=== PATIENT | male | born 1965 | race Caucasian/White ===

== ENCOUNTER 2023-11-27 16:18 | Observation (INO) | payer OTHER, SELFPAY ==
[2023-11-27] VITALS (16 sets, daily range): BP systolic 148–194; BP diastolic 80–108; BMI 33.5; BMI 35.8
--- NOTE | 2023-11-27 07:43 | ED.GENMED ---
Addendum entered and electronically signed by Jackson Pruitt, 11/27/23 15:14:
At 3 PM, I performed a quick look bedside echo of the heart at the request of internal medicine. There may be a small pericardial effusion but I see no sign of tamponade and wall motion appears grossly normal.
Addendum entered and electronically signed by Jackson Pruitt, 11/27/23 13:22:
At 1:15 PM, after I had planned discharge, the patient had an episode of rather severe dyspnea and appeared obviously dyspneic. He also had associated lightheadedness. He had a general unwell appearance. He has been observed for the past 6 hours
in the ED and is not improving. Therefore plan keeping patient in the hospital.
Original Note:
History of Present Illness
General
Chief Complaint: Chest Pain
Time Seen by Provider: 11/27/23 07:43
Travel History
Have you had any contact with someone who has COVID-19?: No
Do you have any symptoms of coronavirus? Fever > 100 degrees, chills, cough, shortness of breath, sore throat, loss of taste or smell, muscle aches, or headache?: No
History of Present Illness
History of Present Illness:
HPI: Patient presents with chest tightness. This is localized in a relatively small area just inferior to the left breast region. The symptoms started approximately 4 hours ago. He has somewhat of a pleuritic discomfort on the left side.
Symptoms do not worsen with position changes. He reports some shortness of breath. He denies any significant past medical history. He never smoked. He states he had a unremarkable cardiac evaluation about a year ago. He does drink alcohol daily
EXAM:
GENERAL: Well appearing in only mild distress
HEENT: Moist oral mucosa
CARDIOVASCULAR: No murmurs, normal heart rate and rhythm, No chest wall tenderness, some mild pain with rotation of the torso
PULMONARY: No respiratory distress, breath sounds are clear and equal
ABDOMEN: Soft with no peritoneal signs, no tenderness, elevated BMI
NEUROLOGIC: Excellent strength all extremities, no coordination deficits
PSYCHIATRIC: Appropriate mental status, normal insight and judgement
EXTREMITIES: Nontender, no edema, moves all extremities equally
SKIN: No rash, no lesions
ED COURSE:
7:45 AM: I initially evaluated patient
NUMBER AND COMPLEXITY OF PROBLEMS ADDRESSED AT THE ENCOUNTER
� Chronic conditions affecting care: The patient denies high blood pressure, denies diabetes, denies hyperlipidemia, denies smoking, father had heart attack at the age of 65 and from heart attack at the age of 70, mother had
cardiomyopathy
� Acute Exacerbation and/or Progression of Chronic Illness: This is an acute problem
� Differential Diagnosis includes: ACS, chest wall pain, PE, pneumothorax, pneumonia unlikely
AMOUNT AND/OR COMPLEXITY OF DATA TO BE REVIEWED AND ANALYZED
� I performed an independent evaluation of and my interpretation is:
EKG: Sinus 92, QTc 474 ms, no acute ST abnormality, artifact noted in V1
CT:
X-rays: Chest x-ray is negative
Laboratory Studies: Elevated D-dimer, 2 troponins are negative. LFTs abnormal consistent with alcoholism
Other: Nuc med study was reviewed and was felt to be a low risk study by radiology
� Review of other/old records: Basic blood work from August 2022 was unremarkable
� Clinical information was obtained by an independent historian: I spoke to the at bedside
� Prescriptions/Medications Considered but not given:
� Further testing considered but not performed:
RISK OF COMPLICATIONS AND/OR MORBIDITY OR MORTALITY OF PATIENT MANAGEMENT
� Social determinants of health affecting care: Lives at home with
� Discussion with other providers: I called [facility] but there was no answer
� Escalation of care including admission/observation vs risk of discharge considered: Given abrupt onset of symptoms that is somewhat pleuritic associate with shortness of breath, I initially offered and recommended CTA however
the patient states that he had 'near experience/2 seizures' when given diet for what sound like a CT myelogram in the . He absolutely refuses CTA at this time. Check D-dimer. D-dimer elevated, patient currently in V/Q as of noon. VQ
negative. The patient appears fairly comfortable on reassessment 12:45 PM. The patient again describes the pain location is a relatively small area. 2 troponins have been negative. He wishes to follow-up with Dr. Reno's group. Patient's liver
abnormality likely due to alcohol use however I do not think that this is the cause of his symptoms as all of his symptoms are on the left side.
Phy Exam
Physical Exam
Physical Exam:
See HPI
Scores
Heart Score for Chest Pain Patients
STEMI patient?: Not applicable
Course
Orders/Labs/Results
Orders:
Orders
11/27/23 07:35
EKG [Electrocardiogram (*1)] Urgent
Reason for Study: Chest Pain
EKG- Treatment ONCE
11/27/23 07:54
CR Chest - 2 Views Urgent
Comment:
Reason For Exam: L cp abrupt
11/27/23 07:59
Complete Blood Count/With Diff Urgent
Comprehensive Metabolic Panel Urgent
D-Dimer Urgent
Magnesium Urgent
Troponin I Urgent
11/27/23 08:29
Ketorolac [Toradol] 15 mg IV NOW STA
11/27/23 08:31
Nm Lung Scan Vent/Perf Routine
Reason For Exam: high ddimer, life threatening reaction to contrast
11/27/23 09:26
Troponin I Urgent
Abnormal Lab Results
11/27/23
07:59
RBC 4.10 L 10^6/uL
(4.70-6.10)
MCV 95.1 H fL
(80.0-94.0)
MCH 34.4 H pg
(27.0-31.0)
Plt Count 46 L 10^3/uL
(130-400)
Absolute Lymphs (auto) 0.9 L 10^3/uL
(1.2-3.4)
Lymphocytes % 15.5 L %
(20.5-51.1)
D-Dimer 1.19 H ug/mlFEU
(0.00-0.50)
BUN 6 L mg/dl
(9-20)
Creatinine 0.5 L mg/dL
(0.7-1.3)
Glucose 121 H mg/dl
(70-99)
Total Bilirubin 1.6 H mg/dl
(0.2-1.3)
AST 423 H U/L
(17-59)
ALT 107 H U/L
(0-50)
Alkaline Phosphatase 196 H U/L
(38-126)
11/27/23 07:59
11/27/23 07:59
Vital Signs
Initial and Last Documented VS:
Initial Vital Signs
Temp Pulse Resp BP Pulse Ox
99 F 99 18 176/104 96
11/27/23 07:36 11/27/23 07:36 11/27/23 07:36 11/27/23 07:36 11/27/23 07:36
Last Documented Vital Signs
Temp Pulse Resp BP Pulse Ox
99 F 102 16 163/83 95
11/27/23 07:36 11/27/23 13:00 11/27/23 13:00 11/27/23 13:00 11/27/23 13:00
*Critical Care Note
Total Time (30-74mins, 75-104mins- exclusive of procedures): Not Applicable
ED Attending Note
-
Portions of this chart may have been created with voice recognition software.� Occasional wrong word or��sound alike� substitutions may have occurred due to the inherent limitations of voice recognition software.
Discharge Plan
Departure
Patient Disposition: Home (Routine Discharge)
Date of Disposition: 11/27/23
Time of Disposition: 12:59
Patient with high blood pressure during this ER visit?: Yes
Discharge Problem:
Chest pain
Instructions: Chest Pain CBC Follow Up
Prescriptions:
No Action
cyclobenzaprine 10 MG tablet
10 mg PO TIDPRN PRN (Reason: pain) Qty: 12 0RF
Referrals:
Rehan Morillo CRNP [Family Provider] -
Activity Restrictions/Additional Instructions:
2 cardiac blood tests are normal. EKG shows no sign of any clear abnormality. Your liver numbers are abnormal and I strongly recommend decreasing alcohol use. I was unable to personally talk anybody from [facility] (to help with alcohol). The
outpatient phone number to call for [facility] is [phone]. The VQ scan did not show any sign of a blood clot and was felt to be 'low probability'. Follow-up with your primary care doctor regarding the liver function test abnormality as well.
Interventions
Interventions:
*Risk Screen - Suicide Last Done: 11/27/23 07:36
*General Assessment Last Done: 11/27/23 08:06
*Neglect/Abuse Screening Last Done: 11/27/23 07:36
ED- Fall Risk Assessment Last Done: 11/27/23 08:03
*ED COVID-19 Vaccine History Last Done: 11/27/23 08:03
ED- Cardiac Assessment Last Done: 11/27/23 08:04
[2023-11-27 08:20] LABS: D-Dimer 1.19 ug/mlFEU (0.00-0.50)
[2023-11-27 08:21] LABS: % Basophils 0.7 % (0-2); % Immature Granulocytes 0.2 % (0-0.5); % Lymphocytes 15.5 % (20.5-51.1); % Monocytes 7.9 % (1.7-9.3); % Neutrophils 73.7 % (42.2-75.2); Absolute Eosinophils 0.1 10^3/uL (0-0.7); Absolute Lymphocytes 0.9 10^3/uL (1.2-3.4); Absolute Monocytes 0.4 10^3/uL (0.1-0.6); Absolute Neutrophils 4.1 10^3/uL (1.4-6.5); Hemoglobin 14.1 g/dL (13.0-18.0); Mean Corp Hgb Conc. 36.2 g/dL (33.0-37.0); Mean Corpuscular Hgb 34.4 pg (27.0-31.0); Mean Corpuscular Volume 95.1 fL (80.0-94.0); Mean Platelet Volume 10.4 fL (7.4-10.4); Nucleated Red Blood Cells % 0 % (-); Platelet Count 46 10^3/uL (130-400); Red Cell Dist. Width 14.3 % (11.5-14.5); White Blood Cell Count 5.5 10^3/uL (4.8-10.8)
[2023-11-27] MEDS: TORADOL 15 MG IV (08:33)
[2023-11-27 08:45] LABS: ALT (SGPT) 107 U/L (0-50); AST (SGOT) 423 U/L (17-59); Albumin 4.3 g/dl (3.5-5.0); Alkaline Phosphatase 196 U/L (38-126); Blood Urea Nitrogen 6 mg/dl (9-20); Calcium 8.8 mg/dl (8.4-10.2); Carbon Dioxide 26 mmol/L (22-30); Chloride 101 mmol/L (98-107); Estimated Creatinine Clearance > 125 ml/min; Glucose 121 mg/dl (70-99); Magnesium 1.8 mg/dl (1.6-2.3); Potassium 3.6 mmol/L (3.5-5.1); Sodium 139 mmol/L (135-145); Total Bilirubin 1.6 mg/dl (0.2-1.3); Total Protein 7.4 g/dl (6.3-8.2); Troponin I < 0.012 ng/ml; eGFR > 60.00
[2023-11-27 10:02] LABS: Troponin I < 0.012 ng/ml
--- NOTE | 2023-11-27 13:30 | PTCARENOTE ---
Pt ready for discharge. Pt got dressed with spouse at bedside. Pt states he had a a sudden onset of SOB and c/o dizziness. [facility] bedside to evaluate pt. Pt unable to be discharged today. Will admit to Hospital for further evaluation and
testing. Pt and spouse advised.
[2023-11-27 14:05] LABS: NT-proBNP 32.5 pg/ml
--- NOTE | 2023-11-27 15:27 | HPS.HSE ---
Addendum entered and electronically signed by Ludmila Barksdale DO 11/27/23 16:35:
#Discussed with Cardiology - HTN urgency, possible HTN crisis, on differential is also pericarditis or pericardial effusion though less likely
-Labetolol IV now and prn
-aspirin 325 mg once now
Original Note:
Family Physician
-
Family Physician: MAURO Mcdowell
Chief Complaint
-
Chest pain, SOB
History of Present Illness
The patient is a 58 yo male with PMH significant for alcohol abuse (vodka) daily, last drink 2 days prior, and severe iodine dye allergy, presents to the ED due to chest pain that is left-sided, non-radiating, present at rest, localized to the left
breast region, not relieved by rest nor any particular activity. He has been having significant dyspnea that started this morning acutely, is at rest and worse with exertion, no URI symptoms. His cardiac work-up in ED was negative and the patient
was going to be DCd home, however experienced acute dyspnea when he got up to put on his clothing. Dyspnea is not associated with hypoxia, O2 has been stable on room air. D-Dimer is elevated, VQ scan was low probability, CXR without acute pathology,
troponin is negative, EKG without evidence for acute ischemia. LFTs are elevated. No history of smoking, no drug use.
Medical History
Past Medical History
Past Medical History: Reports Other (alcohol abuse- a large cup of Vodka (or more) daily)
Past Surgical History: Reports Orthopedic (Left knee replacement)
Social History
Tobacco: Non-smoker
Alcohol: Chronic Alcoholic
Drug: None
Personal:
Living: With Family
Family History
Family History: CAD (stroke and myocardial infarction father and grandfather)
Allergies / Home Medications
Allergies reflects when Allergies were last updated in [facility].
Home Medications with original date entered in [facility]
Allergy/Medication List:
Allergies
Allergy/AdvReac Type Severity Reaction Status Date / Time
Iodinated Contrast Media Allergy Shortness Verified 11/27/23 07:36
of Breath
Home Medications
cetirizine 10 mg tablet (Zyrtec) 10 mg PO DAILY PRN congestion/allergies 11/27/23
pseudoephedrine-guaifenesin ER 60 mg-600 mg tablet,extend release 12hr (Mucinex D) 1 tab PO Q12H 11/27/23
Review of Systems
-
A 12 point ROS was completed and negative except as noted: Yes
Physical Exam
Vital Signs
Vital Signs
Temp Pulse Resp BP Pulse Ox
99 F 107 20 163/83 96
11/27/23 07:36 11/27/23 14:30 11/27/23 14:30 11/27/23 13:00 11/27/23 14:30
Physical Exam
General: Well Developed, Well Nourished and Conversant
HEENT: NormoCephalic, Anicteric and Moist mucous membranes
Respiratory: Clear
Cardiac: S1/S2, Regular Rhythm and Tachycardia
GI: Soft, Non Tender and Non Distended
Musculoskeletal: No Clubbing, No Cyanosis and No Edema
Skin: Warm and Dry
Neuro: AO x 3 and No Motor Deficits
Psych: Calm
Laboratory Results
-
11/27/23 07:59
11/27/23 07:59
Laboratory Results
Total Bilirubin 1.6 mg/dl (0.2-1.3) H 11/27/23 07:59
AST 423 U/L (17-59) H 11/27/23 07:59
ALT 107 U/L (0-50) H 11/27/23 07:59
Alkaline Phosphatase 196 U/L (38-126) H 11/27/23 07:59
Troponin I < 0.012 ng/ml 11/27/23 09:26
Data Reviewed
-
Diagnostic Radiology: Image Personally Visualized and interpreted and Report Reviewed by me (CXR no acute process, VQ scan low probability for PE)
Medical Tests (Nuc Med, Echo, EKG etc): Image Personally Visualized and interpreted and Report Reviewed by me (EKG-prolonged QT, NSR, non-specific T wave abnormalities, no changes from 09/14/22)
Impression/Plan
-
IMPRESSION:The patient is a 58 yo male with PMH significant for alcohol abuse (vodka) daily, last drink 2 days prior, and severe iodine dye allergy, presents to the ED due to chest pain that is left-sided, non-radiating, present at rest, localized
to the left breast region, not relieved by rest nor any particular activity. He has been having significant dyspnea that started this morning acutely, is at rest and worse with exertion, no URI symptoms. His cardiac work-up in ED was negative and
the patient was going to be DCd home, however experienced acute dyspnea when he got up to put on his clothing. Dyspnea is not associated with hypoxia, O2 has been stable on room air. D-Dimer is elevated, VQ scan was low probability, CXR without
acute pathology, troponin is negative, EKG without evidence for acute ischemia. LFTs are elevated. No history of smoking, no drug use.
Bedside echo in ED performed-no evidence for large pericardial effusion
#Chest pain, persistent, localized, left-sided slight pain over pancrease- concern for ACS versus musculoskeletal vs pancreatitis
-telemetry, serial trop, Cardiology consultation
-EKG in am, of note patient w prolonged QT
-lipase pending
#Dyspnea and dizziness with standing, low-probability VQ scan, patient with severe reaction to dye and refused CT scan with premedication due to prior reaction (grand mal seizures), possibly metabolic in nature in the setting of alcoholism and
alcohol hepatitis
-check ABG
-pulse oximetry monitoring
-check orthostatics
-Pulmonary consultation appreciated, unclear etiology for relatively acute onset dyspnea
-formal echocardiogram pending
#Alcoholic, last drink 1-2 days prior
-monitor for signs of withdrawal, withdrawal protocol
-thiamine, folate, MVI
#Likely alcohol hepatitis
-repeat CMP in am
-supportive management and monitor
-check lipase
DVT proph-PCDs
Full code
[2023-11-27] MEDS: ROBITUSSIN 200 MG PO (16:10)
[2023-11-27] MEDS: MORPHINE SULFATE 2 MG IV (16:11)
[2023-11-27] MEDS: TRANDATE 10 MG IV ×2 (16:20→17:53)
[2023-11-27] MEDS: ASPIRIN ENTERIC COATED 325 MG PO (16:20)
[2023-11-27] MEDS: ZOFRAN 4 MG IV (16:23)
[2023-11-27 16:52] LABS: Lipase 149 U/L (23-300)
[2023-11-27 16:59] LABS: Urine Albumin Trace (Neg - Trace); Urine Bilirubin 1+ (Negative); Urine Character Clear (Clear); Urine Color Amber; Urine Glucose Negative (Negative); Urine Ketone 2+ (Negative); Urine Leukocyte Trace (Negative); Urine Nitrite Positive (Negative); Urine Occult Blood Negative (Negative); Urine Specific Gravity 1.025 (<1.030); Urine Urobilinogen 3+ (Neg - 1+)
[2023-11-27 17:06] LABS: APTT 33.1 Sec (23.4-35.0)
[2023-11-27 17:10] LABS: Alcohol 55 mg/dl; GGTP 1305 U/L (15-73); Phosphorus 4.1 mg/dl (2.5-4.5)
[2023-11-27 17:16] LABS: B-Hydroxybutyrate 0.87 mmol/L (0.02-0.27)
[2023-11-27 17:17] LABS: Urine Mucus Moderate
[2023-11-27 17:18] LABS: Troponin I < 0.012 ng/ml; Urine Bacteria Moderate (Negative); Urine Red Blood Cell 0-2 /HPF (0-2); Urine White Cell 0-2 /HPF (0-5)
[2023-11-27 17:20] LABS: B.E. 1.8 mmol/L; HCO3 25.7 mmol/L (21-28); O2 Saturation % 96.4 % (94-98); PCO2 37 mmHg (35-48); PO2 77 mmHg (83-108); pH 7.45 (7.35-7.45)
[2023-11-27] MEDS: FOLVITE 1 MG PO (17:43)
[2023-11-27] MEDS: ATIVAN 1 MG PO ×2 (17:59→21:02)
[2023-11-27 18:16] LABS: Amphetamines Negative (Negative); Barbiturates Negative (Negative); Benzodiazepines Negative (Negative); Buprenorphine Negative (Negative); Cocaine Negative (Negative); Marijuana Negative (Negative); Methadone Negative (Negative); Methamphetamines Negative (Negative); Opiates Positive (Negative); Phencyclidine Negative (Negative); Tricyclic Antidepressants Negative (Negative)
--- NOTE | 2023-11-27 19:03 | CON.CAR ---
Consultation
Consultation Request
Date/Time Consultation Requested: 11/27/2023
Date/Time Consultation Performed: 11/27/2023
Requesting Provider: Dr. Barksdale
Performing Provider: Dr. Cleary
Reason for Consultation: Chest pain
Medical History
-
Chief Complaint: Chest pain
History of Present Illness:
58-year-old male with untreated hypertension (patient stopped amlodipine 1 year ago after taking it for only 3 months), alcoholism (3 cups of vodka straight essentially daily), obesity, and likely untreated obstructive sleep apnea ( states that
he snores very loudly and has disrupted breathing) presenting with chest pain and shortness of breath. The patient states that the shortness of breath has been occurring for the past few weeks, but the chest pain began today and has been constant.
It is an achy/pressure-like sensation located underneath his left breast crease and it hurts when he presses down on it.
Past Medical History
Past Medical History: HTN (Untreated)
Past Surgical History: Orthopedic (Left knee replacement surgery)
Social History
Tobacco: Non-Smoker
Alcohol: Chronic Alcoholic
Drug: None
Personal:
Living: With Family
Family History
Family History: CAD
Allergies / Home Medications
Allergy/AdvReac Type Severity Reaction Status Date / Time
Iodinated Contrast Media Allergy Shortness Verified 11/27/23 07:36
of Breath
Medication Instructions Recorded Confirmed Type
cetirizine 10 mg tablet (Zyrtec) 10 mg PO DAILY PRN 11/27/23 11/27/23 History
congestion/allergies
pseudoephedrine-guaifenesin ER 60 1 tab PO Q12H 11/27/23 11/27/23 History
mg-600 mg tablet,extend release
12hr (Mucinex D)
Review of Systems
-
All other systems: Negative unless noted
Respiratory: Trouble Breathing
Cardiac: Chest Pain
Physical Exam
Vital Signs
Temp Pulse Resp BP Pulse Ox
99.1 F 100 16 194/108 96
11/27/23 19:00 11/27/23 19:00 11/27/23 19:00 11/27/23 19:00 11/27/23 19:00
Lab Results
11/27/23 07:59
11/27/23 07:59
Troponin I < 0.012 ng/ml 11/27/23 16:43
Llv-O-Mnjbtiexsup Pept 32.5 pg/ml 11/27/23 07:59
Physical Exam
General: No Apparent Distress and Comfortable
HEENT: Normocephalic
Respiratory: Clear
Cardiac: S1/S2 and Murmur (10/30)
Breast: N/A
GI: Soft
Rectal: Deferred by Provider
Musculoskeletal: No Clubbing, No Cyanosis and No Edema
Skin: Warm and Dry
Neuro: AO x 3
Psych: Calm
Impression / Plan
-
58-year-old male with untreated hypertension (patient stopped amlodipine 1 year ago after taking it for only 3 months; although his blood pressure was 186/112 mmHg at a previous ER visit in 2018), alcoholism (3 cups of vodka straight essentially
daily), obesity, and likely untreated obstructive sleep apnea ( states that he snores very loudly and has disrupted breathing) presenting with chest pain and shortness of breath. The patient states that the shortness of breath has been
occurring for the past few weeks, but the chest pain began today and has been constant. It is an achy/pressure-like sensation located underneath his left breast crease and it hurts when he presses down on it. On admission, patient had uncontrolled
hypertension with a blood pressure of 176/104.
Musculoskeletal chest pain:
-Reproducible on examination; pain control as per primary team.
-No signs for ACS; cardiac enzymes negative and EKG unremarkable.
Uncontrolled hypertension:
-Patient has had untreated hypertension for years.
-Will start lisinopril 10 mg daily, spironolactone 25 mg daily, and Toprol-XL 25 mg daily for now; uptitrate as needed.
-Obtain an echocardiogram on Wednesday to thoroughly assess cardiac function.
Alcoholism:
-The typically patient drinks 3 cups of vodka daily.
-His last drink was 2 days ago; starting to show some signs of withdrawal.
-Management as per the primary team.
Obesity:
-Aggressive weight loss is recommended.
-Will check lipid panel.
-TSH is abnormal (10); management as per primary team--should check free T4.
-Recommend outpatient sleep study, as he likely has undiagnosed AMOL.
Thyroid dysfunction:
-TSH is abnormal (10); management as per primary team--should check free T4.
Data Reviewed
-
EKG: Tracing Personally Visualized and interpreted (Sinus rhythm at 92 bpm with incomplete right bundle branch block and nonspecific T wave abnormality.)
Medical Tests (Nuc Med, Echo etc): Discussed with Physician, Discussed with Patient and Discussed with Family ( at bedside)
Labs: Labs Reviewed by me and Discussed with Physician
[2023-11-27 19:26] LABS: Fentanyl, Urine Negative (Negative)
--- NOTE | 2023-11-27 19:38 | CON.PUL ---
Consultation
Consultation Request
Date/Time Consultation Requested: 11-27-23
Date/Time Consultation Performed: 11-27-23
Requesting Provider: Hospitalist
Performing Provider: Dr Malone
Reason for Consultation: dyspnea
Medical History
-
Chief Complaint: dyspnea
History of Present Illness:
Mr Sulaiman Spann is a 58/M adm 11-27 with acute precordial CP on DOA.
At ER, negative cardiac work up.
Ready for d/c but presented acute dyspnea while put on his clothes, however, no hypoxemia while on RA. Elevated D-dimer, V/Q low prob
No personal or FH of VTE
Denies JOAQUIM edema
LLNS. No personal h/o cancer
Past Medical History
Past Medical History: Other (see A&P for PMH/PSH)
Social History
Tobacco: Non-smoker
Alcohol: Chronic Alcoholic
Drug: None
Personal:
Living: With Family
Family History
Family History: CAD (F)
Allergies / Home Medications
Allergies
Allergy/AdvReac Type Severity Reaction Status Date / Time
Iodinated Contrast Media Allergy Shortness Verified 11/27/23 07:36
of Breath
Home Medications
Medication Instructions Recorded Confirmed Last Taken Type
cetirizine 10 mg tablet (Zyrtec) 10 mg PO DAILY PRN 11/27/23 11/27/23 Unknown History
congestion/allergies
pseudoephedrine-guaifenesin ER 60 1 tab PO Q12H 11/27/23 11/27/23 11/26/23 History
mg-600 mg tablet,extend release
12hr (Mucinex D)
Review of Systems
-
History Source: Patient
All other systems: Negative unless noted
Respiratory: Trouble Breathing
Cardiac: Chest Pain
Vitals / Labs / Diagnostic Testing
Vital Signs
Temp Pulse Resp BP Pulse Ox
99.1 F 100 16 194/108 96
11/27/23 19:00 11/27/23 19:00 11/27/23 19:00 11/27/23 19:00 11/27/23 19:00
Lab Data
11/27/23 07:59
11/27/23 07:59
Laboratory Results
11/27/23
16:43
APTT 33.1
pH 7.45
pCO2 37
pO2 77 L
HCO3 25.7
O2 Delivery Level
Diagnostic Testing:
Physical Exam
-
HEENT: Normocephalic and Moist Mucous Membranes
Cardiovascular: Regular Rhythm, Murmur (n), Peripheral Edema, Calf Tenderness (n) and JVD (n)
Respiratory: Clear and Non-Labored Respirations
GI: Soft, Non Distended and Non Tender
Neurology: Awake, AO x 3, No Motor Deficits, Other (anxious) and Other (depressed)
Skin: Dry
General: Respiratory Distress (n)
Assessment
-
Assessment:
Mr Sulaiman Spann is a 58/M adm 11-27 with acute precordial CP on DOA. At ER, negative cardiac work up. Ready for d/c but presented acute dyspnea while put on his clothes, however, no hypoxemia while on RA. Elevated D-dimer, V/Q low prob
Impression:
Dyspnea
Elevated D-dimer
CP, musculoskeletal, negative cardiac enzymes and EKG
Uncontrolled HTN, untreated, started on lisinopril, spironolactone, toprol XL upon adm
Distal tremor
Transaminitis
Negative troponin, normal BNP
Elevated TSH
UDS positive opiate (received morphine at ER)
Conditions CADDIE:
HTN, untreated
Chronic alcoholism
Morbid obesity
Untreated anxiety and depression
L knee replacement 2021
Contrast allergy
Plan:
Event of dyspnea at ER self resolved
Negative cardiac work up: EKG, trop, BNP
Remained resp jackson stable on RA, POx 96%
CXR and V/Q scan with no abnormalities, films reviewed, low prob V/Q
Reported h/o contrast induced grand mal seizure event when received contrast for myelogram several y ago, reluctant to receive contrast
D-dimer elevated, no baseline to compare, mildly elevation above 1.0 ug/mL FEU
Noted evidence of transaminitis likely due to (alcoholic) liver disease, which reduced clearance of fibrin degradation products
JOAQUIM doppler US in AM, will recommend further work up if negative
Uncontrolled HTN
Started multiple a-HTN agents this adm
Noted distal hand tremor, h/o etoh abuse with last etoh drink 2 d CADDIE, admits craving for alcohol
D/w Mr Spann
Diagnostic tests:
CXR 11-27-23: PA/lat, no comparison films. No infiltrates
V/Q 11-27-23: no comparison films, low prob test
[2023-11-27] MEDS: ZESTRIL 10 MG PO (20:42)
[2023-11-27] MEDS: ALDACTONE 25 MG PO (20:43)
[2023-11-27] MEDS: TOPROL XL 25 MG PO (20:43)
[2023-11-27] MEDS: THIAMINE INJECTION 200 MG IV (20:43)
--- NOTE | 2023-11-27 21:45 | PTCARENOTE ---
Patient to ultrasound of lower extremities and abdomen via stretcher at this time.
[2023-11-27] MEDS: BENADRYL 25 MG PO (23:50)
[2023-11-28] VITALS (7 sets, daily range): BP systolic 124–153; BP diastolic 65–93; PULSE 93–100; BMI 35.9
[2023-11-28] MEDS: ATIVAN 1 MG PO ×3 (04:38→13:12)
[2023-11-28 07:28] LABS: Hematocrit 36.3 % (39.0-52.0); Hemoglobin 13.2 g/dL (13.0-18.0); Mean Corp Hgb Conc. 36.4 g/dL (33.0-37.0); Mean Corpuscular Hgb 34.6 pg (27.0-31.0); Platelet Count 33 10^3/uL (130-400); Red Blood Cell Count 3.82 10^6/uL (4.70-6.10); White Blood Cell Count 4.5 10^3/uL (4.8-10.8)
[2023-11-28 07:34] LABS: APTT 33.9 Sec (23.4-35.0); INR 1.12; PT 14.2 Sec (11.4-14.6)
[2023-11-28] MEDS: ALDACTONE 25 MG PO (08:05)
[2023-11-28] MEDS: ZESTRIL 10 MG PO (08:06)
[2023-11-28] MEDS: TOPROL XL 25 MG PO ×2 (08:06→15:54)
[2023-11-28] MEDS: THIAMINE INJECTION 200 MG IV ×2 (08:06→20:10)
[2023-11-28] MEDS: FOLVITE 1 MG PO (08:06)
[2023-11-28 08:09] LABS: ALT (SGPT) 86 U/L (0-50); AST (SGOT) 265 U/L (17-59); Albumin 3.7 g/dl (3.5-5.0); Alkaline Phosphatase 155 U/L (38-126); Blood Urea Nitrogen 9 mg/dl (9-20); Calcium 8.8 mg/dl (8.4-10.2); Carbon Dioxide 29 mmol/L (22-30); Chloride 96 mmol/L (98-107); Estimated Creatinine Clearance > 125 ml/min; Glucose 115 mg/dl (70-99); HDL Cholesterol 74 mg/dl; LDL Cholesterol, Calculated 120 mg/dl; Potassium 3.7 mmol/L (3.5-5.1); Sodium 134 mmol/L (135-145); Total Cholesterol 218 mg/dl (50-199); Total Protein 6.6 g/dl (6.3-8.2); Triglyceride 124 mg/dl (10-149); Very Low Density Lipoprotein 24 mg/dl (0-30); eGFR > 60.00
[2023-11-28 08:33] LABS: Glycohemoglobin (HgbA1c) 5.6 % (4.0-5.6)
[2023-11-28 08:55] LABS: Free T4 1.34 ng/dl (0.78-2.19)
[2023-11-28] MEDS: LIBRIUM 10 MG PO (09:58)
--- NOTE | 2023-11-28 10:53 | W.PN.HOSP.TC ---
Today's Communication/Plan
-
Monitor vital signs and see plan
Monitor platelets
Start Librium
Monitor blood pressure and uptitrate meds as necessary
Monitor LFTs
Assessment / Plan
Assessment / Plan
General: Well Developed, Well Nourished and Conversant
HEENT: NormoCephalic, Anicteric and Moist mucous membranes
Respiratory: Clear
Cardiac: S1/S2, Regular Rhythm and Tachycardia
GI: Soft, Non Tender and Non Distended
Musculoskeletal: No Clubbing, No Cyanosis and No Edema
Skin: Warm and Dry
Neuro: AO x 3 and No Motor Deficits
Psych: Calm
Chest pain suspect 2/2 hypertensive urgency
serial trop not significant, Cardiology following
Started on spironolactone, metoprolol, lisinopril
-lipase not elevated
#Dyspnea and dizziness with standing, low-probability VQ scan, patient with severe reaction to dye and refused CT scan with premedication due to prior reaction (grand mal seizures), possibly metabolic in nature in the setting of alcoholism and
alcohol hepatitis
-pulse oximetry monitoring
-check orthostatics
-Pulmonary consultation appreciated, unclear etiology for relatively acute onset dyspnea
-echocardiogram pending
#Alcoholic, last drink 1-2 days prior
-monitor for signs of withdrawal, withdrawal protocol
start librium
-thiamine, folate, MVI
#Likely alcohol hepatitis and fatty liver
Monitor CMP
-supportive management and monitor
-check lipase
Hyponatremia
Monitor
TSH 10.2
Start Synthroid
Repeat TSH in 4 weeks
Thrombocytopenia likely secondary to alcohol
If does not improve then will need hematology evaluation
DVT proph-SCDs
Full code
Anticipated Discharge: > 48 hours
Subjective/Interval History
-
Date of Service: November 28, 2023
denies pain
Objective Data
-
Labs:
Laboratory Results
11/28/23
06:53
WBC 4.5 L
Hgb 13.2
Hct 36.3 L
Plt Count 33 L D
PT 14.2
INR 1.12
APTT 33.9
Sodium 134 L
Potassium 3.7
Chloride 96 L
Carbon Dioxide 29
BUN 9
Creatinine 0.5 L
Glucose 115 H
Calcium 8.8
Total Bilirubin 3.0 H D
AST 265 H
ALT 86 H
Alkaline Phosphatase 155 H
Vital Signs:
Vital Signs
Temp Pulse Resp BP Pulse Ox
98.1 F 95 18 143/79 95
11/28/23 07:47 11/28/23 07:47 11/28/23 07:47 11/28/23 07:47 11/28/23 07:47
I&O
11/27/23 11/28/23 11/29/23
06:59 06:59 06:59
Intake Total 960 / 960
Balance 960 / 960
--- NOTE | 2023-11-28 15:32 | W.PN.CD ---
Today's Communication / Plan
-
-Blood pressure improving; continue lisinopril 10 mg daily and spironolactone 25 mg daily.
-Will increase Toprol-XL to 50 mg daily to help better manage tachycardia and blood pressure.
-Will obtain an echocardiogram tomorrow to thoroughly assess cardiac function.
Impression / Plan
-
58-year-old male with untreated hypertension (patient stopped amlodipine 1 year ago after taking it for only 3 months; although his blood pressure was 186/112 mmHg at a previous ER visit in 2018), alcoholism (3 cups of vodka straight essentially
daily), obesity, and likely untreated obstructive sleep apnea ( states that he snores very loudly and has disrupted breathing) presenting with chest pain and shortness of breath. The patient states that the shortness of breath has been
occurring for the past few weeks, but the chest pain began today and has been constant. It is an achy/pressure-like sensation located underneath his left breast crease and it hurts when he presses down on it. On admission, patient had uncontrolled
hypertension with a blood pressure of 176/104.
Musculoskeletal chest pain:
-Reproducible on examination; pain control as per primary team.
-No signs for ACS; cardiac enzymes negative and EKG unremarkable.
Uncontrolled hypertension:
-Patient has had untreated hypertension for years.
-Blood pressure improving; continue lisinopril 10 mg daily and spironolactone 25 mg daily.
-Will increase Toprol-XL to 50 mg daily to help better manage tachycardia and blood pressure.
-Will obtain an echocardiogram tomorrow to thoroughly assess cardiac function.
Alcoholism:
-The typically patient drinks 3 cups of vodka daily.
-His last drink was 2 days ago; as shown some signs of withdrawal.
-Management as per the primary team.
Obesity:
-Aggressive weight loss is recommended.
-TSH is abnormal (10); management as per primary team--should check free T4.
-Recommend outpatient sleep study, as he likely has undiagnosed AMOL.
Mild hyperlipidemia:
-Will hold off on any statin due to abnormal LFTs at this time.
Thyroid dysfunction:
-TSH is abnormal (10) but free T4 is normal.
Physical Exam
Vital Signs/Labs
Vital Signs
Temp Pulse Resp BP Pulse Ox
98.6 F 93 16 126/70 98
11/28/23 15:30 11/28/23 15:30 11/28/23 15:30 11/28/23 15:30 11/28/23 15:30
11/27/23 11/28/23 11/29/23
06:59 06:59 06:59
Actual Weight 116.715 kg
11/28/23 06:53
11/28/23 06:53
PT 14.2 Sec (11.4-14.6) 11/28/23 06:53
INR 1.12 11/28/23 06:53
APTT 33.9 Sec (23.4-35.0) 11/28/23 06:53
Magnesium 1.8 mg/dl (1.6-2.3) 11/27/23 07:59
Triglycerides 124 mg/dl (10-149) 11/28/23 06:53
LDL Cholesterol, Calc 120 mg/dl 11/28/23 06:53
VLDL Cholesterol, Calc 24 mg/dl (0-30) 11/28/23 06:53
HDL Cholesterol 74 mg/dl 11/28/23 06:53
TSH 10.50 uIU/ml (0.47-4.68) H 11/27/23 07:59
Free T4 1.34 ng/dl (0.78-2.19) 11/28/23 06:53
11/27/23
07:59
Psr-O-Jjiqnapwrur Pept 32.5
LAB Results
11/27/23 11/27/23 11/27/23
07:59 09:26 16:43
Troponin I < 0.012 < 0.012 < 0.012
Physical Exam
Constitutional: No acute distress and Comfortable
EENT: Anicteric
Cardiovascular: Rhythm & rate is regular, Pedal edema is absent, Systolic murmur absent and S1S2 is normal
Respiratory: Respiratory effort normal and Lungs clear to auscul.
GI: Soft
Neuro/Psych: AO x 3
Other: Skin (Warm, dry, intact)
Data Reviewed
-
Date of Service: November 28, 2023
EKG: Tracing Personally Visualized and interpreted (Telemetry: Sinus rhythm/sinus tachycardia)
Medical Tests (PFT, Pathology etc): Discussed with Patient
Labs: Labs Reviewed by me
--- NOTE | 2023-11-28 15:53 | W.PN.PUL3 ---
Today's Communication / Plan
-
Reconsult prn
Assessment
-
Assessment:
Mr Sulaiman Spann is a 58/M adm 11-27 with acute precordial CP on DOA. At ER, negative cardiac work up. Ready for d/c but presented acute dyspnea while put on his clothes, however, no hypoxemia while on RA. Elevated D-dimer, V/Q low prob
Impression:
Dyspnea, episodic
Elevated D-dimer
CP, musculoskeletal, negative cardiac enzymes and EKG
Uncontrolled HTN, untreated, started on lisinopril, spironolactone, toprol XL upon adm
Distal tremor
Transaminitis
Negative troponin, normal BNP
Elevated TSH
UDS positive opiate (received morphine at ER)
Conditions [employer]:
HTN, untreated
Chronic alcoholism
Morbid obesity
Untreated anxiety and depression
L knee replacement 2021
Contrast allergy
Plan:
Event of dyspnea at ER self resolved
Negative cardiac work up: EKG, trop, BNP
Remained resp jackson stable on RA, POx 96%
CXR and V/Q scan with no abnormalities, films reviewed, low prob V/Q
Reported h/o contrast induced grand mal seizure event when received contrast for myelogram several y ago, reluctant to receive contrast
D-dimer elevated, no baseline to compare, mildly elevation above 1.0 ug/mL FEU
Noted evidence of transaminitis likely due to (alcoholic) liver disease, which reduced clearance of fibrin degradation products
JOAQUIM doppler US 11-28: negative
Uncontrolled HTN
Started multiple a-HTN agents this adm
Noted distal hand tremor, h/o etoh abuse with last etoh drink 2 d [employer], admits craving for alcohol
Monitor for DTs
Started chlordiazepoxide, folate, thiamina
D/w Mr Spann
Reconsult prn
Diagnostic tests:
CXR 11-27-23: PA/lat, no comparison films. No infiltrates
V/Q 11-27-23: no comparison films, low prob test
Subjective Data
-
Date of Service:
Date of Service: November 28, 2023
Chief Complaint: Pulmonary Follow Up
Subjective:
No major events reported resp jackson
Continues on RA
Review of Systems
General: Fever (n), Sweats (n), Chills (n) and Satisfactory Appetite
HEENT: Epistaxis (n) and Dysphagia (n)
Cardiopulmonary: Dyspnea (n), Cough and Wheezing (n)
GI: Abdominal Pain (n), Nausea (n) and Vomiting (n)
Neuro: Weakness (n)
Objective Data
Data Reviewed
Vital Signs / I&O / Oxygen:
Vital Signs
Temp Pulse Resp BP Pulse Ox
98.6 F 93 16 126/70 98
11/28/23 15:30 11/28/23 15:30 11/28/23 15:30 11/28/23 15:30 11/28/23 15:30
Intake and Output
11/27/23 11/28/23 11/29/23
06:59 06:59 06:59
Intake Total 960 / 960
Balance 960 / 960
SaO2 98
Physical Exam
General: Comfortable
HEENT: Normocephalic and Moist Mucous Membranes
Cardiovascular: Regular Rhythm, Murmur and Peripheral Edema (n)
Respiratory: Clear, Non-Labored Respirations and Stridor (n)
GI: Soft, Non Distended and Non Tender
Neurology: Awake, AO x 3 and No Motor Deficits
Skin: Dry
Labs/Micro/Reports
Lab Data
11/28/23 06:53
11/28/23 06:53
Laboratory Results
11/27/23 11/28/23
16:43 06:53
PT 14.2
INR 1.12
APTT 33.1 33.9
pH 7.45
pCO2 37
pO2 77 L
HCO3 25.7
O2 Delivery Level
[2023-11-28] MEDS: LIBRIUM 25 MG PO ×2 (15:54→22:21)
--- NOTE | 2023-11-28 16:04 | CM ---
Met with patient at bedside; initial assessment and CM Consult completed
Pharmacy verified: [facility]
Offered counseling with [facility]; patient agreeable. Contacted [facility]; counselor is in the hospital and will meet with patient today
Patient reported that he lives with his in [place]; depending on entry he has 2,3, or 5 steps to enter home; powder room on the 1st floor; bedroom and bath on the upper level; bath has shower stall with seat and grab bar
PLOF: patient reported that he is independent with ambulation, stairs, and ADLs; drives
DME: none
SNF/Rehab utilization history: 2021 following knee surgery he went to skilled rehab
Transport: family or friend will provide ride home
Plan: Discharge to Home when medically stable; CM will continue to follow for discharge needs
[2023-11-29 04:00] VITALS: BP 134/87
[2023-11-29 06:00] VITALS: BMI 35.2
[2023-11-29] MEDS: SYNTHROID 25 MCG PO (06:02)
[2023-11-29 06:09] LABS: % Basophils 0.7 % (0-2); % Eosinophils 2.2 % (0-6); % Lymphocytes 13.2 % (20.5-51.1); % Monocytes 9.4 % (1.7-9.3); % Neutrophils 74.5 % (42.2-75.2); Absolute Eosinophils 0.1 10^3/uL (0-0.7); Absolute Lymphocytes 0.6 10^3/uL (1.2-3.4); Absolute Monocytes 0.4 10^3/uL (0.1-0.6); Absolute Neutrophils 3.1 10^3/uL (1.4-6.5); Hematocrit 37.9 % (39.0-52.0); Hemoglobin 13.3 g/dL (13.0-18.0); Mean Corp Hgb Conc. 35.1 g/dL (33.0-37.0); Mean Corpuscular Hgb 34.7 pg (27.0-31.0); Nucleated Red Blood Cells % 0 % (-); Red Blood Cell Count 3.83 10^6/uL (4.70-6.10); Red Cell Dist. Width 13.7 % (11.5-14.5); White Blood Cell Count 4.2 10^3/uL (4.8-10.8)
[2023-11-29 06:32] LABS: ALT (SGPT) 74 U/L (0-50); AST (SGOT) 215 U/L (17-59); Albumin 3.5 g/dl (3.5-5.0); Alkaline Phosphatase 143 U/L (38-126); Blood Urea Nitrogen 10 mg/dl (9-20); Carbon Dioxide 29 mmol/L (22-30); Chloride 98 mmol/L (98-107); Estimated Creatinine Clearance > 125 ml/min; Glucose 116 mg/dl (70-99); Potassium 3.9 mmol/L (3.5-5.1); Sodium 136 mmol/L (135-145); Total Bilirubin 2.8 mg/dl (0.2-1.3); Total Protein 6.4 g/dl (6.3-8.2); eGFR > 60.00
[2023-11-29 07:13] LABS: Mean Platelet Volume 11.5 fL (7.4-10.4); Platelet Count 35 10^3/uL (130-400)
[2023-11-29 07:45] VITALS: BP 140/86; BP 140/87; BP 141/87; PULSE 100; PULSE 96
[2023-11-29] MEDS: ZESTRIL 10 MG PO (08:05)
[2023-11-29] MEDS: ALDACTONE 25 MG PO (08:06)
[2023-11-29] MEDS: FOLVITE 1 MG PO (08:06)
[2023-11-29] MEDS: THIAMINE INJECTION 200 MG IV ×2 (08:06→19:35)
[2023-11-29] MEDS: TOPROL XL 50 MG PO (08:06)
[2023-11-29] MEDS: LIBRIUM 25 MG PO ×3 (08:06→21:21)
[2023-11-29] MEDS: FLUSH (NSS) 1 FLUSH IV (08:07)
--- NOTE | 2023-11-29 08:35 | CARDSERVLU ---
Echocardiogram with [facility] completed after protocol screening completed. Allergies verified.
Patent IV site: ___R hand_
IV site flushed with 0.9% NaCl pre and post administration.
Diluted bolus method utilized to enhance visualization of ventricular escalona.
Total volume given: __2.5__ mL
Patient tolerated all procedures well without complications.
--- NOTE | 2023-11-29 09:46 | W.PN.CD ---
Today's Communication / Plan
-
With new meds he will need BMP in 2 and 4 weeks with results to his PCP
He should see his PCP in 2-3 weeks for BP check
Please consider GI and hematology consults
Cardiology will sign off
Impression / Plan
-
HTN
- Coming under much better control on the 3 new meds
HOGAN => etiology uncertain, echo, cxr, V/Q scan, BNP, trop all fine
CP => noncardiac
ETOH
- I told him he should abstain from ETOH
Ectopic atrial rhythm, no symptoms, not important
Obesity, BMI 35 with comorbid conditions
Possible sleep apnea
Mild hyperlipidemia
- No statin at this time
Abnl TSH
- Just sick euthyroid? Defer to medicine
Abnormal LFTs
- Suggest consideration for GI consult but defer to medicine
Severe thrombocytopenia
- Suggest consideration for hematology consult
Subjective:
Feels well
Physical Exam
Vital Signs/Labs
Vital Signs
Temp Pulse Resp BP Pulse Ox
98.7 F 96 16 146/86 98
11/29/23 07:45 11/29/23 08:06 11/29/23 07:45 11/29/23 08:06 11/29/23 07:45
11/28/23 11/29/23 11/30/23
06:59 06:59 06:59
Actual Weight 116.715 kg 114.351 kg
11/29/23 05:51
11/29/23 05:51
PT 14.2 Sec (11.4-14.6) 11/28/23 06:53
INR 1.12 11/28/23 06:53
APTT 33.9 Sec (23.4-35.0) 11/28/23 06:53
Magnesium 1.8 mg/dl (1.6-2.3) 11/27/23 07:59
Triglycerides 124 mg/dl (10-149) 11/28/23 06:53
LDL Cholesterol, Calc 120 mg/dl 11/28/23 06:53
VLDL Cholesterol, Calc 24 mg/dl (0-30) 11/28/23 06:53
HDL Cholesterol 74 mg/dl 11/28/23 06:53
TSH 10.50 uIU/ml (0.47-4.68) H 11/27/23 07:59
Free T4 1.34 ng/dl (0.78-2.19) 11/28/23 06:53
11/27/23
07:59
Lje-C-Xltppkhluga Pept 32.5
LAB Results
11/27/23 11/27/23 11/27/23
07:59 09:26 16:43
Troponin I < 0.012 < 0.012 < 0.012
Physical Exam
Constitutional: No acute distress
EENT: Anicteric
Cardiovascular: Rhythm & rate is regular and Pedal edema is absent
Respiratory: Respiratory effort normal and Lungs clear to auscul.
GI: Soft
Neuro/Psych: AO x 3 and Motor deficits absent
Data Reviewed
-
Date of Service: November 29, 2023
--- NOTE | 2023-11-29 11:41 | W.PN.HOSP.TC ---
Today's Communication/Plan
-
Monitor vital signs see plan
Will have patient follow-up with GI and hematology outpatient
Monitor platelets
Continue with blood pressure medications
Continue with Librium
Monitor for withdrawal
cw synthroid
Assessment / Plan
Assessment / Plan
General: Well Developed, Well Nourished and Conversant
HEENT: NormoCephalic, Anicteric and Moist mucous membranes
Respiratory: Clear
Cardiac: S1/S2, Regular Rhythm and Tachycardia
GI: Soft, Non Tender and Non Distended
Musculoskeletal: No Clubbing, No Cyanosis and No Edema
Skin: Warm and Dry
Neuro: AO x 3 and No Motor Deficits
Psych: Calm
Chest pain suspect 2/2 hypertensive urgency
serial trop not significant, Cardiology following
Started on spironolactone, metoprolol, lisinopril
-lipase not elevated
Echo with mild LVH
#Dyspnea and dizziness with standing, low-probability VQ scan, patient with severe reaction to dye and refused CT scan with premedication due to prior reaction (grand mal seizures), possibly metabolic in nature in the setting of alcoholism and
alcohol hepatitis
-pulse oximetry monitoring
-orthostatics neg
-Pulmonary consultation appreciated, unclear etiology for relatively acute onset dyspnea
-echocardiogram 2/5 with mild LVH
#Alcohol abuse, last drink 1-2 days prior
-monitor for signs of withdrawal, withdrawal protocol
started librium
-thiamine, folate, MVI
#Likely alcohol hepatitis and fatty liver
Monitor CMP
-supportive management and monitor
Hyponatremia
Monitor
TSH 10.2
Start Synthroid
Repeat TSH in 4 weeks
Thrombocytopenia likely secondary to alcohol
If does not improve then will need hematology evaluation
DVT proph-SCDs
Full code
Anticipated Discharge: Within 24 hours
Subjective/Interval History
-
Date of Service: November 29, 2023
deneis pain
Objective Data
-
Labs:
Laboratory Results
11/29/23
05:51
WBC 4.2 L
Hgb 13.3
Hct 37.9 L
Plt Count 35 L
Sodium 136
Potassium 3.9
Chloride 98
Carbon Dioxide 29
BUN 10
Creatinine 0.6 L
Glucose 116 H
Calcium 9.0
Total Bilirubin 2.8 H
AST 215 H
ALT 74 H
Alkaline Phosphatase 143 H
Vital Signs:
Vital Signs
Temp Pulse Resp BP Pulse Ox
98.7 F 96 16 146/86 98
11/29/23 07:45 11/29/23 08:06 11/29/23 07:45 11/29/23 08:06 11/29/23 07:45
I&O
11/28/23 11/29/23 11/30/23
06:59 06:59 06:59
Intake Total 960 / 960 1540 / 1540
Balance 960 / 960 1540 / 1540
[2023-11-29 11:57] VITALS: BP 107/71
[2023-11-29] MEDS: ZYRTEC 10 MG PO (12:00)
[2023-11-29 15:56] VITALS: BP 125/79
--- NOTE | 2023-11-29 16:20 | PTCARENOTE ---
Pt AAO x3, BEE well, ambulatroy in room/to BR, no c/o. Pleasant and cooperative. MSAS 1. VSS. On room air- pulse ox 95%, no c/o SOB. Abd large, soft, yumiko PO well. Voids in BR without difficulty. Resting comfortably in bed, no c/o. Will
continue to monitor.
[2023-11-29 23:10] VITALS: BP 119/79; BP 130/77; BP 142/79; PULSE 92; PULSE 95
[2023-11-30 03:14] VITALS: BMI 35.3
[2023-11-30] MEDS: SYNTHROID 25 MCG PO (06:23)
[2023-11-30 07:25] VITALS: BP 127/81; BP 130/75; BP 130/78; PULSE 89; PULSE 94; PULSE 97
[2023-11-30] MEDS: THIAMINE INJECTION 200 MG IV (07:56)
[2023-11-30] MEDS: FOLVITE 1 MG PO (07:57)
[2023-11-30] MEDS: ZESTRIL 10 MG PO (07:57)
[2023-11-30] MEDS: TOPROL XL 50 MG PO (07:57)
[2023-11-30] MEDS: ALDACTONE 25 MG PO (07:57)
[2023-11-30] MEDS: LIBRIUM 25 MG PO (07:59)
[2023-11-30 09:32] LABS: % Basophils 0.8 % (0-2); % Eosinophils 3.2 % (0-6); % Immature Granulocytes 0.5 % (0-0.5); % Lymphocytes 13.1 % (20.5-51.1); % Monocytes 6.6 % (1.7-9.3); % Neutrophils 75.8 % (42.2-75.2); Absolute Basophils 0.1 10^3/uL (0-0.2); Absolute Eosinophils 0.2 10^3/uL (0-0.7); Absolute Lymphocytes 0.8 10^3/uL (1.2-3.4); Absolute Monocytes 0.4 10^3/uL (0.1-0.6); Absolute Neutrophils 4.5 10^3/uL (1.4-6.5); Hematocrit 41.2 % (39.0-52.0); Mean Corpuscular Hgb 33.9 pg (27.0-31.0); Mean Corpuscular Volume 99.8 fL (80.0-94.0); Mean Platelet Volume 11.6 fL (7.4-10.4); Nucleated Red Blood Cells % 0 % (-); Platelet Count 57 10^3/uL (130-400); Red Blood Cell Count 4.13 10^6/uL (4.70-6.10)
[2023-11-30 09:55] LABS: ALT (SGPT) 71 U/L (0-50); AST (SGOT) 230 U/L (17-59); Albumin 3.8 g/dl (3.5-5.0); Alkaline Phosphatase 140 U/L (38-126); Blood Urea Nitrogen 13 mg/dl (9-20); Calcium 9.1 mg/dl (8.4-10.2); Carbon Dioxide 29 mmol/L (22-30); Chloride 97 mmol/L (98-107); Estimated Creatinine Clearance > 125 ml/min; Glucose 148 mg/dl (70-99); Potassium 3.8 mmol/L (3.5-5.1); Sodium 137 mmol/L (135-145); Total Bilirubin 3.1 mg/dl (0.2-1.3); Total Protein 6.8 g/dl (6.3-8.2); eGFR > 60.00
--- NOTE | 2023-11-30 10:30 | W.PN.HOSP.TC ---
Today's Communication/Plan
-
Monitor vital signs see plan
Continue with blood pressure medications
Discharge today
Time of discharge 37 minutes
Assessment / Plan
Assessment / Plan
General: Well Developed, Well Nourished and Conversant
HEENT: NormoCephalic, Anicteric and Moist mucous membranes
Respiratory: Clear
Cardiac: S1/S2, Regular Rhythm and Tachycardia
GI: Soft, Non Tender and Non Distended
Musculoskeletal: No Clubbing, No Cyanosis and No Edema
Skin: Warm and Dry
Neuro: AO x 3 and No Motor Deficits
Psych: Calm
Chest pain suspect 2/2 hypertensive urgency
serial trop not significant, Cardiology following
Started on spironolactone, metoprolol, lisinopril
-lipase not elevated
Echo with mild LVH
#Dyspnea and dizziness with standing, low-probability VQ scan, patient with severe reaction to dye and refused CT scan with premedication due to prior reaction (grand mal seizures), possibly metabolic in nature in the setting of alcoholism and
alcohol hepatitis
-pulse oximetry monitoring
-orthostatics neg
-Pulmonary consultation appreciated, unclear etiology for relatively acute onset dyspnea
-echocardiogram 2/5 with mild LVH
#Alcohol abuse, last drink 1-2 days prior
-monitor for signs of withdrawal, withdrawal protocol
started librium, start weaning. Will discharge on few days of Librium
-thiamine, folate, MVI
#Likely alcohol hepatitis and fatty liver
Monitor CMP
-supportive management and monitor
Hyponatremia
Resolved
TSH 10.2
Start Synthroid
Repeat TSH in 4 weeks
Thrombocytopenia likely secondary to alcohol
If does not improve then will need hematology evaluation
DVT proph-SCDs
Full code
Anticipated Discharge: Today
Subjective/Interval History
-
Date of Service: November 30, 2023
Denies pain
Objective Data
-
Labs:
Laboratory Results
11/30/23
08:55
WBC 6.0
Hgb 14.0
Hct 41.2
Plt Count 57 L D
Sodium 137
Potassium 3.8
Chloride 97 L
Carbon Dioxide 29
BUN 13
Creatinine 0.6 L
Glucose 148 H
Calcium 9.1
Total Bilirubin 3.1 H
AST 230 H
ALT 71 H
Alkaline Phosphatase 140 H
Vital Signs:
Vital Signs
Temp Pulse Resp BP Pulse Ox
98.8 F 89 18 130/75 99
11/30/23 07:25 11/30/23 07:25 11/30/23 07:25 11/30/23 07:25 11/30/23 07:25
I&O
11/29/23 11/30/23 12/01/23
06:59 06:59 06:59
Intake Total 1540 / 1540 1200 / 1200
Balance 1540 / 1540 1200 / 1200
--- NOTE | 2023-11-30 10:43 | W.DCSUMMARY ---
Discharge Summary
Discharge Data
Date of Admission: 11/27/23
Date of Discharge: 11/30/23
-
Pending Results: No
Hospital Course
58-year-old male with past medical history of alcohol abuse came to the hospital with chest pain known to me and hypertensive urgency. Patient initially was started on multiple blood pressure medications which improved his symptoms. Echocardiogram
was done which showed mild left ventricular hypertrophy. He also had some dyspnea for which VQ scan was done which was low probability for PE. He was also seen by pulmonary on this hospitalization. On this hospitalization he also had signs of
alcohol withdrawal for which she was started on Librium. On discharge he was given Librium taper. He also had thrombocytopenia along with elevated LFTs for which she was instructed to follow-up outpatient. He was determined that his symptoms were
likely from alcohol. He also had elevated TSH for which she was started on Synthroid. He was instructed to get a repeat TSH done in 4 weeks. Once his symptoms improved he was then discharged home with close follow-up with all the physicians
outpatient.
Discharge Plan
-
Patient Disposition: Home (Routine Discharge)
Discharge Diagnosis/Procedures: Hypertensive urgency
Alcohol abuse
Likely alcohol hepatitis and fatty liver
Thrombocytopenia
Elevated TSH
Diet: As tolerated
Activity: As tolerated
Driving Restrictions: As prior to admission
Bathing Restrictions: None
Blood Work: CBC, CMP in one week with primary care provider. TSH with reflective free t4 in 4 weeks with primary care provider
Referrals:
Carl Francis DO [Active] -
Ron Darling MD [Active] -
Rehan Morillo CRNP [Family Provider] - in less than 1 week
Prescriptions:
New
levothyroxine 25 mcg Tablet
25 mcg PO DAILY AT 0700 Qty: 30 0RF
folic acid 1 mg Tablet
1 mg PO DAILY Qty: 30 0RF
metoprolol succinate 50 mg Tablet Extended Release 24 Hr
50 mg PO DAILY Qty: 30 0RF
thiamine HCl (vitamin B1) 100 mg Tablet
100 mg PO BID Qty: 60 0RF
spironolactone 25 mg Tablet
25 mg PO DAILY Qty: 30 0RF
lisinopril 10 mg Tablet
10 mg PO DAILY Qty: 30 0RF
chlordiazepoxide HCl 5 mg capsule
10 mg PO TID Qty: 27 0RF
Rx Instructions:
take 10mg TID for 3 days and then take 5mg TID for 3 days and then stop
Continued
cetirizine [Zyrtec] 10 mg Tablet
10 mg PO DAILY PRN (Reason: congestion/allergies)
pseudoephedrine-guaifenesin [Mucinex D] 60-600 mg Tablet Extended Release 12 Hr
1 tab PO Q12H
Discharge Orders:
Discharge Patient (As Directed); Ordered 11/30/23
Ordered By: Joe Rodriguez
Discharge Date and Time
Discharge Date/Time: 11/30/23 13:06
--- NOTE | 2023-11-30 11:10 | CM ---
CM following re: d/c planning
Chart reviewed
Pt is medically stable for d/c
Pt remains in observation and obs letter provided by previous CM
CM called and spoke with Carey at [facility] who confirmed that patient is amenable to outpatient resources for ETOH abuse
Pt has no skilled PT/OT needs
Pt confirms transport home
PLAN; d/c home with outpatient f/u for ETOH abuse
== END 2023-11-30 13:06 | disposition home or self-care (01) ==
LOC: 4 EAST ACU 16:18
PROVIDERS: ADMITTING PHYSICIAN Internal Medicine; ATTENDING PHYSICIAN Internal Medicine; CONSULT PHYSICIAN Internal Medicine; EMERGENCY PHYSICIAN Emergency Medicine; FAMILY PHYSICIAN Nurse Practitioner Family; OTHER PHYSICIAN Internal Medicine Pulmonary Disease
DX: I16.0 Hypertensive urgency (principal); R07.89 Other chest pain; R06.02 Shortness of breath; I51.7 Cardiomegaly; F10.130 Alcohol abuse with withdrawal, uncomplicated; R79.89 Other specified abnormal findings of blood chemistry; F41.9 Anxiety disorder, unspecified; F32.A Depression, unspecified; E66.01 Morbid (severe) obesity due to excess calories; K76.0 Fatty (change of) liver, not elsewhere classified; E78.5 Hyperlipidemia, unspecified; E87.1 Hypo-osmolality and hyponatremia; D69.59 Other secondary thrombocytopenia; I10 Essential (primary) hypertension; R06.00 Dyspnea, unspecified; R74.01 Elevation of levels of liver transaminase levels; Z91.041 Radiographic dye allergy status; Z68.35 Body mass index [BMI] 35.0-35.9, adult; Z82.49 Family history of ischemic heart disease and other diseases of the circulatory system; Z96.652 Presence of left artificial knee joint
CPT/HCPCS: 36600; 71046; 76700; 78582; 80053; 80061; 80306; 80307; 81003; 81015; 82010; 82077; 82805; 82977; 83036; 83690; 83735; 83880; 84100; 84439; 84443; 84484; 85025; 85027; 85379; 85610; 85730; 93005; 93306; 93970; 96374; 99285; A9540; A9567; G0378; Q9950

== ENCOUNTER 2024-11-28 21:33 | Inpatient (IN) | payer OTHER, SELFPAY ==
[2024-11-28] VITALS (8 sets, daily range): BP systolic 112–146; BP diastolic 53–96; BMI 33.7
--- NOTE | 2024-11-28 12:34 | ED.GENMED ---
ED Provider Triage
<Daren Angel PA-C - Last Filed: 11/28/24 12:38>
-
Patient seen by provider in Triage?: Seen in Triage
Attestation: A medical screening examination has been initiated by a qualified medical provider. Based on the assessment performed at this time, it has been determined that an emergent medical condition may exist and the patient has been informed
that further medical evaluation and possible additional diagnostic testing may be needed.
HPI: 59-year-old male with history of chronic alcohol abuse, last used 2 to 3 weeks ago, presents to the emergency department due to worsening jaundice of the eyes as well as hallucinations. Has been declining to seek medical evaluation for quite
some time however over the past several days has had increasing hallucinations. Also reports left knee swelling, history of left total knee replacement by Dr. Jensen in 2021. Went to his orthopedist this morning for evaluation of the knee but was
referred to the ED due to other medical issues. Denies any SI or HI
GENERAL: Alert , in no apparent distress
EYE: No visual abnormalities.
NECK: Trachea midline
ENT: No visible abnormalities.
LUNGS: No acute respiratory distress
NEUROLOGICAL: Alert and oriented
SKIN: Skin intact. No visible changes.
MUSCULOSKELETAL: Moving extremities normally
PSYCH: Normal and appropriate interaction.
This is a medical evaluation conducted in person to initiate diagnostic evaluation and provide initial therapeutics. Please see further documentation by the treating clinician.
History of Present Illness
<Daren Angel PA-C - Last Filed: 11/28/24 12:38>
General
Chief Complaint: Abdominal Symptoms
Time Seen by Provider: 11/28/24 13:42
<Salty Tan Jr., PA-C - Last Filed: 11/28/24 18:06>
General
Source: patient and spouse
Exam Limitations: none
Nursing documentation reviewed up to this point in time: agreed with
History of Present Illness
History of Present Illness:
59-year-old male past medical history of hypertension hypothyroidism alcohol abuse, TKR September 2022 presenting to the emergency department today with concerns of altered mental status today according to the . Also has noticed increasing
yellowing of his skin he describes hallucinations as nausea vomiting and severe left-sided knee pain. Claims that his left knee has hurt over the past 5 days without specific trauma but did twist his knee today after tripping down a few stairs just
prior to arrival. Was seen by his orthopedic doctor today and sent to the ER for further assessment. Denies any abdominal pain head pain neck pain numbness or weakness.
Review of Systems
<Salty Tan Jr., PA-C - Last Filed: 11/28/24 18:06>
Review of Systems
Allergies reviewed?: Yes
All Other Systems: ROS reviewed and negative except as documented in HPI and ROS
Phy Exam
<Salty Tan Jr., PA-C - Last Filed: 11/28/24 18:06>
Physical Exam
Physical Exam:
GENERAL: Alert , in no apparent distress
EYE: Scleral icterus pupils equal and reactive
NECK: Supple, no significant adenopathy.
ENT: o/p clr, mmm.
CARDIAC: Regular rate and rhythm .
LUNGS: Clear breath sounds bilaterally, no acute respiratory distress, no wheezes/rales/rhonchi
ABDOMEN: Mildly distended but otherwise soft, without focal tenderness, no r/g, no cvat
NEUROLOGICAL: Alert and oriented, no focal neuro deficits
SKIN: Yellow hue diffusely warm and dry, skin intact.
MUSCULOSKELETAL: Significant swelling surrounding the left knee significant discomfort with any movement of the knee and to palpation of the knee. Not significantly red but somewhat warm to palpation normal distal perfusion, well perfused.
PSYCH: Normal and appropriate interaction.
Sepsis
<Salty Tan Jr., PA-C - Last Filed: 11/28/24 18:06>
Sepsis Screening
Sepsis Assessment: Severe Sepsis
Sepsis Screening: Lactate >/=4mmol/L and Bilirubin >2mg/dl
Sepsis Screen
Sepsis Screen: Severe Sepsis
Date: 11/28/24
Time: 16:00
Course
<Daren Angel PA-C - Last Filed: 11/28/24 12:38>
Orders/Labs/Results
Orders:
Orders
11/28/24 12:40
CT Head W/o Iv Contrast Urgent
Comment:
Reason For Exam: fall head injury
11/28/24 12:51
Lactic Acid Q4H
Comment: CANCEL 2nd LACTIC ACID IF 1st LACTIC ACID IS LESS THAN 2
Prothrombin Time Urgent
Blood Culture Q30M
TREY Source: Blood/Venous
Specimen Description:
11/28/24 12:52
Ammonia Urgent
CRP [C-Reactive Protein] Urgent
Complete Blood Count/No Diff Urgent
Comprehensive Metabolic Panel Urgent
Direct Bilirubin Urgent
11/28/24 13:45
0.9% Sodium Chloride 1000 ml [Nss] 1,000 ml IV BOLUS
11/28/24 13:58
US Abdomen Complete/Upper Urgent
Comment:
Reason For Exam: RUQ, elevaed bili, jaudice hx of alc abuse
11/28/24 13:59
Chest [CR Chest - 2 Views ] Urgent
Comment:
Reason For Exam: cough tachy febrile
11/28/24 15:47
Cefepime HCl [Maxipime] 2,000 mg IV NOW STA
11/28/24 15:48
0.9% Sodium Chloride 1000 ml [Nss] 1,000 ml IV BOLUS
11/28/24 15:53
Body Fluid Cell Count Urgent
What is the Body Fluid: joint
Date Specimen was Collected: 11/28/24
Time Specimen was Collected: 15:49
Comment: with DIFF
Body Fluid Crystals Urgent
What is the Body Fluid: joint
Date Specimen was Collected: 11/28/24
Time Specimen was Collected: 15:49
Blood Culture Q30M
TREY Source: Blood/Venous
Specimen Description:
Blood Culture Urgent
TREY Source: Blood/Venous
Specimen Description:
11/28/24 15:54
Fluid Culture with Gram Stain Urgent
TREY Source: Joint Fluid
Specimen Description:
Date Specimen was Collected: 11/28/24
Time Specimen was Collected: 15:49
11/28/24 15:59
Vancomycin [Vancocin] 2,000 mg 0.9% Sodium Chloride 500 ml [Nss] 500 ml IV NOW
11/28/24 17:15
Lactic Acid Q4H
Comment: CANCEL 2nd LACTIC ACID IF 1st LACTIC ACID IS LESS THAN 2
11/28/24 18:04
CR Knee - Left 4 Or More View* Urgent
Comment:
Reason For Exam: knee paihn, septic joint
Abnormal Lab Results
11/28/24 11/28/24
12:51 12:52
RBC 3.18 L 10^6/uL
(4.70-6.10)
Hgb 10.7 L g/dL
(13.0-18.0)
Hct 29.8 L %
(39.0-52.0)
MCH 33.6 H pg
(27.0-31.0)
RDW 15.5 H %
(11.5-14.5)
Plt Count 104 L 10^3/uL
(130-400)
MPV 12.2 H fL
(7.4-10.4)
PT 18.4 H Sec
(11.4-14.6)
Sodium 130 L mmol/L
(135-145)
Chloride 90 L mmol/L
(98-107)
BUN 50 H mg/dl
(9-20)
Glucose 123 H mg/dl
(70-99)
Lactic Acid 4.3 H* mmol/L
(0.7-2.0)
Total Bilirubin 16.1 H mg/dl
(0.2-1.3)
Direct Bilirubin 12.3 H mg/dl
(0.0-0.4)
AST 145 H U/L
(17-59)
ALT 53 H U/L
(0-50)
Alkaline Phosphatase 131 H U/L
(38-126)
Ammonia 34 H umol/L
(9-30)
C-Reactive Protein 183.10 H mg/L
(0.0-10.00)
11/28/24 12:52
11/28/24 12:52
Vital Signs
Initial and Last Documented VS:
Initial Vital Signs
Temp Pulse Resp BP Pulse Ox
100.3 F 114 24 146/71 98
11/28/24 12:30 11/28/24 12:30 11/28/24 12:30 11/28/24 12:30 11/28/24 12:30
Last Documented Vital Signs
Temp Pulse Resp BP Pulse Ox
100.3 F 104 19 136/67 98
11/28/24 12:30 11/28/24 16:00 11/28/24 16:00 11/28/24 16:00 11/28/24 16:00
<Salty Tan Jr., CARSON-Jacquie - Last Filed: 11/28/24 18:06>
Orders/Labs/Results
Orders:
Orders
11/28/24 12:40
CT Head W/o Iv Contrast Urgent
Comment:
Reason For Exam: fall head injury
11/28/24 12:51
Lactic Acid Q4H
Comment: CANCEL 2nd LACTIC ACID IF 1st LACTIC ACID IS LESS THAN 2
Prothrombin Time Urgent
Blood Culture Q30M
TREY Source: Blood/Venous
Specimen Description:
11/28/24 12:52
Ammonia Urgent
CRP [C-Reactive Protein] Urgent
Complete Blood Count/No Diff Urgent
Comprehensive Metabolic Panel Urgent
Direct Bilirubin Urgent
11/28/24 13:45
0.9% Sodium Chloride 1000 ml [Nss] 1,000 ml IV BOLUS
11/28/24 13:58
US Abdomen Complete/Upper Urgent
Comment:
Reason For Exam: RUQ, elevaed bili, jaudice hx of alc abuse
11/28/24 13:59
Chest [CR Chest - 2 Views ] Urgent
Comment:
Reason For Exam: cough tachy febrile
11/28/24 15:47
Cefepime HCl [Maxipime] 2,000 mg IV NOW STA
11/28/24 15:48
0.9% Sodium Chloride 1000 ml [Nss] 1,000 ml IV BOLUS
11/28/24 15:53
Body Fluid Cell Count Urgent
What is the Body Fluid: joint
Date Specimen was Collected: 11/28/24
Time Specimen was Collected: 15:49
Comment: with DIFF
Body Fluid Crystals Urgent
What is the Body Fluid: joint
Date Specimen was Collected: 11/28/24
Time Specimen was Collected: 15:49
Blood Culture Q30M
TREY Source: Blood/Venous
Specimen Description:
Blood Culture Urgent
TREY Source: Blood/Venous
Specimen Description:
11/28/24 15:54
Fluid Culture with Gram Stain Urgent
TREY Source: Joint Fluid
Specimen Description:
Date Specimen was Collected: 11/28/24
Time Specimen was Collected: 15:49
11/28/24 15:59
Vancomycin [Vancocin] 2,000 mg 0.9% Sodium Chloride 500 ml [Nss] 500 ml IV NOW
11/28/24 17:15
Lactic Acid Q4H
Comment: CANCEL 2nd LACTIC ACID IF 1st LACTIC ACID IS LESS THAN 2
11/28/24 18:04
CR Knee - Left 4 Or More View* Urgent
Comment:
Reason For Exam: knee paihn, septic joint
Abnormal Lab Results
11/28/24 11/28/24
12:51 12:52
RBC 3.18 L 10^6/uL
(4.70-6.10)
Hgb 10.7 L g/dL
(13.0-18.0)
Hct 29.8 L %
(39.0-52.0)
MCH 33.6 H pg
(27.0-31.0)
RDW 15.5 H %
(11.5-14.5)
Plt Count 104 L 10^3/uL
(130-400)
MPV 12.2 H fL
(7.4-10.4)
PT 18.4 H Sec
(11.4-14.6)
Sodium 130 L mmol/L
(135-145)
Chloride 90 L mmol/L
(98-107)
BUN 50 H mg/dl
(9-20)
Glucose 123 H mg/dl
(70-99)
Lactic Acid 4.3 H* mmol/L
(0.7-2.0)
Total Bilirubin 16.1 H mg/dl
(0.2-1.3)
Direct Bilirubin 12.3 H mg/dl
(0.0-0.4)
AST 145 H U/L
(17-59)
ALT 53 H U/L
(0-50)
Alkaline Phosphatase 131 H U/L
(38-126)
Ammonia 34 H umol/L
(9-30)
C-Reactive Protein 183.10 H mg/L
(0.0-10.00)
11/28/24 12:52
11/28/24 12:52
Vital Signs
Initial and Last Documented VS:
Initial Vital Signs
Temp Pulse Resp BP Pulse Ox
100.3 F 114 24 146/71 98
11/28/24 12:30 11/28/24 12:30 11/28/24 12:30 11/28/24 12:30 11/28/24 12:30
Last Documented Vital Signs
Temp Pulse Resp BP Pulse Ox
100.3 F 104 19 136/67 98
11/28/24 12:30 11/28/24 16:00 11/28/24 16:00 11/28/24 16:00 11/28/24 16:00
Procedures
<Salty Tan Jr., PA-C - Last Filed: 11/28/24 18:06>
Incision/Drainage/Joint Aspiration
Left Knee:
Anethesia: 1% Lidocaine
Preparation: cleaned with Hibiclens
Type of procedure: aspiration
Nature of site: other (Arthrocentesis left knee)
Description of abscess: drainage
Loculations broken up: No
How much fluid was obtained?: number in mls (50 cc)
Fluid description: purulent
<ANDER Armendariz Jr. Last Filed: 11/28/24 18:06>
MDM/Problems Addressed
MDM/Problems Addressed:
59-year-old male presenting to the emergency department with multiple symptoms. Patient's main concern at this point is left-sided knee pain does also have some yellowing of the skin and has been altered according to his . Also recently
diagnosed with the flu and was taking Tamiflu last week. On arrival here he is tachycardic tachypneic low-grade temperature. No significant white count on labs does have significant abnormalities to his liver function test. Ultrasound without
evidence of acute abnormality. His left knee was significantly swollen this was drained with significant purulent drainage. Cell count consistent with likely septic arthritis. Patient started on IV antibiotics will be admitted for further
assessment. Orthopedic surgery was contacted.
<Salty Tan Jr., PA-C - Last Filed: 11/28/24 18:06>
*Critical Care Note
Total Time (30-74mins, 75-104mins- exclusive of procedures): Critical care statement:
ED Attending Note
<Daren Angel PA-C - Last Filed: 11/28/24 12:38>
-
Portions of this chart may have been created with voice recognition software.� Occasional wrong word or��sound alike� substitutions may have occurred due to the inherent limitations of voice recognition software.
Discharge Plan
Departure
Patient Disposition: Admit
Date of Disposition: 11/28/24
Time of Disposition: 18:02
Admit to: Med/Surg
Admit to doctor: Apolonia
Presentation/result/management discussed w/ accepting MD/DO: Hospitalist
Patient with high blood pressure during this ER visit?: No
Condition: Fair
Covid-19: Not Applicable
Discharge Problem:
Septic arthritis, AMS (altered mental status), Hyperbilirubinemia, Alcohol abuse
Prescriptions:
No Action
levothyroxine 25 mcg Tablet
25 mcg PO DAILY AT 0700 Qty: 30 0RF
lisinopril 10 mg Tablet
10 mg PO DAILY Qty: 30 0RF
Referrals:
Rehan Morillo CRNP [Family Provider] -
Interventions
Interventions:
*Risk Screen - Suicide Last Done: 11/28/24 12:30
*General Assessment Last Done: 11/28/24 12:30
*Neglect/Abuse Screening Last Done: 11/28/24 12:30
ED- Fall Risk Assessment Last Done: 11/28/24 13:34
LZ-Vflahm-Rizmgnspju Assessment Last Done: 11/28/24 13:34
Discharge Date and Time
Print Language: TAMAZIGHT
[2024-11-28 13:01] LABS: Hematocrit 29.8 % (39.0-52.0); Hemoglobin 10.7 g/dL (13.0-18.0); Mean Corp Hgb Conc. 35.9 g/dL (33.0-37.0); Mean Corpuscular Hgb 33.6 pg (27.0-31.0); Mean Corpuscular Volume 93.7 fL (80.0-94.0); Mean Platelet Volume 12.2 fL (7.4-10.4); Platelet Count 104 10^3/uL (130-400); Red Blood Cell Count 3.18 10^6/uL (4.70-6.10); Red Cell Dist. Width 15.5 % (11.5-14.5); White Blood Cell Count 8.2 10^3/uL (4.8-10.8)
[2024-11-28 13:14] LABS: INR 1.51; PT 18.4 Sec (11.4-14.6)
[2024-11-28 13:18] LABS: Ammonia 34 umol/L (9-30)
[2024-11-28 13:24] LABS: AST (SGOT) 145 U/L (17-59); Alkaline Phosphatase 131 U/L (38-126); Blood Urea Nitrogen 50 mg/dl (9-20); Calcium 8.4 mg/dl (8.4-10.2); Carbon Dioxide 24 mmol/L (22-30); Chloride 90 mmol/L (98-107); Direct Bilirubin 12.3 mg/dl (0.0-0.4); Glucose 123 mg/dl (70-99); Potassium 3.5 mmol/L (3.5-5.1); Sodium 130 mmol/L (135-145); Total Bilirubin 16.1 mg/dl (0.2-1.3); Total Protein 7.2 g/dl (6.3-8.2); eGFR > 60.00
[2024-11-28 13:24] LABS: Lactic Acid 4.3 mmol/L (0.7-2.0)
[2024-11-28] MEDS: NSS 1000 IV ×3 (13:52→22:37)
[2024-11-28 14:31] LABS: ALT (SGPT) 53 U/L (0-50)
[2024-11-28] MEDS: MAXIPIME 2000 MG IV (16:10)
[2024-11-28] MEDS: VANCOCIN 540 MG IV (16:28)
[2024-11-28 17:16] LABS: Body Fluid Mononuclear 20.9 %; Body Fluid Polymorphonuclear 79.1 %; Body Fluid WBC 514500 /CUMM
[2024-11-28 17:19] LABS: Body Fluid Second Tech HB
[2024-11-28 17:33] LABS: Lactic Acid 1.6 mmol/L (0.7-2.0)
--- NOTE | 2024-11-28 18:24 | W.PN.UPDATE ---
Update Note
Progress Note Update
Pt was brought to see me by his significant other who said he had fallen down stairs due to severe alcoholism several days ago which led to injury to the left knee which had TKA by me 2 yrs ago. He became unable to walk from the injury and thus did
not have access to alcohol since about 2-3 days ago leading to him having a decompensation and development of what is now obviously critical illness. He was confused in the office and apparently halucinating at home.
Regarding his TKA it appeared to have a large effusion which I suspected was blood given obvious clinical coagulopathy, his entire head and body is full of scattered eccymosis in various stages of chronicity. he was also extremely jaundice, more
jaundice than any patient I had ever seen including while at [facility] [address] which had a lot of jaundice patients due to being a transplant hub.
I indicated to him and his sig other that he appeared to be critically ill and that he needed to go to hospital [facility], he appeared to be in fulminant liver failure and his knee appeared to be a lesser issue. In ER his bilirubin is >16 and a crp is
done >180. He had knee aspirated by ER with > 500,000 wbc. Greater than 100x higher than the number indicating PJI for a prosthetic joint.
His situation represents true criticial and life threatening acute illness. I defer totally to the medical team on next steps medically - does he warrant referal to a liver transplant center? But he was drinking very recently and presumably has
infection.
Regarding the knee - cultures are pending. I assume they will demonstrate acute prosthetic infection due to his liver failure and immunosupression. The risk of mortality from this situation is extremely high. I feel 100% certain patient would
not survive surgery on the knee at this time. I think the best temporizing treatment would be aspiration or placement of a drain while his medical situation is agressively treated. In the event the knee situation is deemed to be exacerbating his
life threatening illness a potential above knee amputation, while radical, could be contemplated as a [id number] kind of salvage procedure out of desperation.
Not being an expert in liver pathology I would say that transfer to a liver center would be very appropriate in my opinion.
--- NOTE | 2024-11-28 20:42 | HPS.HSE ---
Family Physician
-
Family Physician: MAURO Mcdowell
Chief Complaint
-
Knee swelling left p fall (severe alcoholism)
History of Present Illness
The patient is a 59 yo male with PMH significant for severe alcoholic use disorder, left knee TKA 2 years prior, jaundice, presents to ED due to fall down stairs several days prior. Unable to ambulate due to pain and swelling. He comes from his
Orthopedics office, Dr. Jensen, who evaluated him in the office, and told him to come to ED due to ill appearance (severe jaundice). He also in confused, and says he's been having hallucinations at home (none actively in ED). He hasn't had a
drink since at least Wednesday (4 days ago) per his , and the patient says his last drink was 2-3 weeks ago. Knee was aspirated in the ED , > 500,000 WBC.
ED txt: IV fluid bolus 2 liter
Cefepime IV
Vanco IV
Ativan 2 mg IV
Medical History
Past Medical History
Past Medical History: Reports Other (alcohol abuse- a large cup of Vodka (or more) daily)
Past Surgical History: Reports Orthopedic (Left knee replacement)
Social History
Tobacco: Non-smoker
Alcohol: Chronic Alcoholic
Drug: None
Personal:
Living: With Family
Family History
Family History: CAD (stroke and myocardial infarction father and grandfather)
Allergies / Home Medications
Allergies reflects when Allergies were last updated in [facility].
Home Medications with original date entered in [facility]
Allergy/Medication List:
Allergies
Allergy/AdvReac Type Severity Reaction Status Date / Time
Iodinated Contrast Media Allergy Shortness Verified 11/28/24 13:33
of Breath
oseltamivir [From Tamiflu] Allergy Swelling Verified 11/28/24 13:33
Home Medications
levothyroxine 25 mcg tablet 25 mcg PO DAILY AT 0700 #30 tabs 11/29/23
lisinopril 10 mg tablet 10 mg PO DAILY #30 tabs 11/30/23
Review of Systems
-
A 12 point ROS was completed and negative except as noted: Yes
Physical Exam
Vital Signs
Vital Signs
Temp Pulse Resp BP Pulse Ox
100.3 F 104 19 136/67 98
11/28/24 12:30 11/28/24 16:00 11/28/24 16:00 11/28/24 16:00 11/28/24 16:00
Physical Exam
General: Appears Chronically Ill and Other (jaundice)
Respiratory: Clear
Cardiac: S1/S2 and Regular Rhythm
GI: Other (distended, fluid wave)
Musculoskeletal: No Clubbing, Edema, Right Upper Extremity and Edema, Left Lower Extremity
Skin: Warm, Dry and Jaundice
Neuro: Nonfocal/grossly intact and Other (tremors)
Psych: Calm
Laboratory Results
-
11/28/24 12:52
11/28/24 12:52
Laboratory Results
PT 18.4 Sec (11.4-14.6) H 11/28/24 12:51
INR 1.51 11/28/24 12:51
Lactic Acid 1.6 mmol/L (0.7-2.0) 11/28/24 17:15
Total Bilirubin 16.1 mg/dl (0.2-1.3) H 11/28/24 12:52
AST 145 U/L (17-59) H 11/28/24 12:52
ALT 53 U/L (0-50) H 11/28/24 12:52
Alkaline Phosphatase 131 U/L (38-126) H 11/28/24 12:52
Impression/Plan
-
IMPRESSION:
#Left knee with Acute Prosthetic Infection, septic knee, in the setting of immunosuppression from severe alcohol use disorder.
Fluid eval: WBC 018549, PMN 79.1, no crystals
Note per Orthopedics, Dr. Jensen 'Regarding the knee - cultures are pending. I assume they will demonstrate acute prosthetic infection due to his liver failure and immunosuppression. The risk of mortality from this situation is extremely high.
I feel 100% certain patient would not survive surgery on the knee at this time. I think the best temporizing treatment would be aspiration or placement of a drain while his medical situation is aggressively treated. In the event the knee
situation is deemed to be exacerbating his life threatening illness a potential above knee amputation, while radical, could be contemplated as a [id number] kind of salvage procedure out of desperation. '
-temp 100.3 WBC 8.2
-Ortho Cx, knee arthrocentesis and fluid sent as per above-septic knee with TKA
-IV Cef/IV Vanco to continue
-Consult ID
-cultures
-NPO p mn for possible procedure per Ortho for possible drain placement pending clinical course
#Alcohol use disorder with concern for possible withdrawal vs alcohol encephalopathy with hepatic encephalopathy from end-stage liver disease
-possible last drink 4 days ago, though difficult to ascertain history
-GI consultation
-CIWA protocol
-Add Phenobarbital oral taper as pt is tolerating orals, lower dose than typical and more spread out , and monitor symptoms carefully,
-thiamine/folate
-Ativan prn per protocol
-IV abx will cover SBP
-GI consultation, US abdomen for possible paracentesis
-likely pt would not transfer to transplant center as of yet, but will discuss with GI cx tomorrow-the patient will have to be alcohol free for 6 months to consider transplant
#Hyponatremia Na 130 likely multifactorial, component of intravascular depletion with cirrhosis/liver failure
-IVF 2 liters in ED, repeat BMP monitoring
#CLEVE on CKD, likely multifactorial, component of intravascular depletion with cirrhosis/liver failure
-creat 1.3 (up from 0.6 in 2023)
-renal dose medications, avoid nephrotoxins
-repeat CMP in am
#Lactic acidosis improved from 4.3 on admission to 1.6 on repeat
-improved with IVF
#Transaminitis due to liver failure
-Total bilirubin 16.1, AST 145, ALT 53, ammonia 34, CRP 183.10
#Coagulopathy due to alcohol use disorder/liver failure
-PT 18.4 INR 1.51
#Thrombocytopenia due to liver failure
-Platelets 104
#Anemia, likely multifactorial due to alcohol disorder/chronic disease and folate deficiency, possibly iron deficient as well
DVT proph-PCDs
Full Code
[2024-11-28] MEDS: ATIVAN 2 MG IV (20:53)
--- NOTE | 2024-11-28 21:52 | PHA.VAN.IN ---
Assessment
- Assessment
Renal Function: Appears elevated from baseline (11/27/23 SCR = 0.6)
Concomitant Antimicrobials: CEFEPIME
- Previous Dosing Experience
Previous Regimen: NONE
Plan
- Plan
Initial / Loading Dose: 2GM
Maintenance Regimen: DOSING BY RANDOM LEVELS
Monitoring: RANDOM VANCOMYCIN LEVEL 11/29/24 AM
Pharmacokinetics Vancomycin I
- -
Patient Age: 59
Patient Sex: Male
Vancomycin Day #: 1
Indication: [facility] (SEPTIC KNEE)
Requesting Provider: JUAN
Height / Weight:
Height 5 ft 10 in
Actual Weight 106.594 kg
Pertinent Past Medical History: END STAGE LIVER DISEASE
- Vital Signs / Lab Results
Temp Pulse Resp BP Pulse Ox
100.3 F 104 19 136/67 98
11/28/24 12:30 11/28/24 16:00 11/28/24 16:00 11/28/24 16:00 11/28/24 16:00
Lab Results - Hematology
11/28/24
12:52
WBC 8.2
Lab Results - Chemistry
11/28/24
12:52
BUN 50 H
Creatinine 1.3
Albumin 4.0
11/28/24 11/28/24
12:51 17:15
Lactic Acid 4.3 H* 1.6
[2024-11-28] MEDS: ATIVAN 1 MG IV (22:56)
[2024-11-28] MEDS: DUPHALAC/CHRONULAC 20 GRAMS PO (22:57)
[2024-11-28 23:03] LABS: Creatine Phosphokinase 75 U/L (55-170); GGTP 546 U/L (15-73); Magnesium 1.8 mg/dl (1.6-2.3); Phosphorus 2.4 mg/dl (2.5-4.5)
[2024-11-28 23:04] LABS: Alcohol None Detected
[2024-11-28 23:10] LABS: B-Hydroxybutyrate 0.11 mmol/L (0.02-0.27)
[2024-11-28 23:37] LABS: Urine Albumin 1+ (Neg - Trace); Urine Bilirubin 2+ (Negative); Urine Character Clear (Clear); Urine Color Amber; Urine Glucose Negative (Negative); Urine Ketone Negative (Negative); Urine Leukocyte 1+ (Negative); Urine Nitrite Negative (Negative); Urine Occult Blood Negative (Negative); Urine Urobilinogen 2+ (Neg - 1+)
[2024-11-28] MEDS: VITAMIN B1 100 MG PO (23:38)
[2024-11-28 23:48] LABS: Amphetamines Negative (Negative); Barbiturates Negative (Negative); Benzodiazepines Negative (Negative); Buprenorphine Negative (Negative); Cocaine Negative (Negative); Marijuana Negative (Negative); Methadone Negative (Negative); Methamphetamines Negative (Negative); Opiates Negative (Negative); Phencyclidine Negative (Negative); Tricyclic Antidepressants Negative (Negative)
[2024-11-29] VITALS (15 sets, daily range): BP systolic 104–157; BP diastolic 63–99; BMI 34.1
[2024-11-29 00:09] LABS: Urine White Cell 16-20 /HPF (0-5)
[2024-11-29] MEDS: ATIVAN 1 MG IV ×3 (00:09→02:13)
[2024-11-29 00:11] LABS: Urine Bacteria Few (Negative)
[2024-11-29] MEDS: TORADOL 10 MG IV (00:56)
--- NOTE | 2024-11-29 03:46 | PTCARENOTE ---
Received patient from ED. Patient is lethargic. MSAS score 5 currently but held medication due to lethargy. Unable to answer questions. Patient became apnenic desating intop low 70s. 2L NC applied, currently sating at 100%. Patient is jaundice. NS
running at 80. Call graham in reach. assessment and VS as documented.
[2024-11-29] MEDS: MAXIPIME 2000 MG IV (05:10)
[2024-11-29] MEDS: STERILE WATER FOR INJECTION 10 ML IV (05:10)
[2024-11-29 05:41] LABS: Hematocrit 24.5 % (39.0-52.0); Hemoglobin 8.6 g/dL (13.0-18.0); Mean Corp Hgb Conc. 35.1 g/dL (33.0-37.0); Mean Corpuscular Hgb 33.5 pg (27.0-31.0); Mean Corpuscular Volume 95.3 fL (80.0-94.0); Mean Platelet Volume 11.6 fL (7.4-10.4); Platelet Count 85 10^3/uL (130-400); Red Blood Cell Count 2.57 10^6/uL (4.70-6.10); Red Cell Dist. Width 15.1 % (11.5-14.5); White Blood Cell Count 5.6 10^3/uL (4.8-10.8)
[2024-11-29 05:47] LABS: INR 1.78; PT 20.9 Sec (11.4-14.6)
[2024-11-29 06:09] LABS: Vancomycin Random 10.5 ug/ml
[2024-11-29 06:20] LABS: ALT (SGPT) 37 U/L (0-50); AST (SGOT) 107 U/L (17-59); Albumin 2.6 g/dl (3.5-5.0); Alkaline Phosphatase 98 U/L (38-126); Blood Urea Nitrogen 45 mg/dl (9-20); Calcium 7.2 mg/dl (8.4-10.2); Carbon Dioxide 26 mmol/L (22-30); Chloride 98 mmol/L (98-107); Estimated Creatinine Clearance 107 ml/min; Glucose 113 mg/dl (70-99); Magnesium 1.7 mg/dl (1.6-2.3); Potassium 3.1 mmol/L (3.5-5.1); Sodium 132 mmol/L (135-145); Total Bilirubin 11.7 mg/dl (0.2-1.3); Total Protein 5.4 g/dl (6.3-8.2); eGFR > 60.00
[2024-11-29 06:22] LABS: TSH 2.49 uIU/ml (0.47-4.68)
[2024-11-29] MEDS: SYNTHROID PO (06:30)
[2024-11-29 06:41] LABS: Vitamin B12 961 pg/ml (239-931)
[2024-11-29] MEDS: KCL 270 MEQ IV (06:42)
--- NOTE | 2024-11-29 06:56 | CON.GI ---
Addendum entered and electronically signed by Med Pantoja MD 11/29/24 13:31:
Patient seen and examined, agree with nurse practitioner note. Patient is a 59-year-old male with past medical history as noted who presents with change in mental status and worsening jaundice. He was found to have bacteremia and infected joint.
The patient is arousable, though oriented only x 2. He currently denies any abdominal pain. He has longstanding history of alcohol. Ultrasound did show nodular contour suggestive of cirrhosis, though no ascites was noted. He has multiple lab
abnormalities including thrombocytopenia, elevated LFTs, coagulopathy. His LFTs have improved some since admission. On exam he does have some mild asterixis, is arousable to oriented x 2, with no significant abdominal tenderness or appreciable
ascites.
At this point it is hard to discern how much of his lab abnormality and presentation is from sepsis/bacteremia or from cirrhosis with possible acute component of alcoholic hepatitis. He likely does have some component of hepatic encephalopathy
given asterixis on exam and confusion with mildly elevated ammonia. Again, there is no ascites on ultrasound. There is also report of possible hematemesis and bloody stools in the past, though no signs of active bleeding now. At this point we
will continue maximal supportive care per orthopedics and internal medicine, lactulose, continue to trend LFTs and INR. Given his current infection would not be a candidate for prednisolone, though again his bilirubin is improving. He is at
increased surgical risk, and by [place] vocal cirrhosis surgical risk score would have a 30-day mortality of 28%.
Original Note:
Consultation
-
Date/Time Consultation Requested: 11/28/24114
Date/Time Consultation Performed: 11/28/24 0830
Requesting Provider: Ludmila Barksdale DO
Performing Provider: MAURO German, Shivam Pantoja MD
Reason for Consultation: jaundice
Medical History
Chief Complaint / HPI
Chief Complaint: confusion
History of Present Illness:
Pt is a 59yo with hx prior TKR 2 years ago, hypothyroidism, ETOH abuse, fatty liver with admission 11/28 with worsening jaundice and hallucinations. On admission noted on admission with hbg 10.7, platelet 104,000, INR 1.51, Na 130, K 3.5, lactate
4.3, bili 16.1, AST 145, ALT 53, alk phos 131, CRP 183, albumin of 4 and stable TSH 2.49. On admission there was also concern for knee prosthetic infection with sepsis but also concern for severe liver disease and asked to evaluate.
In review with family pt with hx heavy ETOH use about 3 bottle vodka weekly for years. With family encouragement pt stopped ETOH several weeks ago. Family with recent flu and he had fever last week with concern for flu like symptoms and began
Tamiflu. He then noted swelling in tongue, epistaxis and vomiting blood and declined ER eval. On Wednesday he began with knee pain and swelling and only agree to follow up with orthopedics. He went yesterday for eval and sent to ER. Pt unable to
give history with lethargy and confusion. Per family noted with some red blood rectally and diarrhea. No recent abdominal pain but noted dark urine. No hx dysphagia, GERD, constipation prior to admission. No hx EGD or colonoscopy in past. 11/28 US
abd on admission with nodular liver with underlying cirrhosis, fatty liver, gallstone and GB sludge, splenomegaly.
Past Medical History
Past Medical History: HTN, Hypothyroidism and Other (ETOH abuse, fatty liver, likely underlying cirrhosis, gallstone sludge. )
Past Surgical History: Orthopedic (left TKR)
Social History
Tobacco: Non-Smoker
Alcohol: Daily (vodka drinker 2-3 bottles per week, 750ml per day for years last drink a few weeks ago with encourage from family )
Drug: None
Personal:
Living: With Family
Employment: Not Employed
Family History
Family History: Other (father with alcohol issues, brother with drug addition )
Allergies / Home Medications
Allergy/AdvReac Type Severity Reaction Status Date / Time
Iodinated Contrast Media Allergy Shortness Verified 11/28/24 13:33
of Breath
oseltamivir [From Tamiflu] Allergy Swelling Verified 11/28/24 13:33
�Medication �Instructions �Recorded
levothyroxine 25 mcg tablet 25 mcg PO DAILY AT 0700 #30 tabs 11/29/23
lisinopril 10 mg tablet 10 mg PO DAILY #30 tabs 11/30/23
Review of Systems
-
History Source: Patient and Family
Constitutional: Reports Fever (last )
EENT: Reports Other (recent tongue swelling and nose bleed )
Respiratory: Reports Trouble Breathing
Cardiac: Reports No Symptoms
: Reports Dark Urine
Musculoskeletal: Reports Joint Pain (knee pain since Wednesday ) and Joint Swelling
Neurological: Reports Other (recent hallucinations started 11/28 but noted some chronic confusion )
Hematologic/Lymphatic: Reports Bleeding
Vital Signs
Temp Pulse Resp BP Pulse Ox
100.0 F 94 14 122/63 99
11/29/24 03:06 11/29/24 04:00 11/29/24 04:00 11/29/24 04:00 11/29/24 04:00
Physical Exam
Exam
General: Other (sedated with lethargy and noted some hallucination on arrousal)
HEENT: Normocephalic and Other (jaundice )
Respiratory: Clear
Cardiac: Regular Rhythm and Peripheral Edema
GI: Soft, Non Tender and Non Distended
Musculoskeletal: No Clubbing, No Cyanosis and Other (left knee s/p drainage with serous sang drainage leaking )
Skin: Other (right knee with bandaid post tap with some bloody serous drainage )
Neuro: Other (sleeping but arousable and hallucinating and answering some questions )
Psych: Agitated (when stimulated )
Results
WBC 5.6 10^3/uL (4.8-10.8) 11/29/24 05:21
Hgb 8.6 g/dL (13.0-18.0) L 11/29/24 05:21
Hct 24.5 % (39.0-52.0) L 11/29/24 05:21
MCV 95.3 fL (80.0-94.0) H 11/29/24 05:21
Plt Count 85 10^3/uL (130-400) L 11/29/24 05:21
PT 20.9 Sec (11.4-14.6) H 11/29/24 05:21
INR 1.78 11/29/24 05:21
Sodium 132 mmol/L (135-145) L 11/29/24 05:21
Potassium 3.1 mmol/L (3.5-5.1) L 11/29/24 05:21
Chloride 98 mmol/L (98-107) 11/29/24 05:21
Carbon Dioxide 26 mmol/L (22-30) 11/29/24 05:21
BUN 45 mg/dl (9-20) H 11/29/24 05:21
Creatinine 0.9 mg/dL (0.7-1.3) 11/29/24 05:21
Calcium 7.2 mg/dl (8.4-10.2) L 11/29/24 05:21
Total Bilirubin 11.7 mg/dl (0.2-1.3) H 11/29/24 05:21
AST 107 U/L (17-59) H 11/29/24 05:21
ALT 37 U/L (0-50) 11/29/24 05:21
Alkaline Phosphatase 98 U/L (38-126) 11/29/24 05:21
Diagnostic Image Results:
11/28/24 US Abdomen Complete/Upper
Mild nodular surface of the liver which could represent cirrhotic morphology and overall diffuse increased hepatic echogenicity suggesting diffuse fatty infiltration. Normal directional blood flow in the hepatic and portal veins.
Gallstones and gallbladder sludge. No gallbladder wall thickening or pericholecystic fluid. Negative sonographic Ferguson's sign. No findings to suggest biliary tract dilatation.
Mild splenomegaly.
Prior GI Procedures:
EGD: none
Colonoscopy: none
Assessment / Plan
-
Pt is a 59yo with hx prior TKR 2 years ago, hypothyroidism, ETOH abuse, fatty liver with admission 11/28 with worsening jaundice and hallucinations. On admission noted on admission with hbg 10.7, platelet 104,000, INR 1.51, Na 130, K 3.5, lactate
4.3, bili 16.1, AST 145, ALT 53, alk phos 131, CRP 183, albumin of 4 and stable TSH 2.49. On admission there was also concern for knee prosthetic infection with sepsis but also concern for severe liver disease and asked to evaluate. Pt with recent
fever with concern for Flu last week without testing and treated with tamiflu and noted tongue swelling, epistaxis and vomiting blood. On Wednesday he began with knee pain and swelling and only agree to follow up with orthopedics and directed to
hospital.
In review with family pt with hx heavy ETOH use about 3 bottle vodka weekly for years. With family encouragement pt stopped ETOH several weeks ago. 11/28 US abd on admission with nodular liver with underlying cirrhosis, fatty liver, gallstone and GB
sludge, splenomegaly.
-septic knee with hx knee prosthesis s/p drainage
-ETOH hepatitis with likely underlying cirrhosis per US
-ETOH abuse with withdrawal
-hallucination from ETOH withdrawal vs sepsis
-mild elevated ammonia with concern for HE
-hyponatremia
-hypokalemia
-thrombocytopenia
-anemia
-coagulopathy
-elevated lactate on admission
-mild creat elevation on admission
-? flu with tamiflu treatment prior to admission
-recent tongue swelling/epistaxis
PLAN:
concern for underlying sepsis with knee infection and ETOH withdrawal/hepatitis with likely underlying cirrhosis and decompensation
cont abx and work up for medical team and ortho for knee infection
MELD 3.0- 11/28 26 2 25
cont to trend labs daily
DF 11/28 40.9 11/29 48 with control of 13
with ETOH hep no role for steroid with concern for infection
blood, urine and knee cx pending
cont abx
add vitamin K with rise in INR and oozing from knee drainage
monitor for any recurrent vomiting blood or epistaxis
eventual EGD for variceal screening when improved -- sooner if signs of aggressive bleeding
cont lactulose with mild elevated ammonia level
currently NPO but when able to tolerate diet advance
complete ETOH abstinence
management of ETOH withdrawal per medical team
cont thiamine and folate
updated
if surgery indicated -- I reviewed with family surgical risk for liver mortality and decompensation
[place] vocal cirrhosis surgical risk score based on 2/5 labs
30 day mortality 28.1, 90 day 32.7, 180 day 34.2 with 90 day decompensation rate 26.5%
will need OP GI follow up for chronic liver disease and cirrhosis, eventual EGD/colon
-
-
Thank you for consultation and allowing me to participate in the patient's care. Please call the quality assurance monitor GI physician during the after hours with any questions or concerns.
[2024-11-29 07:06] LABS: Segmented Neutrophils 56 % (42-75)
[2024-11-29 07:07] LABS: Absolute Neutrophils -Man Diff 4.4 10^3/uL (1.4-6.5); Band Neutrophils 23 % (0-3); Eosinophils 1 % (0-6); Lymphocytes 6 % (20-51); Monocytes 10 % (2-9)
[2024-11-29 07:08] LABS: Atypical Lymphocytes 2 %; Metamyelocytes 2 % (-); Platelets Checked Yes; Total Cells Counted 100; Toxic Granulation 1+
[2024-11-29 07:09] LABS: Stomatocytes 1+; Target Cells 1+; Vacuolated Segs Occasional
[2024-11-29 07:10] LABS: Ovalocytes Occasional; Schistocytes 1+
[2024-11-29 07:11] LABS: Anisocytosis Occasional; Hypochromasia 1+
[2024-11-29 07:14] LABS: Normal RBC Morphology No
--- NOTE | 2024-11-29 09:14 | CON.ORTHO ---
Consultation
-
Date/Time Consultation Requested: 11/28/2024; time unknown
Date/Time Consultation Performed: 11/29/2024; 0800
Requesting Provider: [email or web address]
Performing Provider: Dee Dee Leonard PA-C / Dr. Loi Jensen
Reason for Consultation: Left knee effusion; PJI
Consultation - Orthopedics
History
Mr. Spann is a 59 year old male with PMH significant for severe alcoholic use disorder and jaundice. He is about 2 years status post left total knee arthroplasty. He presented to our office yesterday for evaluation of left knee pain following a
fall down the stairs last week. His mental status was significantly altered in the office, and he appeared critically ill, which prompted Dr. Jensen to refer him immediately to the emergency department. He is a poor historian due to altered mental
status, but it sounds like he fell down the stairs 3-4 days ago resulting in increased pain and swelling about the left knee. He was unable to walk, and subsequently unable to access alcohol, which likely contributed to his decompensation. His
reports that he was hallucinating at home. His knee was aspirated in the ED and purulent fluid was obtained. He is resting comfortably in bed this morning. He did waken and answer my questions, but he remains quite confused today.
Allergies / Home Medications
Allergy/AdvReac Type Severity Reaction Status Date / Time
Iodinated Contrast Media Allergy Shortness Verified 11/28/24 13:33
of Breath
oseltamivir [From Tamiflu] Allergy Swelling Verified 11/28/24 13:33
�Medication �Instructions �Recorded
levothyroxine 25 mcg tablet 25 mcg PO DAILY AT 0700 #30 tabs 11/29/23
lisinopril 10 mg tablet 10 mg PO DAILY #30 tabs 11/30/23
Vital Signs / Lab Results
Temp Pulse Resp BP Pulse Ox
100.0 F 94 14 122/63 99
11/29/24 03:06 11/29/24 04:00 11/29/24 04:00 11/29/24 04:00 11/29/24 04:00
11/29/24 05:21
11/29/24 05:21
XR Left Knee 11/28/2024 IMPRESSION:
Left knee replacement. No evidence of complication.
Small suprapatellar joint effusion.
Joint fluid reveals >500,000 WBC and 79.1 PMN. Cultures pending.
Preliminary blood cultures reveal staph auerus. Blood and urine cultures otherwise pending.
CRP 183 yesterday. WBC WNL.
Directed exam of the left knee reveals healed surgical incision over the anterior knee with abrasion over the distal anterior knee. Large effusion. No significant erythema. Tenderness to palpation generally about the knee. ROM limited secondary to
patient discomfort. Calf soft and nontender. NVID.
Assessment / Plan
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
--Unfortunately, purulent fluid was aspirated from Sulaiman's knee in the ED yesterday which revealed over 500,000 WBC. 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 He appears critically
ill, and his sclera remain jaundiced on exam today. This is a very difficult situation, and the risk of mortality is extremely high. At this point, he is not a good candidate for surgical intervention, and would likely not survive surgery. For now,
we will plan on serial knee aspirations while his medical conditions are treated. I did aspirate his knee at the bedside this morning, and obtained 65 cc of purulent fluid. This was not sent given previous aspirate and current treatment with
antibiotics. Per Dr. Jensen, ' In the event the knee situation is deemed to be exacerbating his life threatening illness a potential above knee amputation, while radical, could be contemplated as a [id number] kind of salvage procedure out of
desperation.'.
--Continue abx per primary/ID. Currently cef and vanco.
--Patient may be weight bearing as tolerated when safe for him to get out of bed. Would recommend use of a walker.
--We appreciate the assistance of all teams in care of this patient, and orthopedics will continue to follow along.
--- NOTE | 2024-11-29 09:23 | PHA.VAN.FU ---
Vancomycin Assessment / Plan
- Assessment
Renal Function: SCR Decreasing
WBC's are: WNL
Concomitant Antimicrobials: cefepime
- Assessment - Therapeutic Drug Monitoring
Random Level: 10.5 - drawn ~13H after 2g loading dose
- Dosing Plan
Dosing by Level: Re-dose today (Vanc 1250mg x2 doses today)
Dosing Comments: will trial Q12 today but keep dose by level given BUN remains elevated
- Monitoring Plan
Random Level: 11/30 0600
- Follow Up
Pharmacy will continue to follow.
Vancomycin Follow UP
- -
Patient Age: 59
Patient Sex: Male
Vancomycin Day #: 2
Indication: Bone And Joint
Requesting Provider: Dr. Barksdale
Pertinent Antimicrobial Allergies:
no pertinent antibiotic allergies
Height / Weight:
Height 5 ft 10 in
Actual Weight 107.8 kg
Pertinent Past Medical History: BMI ~34, L. TKA, Cirrhosis
- Vital Signs / Lab Results
Temp Pulse Resp BP Pulse Ox
100.0 F 94 14 122/63 99
11/29/24 03:06 11/29/24 04:00 11/29/24 04:00 11/29/24 04:00 11/29/24 04:00
Lab Results - Hematology
11/28/24 11/29/24
12:52 05:21
WBC 8.2 5.6
Band Neutrophils 23 H
Lab Results - Chemistry
11/28/24 11/29/24
12:52 05:21
BUN 50 H 45 H
Creatinine 1.3 0.9
Estimated Creat Clear 107
Albumin 4.0 2.6 L
11/28/24 11/28/24
12:51 17:15
Lactic Acid 4.3 H* 1.6
Lab Results - Urine
11/28/24
23:21
Urine Nitrite (Reflex) Negative
Leukocyte Esterase Rfl 1+ A
Ur Squamous Epith Cells 6-10
Microbiology Results
11/28/24 15:53 Blood Culture - Preliminary
Blood/Venous Positive culture in progress
Gram Stain - Preliminary
11/28/24 12:51 Blood Culture - Preliminary
Blood/Venous Staphylococcus aureus
Gram Stain - Preliminary
Therapeutic Drug Monitoring
Random Vancomycin 10.5 ug/ml 11/29/24 05:21
[2024-11-29] MEDS: VANCOCIN 275 MG IV ×2 (10:24→20:04)
[2024-11-29] MEDS: VITAMIN B1 100 MG PO ×2 (10:34→20:05)
[2024-11-29] MEDS: FOLVITE 1 MG PO (10:34)
[2024-11-29] MEDS: DUPHALAC/CHRONULAC 20 GRAMS PO ×2 (10:34→20:05)
[2024-11-29] MEDS: THIAMINE INJECTION 200 MG IV ×2 (10:34→20:05)
--- NOTE | 2024-11-29 10:53 | W.PN.HOSP.TC ---
Addendum entered and electronically signed by Sam Dixon MD 11/29/24 11:10:
Left knee aspirate reported to be Staphylococcus aureus
Blood culture also identified Staphylococcus aureus
Already on vancomycin, await further susceptibility testing report
Original Note:
Today's Communication/Plan
-
see note
Assessment / Plan
Assessment / Plan
1. Left knee prosthetic joint infection
Septic arthritis
Immunocompromise state
-Fluid eval: WBC 810100, PMN 79.1, no crystals
-Wound culture Gram stain and culture report pending
-Orthopedic surgery evaluated and patient not a candidate for surgical I&D with almost 100% mortality risk. Ortho willing to attempt life over limb salvage procedure if needed
-IV Cef/IV Vanco to continue
-Patient underwent repeat therapeutic arthrocentesis today by orthopedic PA.
-ID following and helping with antibiotic therapy
2. Gram positive bacteremia
-f/u blood cs report
3. Alcohol use disorder
Monitor for alcohol withdrawal
-Patient last drink was 4 days ago
-Maintain on MSAS/Ativan
-Phenobarbital protocol ordered although patient coherent in the morning, will reorder if needed
-Maintain champagne/thiamine
4. Decompensated cirrhosis
Elevated total bilirubin -direct dominant
Coagulopathy
Thrombocytopenia
Transaminitis
-US abdomen showing cirrhosis
-Vitamin K oral provided for high INR
-No reported ascites on US
-Oral lactulose ordered bu GI
-no indication for steroids for alcoholic hepatitis based on DF
-Platelet count dropping further likely with added bacteremia on top of chronic thrombocytopenia with liver disease.
5. Upper GI bleed
-Reported hemoptysis few days back
-Monitor hemoglobin
-GI considering eventual EGD
6. CLEVE
-cr trended down to normal
7. Acute metabolic encephalopathy
-Monitor for hepatic encephalopathy versus alcohol withdrawal
-Lactulose ordered
8. Hyponatremia
-From ESLD.
-Will add fluid restriction if needed
9. Chronic normocytic anemia
Acute blood loss anemia
-Hemoglobin drifted down likely with reported hemoptysis/GI bleed
-Transfuse for hbg < 7
DVT proph-PCDs
Full Code
Total time spent : 56 mins
I personally saw and examined the patient.
I have reviewed all diagnostic interpretations and treatment plans as written.
Time includes patient management by me, time spent at the patients bedside, time to review lab and imaging results, discussing patient care, documentation in the medical record, and time spent with the family or caregiver and discussing care plan
with RN/Consultants.
Anticipated Discharge: > 48 hours
Subjective/Interval History
-
Date of Service: November 29, 2024
Patient somnolent, waking up on verbal cue
Denies of having any abdominal pain/nausea/vomiting
Afebrile overnight
Objective Data
-
Labs:
Laboratory Results
11/29/24
05:21
WBC 5.6
Hgb 8.6 L
Hct 24.5 L
Plt Count 85 L
PT 20.9 H
INR 1.78
Sodium 132 L
Potassium 3.1 L
Chloride 98
Carbon Dioxide 26
BUN 45 H
Creatinine 0.9
Glucose 113 H
Calcium 7.2 L
Total Bilirubin 11.7 H
AST 107 H
ALT 37
Alkaline Phosphatase 98
Vital Signs:
Vital Signs
Temp Pulse Resp BP Pulse Ox
99.8 F 98 15 135/72 100
11/29/24 07:05 11/29/24 10:27 11/29/24 10:27 11/29/24 10:27 11/29/24 10:27
Review of Systems
-
Unable to obtain full review of systems at this time due to: Other (Limited, negative)
Physical Exam
-
General: Comfortable and Morbidly Obese
HEENT: Negative Oxygen
Respiratory: Clear to Auscultation
Cardiac: Regular Rhythm and S1/S2; Negative Murmur or Rub
GI: Soft, Nontender, Normal Bowel Sounds and Distended
Musculoskeletal: Other (Left knee swelling, bleeding from arthrocentesis site)
Neuro: Awake, Alert, Oriented and No Motor Deficits
Psych: Calm
--- NOTE | 2024-11-29 11:09 | PTCARENOTE ---
Dr. Dixon notified of positive blood and fluid cultures.
--- NOTE | 2024-11-29 11:45 | CM ---
Addendum entered by Harmony Cabrera RN 11/29/24 12:11:
Additionally states patient fell at home going down the stairs.
Original Note:
Patient with Hx ESLD, Alcohol use disorder with Dx Left knee prosthetic joint infection/Septic arthritis, Cirrhosis, UGI bleed/anemia. Receiving IV Phenobarb, IV Ativan, Lactulose, IV Abx. Per nurse assessment; drowsy, vague orientation. MSAS.
Attempted to meet with patient who was sleeping and snoring loudly.
Met with patient's Melissa;
the patient resides with his in a large 2 story [place]; depending on entry he has 2 or 6-7 steps to enter home; he has recently been sleeping on a [place] couch and using powder room on the 1st floor; bedroom and bath on the upper level.
The patient has been confused for the past few weeks requiring assistance with ADLs.
He was unable to bear wt or walk for the past few weeks and began using his RW, since the past weekend 11/25 he started using crutches.
DME - RW, crutches, shower chair
No prior VN or SNF
PCP- Enrique Morillo
Pharmacy - [facility]
CM Consult: Substance Abuse
states patient has not done any prior inpatient or outpatient Alcohol Rehab.
She is unaware that he spoke with [facility] on his past admission here in Nov 2023 and was offered outpatient resources.
She says he stopped drinking on his own for about 7 months and is unsure why he started drinking again in Jun 2024.
She is unsure if he will be receptive to Substance Abuse referrals.
Plan follow patient's mentation, mobility and medical status.
Plan offer [facility] when more awake/alert.
--- NOTE | 2024-11-29 12:16 | W.PN.UPDATE ---
Update Note
Progress Note Update
Had 30 min counselling session w. patient's Melissa.
Pt remains critically, some labs a little better but others worse (albumin, inr, platlets, hb etc)
His knee is infected with staph per culture. I explained that he is too sick for surgery at this moment I do not think he would survive and invasive surgery on the knee. I recommended we do serial aspirations then a more definitive surgery
if/when his metabolism improves. If he remains cricially ill and only a liver transplant would save his life but a transplant would be contraindicated due to infxn then an above knee amputation could be done to put life before limb. We
discussed all of this as well as the the various surgical methods to treat PJI including I&D, single stage, 2 stage, resection etc. All questoins answered. Right now in a wait and see approach to see what liver recovery transpires. Offered to
request transfer but she declines at present.
[2024-11-29] MEDS: MEPHYTON 10 MG PO (13:44)
--- NOTE | 2024-11-29 13:50 | CON.ID ---
Consultation
-
Date/Time Consultation Requested: November 29 2024 0113
Date/Time Consultation Performed: November 29, 2024 1350
Requesting Provider: Dr. Ludmila Barksdale
Performing Provider: Shawnee Garcia
Reason for Consultation: Left septic prosthetic knee
Chief Complaint / Past History
Chief Complaint
Left knee pain
History of Present Illness
History obtained from review of medical records since patient is currently confused and unable to provide a full meaningful history. He is a 59-year-old male with alcohol abuse, likely cirrhosis, hypertension, history of left total knee replacement
2 years ago who presented from the orthopedics office November 28 due to hallucination and jaundice. Per record patient had fever about a week ago. He was prescribed Tamiflu for presumed influenza since family member with recent flu. However he
developed tongue swelling, nosebleed, vomiting and therefore discontinued the Tamiflu. By report patient fell down the stairs several days ago. He then developed acute left knee pain and unable to ambulate. He was not able to get access to
alcohol. He was hallucinating at home. He finally agreed to go to the orthopedics office to be evaluated for the knee pain yesterday. Patient also He was sent to the ER. Temperature was 100.6. Bilirubin 16.1. Patient with bright red blood
per rectum. In the ER, the left prosthetic knee was aspirated with purulent looking fluid; 514,000 white blood cells, 79% polys. Cultures growing Staphylococcus aureus. In addition blood cultures x 3 positive for Staphylococcus aureus. He is
currently on vancomycin and cefepime. Per Ortho he is too ill for surgical intervention.
Past History
Additional Past Medical History:
Hypertension
Hypothyroidism
alcohol abuse
cirrhosis
Left total knee replacement
Allergy History:
Iodinated Contrast Media Allergy (Verified 11/28/24 13:33)
Shortness of Breath
oseltamivir [From Tamiflu] Allergy (Verified 11/28/24 13:33)
Swelling
Medications Reviewed: Yes
Current Antibiotics:
Vancomycin
Cefepime
Social History
Tobacco: Non-Smoker
Alcohol: Chronic Alcoholic (3 bottles of Vodka legs are just sore weekly)
Drug: None
Personal:
Living: With Family
Family History
Family History: Not Pertinent
Review of Systems
Review of Systems
Unable to obtain due to lethargy.
Vital Signs
Temp Pulse Resp BP Pulse Ox
98.1 F 98 15 135/72 100
11/29/24 11:15 11/29/24 10:27 11/29/24 10:27 11/29/24 10:27 11/29/24 10:27
Selected Entries
11/29/24
01:11
Temp 100.6 F H
Physical Exam
Physical Exam
Constitutional: Acutely Ill
Eyes: No Conjunctival Hemorrhage and Other (Sclera icteric)
Cardiovascular: Regular Rate and S1/S2
Pulmonary: Clear
Gastrointestinal: Soft, Non Tender, Non Distended and Normal Bowel Sounds
Genito-Urinary: Negative CVA Tenderness
Extremities: Edema (LLE)
Musculoskeletal: Other (Left knee: warm, + effusion)
Skin: Jaundice and Other (Ecchycmosis, abrasion right scalp/forehead, BLE)
Neurological: Other (lethargic)
Lab / Diagnostic Study Results
11/29/24 05:21
11/29/24 05:21
Total Counted 100 11/29/24 05:21
Abs Neuts (Manual) 4.4 10^3/uL (1.4-6.5) 11/29/24 05:21
Segmented Neutrophils 56 % (42-75) 11/29/24 05:21
Band Neutrophils 23 % (0-3) H 11/29/24 05:21
Lymphocytes (Manual) 6 % (20-51) L 11/29/24 05:21
Eosinophils (Manual) 1 % (0-6) 11/29/24 05:21
PT 20.9 Sec (11.4-14.6) H 11/29/24 05:21
INR 1.78 11/29/24 05:21
Lactic Acid 1.6 mmol/L (0.7-2.0) 11/28/24 17:15
C-Reactive Protein 183.10 mg/L (0.0-10.00) H 11/28/24 12:52
Ur Squamous Epith Cells 6-10 /LPF (Few) 11/28/24 23:21
Microbiology Results
Micro:
11/28/24 15:53 Blood Culture - Preliminary
Blood/Venous Positive culture in progress
Gram Stain - Preliminary
11/28/24 15:54 Body Fluid Culture - Preliminary
Joint Fluid Staphylococcus aureus
Gram Stain - Preliminary
11/28/24 15:53 Blood Culture - Preliminary
Blood/Venous Positive culture in progress
Gram Stain - Final
11/28/24 12:51 Blood Culture - Preliminary
Blood/Venous Staphylococcus aureus
Gram Stain - Preliminary
11/28/24 23:21 Urine Culture - Pending
Urine
11/28/24 22:25 Blood Culture - Pending
Blood/Venous
11/28/24 22:25 Blood Culture - Pending
Blood/Venous
11/28/24 Abd US: Mild nodular surface of the liver which could represent cirrhotic morphology and overall diffuse increased hepatic echogenicity suggesting diffuse fatty infiltration. Normal directional blood flow in the hepatic and portal veins.
Gallstones and gallbladder sludge. No gallbladder wall thickening or pericholecystic fluid. Negative sonographic Ferguson's sign. No findings to suggest biliary tract dilatation.
11/28/24 Knee XRAY: Left knee replacement. No evidence of complication. Small suprapatellar joint effusion.
Assessment / Plan
# Complicated S. aureus bacteremia (3 sets)
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
# Fever, bandemia
# Suspect Decompensated alcohol hepatitis/cirrhosis
# Alcohol withdrawal
- Patient is not candidate for surgical intervention at this time
-Prognosis guarded
- Follow repeat blood cx's until clear
-TTE no significant valvular disease.
- DC cefepime.
-Likely MSSA. Start cefazolin 2g IV q8h.
- Continue Vancomycin for now pending final susceptibility result.
[2024-11-29] MEDS: ANCEF 10 IV ×2 (14:34→23:06)
--- NOTE | 2024-11-29 15:40 | PTCARENOTE ---
Patient is overall drowsy today but easily arousable with verbal stimuli. Patient was able to take his meds and brush his teeth, talk with family. Patient is denying pain when asked. Blood culture results notified to hospitalist. Patient has been
calm and cooperative with staff, objectively comfortable in bed on left side at this time.
--- NOTE | 2024-11-29 18:24 | PTCARENOTE ---
Patient has an unsteady gait at this time. Two person transfer, mod assist to commode with verbal cues. Nursing consulted PT for eval. Patient has history of falls.
--- NOTE | 2024-11-29 20:24 | PTCARENOTE ---
Pt received from dayshift RN. Pt can answer orientation questions, however drowsy, arousable to verbal stimuli. NSR on monitor. MSAS maintained per order, scoring 2 a this time. bed alarm in use due to forgetfulness and hx of falls. Call light in
reach.
[2024-11-30] VITALS (9 sets, daily range): BP systolic 103–138; BP diastolic 55–74; BMI 33.9
[2024-11-30] MEDS: ANCEF 10 IV ×3 (05:09→21:28)
--- NOTE | 2024-11-30 05:20 | W.PN.GI.CBS2 ---
Today's Communication / Plan
-
Please see assessment and plan for details.
Assessment / Plan
-
1. Elevated LFTs: With probable underlying alcoholic cirrhosis based on imaging and history, possibly some component of acute alcohol hepatitis, though many of his lab abnormalities could also be related to Staph aureus bacteremia/sepsis, including
thrombocytopenia, elevated LFTs, coagulopathy. Clinically his mentation is much better today, again likely multifactorial though probably some component of hepatic encephalopathy, though otherwise would be compensated, no appreciable ascites on
ultrasound. At this point we will continue supportive care, lactulose. Will continue close observation of labs, though is not a candidate for prednisolone given active infection, which also precludes transplant evaluation. His operative risk is
elevated, with a [place] vocal score yesterday suggesting 30-day mortality of 28%.
Subjective
Subjective
Date of Service: November 30, 2024
Patient feeling okay overnight, denies any abdominal pain. Is more alert this morning than yesterday. No fevers or chills overnight.
Objective
Data Reviewed
Laboratory Data:
Laboratory Results
PT 20.9 Sec (11.4-14.6) H 11/29/24 05:21
INR 1.78 11/29/24 05:21
Phosphorus 2.4 mg/dl (2.5-4.5) L 11/28/24 22:25
Magnesium 1.7 mg/dl (1.6-2.3) 11/29/24 05:21
Total Bilirubin 11.7 mg/dl (0.2-1.3) H 11/29/24 05:21
AST 107 U/L (17-59) H 11/29/24 05:21
ALT 37 U/L (0-50) 11/29/24 05:21
Alkaline Phosphatase 98 U/L (38-126) 11/29/24 05:21
Vital Signs and I&O:
Vital Signs
Temp Pulse Resp BP Pulse Ox
99.1 F 92 13 108/55 96
02/06/25 03:36 11/30/24 04:00 11/30/24 04:00 11/30/24 04:00 11/30/24 04:00
I&O
11/28/24 11/29/24 11/30/24
06:59 06:59 06:59
Intake Total 880 / 880
Output Total 700 / 700
Balance 180 / 180
Physical Exam
Physical Exam
General: NAD, icteric and jaundiced
Abdomen: normal bowel sounds, soft, no tenderness, no masses or bruits, no appreciable ascites
[2024-11-30 05:39] LABS: INR 1.59; PT 19.5 Sec (11.4-14.6)
[2024-11-30 05:40] LABS: Hematocrit 23.7 % (39.0-52.0); Hemoglobin 8.3 g/dL (13.0-18.0); Mean Corpuscular Hgb 33.3 pg (27.0-31.0); Mean Corpuscular Volume 95.2 fL (80.0-94.0); Mean Platelet Volume 11.2 fL (7.4-10.4); Platelet Count 105 10^3/uL (130-400); Red Blood Cell Count 2.49 10^6/uL (4.70-6.10); Red Cell Dist. Width 15.1 % (11.5-14.5); White Blood Cell Count 4.7 10^3/uL (4.8-10.8)
[2024-11-30 05:52] LABS: ALT (SGPT) 32 U/L (0-50); AST (SGOT) 110 U/L (17-59); Albumin 2.5 g/dl (3.5-5.0); Alkaline Phosphatase 115 U/L (38-126); Blood Urea Nitrogen 29 mg/dl (9-20); Calcium 7.4 mg/dl (8.4-10.2); Carbon Dioxide 25 mmol/L (22-30); Chloride 99 mmol/L (98-107); Estimated Creatinine Clearance > 125 ml/min; Glucose 96 mg/dl (70-99); Potassium 3.2 mmol/L (3.5-5.1); Sodium 136 mmol/L (135-145); Total Bilirubin 11.2 mg/dl (0.2-1.3); Total Protein 5.3 g/dl (6.3-8.2); eGFR > 60.00
[2024-11-30 05:55] LABS: Vancomycin Random 13.3 ug/ml
[2024-11-30] MEDS: SYNTHROID 25 MCG PO (06:00)
[2024-11-30] MEDS: TYLENOL 325 MG PO (06:00)
--- NOTE | 2024-11-30 07:40 | W.PN.UPDATE ---
Update Note
Progress Note Update
Patient with left prosthetic joint infection. This morning he is resting comfortably and he is afebrile. Left knee exam shows small effusion with trace amount of pain. Passive motion 0 to 70 degrees without significant pain. Distal neurovascular
was intact. Chart reviewed and obviously he is not a good surgical candidate so observation from orthopedic standpoint. We will do serial left knee aspirations as indicated. Today no aspiration necessary but reevaluate tomorrow.
--- NOTE | 2024-11-30 07:48 | W.PN.UPDATE ---
Update Note
Progress Note Update
if pt improves sufficiently to tolerate a 2-3 hr surgery with significant invasiveness and metabolic stress i will suggest to him and to explant knee this coming wednesday (6 days from now). Appreciate GI, ID and medical consultants input on
whether pt could tolerate a surgery like this. I see GI input that transplant not possible due to infection. Even after an explant the patient's knee will not, technically speaking, be free of infection for weeks to months during which time his
decompensated cirrhosis could worsen. Furthermore his likelyhood of succesfully fighting off the infection with TKA exchange is lower than average due to immunosupression from cirrhosis. I would estimate heathly person with TKA infection would
have 80-90 percent chance of infection eradication over 2-3 months with component exchange. With his albumin so low, 2.6, and decompensated cirrhosis, his likelyhoood of cure is certainly lower. My guess would be 50% but there is no literature
specifically on this scenario. All of this being said, if curative treatment of the infection could facilitate lifesaving transplant then an AKA would not be unreasonable and would be immediately curative of the TKA infection at the cost of
lifelong prosthetic use.
[2024-11-30] MEDS: DUPHALAC/CHRONULAC 20 GRAMS PO ×2 (08:41→20:23)
[2024-11-30] MEDS: VITAMIN B1 100 MG PO ×2 (08:42→20:22)
[2024-11-30] MEDS: THIAMINE INJECTION 200 MG IV ×2 (08:42→20:24)
[2024-11-30] MEDS: FOLVITE 1 MG PO (08:42)
--- NOTE | 2024-11-30 08:49 | PHA.VAN.FU ---
Vancomycin Assessment / Plan
- Assessment
Renal Function: SCR Decreasing
WBC's are: Stable
In the past 24 hrs, patient has been: Afebrile
Concomitant Antimicrobials: cefazolin
- Assessment - Therapeutic Drug Monitoring
Random Level: 13.3 - drawn ~9H after previous dose of 1250mg
received 2 doses of 1250mg yesterday
- Dosing Plan
Adjust Regimen to: Vanc 1250mg Q12H
- Follow Up
Pharmacy will continue to follow.
Vancomycin Follow UP
- -
Patient Age: 59
Patient Sex: Male
Vancomycin Day #: 3
Indication: Bone And Joint
Requesting Provider: Dr. Barksdale / Dr. Garcia
Pertinent Antimicrobial Allergies:
no pertinent antibiotic allergies
Height / Weight:
Height 5 ft 10 in
Actual Weight 107.3 kg
Pertinent Past Medical History: BMI ~34, L. TKA, Cirrhosis
- Vital Signs / Lab Results
Temp Pulse Resp BP Pulse Ox
99.1 F 93 17 117/61 98
11/30/24 03:36 11/30/24 06:00 11/30/24 06:00 11/30/24 06:00 11/30/24 06:00
Lab Results - Hematology
11/28/24 11/29/24 11/30/24
12:52 05:21 05:15
WBC 8.2 5.6 4.7 L
Band Neutrophils 23 H
Lab Results - Chemistry
11/28/24 11/29/24 11/30/24
12:52 05:21 05:15
BUN 50 H 45 H 29 H
Creatinine 1.3 0.9 0.7
Estimated Creat Clear 107 > 125
Albumin 4.0 2.6 L 2.5 L
11/28/24 11/28/24
12:51 17:15
Lactic Acid 4.3 H* 1.6
Microbiology Results
11/28/24 23:21 Urine Culture - Final
Urine NO GROWTH
11/28/24 15:54 Body Fluid Culture - Final
Joint Fluid S aureus-Methicillin Sensitive
Gram Stain - Final
11/28/24 22:25 Blood Culture - Preliminary
Blood/Venous Positive culture in progress
Gram Stain - Preliminary
11/28/24 22:25 Blood Culture - Preliminary
Blood/Venous Positive culture in progress
Gram Stain - Preliminary
11/28/24 15:53 Blood Culture - Preliminary
Blood/Venous Positive culture in progress
Gram Stain - Preliminary
11/28/24 15:53 Blood Culture - Preliminary
Blood/Venous Positive culture in progress
Gram Stain - Final
11/28/24 12:51 Blood Culture - Preliminary
Blood/Venous Staphylococcus aureus
Gram Stain - Preliminary
Therapeutic Drug Monitoring
Random Vancomycin 13.3 ug/ml 11/30/24 05:15
--- NOTE | 2024-11-30 11:06 | W.PN.ID1 ---
Date of Service
Date of Service: November 30, 2024
Today's Communication
See below.
Assessment / Plan
# Complicated S. aureus (MSSA) bacteremia (5 sets, same day 11/28/24)
# Septic left knee PJI with MSSA
# Fever resolved
# Alcohol hepatitis
# Alcohol withdrawal
- For 2 stage knee revision next week, per Ortho
- Repeat blood cx's x2 tomorrow.
-TTE no significant valvular disease.
-Continue cefazolin 2g IV q8h.
- Discontinue Vancomycin
#Additional Past Medical History:
Hypertension
Hypothyroidism
alcohol abuse
cirrhosis
Left total knee replacement
Chief Complaint
-: Bacteremia and Other (Septic PJI)
Subjective / Review of Systems
Feels better. Denies fall at home. Recent flu.
Vital Signs / Physical Exam
Vital Signs
Vital Signs
Temp Pulse Resp BP Pulse Ox
99.1 F 98 21 133/73 98
11/30/24 07:02 11/30/24 10:00 11/30/24 10:00 11/30/24 10:00 11/30/24 10:00
Physical Exam
Constitutional: No Acute Distress and Comfortable
Eyes: No Conjunctival Hemorrhage and Other (sclera icteric)
Cardiovascular: Regular Rate and S1/S2
Pulmonary: Clear
Gastrointestinal: Soft, Non Tender, Non Distended and Normal Bowel Sounds
Musculoskeletal: Other (left knee mild effusion, + warmth)
Skin: Jaundice
Neurological: AO x 3
Objective Data
Lab Data
Lab Results
11/30/24 05:15
11/30/24 05:15
PT 19.5 Sec (11.4-14.6) H 11/30/24 05:15
INR 1.59 11/30/24 05:15
Estimated Creat Clear > 125 ml/min 11/30/24 05:15
Lactic Acid 1.6 mmol/L (0.7-2.0) 11/28/24 17:15
Total Bilirubin 11.2 mg/dl (0.2-1.3) H 11/30/24 05:15
GGT 546 U/L (15-73) H 11/28/24 22:25
AST 110 U/L (17-59) H 11/30/24 05:15
ALT 32 U/L (0-50) 11/30/24 05:15
Alkaline Phosphatase 115 U/L (38-126) 11/30/24 05:15
C-Reactive Protein 183.10 mg/L (0.0-10.00) H 11/28/24 12:52
Most recent labs reviewed.
Micro Results:
11/28/24 22:25 Blood Culture - Preliminary
Blood/Venous Staphylococcus aureus
Gram Stain - Preliminary
11/28/24 15:53 Blood Culture - Preliminary
Blood/Venous Staphylococcus aureus
Gram Stain - Final
11/28/24 15:53 Blood Culture - Preliminary
Blood/Venous Staphylococcus aureus
Gram Stain - Preliminary
11/28/24 12:51 Blood Culture - Preliminary
Blood/Venous Staphylococcus aureus
Gram Stain - Preliminary
11/28/24 23:21 Urine Culture - Final
Urine NO GROWTH
11/28/24 15:54 Body Fluid Culture - Final
Joint Fluid S aureus-Methicillin Sensitive
Gram Stain - Final
11/28/24 22:25 Blood Culture - Preliminary
Blood/Venous Positive culture in progress
Gram Stain - Preliminary
11/28/24 Abd US: Mild nodular surface of the liver which could represent cirrhotic morphology and overall diffuse increased hepatic echogenicity suggesting diffuse fatty infiltration. Normal directional blood flow in the hepatic and portal veins.
Gallstones and gallbladder sludge. No gallbladder wall thickening or pericholecystic fluid. Negative sonographic Ferguson's sign. No findings to suggest biliary tract dilatation.
11/28/24 Knee XRAY: Left knee replacement. No evidence of complication. Small suprapatellar joint effusion.
Care Review
Plan reviewed with: Physician (Dr. Jasper Dixon)
--- NOTE | 2024-11-30 11:10 | PN.CDI ---
CDI
- -
CDI:
Physician Documentation Request
Admit Date: 11/28/24 21:33
Dear Doctor Zack,
Please review the following and provide your response in the progress notes.
Clinical Indicators:
- On admission: Tmax 100.6, HR 100-110s, RR 20s
- 2/5 PN 'Left knee prosthetic joint infection...Septic arthritis'
- Immunocompromised
- Bacteremia
- BC and Joint fluid positive with Staph aureus
- 2/4 Ortho 'His situation represents true criticial and life threatening acute illness'
Please clarify which of the following most accurately describes the status of the patient's infection:
Severe Sepsis due to Staph aureus prosthetic joint infection with bacteremia and associated CLEVE
Localized prosthetic joint infection and bacteremia only, Without Systemic Illness
Other (please specify)
Use of terms such as suspected, likely, concern for, or probable (associated with a specific diagnosis that is being evaluated, monitored, or treated as if it exists) are acceptable and can be coded in the inpatient setting, when documented at the
time of discharge.
Thank you,
Brien Garcia RN
CDI Specialist
Please use your independent medical judgment in providing your response.
--- NOTE | 2024-11-30 12:22 | CM ---
Addendum entered by Harmony Cabrera RN 11/30/24 15:58:
Per Ortho notes; considerations if patient can tolerate large knee revision surgery.
Message from [facility]; he saw the patient who was undecided re; accepting resources. He will need to follow up with the patient when closer to discharge.
Plan follow up after seen by PT.
Plan notify [facility] when closer to discharge.
Original Note:
Patient with Hx ESLD, Alcohol use disorder, fall at home with Dx Left knee prosthetic joint infection/Septic arthritis, Cirrhosis, UGI bleed/anemia. O2 2L. Receiving IV Phenobarb, Lactulose, IV Abx. MSAS. Patient more alert/oriented today.
Met with patient and , while their 2 daughters remained in the waiting room;
offered [facility] for alcohol use support.
Patient agreed to [facility] but stated he was able to get sober previously on his own.
Spoke with [facility]; he will meet with the patent today.
Nurse reports patient not ambulatory related to his knee issues.
Message to Dr Dixon requesting PT Eval.
Plan follow up after seen by PT.
Plan follow up with [facility].
[2024-11-30] MEDS: ORAJEL 10% GEL 1 APPLIC TOPICAL (12:23)
--- NOTE | 2024-11-30 13:24 | W.PN.UPDATE ---
Update Note
Progress Note Update
Pt seen and examiend, he is able to converse today whereas yesterday he was obtunded. I had 20 min counselling session w. patient his and 2 daughters about the situation with the decompensated cirrhosis and left knee PJI. We went over all
the various treatment options and how his cirrhosis would affect chances of being successful and pros and cons of each approach. Although he looks much better today his albumin is still very very low at 2.5, he's coagulopathic and anemic and it
would be in his interest to continue supression of the infection while he is optimized metabolically.
I am eager to hear medicine/GI input on whether/when he can tolerate a large knee revision surgery 2-3 hrs in length.
--- NOTE | 2024-11-30 14:38 | W.PN.HOSP.TC ---
Today's Communication/Plan
-
transfer med/surg
continue abx per ID
monitor Labs
Assessment / Plan
Assessment / Plan
1. Left knee prosthetic joint infection
Septic arthritis
Immunocompromise state
-Fluid eval: WBC [id number], PMN 79.1, no crystals
-Wound culture Gram stain and culture report pending
-Orthopedic surgery evaluated and patient not a candidate for surgical I&D with almost 100% mortality risk. Ortho willing to attempt life over limb salvage procedure if needed
-Patient underwent repeat therapeutic arthrocentesis by orthopedic PA.
-ID following and helping with antibiotic therapy, currently on ancef
2. MSSA bacteremia
-blood cs showing MSSA
-repeat blood cs report pending
3. Alcohol use disorder
Monitor for alcohol withdrawal
-Patient last drink was 4 days ago
-Maintain on MSAS/Ativan
-Maintain champagne/thiamine
4. Decompensated cirrhosis
Elevated total bilirubin -direct dominant
Coagulopathy - improved
Thrombocytopenia
Transaminitis
-US abdomen showing cirrhosis
-Vitamin K oral provided for high INR
-No reported ascites on US
-Oral lactulose ordered bu GI
-no indication for steroids for alcoholic hepatitis based on DF
-Platelet count dropping further likely with added bacteremia on top of chronic thrombocytopenia with liver disease.
5. Upper GI bleed
-Reported hematemesis few days back
-Monitor hemoglobin
-GI considering eventual EGD
6. CLEVE -resolved
-cr trended down to normal
7. Acute metabolic encephalopathy - Improved
-Monitor for hepatic encephalopathy versus alcohol withdrawal
-Lactulose ordered
8. Hyponatremia
-From ESLD.
-Will add fluid restriction if needed
9. Chronic normocytic anemia
Acute blood loss anemia
-Hemoglobin drifted down likely with reported hemoptysis/GI bleed
-Transfuse for hbg < 7
DVT proph-PCDs
Full Code
Total time spent : 52 mins
I personally saw and examined the patient.
I have reviewed all diagnostic interpretations and treatment plans as written.
Time includes patient management by me, time spent at the patients bedside, time to review lab and imaging results, discussing patient care, documentation in the medical record, and time spent with the family or caregiver and discussing care plan
with RN/Consultants.
Anticipated Discharge: > 48 hours
Subjective/Interval History
-
Date of Service: November 30, 2024
no issues overnight
afebrile
some mouth and tongue pain from ulcer
Objective Data
-
Labs:
Laboratory Results
11/30/24
05:15
WBC 4.7 L
Hgb 8.3 L
Hct 23.7 L
Plt Count 105 L D
PT 19.5 H
INR 1.59
Sodium 136
Potassium 3.2 L
Chloride 99
Carbon Dioxide 25
BUN 29 H
Creatinine 0.7
Glucose 96
Calcium 7.4 L
Total Bilirubin 11.2 H
AST 110 H
ALT 32
Alkaline Phosphatase 115
Vital Signs:
Vital Signs
Temp Pulse Resp BP Pulse Ox
98.8 F 98 21 133/73 99
11/30/24 11:24 11/30/24 10:00 11/30/24 10:00 11/30/24 10:00 11/30/24 11:05
I&O
11/29/24 11/30/24 12/01/24
06:59 06:59 06:59
Intake Total 880 / 880
Output Total 700 / 700 650 / 650
Balance 180 / 180 -650 / -650
Review of Systems
-
Respiratory: Reports No Symptoms
Cardiac: Reports No Symptoms
Abdomen/GI: Reports No Symptoms
Physical Exam
-
General: Comfortable and Morbidly Obese
HEENT: Negative Oxygen
Respiratory: Clear to Auscultation
Cardiac: Regular Rhythm and S1/S2; Negative Murmur or Rub
GI: Soft, Nontender, Normal Bowel Sounds and Distended
Musculoskeletal: Other (Left knee swelling, bleeding from arthrocentesis site)
Neuro: Awake, Alert, Oriented and No Motor Deficits
Psych: Calm
[2024-11-30] MEDS: ULTRAM 50 MG PO (21:12)
[2024-12-01] MEDS: ROXICODONE 5 MG PO ×3 (00:06→19:31)
--- NOTE | 2024-12-01 03:07 | W.PN.UPDATE ---
Update Note
Progress Note Update
RN reports pt with 8-10/10 knee pain. Tramadol ordered but helped minimally. Oxycodone x 1 ordered which pt was able to fall asleep after.
[2024-12-01 03:25] VITALS: BP 129/72
[2024-12-01] MEDS: SYNTHROID 25 MCG PO (05:41)
[2024-12-01] MEDS: ANCEF 10 IV ×3 (05:41→21:48)
[2024-12-01 06:00] VITALS: BMI 33.9
[2024-12-01 07:59] VITALS: BP 139/75
--- NOTE | 2024-12-01 08:13 | PN.CDI ---
CDI
- -
CDI:
Physician Documentation Request
Admit Date: 11/28/24 21:33
Dear Doctor Zack,
Please review the following and provide your response in the progress notes.
Clinical Indicators:
- Patient admit for prosthetic joint infection
- 2/5 40meq IV potassium chloride given
- Potassium levels:
Laboratory Tests
11/28/24 11/29/24 11/30/24
12:52 05:21 05:15
Potassium 3.5 3.1 L 3.2 L
Please provide a diagnosis for the above lab values that were monitored and treatment rendered:
Hypokalemia
Clinically insignificant abnormal lab value
Other (please specify)
Use of terms such as suspected, likely, concern for, or probable (associated with a specific diagnosis that is being evaluated, monitored, or treated as if it exists) are acceptable and can be coded in the inpatient setting, when documented at the
time of discharge.
Thank you,
Brien Garcia RN
CDI Specialist
Please use your independent medical judgment in providing your response.
--- NOTE | 2024-12-01 08:20 | W.PN.UPDATE ---
Update Note
Progress Note Update
Came to see for mornings rounds however patient was in the bathroom; will return to see the patient around early afternoon or lunchtime for consideration of aspiration for palliative benefits pending definitive management for his left knee
[2024-12-01 08:28] LABS: Hematocrit 24.3 % (39.0-52.0); Hemoglobin 8.6 g/dL (13.0-18.0); Mean Corp Hgb Conc. 35.4 g/dL (33.0-37.0); Mean Corpuscular Hgb 33.5 pg (27.0-31.0); Mean Corpuscular Volume 94.6 fL (80.0-94.0); Mean Platelet Volume 11.4 fL (7.4-10.4); Platelet Count 139 10^3/uL (130-400); Red Blood Cell Count 2.57 10^6/uL (4.70-6.10); Red Cell Dist. Width 15.7 % (11.5-14.5); White Blood Cell Count 5.3 10^3/uL (4.8-10.8)
--- NOTE | 2024-12-01 08:43 | W.PN.ID1 ---
Date of Service
Date of Service: December 01, 2024
Today's Communication
Continue cefazolin.
Assessment / Plan
# Complicated S. aureus (MSSA) bacteremia (5 sets, collected same day 11/28/24)
# Septic left knee PJI with MSSA
# Fever
# Alcohol hepatitis
# s/p Alcohol withdrawal
- For 2 stage knee revision next week, per Ortho
- Follow Repeat blood cx's x2
-TTE no significant valvular disease.
-Continue cefazolin 2g IV q8h.
- Follow temps.
#Additional Past Medical History:
Hypertension
Hypothyroidism
alcohol abuse
cirrhosis
Left total knee replacement
Chief Complaint
-: Bacteremia and Other (Septic PJI)
Subjective / Review of Systems
c/o left knee pain. Had chills with fever last night.
Vital Signs / Physical Exam
Vital Signs
Vital Signs
Temp Pulse Resp BP Pulse Ox
99.2 F 96 18 139/75 98
12/01/24 07:59 12/01/24 07:59 12/01/24 07:59 12/01/24 07:59 12/01/24 07:59
Selected Entries
11/30/24
19:30
Temp 101.0 F H
Physical Exam
Constitutional: No Acute Distress and Comfortable
Eyes: Other (icteric)
Cardiovascular: Regular Rate and S1/S2
Pulmonary: Clear
Gastrointestinal: Soft, Non Tender, Non Distended and Normal Bowel Sounds
Extremities: Edema (LLE)
Skin: Jaundice
Neurological: AO x 3
Objective Data
Lab Data
Lab Results
12/01/24 07:23
PT 19.5 Sec (11.4-14.6) H 11/30/24 05:15
INR 1.59 11/30/24 05:15
Estimated Creat Clear > 125 ml/min 11/30/24 05:15
Lactic Acid 1.6 mmol/L (0.7-2.0) 11/28/24 17:15
Total Bilirubin 11.2 mg/dl (0.2-1.3) H 11/30/24 05:15
GGT 546 U/L (15-73) H 11/28/24 22:25
AST 110 U/L (17-59) H 11/30/24 05:15
ALT 32 U/L (0-50) 11/30/24 05:15
Alkaline Phosphatase 115 U/L (38-126) 11/30/24 05:15
C-Reactive Protein 183.10 mg/L (0.0-10.00) H 11/28/24 12:52
Most recent labs reviewed.
Micro Results:
12/01/24 07:23 Blood Culture - Pending
Blood/Venous
12/01/24 08:00 Blood Culture - Pending
Blood/Venous
11/28/24 12:51 Blood Culture - Preliminary
Blood/Venous Staphylococcus aureus
Gram Stain - Preliminary
11/28/24 22:25 Blood Culture - Preliminary
Blood/Venous Staphylococcus aureus
Gram Stain - Preliminary
11/28/24 15:53 Blood Culture - Preliminary
Blood/Venous Staphylococcus aureus
Gram Stain - Final
11/28/24 15:53 Blood Culture - Preliminary
Blood/Venous Staphylococcus aureus
Gram Stain - Preliminary
11/28/24 23:21 Urine Culture - Final
Urine NO GROWTH
11/28/24 15:54 Body Fluid Culture - Final
Joint Fluid S aureus-Methicillin Sensitive
Gram Stain - Final
11/28/24 22:25 Blood Culture - Preliminary
Blood/Venous Positive culture in progress
Gram Stain - Preliminary
11/28/24 Abd US: Mild nodular surface of the liver which could represent cirrhotic morphology and overall diffuse increased hepatic echogenicity suggesting diffuse fatty infiltration. Normal directional blood flow in the hepatic and portal veins.
Gallstones and gallbladder sludge. No gallbladder wall thickening or pericholecystic fluid. Negative sonographic Ferguson's sign. No findings to suggest biliary tract dilatation.
11/28/24 Knee XRAY: Left knee replacement. No evidence of complication. Small suprapatellar joint effusion.
Care Review
Plan reviewed with: Physician (Dr. Anitra Dixon)
[2024-12-01] MEDS: VITAMIN B1 100 MG PO ×2 (09:05→19:31)
[2024-12-01] MEDS: FOLVITE 1 MG PO (09:05)
[2024-12-01] MEDS: DUPHALAC/CHRONULAC 20 GRAMS PO ×2 (09:05→19:31)
[2024-12-01] MEDS: THIAMINE INJECTION 200 MG IV ×2 (09:05→19:32)
[2024-12-01 09:28] LABS: ALT (SGPT) 27 U/L (0-50); AST (SGOT) 119 U/L (17-59); Albumin 2.6 g/dl (3.5-5.0); Alkaline Phosphatase 135 U/L (38-126); Blood Urea Nitrogen 21 mg/dl (9-20); Calcium 7.5 mg/dl (8.4-10.2); Carbon Dioxide 25 mmol/L (22-30); Chloride 101 mmol/L (98-107); Estimated Creatinine Clearance > 125 ml/min; Glucose 92 mg/dl (70-99); Potassium 3.2 mmol/L (3.5-5.1); Sodium 135 mmol/L (135-145); Total Protein 5.6 g/dl (6.3-8.2); eGFR > 60.00
[2024-12-01 11:25] VITALS: BP 110/56
--- NOTE | 2024-12-01 13:31 | W.PN.UPDATE ---
Update Note
Progress Note Update
Patient was seen over lunch. Due to increased pain we elected continue with an aspiration of his left knee and local anesthetic injection.
PROCEDURE: Left knee Ultrasound Guided Arthrocentesis
MEDICATIONS INJECTED:
Lidocaine 1% without epinephrine 10mg/mL: 10cc
Bupivacaine 0.25% without epinephrine 125mg/50mL: 10cc
PROCEDURE DETAIL:
After verbal consent was obtained and laterality was confirmed, the patient was offered a director translation and declined. The left knee underwent a limited non-vascular ultrasound examination; see report. The site of injection was then identified utilizing
a linear transducer. The skin was then sterilized with alcohol and the needle introduced using a direct visualization linear approach. The needle was visible on the screen and placed intra-articular and as much fluid was aspirated as possible. Once
no more aspirate could be obtained, the needle was maintained and syringe removed, and a separate syringe with the above medications was then attached, needle revisualized on screen, and injected intra-articular. There was minimal bleeding. There
were no immediate side effects or adverse events and the patient was at baseline immediately following the procedure. Return and emergent precautions regarding potential injection site infection or steroidal flare discussed. 35 cc of bloody brown
joint fluid was aspirated
[2024-12-01 15:05] VITALS: BP 134/68
--- NOTE | 2024-12-01 15:11 | W.PN.HOSP.TC ---
Addendum entered and electronically signed by Sam Dixon MD 12/01/24 15:52:
Add on to dx list
Severe Sepsis due to Staph aureus prosthetic joint infection with bacteremia and associated CLEVE
Original Note:
Today's Communication/Plan
-
f/u blood cs report
monitor LFT/INR
ongoing discussion for left knee sx earliest next week
Assessment / Plan
Assessment / Plan
1. Left knee prosthetic joint infection
Septic arthritis
Immunocompromise state
-Fluid eval: WBC 569204, PMN 79.1, no crystals
-Wound culture Gram stain and culture report pending
-Patient underwent repeat therapeutic arthrocentesis by orthopedic PA.
-ID following and helping with antibiotic therapy, currently on ancef
-Orthopedic surgery planning to do elective left knee prosthesis explant and spacer placement if medically optimized.
2. MSSA bacteremia
-blood cs showing MSSA
-repeat blood cs report pending from today
3. Alcohol use disorder
Monitor for alcohol withdrawal
-Patient last drink was 4 days ago
-Maintain on MSAS/Ativan
-Maintain champagne/thiamine
4. Decompensated cirrhosis
Elevated total bilirubin -direct dominant
Coagulopathy - improved
Thrombocytopenia
Transaminitis
-US abdomen showing cirrhosis
-Vitamin K oral provided for high INR
-No reported ascites on US
-Oral lactulose ordered bu GI
-no indication for steroids for alcoholic hepatitis based on DF
-Platelet count dropping further likely with added bacteremia on top of chronic thrombocytopenia with liver disease.
5. Upper GI bleed
-Reported hematemesis few days back
-Hbg remains stable around 8.5
-GI considering eventual EGD
6. CLEVE -resolved
-cr trended down to normal
7. Acute metabolic encephalopathy - Improved
-Monitor for hepatic encephalopathy versus alcohol withdrawal
-Lactulose ordered
8. Hyponatremia
-From ESLD.
-Will add fluid restriction if needed
9. Chronic normocytic anemia
Acute blood loss anemia
-Hemoglobin drifted down likely with reported hemoptysis/GI bleed
-Transfuse for hbg < 7
10. Hypokalemia
-replace prn
DVT proph-SCDs
Full Code
Discussed with orthopedic surgery/ID/GI
Patient is high risk for surgical correction although without surgery patient will have non improving PJI/bacteremia/sepsis
Anticipated Discharge: > 48 hours
Subjective/Interval History
-
Date of Service: December 01, 2024
resting comfortably in bed
Complaining of some left knee pain
Objective Data
-
Labs:
Laboratory Results
12/01/24
07:23
WBC 5.3
Hgb 8.6 L
Hct 24.3 L
Plt Count 139 D
Sodium 135
Potassium 3.2 L
Chloride 101
Carbon Dioxide 25
BUN 21 H
Creatinine 0.7
Glucose 92
Calcium 7.5 L
Total Bilirubin 10.0 H
AST 119 H
ALT 27
Alkaline Phosphatase 135 H
Vital Signs:
Vital Signs
Temp Pulse Resp BP Pulse Ox
99.3 F 93 18 110/56 98
12/01/24 11:25 12/01/24 11:25 12/01/24 11:25 12/01/24 11:25 12/01/24 11:25
I&O
11/30/24 12/01/24 12/02/24
06:59 06:59 06:59
Intake Total 880 / 880 960 / 960
Output Total 700 / 700 900 / 900
Balance 180 / 180 60 / 60
Review of Systems
-
Respiratory: Reports No Symptoms
Cardiac: Reports No Symptoms
Abdomen/GI: Reports No Symptoms
Physical Exam
-
General: Comfortable and Morbidly Obese
HEENT: Negative Oxygen
Respiratory: Clear to Auscultation
Cardiac: Regular Rhythm and S1/S2; Negative Murmur or Rub
GI: Soft, Nontender, Normal Bowel Sounds and Distended
Musculoskeletal: Other (Left knee swelling, bleeding from arthrocentesis site)
Neuro: Awake, Alert, Oriented and No Motor Deficits
Psych: Calm
--- NOTE | 2024-12-01 16:22 | CM ---
Chart reviewed and will await recommendations from ID for [id number], patient may benefit from physical therapy evaluation. contract project manager at [facility] is Carey [phone].
Plan; To follow with patient progress and assist with discharge planning. [facility] also following patient per notes.
--- NOTE | 2024-12-01 18:40 | W.PN.GI.CBS2 ---
Today's Communication / Plan
-
alcohol avoidance
see note for full surgical risk assessment
Assessment / Plan
-
This patient is a 59-year-old man with a history of cirrhosis likely due to alcohol who has bacteremia and joint sepsis. Clinically he is not confused and states he is feeling better. He does wish to undergo surgery requested by orthopedics. For
now would do the following;
1. alcohol avoidance
2. lactulose prn
3. I discussed at length with this patient that he has underlying cirrhosis which she just found out about. He has not known this in the past and has never had any decompensation. We discussed that his current infection likely has tipped him over
into decompensation but he appears to be improving clinically. Yesterday the [place] vocal score suggested a 30-day mortality of 28% (Dr. Pantoja wrote this in his note). His labs appear to be improving and his score has been lowered. I still
calculated somewhere just above 15% 30 day mortality with an orthopedic surgery. He does understand that there is some risks with surgery but is willing to undergo surgery if they will improve his overall clinical picture. Since he clinically and
by lab is improving daily I do not expect his operative risk to worsen.
Subjective
Subjective
Date of Service: December 01, 2024
Pt alert, oriented, no abdominal pain or confusion
Objective
Data Reviewed
Laboratory Data:
Laboratory Results
12/01/24 07:23
12/01/24 07:23
Laboratory Results
PT 19.5 Sec (11.4-14.6) H 11/30/24 05:15
INR 1.59 11/30/24 05:15
Phosphorus 2.4 mg/dl (2.5-4.5) L 11/28/24 22:25
Magnesium 1.7 mg/dl (1.6-2.3) 11/29/24 05:21
Total Bilirubin 10.0 mg/dl (0.2-1.3) H 12/01/24 07:23
AST 119 U/L (17-59) H 12/01/24 07:23
ALT 27 U/L (0-50) 12/01/24 07:23
Alkaline Phosphatase 135 U/L (38-126) H 12/01/24 07:23
Vital Signs and I&O:
Vital Signs
Temp Pulse Resp BP Pulse Ox
98.4 F 94 18 134/68 98
12/01/24 15:05 12/01/24 15:05 12/01/24 15:05 12/01/24 15:05 12/01/24 15:05
I&O
11/30/24 12/01/24 12/02/24
06:59 06:59 06:59
Intake Total 880 / 880 960 / 960
Output Total 700 / 700 900 / 900
Balance 180 / 180 60 / 60
Physical Exam
Physical Exam
HEENT: Anicteric (icteric)
GI: Soft and Non Tender
Neuro: Non Focal
[2024-12-01 19:00] VITALS: BP 138/67
[2024-12-01 23:00] VITALS: BP 149/76
[2024-12-02 03:21] VITALS: BP 136/64
[2024-12-02 03:22] VITALS: BMI 34.1
[2024-12-02 03:28] VITALS: BMI 34.2
[2024-12-02] MEDS: ROXICODONE 5 MG PO ×5 (03:58→23:29)
[2024-12-02] MEDS: SYNTHROID 25 MCG PO (04:00)
[2024-12-02] MEDS: ANCEF 10 IV ×3 (06:21→21:13)
[2024-12-02 07:16] LABS: Hematocrit 24.6 % (39.0-52.0); Hemoglobin 8.7 g/dL (13.0-18.0); Mean Corp Hgb Conc. 35.4 g/dL (33.0-37.0); Mean Corpuscular Hgb 33.6 pg (27.0-31.0); Mean Platelet Volume 11.5 fL (7.4-10.4); Platelet Count 141 10^3/uL (130-400); Red Blood Cell Count 2.59 10^6/uL (4.70-6.10); Red Cell Dist. Width 15.5 % (11.5-14.5); White Blood Cell Count 7.9 10^3/uL (4.8-10.8)
[2024-12-02 07:18] LABS: INR 1.66; PT 19.8 Sec (11.4-14.6)
[2024-12-02 07:33] LABS: ALT (SGPT) 25 U/L (0-50); AST (SGOT) 145 U/L (17-59); Albumin 2.5 g/dl (3.5-5.0); Alkaline Phosphatase 143 U/L (38-126); Blood Urea Nitrogen 20 mg/dl (9-20); Calcium 7.5 mg/dl (8.4-10.2); Carbon Dioxide 25 mmol/L (22-30); Chloride 98 mmol/L (98-107); Estimated Creatinine Clearance 121 ml/min; Glucose 109 mg/dl (70-99); Potassium 3.4 mmol/L (3.5-5.1); Sodium 133 mmol/L (135-145); Total Bilirubin 10.4 mg/dl (0.2-1.3); Total Protein 5.7 g/dl (6.3-8.2); eGFR > 60.00
[2024-12-02] MEDS: DUPHALAC/CHRONULAC 20 GRAMS PO ×2 (08:57→19:24)
[2024-12-02] MEDS: FOLVITE 1 MG PO (08:57)
[2024-12-02] MEDS: VITAMIN B1 100 MG PO ×2 (08:57→19:25)
--- NOTE | 2024-12-02 09:03 | W.PN.UPDATE ---
Update Note
Progress Note Update
Following pt's labs and clinical course... Seems to be improving slightly although his albumin is still extremely low.
My plan is to hope that he will be about as good metabolically as he is going to get and we will operate on his knee on wednesday. Please call me w. any questions on that plan. Can continue metabolic optimization in the interim. GI
indicates their estimate of 30 day mortality is about 28 percent and operative mortality 15 percent.
[2024-12-02 09:04] VITALS: BP 136/71
--- NOTE | 2024-12-02 09:09 | W.PN.UPDATE ---
Update Note
Progress Note Update
Chart reviewed. Recommend continued metabolic optimization for upcoming planned OR [address] Jensen
[2024-12-02 11:30] VITALS: BP 129/70
--- NOTE | 2024-12-02 11:55 | W.PN.GI.CBS2 ---
Today's Communication / Plan
-
outpatient f/u
Assessment / Plan
-
This patient is a 59-year-old man with a history of cirrhosis likely due to alcohol who has bacteremia and joint sepsis. Clinically he is not confused and states he is feeling better. He does wish to undergo surgery requested by orthopedics. For
now would do the following;
1. alcohol avoidance
2. lactulose prn
3. Again discussed with pt his alcohol use and liver disease. His [place] surgical scores continues to slowly drift down, risk calculated at 17% for 30 day mortality and pt is aware. I would expect it to continue to lower in the coming days
4. he will need outpatient f/u and our office will call him to schedule.
will sign off call with questions
Subjective
Subjective
Date of Service: December 02, 2024
Pt w/o abdominal complaints
Objective
Data Reviewed
Laboratory Data:
Laboratory Results
12/02/24 06:42
12/02/24 06:42
Laboratory Results
PT 19.8 Sec (11.4-14.6) H 12/02/24 06:42
INR 1.66 12/02/24 06:42
Phosphorus 2.4 mg/dl (2.5-4.5) L 11/28/24 22:25
Magnesium 1.7 mg/dl (1.6-2.3) 11/29/24 05:21
Total Bilirubin 10.4 mg/dl (0.2-1.3) H 12/02/24 06:42
AST 145 U/L (17-59) H 12/02/24 06:42
ALT 25 U/L (0-50) 12/02/24 06:42
Alkaline Phosphatase 143 U/L (38-126) H 12/02/24 06:42
Vital Signs and I&O:
Vital Signs
Temp Pulse Resp BP Pulse Ox
98.9 F 96 16 136/71 95
12/02/24 09:04 12/02/24 09:04 12/02/24 09:04 12/02/24 09:04 12/02/24 09:04
I&O
12/01/24 12/02/24 12/03/24
06:59 06:59 06:59
Intake Total 960 / 960 1680 / 1680
Output Total 900 / 900
Balance 60 / 60 1680 / 1680
Physical Exam
Physical Exam
HEENT: Anicteric (icteric)
GI: Soft and Non Tender
Neuro: Non Focal
--- NOTE | 2024-12-02 13:01 | PTCARENOTE ---
pt's msas was discontinued earlier in shift by Dr Dixon. He also stated pt could take a shower
--- NOTE | 2024-12-02 13:56 | W.PN.ID1 ---
Date of Service
Date of Service: December 02, 2024
Today's Communication
Continue cefazolin.
Assessment / Plan
# Complicated S. aureus (MSSA) bacteremia (5 sets, collected same day 11/28/24)
# Septic left knee PJI with MSSA
# Fever resolved
# Alcohol hepatitis
# s/p Alcohol withdrawal
- For 2 stage knee revision next week, per Ortho
- 2/ Repeat blood cx's x2 neg to date
-TTE no significant valvular disease.
-Continue cefazolin 2g IV q8h.
#Additional Past Medical History:
Hypertension
Hypothyroidism
alcohol abuse
cirrhosis
Left total knee replacement
Chief Complaint
-: Bacteremia and Other (Septic PJI)
Subjective / Review of Systems
Doing well. Hungry.
Vital Signs / Physical Exam
Vital Signs
Vital Signs
Temp Pulse Resp BP Pulse Ox
98.7 F 97 18 129/70 98
12/02/24 11:30 12/02/24 11:30 12/02/24 11:30 12/02/24 11:30 12/02/24 11:30
Physical Exam
Constitutional: No Acute Distress and Comfortable
Eyes: Other (icteric)
Cardiovascular: Regular Rate and S1/S2
Pulmonary: Clear
Gastrointestinal: Soft, Non Tender, Non Distended and Normal Bowel Sounds
Extremities: Edema (LLE)
Skin: Jaundice
Neurological: AO x 3
Objective Data
Lab Data
Lab Results
12/02/24 06:42
12/02/24 06:42
PT 19.8 Sec (11.4-14.6) H 12/02/24 06:42
INR 1.66 12/02/24 06:42
Estimated Creat Clear 121 ml/min 12/02/24 06:42
Lactic Acid 1.6 mmol/L (0.7-2.0) 11/28/24 17:15
Total Bilirubin 10.4 mg/dl (0.2-1.3) H 12/02/24 06:42
GGT 546 U/L (15-73) H 11/28/24 22:25
AST 145 U/L (17-59) H 12/02/24 06:42
ALT 25 U/L (0-50) 12/02/24 06:42
Alkaline Phosphatase 143 U/L (38-126) H 12/02/24 06:42
C-Reactive Protein 183.10 mg/L (0.0-10.00) H 11/28/24 12:52
Most recent labs reviewed.
Micro Results:
12/01/24 08:00 Blood Culture - Preliminary
Blood/Venous No Growth in 24 hours- Final report to follow
12/01/24 07:23 Blood Culture - Preliminary
Blood/Venous No Growth in 24 hours- Final report to follow
11/28/24 15:53 Blood Culture - Final
Blood/Venous S aureus-Methicillin Sensitive
Gram Stain - Final
11/28/24 12:51 Blood Culture - Final
Blood/Venous S aureus-Methicillin Sensitive
Gram Stain - Final
11/28/24 15:53 Blood Culture - Final
Blood/Venous S aureus-Methicillin Sensitive
Gram Stain - Final
11/28/24 22:25 Blood Culture - Preliminary
Blood/Venous S aureus-Methicillin Sensitive
Gram Stain - Preliminary
11/28/24 22:25 Blood Culture - Preliminary
Blood/Venous Staphylococcus aureus
Gram Stain - Preliminary
11/28/24 23:21 Urine Culture - Final
Urine NO GROWTH
11/28/24 15:54 Body Fluid Culture - Final
Joint Fluid S aureus-Methicillin Sensitive
Gram Stain - Final
11/28/24 Abd US: Mild nodular surface of the liver which could represent cirrhotic morphology and overall diffuse increased hepatic echogenicity suggesting diffuse fatty infiltration. Normal directional blood flow in the hepatic and portal veins.
Gallstones and gallbladder sludge. No gallbladder wall thickening or pericholecystic fluid. Negative sonographic Ferguson's sign. No findings to suggest biliary tract dilatation.
11/28/24 Knee XRAY: Left knee replacement. No evidence of complication. Small suprapatellar joint effusion.
--- NOTE | 2024-12-02 15:33 | W.PN.HOSP.TC ---
Today's Communication/Plan
-
continue abx
see GI note -for surgical risk assessment
monitor plt/inr/lft
f/u repeat blood cs report
Assessment / Plan
Assessment / Plan
1. Left knee prosthetic joint infection
Septic arthritis
Immunocompromise state
-Fluid eval: WBC 997887, PMN 79.1, no crystals
-Wound culture Gram stain and culture report pending
-Patient underwent repeat therapeutic arthrocentesis by orthopedic PA.
-ID following and helping with antibiotic therapy, currently on ancef
-Orthopedic surgery planning to do elective left knee prosthesis explant and spacer placement if medically optimized. tentative next wed 12/06
-See GI note from 12/01 for surgical risk assessment,
2. MSSA bacteremia
-blood cs showing MSSA
-Repeat blood cs neg.
3. Alcohol use disorder
Monitor for alcohol withdrawal
-Patient last drink was 4 days ago
-Maintain on MSAS/Ativan
-Maintain champagne/thiamine
4. Decompensated cirrhosis
Elevated total bilirubin -direct dominant
Coagulopathy - improved
Thrombocytopenia
Transaminitis
-US abdomen showing cirrhosis
-Vitamin K oral provided for high INR
-No reported ascites on US
-Oral lactulose ordered bu GI
-no indication for steroids for alcoholic hepatitis based on DF
-Platelet count improved from admission level.
5. Upper GI bleed
-Reported hematemesis few days back
-Hbg remains stable around 8.5
-GI considering eventual EGD
6. CLEVE -resolved
-cr trended down to normal
7. Acute metabolic encephalopathy - Improved
-Monitor for hepatic encephalopathy versus alcohol withdrawal
-Lactulose ordered
8. Hyponatremia
-From ESLD.
-Will add fluid restriction if needed
9. Chronic normocytic anemia
Acute blood loss anemia
-Hemoglobin drifted down likely with reported hemoptysis/GI bleed
-Transfuse for hbg < 7
10. Hypokalemia
-replace prn
DVT proph-SCDs
Full Code
Discussed with orthopedic surgery/ID/GI
Patient is high risk for surgical correction although without surgery patient will have non improving PJI/bacteremia/sepsis
Anticipated Discharge: > 48 hours
Subjective/Interval History
-
Date of Service: December 02, 2024
no issues overnight
Objective Data
-
Labs:
Laboratory Results
12/02/24
06:42
WBC 7.9
Hgb 8.7 L
Hct 24.6 L
Plt Count 141
PT 19.8 H
INR 1.66
Sodium 133 L
Potassium 3.4 L
Chloride 98
Carbon Dioxide 25
BUN 20
Creatinine 0.8
Glucose 109 H
Calcium 7.5 L
Total Bilirubin 10.4 H
AST 145 H
ALT 25
Alkaline Phosphatase 143 H
Vital Signs:
Vital Signs
Temp Pulse Resp BP Pulse Ox
98.7 F 97 18 129/70 98
12/02/24 11:30 12/02/24 11:30 12/02/24 11:30 12/02/24 11:30 12/02/24 11:30
I&O
12/01/24 12/02/24 12/03/24
06:59 06:59 06:59
Intake Total 960 / 960 0 / 1680
Output Total 900 / 900
Balance 60 / 60 1680 / 1680
Review of Systems
-
Respiratory: Reports No Symptoms
Cardiac: Reports No Symptoms
Abdomen/GI: Reports No Symptoms
Physical Exam
-
General: Comfortable and Morbidly Obese
HEENT: Negative Oxygen
Respiratory: Clear to Auscultation
Cardiac: Regular Rhythm and S1/S2; Negative Murmur or Rub
GI: Soft, Nontender, Normal Bowel Sounds and Distended
Musculoskeletal: Other (Left knee swelling, bleeding from arthrocentesis site)
Neuro: Awake, Alert, Oriented and No Motor Deficits
Psych: Calm
[2024-12-02 16:00] VITALS: BP 146/82
[2024-12-02] MEDS: BENADRYL 25 MG PO (19:24)
[2024-12-02 20:00] VITALS: BP 121/66
[2024-12-02 23:28] VITALS: BP 132/66
[2024-12-03 04:00] VITALS: BP 131/71
[2024-12-03 04:59] VITALS: BMI 33.9
[2024-12-03] MEDS: ANCEF 10 IV ×3 (06:09→22:21)
[2024-12-03] MEDS: SYNTHROID 25 MCG PO (06:09)
[2024-12-03 07:24] LABS: Hematocrit 24.3 % (39.0-52.0); Hemoglobin 8.5 g/dL (13.0-18.0); Mean Corpuscular Volume 97.2 fL (80.0-94.0); Mean Platelet Volume 11.4 fL (7.4-10.4); Platelet Count 156 10^3/uL (130-400); Red Cell Dist. Width 15.7 % (11.5-14.5); White Blood Cell Count 9.1 10^3/uL (4.8-10.8)
[2024-12-03 07:46] VITALS: BP 123/59
[2024-12-03] MEDS: FOLVITE 1 MG PO (07:53)
[2024-12-03] MEDS: DUPHALAC/CHRONULAC 20 GRAMS PO (07:53)
[2024-12-03] MEDS: ROXICODONE 5 MG PO (07:53)
[2024-12-03] MEDS: VITAMIN B1 100 MG PO ×2 (07:53→20:42)
[2024-12-03 07:54] LABS: Blood Urea Nitrogen 24 mg/dl (9-20); Calcium 7.6 mg/dl (8.4-10.2); Carbon Dioxide 27 mmol/L (22-30); Chloride 96 mmol/L (98-107); Estimated Creatinine Clearance 96 ml/min; Glucose 100 mg/dl (70-99); Sodium 133 mmol/L (135-145); eGFR > 60.00
--- NOTE | 2024-12-03 11:00 | W.PN.UPDATE ---
Update Note
Progress Note Update
pt seen and examined, knee swollen, reviewed plan for surgery wednesday. ensure would help.
--- NOTE | 2024-12-03 11:22 | W.PN.ID1 ---
Date of Service
Date of Service: December 03, 2024
Today's Communication
Continue cefazolin.
Assessment / Plan
# Complicated S. aureus (MSSA) bacteremia (5 sets, collected same day 11/28/24)
# Septic left knee PJI with MSSA
# Fever resolved
# Alcohol hepatitis
# s/p Alcohol withdrawal
- For 2 stage knee revision next week, per Ortho
- 2/ Repeat blood cx's x2 neg to date
-TTE no significant valvular disease.
-Continue cefazolin 2g IV q8h x 6 weeks from prosthetic knee explant
#Additional Past Medical History:
Hypertension
Hypothyroidism
alcohol abuse
cirrhosis
Left total knee replacement
Chief Complaint
-: Bacteremia and Other (Septic PJI)
Subjective / Review of Systems
c/o left knee swelling and pain
Vital Signs / Physical Exam
Vital Signs
Vital Signs
Temp Pulse Resp BP Pulse Ox
99.5 F 94 20 123/59 98
12/03/24 07:46 12/03/24 07:46 12/03/24 07:46 12/03/24 07:46 12/03/24 07:46
Physical Exam
Constitutional: No Acute Distress and Comfortable
Cardiovascular: Regular Rate and S1/S2
Pulmonary: Clear
Gastrointestinal: Non Tender, Non Distended and Normal Bowel Sounds
Musculoskeletal: Other (left knee small effusion, + warmth)
Skin: Jaundice
Neurological: AO x 3
Objective Data
Lab Data
Lab Results
12/03/24 06:12
12/03/24 06:12
PT 19.8 Sec (11.4-14.6) H 12/02/24 06:42
INR 1.66 12/02/24 06:42
Estimated Creat Clear 96 ml/min 12/03/24 06:12
Lactic Acid 1.6 mmol/L (0.7-2.0) 11/28/24 17:15
Total Bilirubin 10.4 mg/dl (0.2-1.3) H 12/02/24 06:42
GGT 546 U/L (15-73) H 11/28/24 22:25
AST 145 U/L (17-59) H 12/02/24 06:42
ALT 25 U/L (0-50) 12/02/24 06:42
Alkaline Phosphatase 143 U/L (38-126) H 12/02/24 06:42
C-Reactive Protein 183.10 mg/L (0.0-10.00) H 11/28/24 12:52
Most recent labs reviewed.
Micro Results:
12/01/24 08:00 Blood Culture - Preliminary
Blood/Venous No Growth in 48 hours- Final report to follow
12/01/24 07:23 Blood Culture - Preliminary
Blood/Venous No Growth in 48 hours- Final report to follow
11/28/24 15:53 Blood Culture - Final
Blood/Venous S aureus-Methicillin Sensitive
Gram Stain - Final
11/28/24 12:51 Blood Culture - Final
Blood/Venous S aureus-Methicillin Sensitive
Gram Stain - Final
11/28/24 15:53 Blood Culture - Final
Blood/Venous S aureus-Methicillin Sensitive
Gram Stain - Final
11/28/24 22:25 Blood Culture - Preliminary
Blood/Venous S aureus-Methicillin Sensitive
Gram Stain - Preliminary
11/28/24 22:25 Blood Culture - Preliminary
Blood/Venous Staphylococcus aureus
Gram Stain - Preliminary
11/28/24 23:21 Urine Culture - Final
Urine NO GROWTH
11/28/24 15:54 Body Fluid Culture - Final
Joint Fluid S aureus-Methicillin Sensitive
Gram Stain - Final
11/28/24 Abd US: Mild nodular surface of the liver which could represent cirrhotic morphology and overall diffuse increased hepatic echogenicity suggesting diffuse fatty infiltration. Normal directional blood flow in the hepatic and portal veins.
Gallstones and gallbladder sludge. No gallbladder wall thickening or pericholecystic fluid. Negative sonographic Fergusno's sign. No findings to suggest biliary tract dilatation.
11/28/24 Knee XRAY: Left knee replacement. No evidence of complication. Small suprapatellar joint effusion.
[2024-12-03 11:24] VITALS: BP 129/64
--- NOTE | 2024-12-03 12:36 | W.PN.HOSP.TC ---
Today's Communication/Plan
-
Continue antibiotics per ID
Oxycodone ordered
PT OT with minimal weightbearing on left leg
Assessment / Plan
Assessment / Plan
1. Left knee prosthetic joint infection
Septic arthritis
Immunocompromise state
-Fluid eval: WBC 173377, PMN 79.1, no crystals
-Wound culture Gram stain and culture report pending
-Patient underwent repeat therapeutic arthrocentesis by orthopedic PA.
-ID following and helping with antibiotic therapy, currently on ancef
-Orthopedic surgery planning to do elective left knee prosthesis explant and spacer placement if medically optimized. tentative next wed 12/06
-See GI note from 12/01 for surgical risk assessment,
-Continues to have pain, increasing pain medication regimen
2. MSSA bacteremia
-blood cs showing MSSA
-Repeat blood cs neg fomr 12/01
3. Alcohol use disorder
-Patient last drink was 4 days ago
-discontinue further msas/ativan, out of withdrawal window.
-Maintain champagne/thiamine
4. Decompensated cirrhosis
Elevated total bilirubin -direct dominant
Coagulopathy - improved
Thrombocytopenia
Transaminitis
-US abdomen showing cirrhosis
-Vitamin K oral provided for high INR
-No reported ascites on US
-Oral lactulose ordered bu GI
-no indication for steroids for alcoholic hepatitis based on DF
-Platelet count improved from admission level.
5. Upper GI bleed
-Reported hematemesis few days back
-Hbg remains stable around 8.5
-GI considering eventual EGD
6. CLEVE -resolved
-cr trended down to normal
7. Acute metabolic encephalopathy - Improved
-Monitor for hepatic encephalopathy versus alcohol withdrawal
-Lactulose ordered
8. Hyponatremia
-From [facility].
-Will add fluid restriction if needed
9. Chronic normocytic anemia
Acute blood loss anemia
-Hemoglobin drifted down likely with reported hemoptysis/GI bleed
-Transfuse for hbg < 7
10. Hypokalemia
-replace prn
DVT proph-SCDs
Full Code
12/02 Discussed with orthopedic surgery/ID/GI
Patient is high risk for surgical correction although without surgery patient will have non improving PJI/bacteremia/sepsis
Anticipated Discharge: > 48 hours
Subjective/Interval History
-
Date of Service: December 03, 2024
Complaining some left knee pain
No other issues reported
Objective Data
-
Labs:
Laboratory Results
12/03/24
06:12
WBC 9.1
Hgb 8.5 L
Hct 24.3 L
Plt Count 156
Sodium 133 L
Potassium 4.0
Chloride 96 L
Carbon Dioxide 27
BUN 24 H
Creatinine 1.0
Glucose 100 H
Calcium 7.6 L
Vital Signs:
Vital Signs
Temp Pulse Resp BP Pulse Ox
99.5 F 93 16 129/64 99
12/03/24 11:24 12/03/24 11:24 12/03/24 11:24 12/03/24 11:24 12/03/24 11:24
I&O
12/02/24 12/03/24 12/04/24
06:59 06:59 06:59
Intake Total 1680 / 1680 180 / 180 360 / 360
Balance 1680 / 1680 180 / 180 360 / 360
Review of Systems
-
Respiratory: Reports No Symptoms
Cardiac: Reports No Symptoms
Abdomen/GI: Reports No Symptoms
Physical Exam
-
General: Comfortable and Morbidly Obese
HEENT: Negative Oxygen
Respiratory: Clear to Auscultation
Cardiac: Regular Rhythm and S1/S2; Negative Murmur or Rub
GI: Soft, Nontender, Normal Bowel Sounds and Distended
Musculoskeletal: Other (Left knee swelling, bleeding from arthrocentesis site)
Neuro: Awake, Alert, Oriented and No Motor Deficits
Psych: Calm
[2024-12-03] MEDS: OXYCONTIN (CONTROLLED RELEASE) 10 MG PO (13:15)
[2024-12-03 15:50] VITALS: BP 127/71
[2024-12-03] MEDS: ROXICODONE 7.5 MG PO ×2 (15:50→20:42)
[2024-12-03 20:12] VITALS: BP 152/78
[2024-12-03] MEDS: DUPHALAC/CHRONULAC PO ×2 (20:42→20:50)
[2024-12-03 23:39] VITALS: BP 129/61
[2024-12-04] VITALS (7 sets, daily range): BP systolic 114–144; BP diastolic 60–73; PULSE 95; O2SAT 99; BMI 34.3
[2024-12-04] MEDS: ROXICODONE 7.5 MG PO ×4 (01:48→21:31)
[2024-12-04] MEDS: ANCEF 10 IV ×3 (06:18→21:31)
[2024-12-04] MEDS: SYNTHROID 25 MCG PO (06:18)
[2024-12-04 07:25] LABS: Hematocrit 26.1 % (39.0-52.0); Hemoglobin 9.1 g/dL (13.0-18.0); Mean Corp Hgb Conc. 34.9 g/dL (33.0-37.0); Mean Corpuscular Volume 97.4 fL (80.0-94.0); Mean Platelet Volume 10.9 fL (7.4-10.4); Platelet Count 182 10^3/uL (130-400); Red Blood Cell Count 2.68 10^6/uL (4.70-6.10); Red Cell Dist. Width 15.2 % (11.5-14.5); White Blood Cell Count 11.3 10^3/uL (4.8-10.8)
[2024-12-04] MEDS: FOLVITE 1 MG PO (07:40)
[2024-12-04] MEDS: DUPHALAC/CHRONULAC 20 GRAMS PO ×2 (07:40→20:13)
[2024-12-04] MEDS: OXYCONTIN (CONTROLLED RELEASE) 10 MG PO (07:40)
[2024-12-04] MEDS: VITAMIN B1 100 MG PO ×2 (07:40→20:13)
[2024-12-04 07:48] LABS: Blood Urea Nitrogen 27 mg/dl (9-20); Calcium 7.6 mg/dl (8.4-10.2); Carbon Dioxide 27 mmol/L (22-30); Chloride 96 mmol/L (98-107); Estimated Creatinine Clearance 97 ml/min; Glucose 104 mg/dl (70-99); Potassium 3.7 mmol/L (3.5-5.1); Sodium 131 mmol/L (135-145); eGFR > 60.00
--- NOTE | 2024-12-04 11:28 | W.PN.ID1 ---
Date of Service
Date of Service: December 04, 2024
Today's Communication
Continue cefazolin.
Assessment / Plan
# Complicated S. aureus (MSSA) bacteremia (5 sets, collected same day 11/28/24)
# Septic left knee PJI with MSSA
# Fever resolved
# Alcohol hepatitis
# s/p Alcohol withdrawal
- For 2 stage knee revision 12/06, per Ortho
- 12/01 Repeat blood cx's x2 neg to date
-TTE no significant valvular disease.
-Continue cefazolin 2g IV q8h x 6 weeks from prosthetic knee explant
#Additional Past Medical History:
Hypertension
Hypothyroidism
alcohol abuse
cirrhosis
Left total knee replacement
Chief Complaint
-: Bacteremia and Other (Septic PJI)
Subjective / Review of Systems
No new complaints.
Vital Signs / Physical Exam
Vital Signs
Vital Signs
Temp Pulse Resp BP Pulse Ox
99.1 F 94 16 128/70 99
12/04/24 07:30 12/04/24 07:30 12/04/24 07:30 12/04/24 07:30 12/04/24 07:30
Physical Exam
Constitutional: No Acute Distress and Comfortable
Cardiovascular: Regular Rate and S1/S2
Pulmonary: Clear
Gastrointestinal: Non Tender, Non Distended and Normal Bowel Sounds
Musculoskeletal: Other (left knee small effusion, + warmth)
Skin: Jaundice
Neurological: AO x 3
Objective Data
Lab Data
Lab Results
12/04/24 06:57
12/04/24 06:57
PT 19.8 Sec (11.4-14.6) H 12/02/24 06:42
INR 1.66 12/02/24 06:42
Estimated Creat Clear 97 ml/min 12/04/24 06:57
Lactic Acid 1.6 mmol/L (0.7-2.0) 11/28/24 17:15
Total Bilirubin 10.4 mg/dl (0.2-1.3) H 12/02/24 06:42
GGT 546 U/L (15-73) H 11/28/24 22:25
AST 145 U/L (17-59) H 12/02/24 06:42
ALT 25 U/L (0-50) 12/02/24 06:42
Alkaline Phosphatase 143 U/L (38-126) H 12/02/24 06:42
C-Reactive Protein 183.10 mg/L (0.0-10.00) H 11/28/24 12:52
Most recent labs reviewed.
Micro Results:
12/01/24 08:00 Blood Culture - Preliminary
Blood/Venous No Growth in 72 hours- Final report to follow
12/01/24 07:23 Blood Culture - Preliminary
Blood/Venous No Growth in 72 hours- Final report to follow
11/28/24 15:53 Blood Culture - Final
Blood/Venous S aureus-Methicillin Sensitive
Gram Stain - Final
11/28/24 12:51 Blood Culture - Final
Blood/Venous S aureus-Methicillin Sensitive
Gram Stain - Final
11/28/24 15:53 Blood Culture - Final
Blood/Venous S aureus-Methicillin Sensitive
Gram Stain - Final
11/28/24 22:25 Blood Culture - Preliminary
Blood/Venous S aureus-Methicillin Sensitive
Gram Stain - Preliminary
11/28/24 22:25 Blood Culture - Preliminary
Blood/Venous Staphylococcus aureus
Gram Stain - Preliminary
11/28/24 23:21 Urine Culture - Final
Urine NO GROWTH
11/28/24 15:54 Body Fluid Culture - Final
Joint Fluid S aureus-Methicillin Sensitive
Gram Stain - Final
11/28/24 Abd US: Mild nodular surface of the liver which could represent cirrhotic morphology and overall diffuse increased hepatic echogenicity suggesting diffuse fatty infiltration. Normal directional blood flow in the hepatic and portal veins.
Gallstones and gallbladder sludge. No gallbladder wall thickening or pericholecystic fluid. Negative sonographic Ferguson's sign. No findings to suggest biliary tract dilatation.
11/28/24 Knee XRAY: Left knee replacement. No evidence of complication. Small suprapatellar joint effusion.
[2024-12-04] MEDS: BENADRYL 25 MG IV ×2 (11:57→20:13)
--- NOTE | 2024-12-04 12:44 | W.PN.UPDATE ---
Update Note
Progress Note Update
patient was seen and examined this morning. Reports knee is relatively unchanged in terms of pain. Plan for surgery Wednesday with Dr. Jensen for revision total knee arthroplasty for periprosthetic joint infection pending medical
optimization/medical clearance. Deferred aspiration today
--- NOTE | 2024-12-04 15:27 | CM ---
RAMIRO from [facility] offering assistance with d/c planning.
Carey's phone # is [phone].
--- NOTE | 2024-12-04 15:59 | W.PN.HOSP.TC ---
Today's Communication/Plan
-
Assessment / Plan
Assessment / Plan
Gen-AAOx3, NAD
HEENT-NC, AT, anicteric, clear oral mm
Neck-supple
CV-reg, no M, +S1/S2
Lungs-clear B/L
Abd-soft, NT, ND
Musculoskeletal-no edema, left knee TTP
Skin-warm and dry
Neuro-grossly non-focal
Psych-calm, cooperative
1. Left knee prosthetic joint infection
Septic arthritis
Immunocompromise state
-Fluid eval: WBC 355645, PMN 79.1, no crystals
-Wound culture Gram stain and culture report pending
-Patient underwent repeat therapeutic arthrocentesis by orthopedic PA.
-ID following and helping with antibiotic therapy, currently on ancef
-Orthopedic surgery planning to do elective left knee prosthesis explant and spacer placement if medically optimized. tentative wed 12/06
-See GI note from 12/01 for surgical risk assessment,
-Continues to have pain, increasing pain medication regimen
2. MSSA bacteremia
-blood cs showing MSSA
-Repeat blood cs neg from 12/01
3. Alcohol use disorder
-discontinue further msas/ativan, out of withdrawal window.
-Maintain champagne/thiamine
4. Decompensated cirrhosis
Elevated total bilirubin -direct dominant
Coagulopathy - improved
Thrombocytopenia
Transaminitis
-US abdomen showing cirrhosis
-Vitamin K oral provided for high INR
-No reported ascites on US
-Oral lactulose ordered bu GI
-no indication for steroids for alcoholic hepatitis based on DF
-Platelet count improved from admission level.
5. Upper GI bleed
-Reported hematemesis few days back
-Hbg remains stable around 8.5
-GI considering eventual EGD
6. CLEVE -resolved
-cr trended down to normal
7. Acute metabolic encephalopathy
-Resolved
-Monitor for hepatic encephalopathy versus alcohol withdrawal
-Lactulose ordered, titrate to 2-3 soft stools per day
8. Hyponatremia
-From [facility].
-Will add fluid restriction if needed
9. Chronic normocytic anemia
Acute blood loss anemia
-Hemoglobin drifted down likely with reported hemoptysis/GI bleed
-Transfuse for hbg < 7
10. Hypokalemia
-replace prn
DVT proph-SCDs
Full Code
12/02 Discussed with orthopedic surgery/ID/GI
Patient is high risk for surgical correction although without surgery patient will have non improving PJI/bacteremia/sepsis
Anticipated Discharge: > 48 hours
Subjective/Interval History
-
Date of Service: December 04, 2024
Patient was seen and examined at bedside this morning. Ongoing significant left knee pain due to septic arthritis.
Objective Data
-
Labs:
Laboratory Results
12/04/24
06:57
WBC 11.3 H
Hgb 9.1 L
Hct 26.1 L
Plt Count 182
Sodium 131 L
Potassium 3.7
Chloride 96 L
Carbon Dioxide 27
BUN 27 H
Creatinine 1.0
Glucose 104 H
Calcium 7.6 L
Vital Signs:
Vital Signs
Temp Pulse Resp BP Pulse Ox
99.1 F 95 16 127/66 98
12/04/24 11:31 12/04/24 11:31 12/04/24 11:31 12/04/24 11:31 12/04/24 11:31
I&O
12/03/24 12/04/24 12/05/24
06:59 06:59 06:59
Intake Total 180 / 180 1919 360 / 360
Balance 180 / 180 1919 360 / 360
Review of Systems
-
History Source: Patient
All other systems: Reviewed and negative
Musculoskeletal: Reports Joint Pain (Left knee pain)
Physical Exam
-
General: No Apparent Distress
[2024-12-05 03:30] VITALS: BP 129/67
[2024-12-05] MEDS: ROXICODONE 7.5 MG PO ×3 (03:33→22:07)
[2024-12-05] MEDS: ANCEF 10 IV ×3 (05:42→22:07)
[2024-12-05] MEDS: SYNTHROID 25 MCG PO (05:42)
[2024-12-05 06:00] VITALS: BMI 34.0
[2024-12-05 07:00] VITALS: BP 130/69
[2024-12-05] MEDS: FOLVITE 1 MG PO (07:12)
[2024-12-05] MEDS: DUPHALAC/CHRONULAC 20 GRAMS PO (07:12)
[2024-12-05] MEDS: VITAMIN B1 100 MG PO ×2 (07:12→20:02)
[2024-12-05] MEDS: OXYCONTIN (CONTROLLED RELEASE) 10 MG PO (07:13)
--- NOTE | 2024-12-05 07:51 | W.PN.UPDATE ---
Update Note
Progress Note Update
Mr. Spann is resting comfortably in bed this morning. He reports that his knee remains about the same. We will plan for OR tomorrow for revision left TKA under the direction of Dr. Jensen given he is medically stable to proceed. The risks,
benefits, and potential complications were reviewed. Surgical consent obtained and placed on chart. He will need to be NPO after midnight. All of his questions were answered.
[2024-12-05 08:51] LABS: Hematocrit 24.5 % (39.0-52.0); Hemoglobin 8.6 g/dL (13.0-18.0); Mean Corp Hgb Conc. 35.1 g/dL (33.0-37.0); Mean Corpuscular Volume 96.8 fL (80.0-94.0); Mean Platelet Volume 11.2 fL (7.4-10.4); Platelet Count 175 10^3/uL (130-400); Red Blood Cell Count 2.53 10^6/uL (4.70-6.10); Red Cell Dist. Width 14.8 % (11.5-14.5); White Blood Cell Count 11.7 10^3/uL (4.8-10.8)
[2024-12-05 09:48] LABS: Blood Urea Nitrogen 28 mg/dl (9-20); Calcium 7.4 mg/dl (8.4-10.2); Carbon Dioxide 24 mmol/L (22-30); Chloride 95 mmol/L (98-107); Estimated Creatinine Clearance 88 ml/min; Glucose 106 mg/dl (70-99); Potassium 3.5 mmol/L (3.5-5.1); Sodium 128 mmol/L (135-145); eGFR > 60.00
[2024-12-05 11:25] VITALS: BP 139/60
--- NOTE | 2024-12-05 12:18 | W.PN.ID1 ---
Date of Service
Date of Service: December 05, 2024
Today's Communication
-Continue cefazolin 2g IV q8h x 6 weeks from prosthetic knee explant through 01/17/25.
Assessment / Plan
# Complicated S. aureus (MSSA) bacteremia (5 sets, collected same day 11/28/24)
# Septic left knee PJI with MSSA
# Fever resolved
# Alcohol hepatitis
# s/p Alcohol withdrawal
- For 2 stage knee revision 12/06, per Ortho
- 12/01 Repeat blood cx's x2 neg
-TTE no significant valvular disease.
-Continue cefazolin 2g IV q8h x 6 weeks from prosthetic knee explant through 01/17/25.
- Home infusion sheet submitted to case management.
#Additional Past Medical History:
Hypertension
Hypothyroidism
alcohol abuse
cirrhosis
Left total knee replacement
Chief Complaint
-: Bacteremia and Other (Septic PJI)
Subjective / Review of Systems
No new complants.
Vital Signs / Physical Exam
Vital Signs
Vital Signs
Temp Pulse Resp BP Pulse Ox
97.5 F 94 18 139/60 100
12/05/24 11:25 12/05/24 11:25 12/05/24 11:25 12/05/24 11:25 12/05/24 11:25
Physical Exam
Constitutional: No Acute Distress and Comfortable
Cardiovascular: Regular Rate and S1/S2
Pulmonary: Clear
Gastrointestinal: Non Tender, Non Distended and Normal Bowel Sounds
Musculoskeletal: Other (left knee small effusion, + warmth)
Skin: Jaundice
Neurological: AO x 3
Objective Data
Lab Data
Lab Results
12/05/24 07:03
12/05/24 07:03
PT 19.8 Sec (11.4-14.6) H 12/02/24 06:42
INR 1.66 12/02/24 06:42
Estimated Creat Clear 88 ml/min 12/05/24 07:03
Lactic Acid 1.6 mmol/L (0.7-2.0) 11/28/24 17:15
Total Bilirubin 10.4 mg/dl (0.2-1.3) H 12/02/24 06:42
GGT 546 U/L (15-73) H 11/28/24 22:25
AST 145 U/L (17-59) H 12/02/24 06:42
ALT 25 U/L (0-50) 12/02/24 06:42
Alkaline Phosphatase 143 U/L (38-126) H 12/02/24 06:42
C-Reactive Protein 183.10 mg/L (0.0-10.00) H 11/28/24 12:52
Most recent labs reviewed.
Micro Results:
12/01/24 08:00 Blood Culture - Preliminary
Blood/Venous No Growth in 4 days- Final report to follow
12/01/24 07:23 Blood Culture - Preliminary
Blood/Venous No Growth in 4 days- Final report to follow
11/28/24 22:25 Blood Culture - Final
Blood/Venous S aureus-Methicillin Sensitive
Gram Stain - Final
11/28/24 22:25 Blood Culture - Final
Blood/Venous S aureus-Methicillin Sensitive
Gram Stain - Final
11/28/24 15:53 Blood Culture - Final
Blood/Venous S aureus-Methicillin Sensitive
Gram Stain - Final
11/28/24 12:51 Blood Culture - Final
Blood/Venous S aureus-Methicillin Sensitive
Gram Stain - Final
11/28/24 15:53 Blood Culture - Final
Blood/Venous S aureus-Methicillin Sensitive
Gram Stain - Final
11/28/24 23:21 Urine Culture - Final
Urine NO GROWTH
11/28/24 15:54 Body Fluid Culture - Final
Joint Fluid S aureus-Methicillin Sensitive
Gram Stain - Final
11/28/24 Abd US: Mild nodular surface of the liver which could represent cirrhotic morphology and overall diffuse increased hepatic echogenicity suggesting diffuse fatty infiltration. Normal directional blood flow in the hepatic and portal veins.
Gallstones and gallbladder sludge. No gallbladder wall thickening or pericholecystic fluid. Negative sonographic Ferguson's sign. No findings to suggest biliary tract dilatation.
11/28/24 Knee XRAY: Left knee replacement. No evidence of complication. Small suprapatellar joint effusion.
--- NOTE | 2024-12-05 13:26 | CM ---
sales effectiveness manager reviewed patient's chart and met with patient and patient is for possible OR tomorrow, rn case manager hospice received a script for IV ABX, and met with patient to discuss home with IV ABX v's skilled placement, per patient he wanted to review
options with his spouse and then inform rn case manager hospice.
Plan; Home with IV infusion v's skilled placement, OR tomorrow. Script for home infusion if plan has been placed on patient's chart.
[2024-12-05] MEDS: BENADRYL 25 MG IV ×2 (14:01→20:02)
[2024-12-05 15:22] VITALS: BP 130/59
--- NOTE | 2024-12-05 15:39 | W.PN.HOSP.TC ---
Today's Communication/Plan
-
Assessment / Plan
Assessment / Plan
Gen-AAOx3, NAD
HEENT-NC, AT, significant scleral icterus, clear oral mm
Neck-supple
CV-reg, no M, +S1/S2
Lungs-clear B/L
Abd-soft, NT, ND
Musculoskeletal-no edema, left knee TTP
Skin-warm and dry
Neuro-grossly non-focal
Psych-calm, cooperative
1. Left knee prosthetic joint infection
Septic arthritis
-Fluid eval: WBC 828715, PMN 79.1, no crystals
-Joint fluid and blood cultures growing MSSA
-Orthopedic surgery planning to do elective left knee prosthesis explant and spacer placement tomorrow 12/06
-Infectious disease team following, recommend continuing antibiotic treatment with Ancef 2 g IV every 8 hours x 6 weeks from prosthetic knee explant (through 01/17/2025)
-Continue pain medication regimen
2. MSSA bacteremia
-blood cs showing MSSA
-Repeat blood cs neg from 12/01
-Plan as above
3. Alcohol use disorder
-discontinue further msas/ativan, out of withdrawal window.
-Maintain champagne/thiamine
4. Decompensated cirrhosis
Elevated total bilirubin -direct dominant
Coagulopathy - improved
Thrombocytopenia
Transaminitis
-US abdomen showing cirrhosis
-Vitamin K oral provided for high INR
-No reported ascites on US
-Oral lactulose ordered, titrate to 2-3 soft stools per day
-no indication for steroids for alcoholic hepatitis based on DF
-Platelet count improved from admission level.
5. Upper GI bleed
-Reported hematemesis few days prior to arrival
-Hbg remains stable around 8.5
-GI considering eventual EGD
6. CLEVE -resolved
-cr trended down to normal
7. Acute metabolic encephalopathy
-Resolved
-Monitor for hepatic encephalopathy versus alcohol withdrawal
-Lactulose ordered, titrate to 2-3 soft stools per day
8. Hyponatremia
-From [facility].
-Will add fluid restriction if needed
9. Chronic normocytic anemia
Acute blood loss anemia
-Hemoglobin drifted down likely with reported hemoptysis/GI bleed
-Transfuse for hbg < 7
10. Hypokalemia
-replace prn
DVT proph-SCDs
Full Code
12/02 Discussed with orthopedic surgery/ID/GI
Patient is high risk for surgical correction although without surgery patient will have non improving PJI/bacteremia/sepsis
Anticipated Discharge: > 48 hours
Subjective/Interval History
-
Date of Service: December 05, 2024
Patient was seen and examined at bedside this morning. She continues to have significant pain in left knee. Anxiously awaiting surgical procedure tomorrow.
Objective Data
-
Labs:
Laboratory Results
12/05/24
07:03
WBC 11.7 H
Hgb 8.6 L
Hct 24.5 L
Plt Count 175
Sodium 128 L
Potassium 3.5
Chloride 95 L
Carbon Dioxide 24
BUN 28 H
Creatinine 1.1
Glucose 106 H
Calcium 7.4 L
Vital Signs:
Vital Signs
Temp Pulse Resp BP Pulse Ox
97.5 F 94 18 139/60 100
12/05/24 11:25 12/05/24 11:25 12/05/24 11:25 12/05/24 11:12/05/24 11:25
I&O
12/04/24 12/05/24 12/06/24
06:59 06:59 06:59
Intake Total 1919 720 / 720
Balance 1919 720 / 720
Review of Systems
-
History Source: Patient
All other systems: Reviewed and negative
Musculoskeletal: Reports Joint Pain (Left knee pain)
Physical Exam
-
General: No Apparent Distress
[2024-12-05 19:00] VITALS: BP 122/64
[2024-12-05] MEDS: TYLENOL 500 MG PO (20:02)
[2024-12-05 23:00] VITALS: BP 121/65
[2024-12-06] VITALS (12 sets, daily range): BP systolic 118–162; BP diastolic 56–78; PULSE 97; O2SAT 100
[2024-12-06] MEDS: ANCEF 10 IV ×2 (05:43→21:58)
[2024-12-06] MEDS: SYNTHROID 25 MCG PO (05:43)
[2024-12-06] MEDS: VITAMIN B1 100 MG PO ×2 (07:21→19:59)
[2024-12-06] MEDS: FOLVITE 1 MG PO (07:21)
[2024-12-06] MEDS: OXYCONTIN (CONTROLLED RELEASE) 10 MG PO (07:21)
[2024-12-06] MEDS: DUPHALAC/CHRONULAC 20 GRAMS PO (07:21)
--- NOTE | 2024-12-06 07:55 | W.PN.UPDATE ---
Update Note
Progress Note Update
Mr. Spann is resting comfortably in bed this morning. He does endorse pain about the knee, but states his pain is manageable with his current pain management regimen. He is scheduled for OR today for revision left TKA for PJI under the direction
of Dr. Jensen. Consent signed and on patient chart.
Directed exam of the left knee reveals effusion and slight warmth. Tenderness to palpation generally about the knee. ROM deferred secondary to pain. Calf soft and nontender. Neurovascularly intact distally.
Hgb 8.6 this AM.
--NPO until surgery.
--Pain control as needed until surgery.
--Hgb 8.6 this AM. 2 units PRBC on hold for OR. T+C completed yesterday.
--Orthopedics will continue to follow along.
--- NOTE | 2024-12-06 12:33 | W.PN.UPDATE ---
Update Note
Progress Note Update
Met w. patient preop to review the situation and plan for surgery. High risk of his current situation including high meld score and risks of persistent infection, worse liver fxn or even discused. Inability to cure PJI w. abx discussed .
he expressed understanding and desire including family desire to proceed w. surgery understanding the risks. Planning for surgery this afternoon.
[2024-12-06] MEDS: ANCEF IV (13:07)
--- NOTE | 2024-12-06 13:30 | W.PN.HOSP.TC ---
Today's Communication/Plan
-
Assessment / Plan
Assessment / Plan
Gen-AAOx3, NAD
HEENT-NC, AT, significant scleral icterus, clear oral mm
Neck-supple
CV-reg, no M, +S1/S2
Lungs-clear B/L
Abd-soft, NT, ND
Musculoskeletal-no edema, left knee TTP
Skin-warm and dry
Neuro-grossly non-focal
Psych-calm, cooperative
1. Left knee prosthetic joint infection
Septic arthritis
-Fluid eval: WBC 476670, PMN 79.1, no crystals
-Joint fluid and blood cultures growing MSSA
-Orthopedic surgery planning to do elective left knee prosthesis explant and spacer placement today 12/06
-Infectious disease team following, recommend continuing antibiotic treatment with Ancef 2 g IV every 8 hours x 6 weeks from prosthetic knee explant (through 01/17/2025)
-Continue pain medication regimen
2. MSSA bacteremia
-blood cs showing MSSA
-Repeat blood cs neg from 12/01
-Plan as above
3. Alcohol use disorder
-discontinue further msas/ativan, out of withdrawal window.
-Maintain champagne/thiamine
4. Decompensated cirrhosis
Elevated total bilirubin -direct dominant
Coagulopathy - improved
Thrombocytopenia
Transaminitis
-US abdomen showing cirrhosis
-Vitamin K oral provided for high INR
-No reported ascites on US
-Oral lactulose ordered, titrate to 2-3 soft stools per day
-no indication for steroids for alcoholic hepatitis based on DF
-Platelet count improved from admission level.
5. Upper GI bleed
-Reported hematemesis few days prior to arrival
-Hbg remains stable around 8.5
-GI considering eventual EGD
6. CLEVE -resolved
-cr trended down to normal
7. Acute metabolic encephalopathy
-Resolved
-Monitor for hepatic encephalopathy versus alcohol withdrawal
-Lactulose ordered, titrate to 2-3 soft stools per day
8. Hyponatremia
-From [facility].
-Will add fluid restriction if needed
9. Chronic normocytic anemia
Acute blood loss anemia
-Hemoglobin drifted down likely with reported hemoptysis/GI bleed
-Transfuse for hbg < 7
10. Hypokalemia
-replace prn
DVT proph-SCDs
Full Code
12/02 Discussed with orthopedic surgery/ID/GI
Patient is high risk for surgical correction although without surgery patient will have non improving PJI/bacteremia/sepsis
Anticipated Discharge: > 48 hours
Subjective/Interval History
-
Date of Service: December 06, 2024
Patient was seen and examined at bedside this morning. Awaiting OR today for explant and washout of the left knee with spacer placement.
Objective Data
-
Vital Signs:
Vital Signs
Temp Pulse Resp BP Pulse Ox
98.6 F 93 18 133/67 98
12/06/24 07:00 12/06/24 07:00 12/06/24 07:00 12/06/24 07:00 12/06/24 07:00
I&O
12/05/24 12/06/24 12/07/24
06:59 06:59 06:59
Intake Total 720 / 720
Balance 720 / 720
Review of Systems
-
History Source: Patient
All other systems: Reviewed and negative
Musculoskeletal: Reports Joint Pain (Left knee pain)
Physical Exam
-
General: No Apparent Distress
--- NOTE | 2024-12-06 14:14 | CM ---
Chart reviewed and will await updated physical therapy notes after procedure today, patient will need IV ABX at discharge, script is on chart, case checker reached out to patient's spouse who would like skilled placement for patient. Per patient's
spouse she would like referrals sent to [facility], case checker will send referrals.
Plan; Skilled placement on IV ABX and OR today.
--- NOTE | 2024-12-06 14:16 | W.PN.UPDATE ---
Update Note
Progress Note Update
Knee revision performed. Entire femur and tibial components removed and replaced w. new components implanted with high dose abx cement. No complications.
[2024-12-06] MEDS: DILAUDID 0.25 MG IV (14:59)
--- NOTE | 2024-12-06 15:07 | PTCARENOTE ---
PT arrived to PACU tossing and PT turning in bed, sleeping and snoring, PT was easy to wake, PT appears calm, HR 96, O2 97%, RR 11, BP 144/68, PT states pain is 8/10, medicated as ordered,
--- NOTE | 2024-12-06 15:09 | PTCARENOTE ---
PT arrives sleeping, snoring, awakes and when asked pain level 8/10, then immediately starts snoring and goes back to sleep, medicated as ordered, PT is jaundice, including the eyes, multiple areas of bruising and scratches, previous to arrival, see
MAR for med administration
[2024-12-06] MEDS: DILAUDID 0.5 MG IV ×2 (15:28→19:58)
--- NOTE | 2024-12-06 17:00 | PTCARENOTE ---
pt received from PACU to 2S room 2108 via bed at 1620. pt awake and alert. oriented to room, , call [facility] and plan of care. telemetry placed and reading SR-ST 90's. + neurovascular checks to B/L LE's, good sensation, movement and cap refill.
Left knee surgical dressing clean and dry, cynthia wrap remain intact. ice pack in place. Left leg +2 edema noted, Right leg +1 Edema-pt states edema is not new. pt jaundiced with scattered bruising noted on both arms. IVF infusing. call [facility] in
reach. care ongoing.
[2024-12-06] MEDS: ROXICODONE 7.5 MG PO (18:39)
[2024-12-07] VITALS (7 sets, daily range): BP systolic 109–146; BP diastolic 56–73; PULSE 95; O2SAT 97; BMI 35.5
[2024-12-07] MEDS: ROXICODONE 7.5 MG PO ×5 (01:51→22:39)
[2024-12-07] MEDS: SYNTHROID 25 MCG PO (05:24)
[2024-12-07] MEDS: ANCEF 10 IV ×3 (05:24→21:07)
[2024-12-07 06:32] LABS: Hemoglobin 7.6 g/dL (13.0-18.0); Mean Corp Hgb Conc. 34.5 g/dL (33.0-37.0); Mean Corpuscular Hgb 33.8 pg (27.0-31.0); Mean Corpuscular Volume 97.8 fL (80.0-94.0); Mean Platelet Volume 11.1 fL (7.4-10.4); Platelet Count 201 10^3/uL (130-400); Red Blood Cell Count 2.25 10^6/uL (4.70-6.10); Red Cell Dist. Width 14.9 % (11.5-14.5); White Blood Cell Count 16.2 10^3/uL (4.8-10.8)
[2024-12-07 06:49] LABS: Blood Urea Nitrogen 36 mg/dl (9-20); Carbon Dioxide 24 mmol/L (22-30); Chloride 92 mmol/L (98-107); Estimated Creatinine Clearance 90 ml/min; Glucose 165 mg/dl (70-99); Phosphorus 2.7 mg/dl (2.5-4.5); Potassium 4.5 mmol/L (3.5-5.1); Sodium 124 mmol/L (135-145); eGFR > 60.00
--- NOTE | 2024-12-07 07:46 | W.PN.UPDATE ---
Update Note
Progress Note Update
pt reports improved pain but leg is swollen and heavy. he has had approx 5kg weight gain as compared with yesterday and if anything the prosthetic components implanted are garde manger than those removed.
He still appears very jaundiced and very ill appearing. mentating well though.
He can rehab this knee revision as though it were a normal knee replacement. Needs creative writer IV ABX and possibly ongoing supression thereafter. he is aware bacterial eradication not a guarantee given his morbid condition.
he is eager to confer w. GI about the creative writer options/plan for his liver disease. he indicates he doesn't recall talking to them early in his hospitalization when he was obtunded. He would like to reconnect w. them.
[2024-12-07] MEDS: VITAMIN B1 100 MG PO ×2 (08:01→21:00)
[2024-12-07] MEDS: DUPHALAC/CHRONULAC 20 GRAMS PO (08:01)
[2024-12-07] MEDS: FOLVITE 1 MG PO (08:02)
[2024-12-07] MEDS: OXYCONTIN (CONTROLLED RELEASE) 10 MG PO (08:38)
[2024-12-07 10:12] LABS: % Basophils 0.1 % (0-2); % Immature Granulocytes 0.9 % (0-0.5); % Lymphocytes 2.3 % (20.5-51.1); % Neutrophils 92.7 % (42.2-75.2); Absolute Immature Granulocytes 0.1 10^3/uL (0-0.05); Absolute Lymphocytes 0.4 10^3/uL (1.2-3.4); Absolute Monocytes 0.7 10^3/uL (0.1-0.6); Nucleated Red Blood Cells % 0 % (-)
--- NOTE | 2024-12-07 11:06 | W.PN.ID1 ---
Date of Service
Date of Service: December 07, 2024
Today's Communication
-Continue cefazolin 2g IV q8h x 6 weeks from prosthetic knee explant through 01/17/25.
- Home infusion sheet submitted to case management on 12/05.
Assessment / Plan
# Complicated S. aureus (MSSA) bacteremia (5 sets, collected same day 11/28/24)
# Septic left knee PJI with MSSA
# Fever resolved
# Leukocytosis - post op
# Alcohol cirrhosis
# s/p Alcohol withdrawal
- 12/01 Repeat blood cx's x2 neg
-TTE no significant valvular disease.
- 12/06 s/p left prosthetic knee removal with placement of antibiotic impregnated cement.
-Continue cefazolin 2g IV q8h x 6 weeks from prosthetic knee explant through 01/17/25.
- Home infusion sheet submitted to case management on 12/05.
- Can place PICC
#Additional Past Medical History:
Hypertension
Hypothyroidism
alcohol abuse
cirrhosis
Left total knee replacement
Chief Complaint
-: Bacteremia and Other (Septic PJI)
Subjective / Review of Systems
Surgery went well yesterday.
Vital Signs / Physical Exam
Vital Signs
Vital Signs
Temp Pulse Resp BP Pulse Ox
98.0 F 95 16 113/57 96
12/07/24 07:15 12/07/24 07:15 12/07/24 07:15 12/07/24 07:15 12/07/24 07:15
Physical Exam
Constitutional: No Acute Distress
Eyes: No Conjunctival Hemorrhage
Cardiovascular: Regular Rate and S1/S2
Pulmonary: Clear
Gastrointestinal: Soft, Non Tender and Non Distended
Extremities: Edema (LLE)
Neurological: AO x 3
Objective Data
Lab Data
Lab Results
12/07/24 04:33
12/07/24 04:33
PT 19.8 Sec (11.4-14.6) H 12/02/24 06:42
INR 1.66 12/02/24 06:42
Estimated Creat Clear 90 ml/min 12/07/24 04:33
Lactic Acid 1.6 mmol/L (0.7-2.0) 11/28/24 17:15
Total Bilirubin 10.4 mg/dl (0.2-1.3) H 12/02/24 06:42
GGT 546 U/L (15-73) H 11/28/24 22:25
AST 145 U/L (17-59) H 12/02/24 06:42
ALT 25 U/L (0-50) 12/02/24 06:42
Alkaline Phosphatase 143 U/L (38-126) H 12/02/24 06:42
C-Reactive Protein 183.10 mg/L (0.0-10.00) H 11/28/24 12:52
Most recent labs reviewed.
Micro Results:
12/06/24 13:51 Tissue Culture - Pending
Knee - Left Gram Stain - Preliminary
12/06/24 13:49 Tissue Culture - Pending
Knee - Left Gram Stain - Preliminary
12/01/24 07:23 Blood Culture - Final
Blood/Venous No Growth - Final Report
12/01/24 08:00 Blood Culture - Final
Blood/Venous No Growth - Final Report
11/28/24 22:25 Blood Culture - Final
Blood/Venous S aureus-Methicillin Sensitive
Gram Stain - Final
11/28/24 22:25 Blood Culture - Final
Blood/Venous S aureus-Methicillin Sensitive
Gram Stain - Final
11/28/24 15:53 Blood Culture - Final
Blood/Venous S aureus-Methicillin Sensitive
Gram Stain - Final
11/28/24 12:51 Blood Culture - Final
Blood/Venous S aureus-Methicillin Sensitive
Gram Stain - Final
11/28/24 15:53 Blood Culture - Final
Blood/Venous S aureus-Methicillin Sensitive
Gram Stain - Final
11/28/24 23:21 Urine Culture - Final
Urine NO GROWTH
11/28/24 15:54 Body Fluid Culture - Final
Joint Fluid S aureus-Methicillin Sensitive
Gram Stain - Final
11/28/24 Abd US: Mild nodular surface of the liver which could represent cirrhotic morphology and overall diffuse increased hepatic echogenicity suggesting diffuse fatty infiltration. Normal directional blood flow in the hepatic and portal veins.
Gallstones and gallbladder sludge. No gallbladder wall thickening or pericholecystic fluid. Negative sonographic Ferguson's sign. No findings to suggest biliary tract dilatation.
11/28/24 Knee XRAY: Left knee replacement. No evidence of complication. Small suprapatellar joint effusion.
--- NOTE | 2024-12-07 11:25 | W.PN.HOSP.TC ---
Today's Communication/Plan
-
Assessment / Plan
Assessment / Plan
Gen-AAOx3, NAD
HEENT-NC, AT, significant scleral icterus, clear oral mm
Neck-supple
CV-reg, no M, +S1/S2
Lungs-clear B/L
Abd-soft, NT, ND
Musculoskeletal-no edema, left lower extremity swelling, surgical dressing in place
Skin-warm and dry
Neuro-grossly non-focal
Psych-calm, cooperative
1. Left knee prosthetic joint infection
Septic arthritis
-Fluid eval: WBC 028656, PMN 79.1, no crystals
-Joint fluid and blood cultures growing MSSA
-Status post OR with Ortho for left knee prosthesis explant and spacer placement 12/06, tolerated procedure well
-Infectious disease team following, recommend continuing antibiotic treatment with Ancef 2 g IV every 8 hours x 6 weeks from prosthetic knee explant (through 01/17/2025)
-Continue pain medication regimen
2. MSSA bacteremia
-blood cs showing MSSA
-Repeat blood cs neg from 12/01
-Plan as above
3. Alcohol use disorder
-discontinue further msas/ativan, out of withdrawal window.
-Maintain champagne/thiamine
4. Decompensated cirrhosis
Elevated total bilirubin -direct dominant
Coagulopathy - improved
Thrombocytopenia
Transaminitis
-Improved, mental status now at baseline, hemodynamically stable
-US abdomen showing cirrhosis
-Vitamin K oral provided for high INR
-No reported ascites on US
-Oral lactulose ordered, titrate to 2-3 soft stools per day
-no indication for steroids for alcoholic hepatitis based on DF
-Platelet count improved from admission level.
-Will need GI follow-up
5. Upper GI bleed
-Reported hematemesis few days prior to arrival
-Hbg has remained stable around 8.5, dropped to 7.6 postoperatively, will monitor
-GI considering eventual EGD
6. CLEVE -resolved
-cr trended down to normal
7. Acute metabolic encephalopathy
-Resolved
-Monitor for hepatic encephalopathy versus alcohol withdrawal
-Lactulose ordered, titrate to 2-3 soft stools per day
8. Hyponatremia
-From ESLD.
-Will add fluid restriction if needed
9. Chronic normocytic anemia
Acute blood loss anemia
-Hemoglobin drifted down likely with reported hemoptysis/GI bleed
-Transfuse for hbg < 7
10. Hypokalemia
-replace prn
DVT proph-SCDs
Full Code
12/02 Discussed with orthopedic surgery/ID/GI
Patient is high risk for surgical correction although without surgery patient will have non improving PJI/bacteremia/sepsis
Anticipated Discharge: 24 - 48 hours
Subjective/Interval History
-
Date of Service: December 07, 2024
Patient was seen and examined at bedside this morning. He is postop day 1 left prosthetic knee explant. Tolerated procedure well, continuing on cefazolin for 6 weeks postoperatively.
Objective Data
-
Labs:
Laboratory Results
12/07/24
04:33
WBC 16.2 H
Hgb 7.6 L
Hct 22.0 L
Plt Count 201
Sodium 124 L
Potassium 4.5 D
Chloride 92 L
Carbon Dioxide 24
BUN 36 H
Creatinine 1.1
Glucose 165 H
Calcium 7.0 L
Vital Signs:
Vital Signs
Temp Pulse Resp BP Pulse Ox
98.0 F 95 16 113/57 96
12/07/24 07:15 12/07/24 07:15 12/07/24 07:15 12/07/24 07:15 12/07/24 07:15
I&O
12/06/24 12/07/2412/08/25
06:59 06:59 06:59
Intake Total 1260 / 1260
Balance 1260 / 1260
Review of Systems
-
History Source: Patient
All other systems: Reviewed and negative
Musculoskeletal: Reports Joint Pain (Left knee pain and swelling)
Physical Exam
-
General: No Apparent Distress
--- NOTE | 2024-12-07 15:06 | CM ---
Chart reviewed
Met with pt - prefers to go home with HH. Has no preference to agency
Spoke with pts Melissa - she reports she feels rehab is better option as no one will be home with pt during day for long periods of time, she feels that it would not be safe discharge to return home
[facility] can not accept - insurance
[facility] - message sent requesting referral review
Will send referral to local SNF's per pts
Pt will need auth when bed obtained
Plan - anticipate SNF when medically ready
--- NOTE | 2024-12-07 17:51 | W.PN.UPDATE ---
Update Note
Progress Note Update
I stopped by to check on Sulaiman due to concern regarding swelling in left lower extremity. He has been elevating and icing the knee since earlier this afternoon, and he and his nurse report this has helped to improve his symptoms.
On exam, there is generalized edema and ecchymosis throughout the left lower extremity. Dried blood on the dressing, otherwise dry and intact. Calf soft and nontender. Neurovascularly intact distally.
Sulaiman's left leg is quite swollen, but thankfully, not out of the realm of what I would expect at this point post-operatively. I re-wrapped his leg with DRAGAN bandages from his toes to his thigh, and emphasized the importance of him leaving these in
place. I encouraged elevation and ice when he is not up and walking or doing his PT. We will continue to follow along.
[2024-12-08 03:51] VITALS: BP 130/77
[2024-12-08] MEDS: ROXICODONE 7.5 MG PO ×4 (03:54→21:02)
[2024-12-08] MEDS: ANCEF 10 IV ×3 (05:29→21:04)
[2024-12-08] MEDS: SYNTHROID 25 MCG PO (05:29)
[2024-12-08 05:43] VITALS: BMI 35.2
--- NOTE | 2024-12-08 06:46 | W.PN.ORTHO ---
Today's Communication / Plan
-
59-year-old male POD #2 Left total knee revision, entire femoral and entire tibial component with continued bone cement 12/06/[address] Jensen.
- WBAT LLE with use of walker for assistance.
- PT/OT.
- Ice and elevation for edema control. DRAGAN to LLE to assist with edema.
- Abx per ID (Cefazolin).
- SCD's for DVT prophylaxis.
- Pain control per primary team.
- Orthopedic surgery will continue to follow along.
Assessment
.
Dressing:
Aquacel dressing intact with dried contained bloody drainage. Generalized edema to LLE. DRAGAN wrap to LLE.
Calf is soft and nontender to palpation.
Assessment:
POD #2 Left total knee revision, entire femoral and entire tibial component with continued bone cement 12/06/[address] Jensen.
Plan
.
Surgery / Date: Revision L TKA 12/06/2024
Activity:
Out of bed.
PT/OT.
Discharge Plan: Other
Discharge Information:
Appreciate CM.
Subjective
.
.:
Patient resting comfortably.
Vital Signs and Labs
.
Vital Signs and Labs:
Temp Pulse Resp BP Pulse Ox
98.5 F 74 18 130/77 99
12/08/24 03:51 12/08/24 03:51 12/08/24 03:51 12/08/24 03:51 12/08/24 03:51
PT 19.8 Sec (11.4-14.6) H 12/02/24 06:42
INR 1.66 12/02/24 06:42
[2024-12-08 06:49] VITALS: BP 134/71
[2024-12-08] MEDS: DUPHALAC/CHRONULAC 20 GRAMS PO (07:54)
[2024-12-08] MEDS: FOLVITE 1 MG PO (07:54)
[2024-12-08] MEDS: OXYCONTIN (CONTROLLED RELEASE) 10 MG PO (07:55)
[2024-12-08] MEDS: VITAMIN B1 100 MG PO ×2 (07:56→21:03)
[2024-12-08 08:49] LABS: % Basophils 0.1 % (0-2); % Eosinophils 0.1 % (0-6); % Immature Granulocytes 0.7 % (0-0.5); % Lymphocytes 3.3 % (20.5-51.1); % Neutrophils 90.8 % (42.2-75.2); Absolute Immature Granulocytes 0.1 10^3/uL (0-0.05); Absolute Lymphocytes 0.6 10^3/uL (1.2-3.4); Absolute Monocytes 0.9 10^3/uL (0.1-0.6); Absolute Neutrophils 16.3 10^3/uL (1.4-6.5); Hematocrit 21.5 % (39.0-52.0); Hemoglobin 7.7 g/dL (13.0-18.0); Mean Corp Hgb Conc. 35.8 g/dL (33.0-37.0); Mean Corpuscular Hgb 34.2 pg (27.0-31.0); Mean Corpuscular Volume 95.6 fL (80.0-94.0); Mean Platelet Volume 10.5 fL (7.4-10.4); Nucleated Red Blood Cells % 0 % (-); Platelet Count 227 10^3/uL (130-400); Red Blood Cell Count 2.25 10^6/uL (4.70-6.10)
[2024-12-08 09:27] LABS: Blood Urea Nitrogen 37 mg/dl (9-20); Calcium 7.4 mg/dl (8.4-10.2); Carbon Dioxide 26 mmol/L (22-30); Chloride 93 mmol/L (98-107); Estimated Creatinine Clearance 98 ml/min; Glucose 150 mg/dl (70-99); Phosphorus 3.4 mg/dl (2.5-4.5); Potassium 4.5 mmol/L (3.5-5.1); Sodium 129 mmol/L (135-145); eGFR > 60.00
[2024-12-08 11:34] VITALS: BP 143/70
--- NOTE | 2024-12-08 13:39 | W.PN.HOSP.TC ---
Today's Communication/Plan
-
Assessment / Plan
Assessment / Plan
Gen-AAOx3, NAD
HEENT-NC, AT, significant scleral icterus, clear oral mm
Neck-supple
CV-reg, no M, +S1/S2
Lungs-clear B/L
Abd-soft, NT
Musculoskeletal-no edema, left lower extremity swelling, surgical dressing in place
Skin-warm and dry
Neuro-grossly non-focal
Psych-calm, cooperative
1. Left knee prosthetic joint infection
-Septic arthritis
-Fluid eval: WBC 527597, PMN 79.1, no crystals
-Joint fluid and blood cultures growing MSSA
-Status post OR with Ortho for left knee prosthesis explant and spacer placement 12/06, tolerated procedure well
-Infectious disease team following, recommend continuing antibiotic treatment with Ancef 2 g IV every 8 hours x 6 weeks from prosthetic knee explant (through 01/17/2025)
-Continue pain medication regimen
-Planning DC to SNF
2. MSSA bacteremia
-blood cs showing MSSA
-Repeat blood cs neg from 12/01
-Plan as above
3. Alcohol use disorder
-discontinue further msas/ativan, out of withdrawal window.
-Maintain champagne/thiamine
4. Decompensated cirrhosis
Elevated total bilirubin -direct dominant
Coagulopathy - improved
Thrombocytopenia
Transaminitis
-Improved, mental status now at baseline, hemodynamically stable
-US abdomen showing cirrhosis
-Vitamin K oral provided for high INR
-No reported ascites on US
-Oral lactulose ordered, titrate to 2-3 soft stools per day
-no indication for steroids for alcoholic hepatitis based on DF
-Platelet count improved from admission level.
-Will need GI follow-up
5. Upper GI bleed
-Reported hematemesis few days prior to arrival
-Hbg has remained stable around 8.5, dropped to 7.6 postoperatively, now stable, will monitor
-GI considering eventual EGD
6. CLEVE -resolved
-cr trended down to normal
7. Acute metabolic encephalopathy
-Resolved
-Monitor for hepatic encephalopathy versus alcohol withdrawal
-Lactulose ordered, titrate to 2-3 soft stools per day
8. Hyponatremia
-From ESLD.
-Will add fluid restriction if needed
9. Chronic normocytic anemia
Acute blood loss anemia
-Hemoglobin drifted down likely with reported hemoptysis/GI bleed
-Transfuse for hbg < 7
10. Hypokalemia
-replace prn
DVT proph-SCDs
Full Code
12/02 Discussed with orthopedic surgery/ID/GI
Patient is high risk for surgical correction although without surgery patient will have non improving PJI/bacteremia/sepsis
Anticipated Discharge: 24 - 48 hours
Subjective/Interval History
-
Date of Service: December 08, 2024
Patient was seen and examined at bedside this morning. Left leg feeling less swollen than yesterday. Pain improved.
Objective Data
-
Labs:
Laboratory Results
12/08/24
08:10
WBC 18.0 H
Hgb 7.7 L
Hct 21.5 L
Plt Count 227
Sodium 129 L
Potassium 4.5
Chloride 93 L
Carbon Dioxide 26
BUN 37 H
Creatinine 1.0
Glucose 150 H
Calcium 7.4 L
Vital Signs:
Vital Signs
Temp Pulse Resp BP Pulse Ox
97.9 F 93 18 143/70 96
12/08/24 11:34 12/08/24 11:34 12/08/24 11:34 12/08/24 11:34 12/08/24 11:34
I&O
12/07/24 12/08/24 12/09/24
06:59 06:59 06:59
Intake Total 1260 / 1260 3480 / 3480
Balance 1260 / 1260 3480 / 3480
Review of Systems
-
History Source: Patient
All other systems: Reviewed and negative
Musculoskeletal: Reports Joint Swelling (Left leg pain) and Edema (Left leg swelling)
Physical Exam
-
General: No Apparent Distress
[2024-12-08] MEDS: CLARITIN 10 MG PO (13:57)
[2024-12-08 14:43] VITALS: BP 138/69
--- NOTE | 2024-12-08 15:32 | CM ---
Patient continues on IV anbx.
Plan: remains skilled rehab once medically stable and bed available.
[2024-12-08 19:42] VITALS: BP 107/70
[2024-12-08 23:56] VITALS: BP 114/54
[2024-12-09] MEDS: ROXICODONE 7.5 MG PO ×5 (03:17→22:18)
[2024-12-09 03:28] VITALS: BP 139/72
[2024-12-09 06:00] VITALS: BMI 35.2
[2024-12-09] MEDS: SYNTHROID 25 MCG PO (06:24)
[2024-12-09] MEDS: ANCEF 10 IV ×3 (06:24→22:05)
[2024-12-09 07:15] VITALS: BP 137/66
--- NOTE | 2024-12-09 07:50 | W.PN.ORTHO ---
Today's Communication / Plan
-
Appreciate the primary team with management, continue Tx
Cx remain negative @ 48 hours
WBAT LLE with use of walker/device
PT/OT
Ice and elevation for edema control.
ABX per ID, currently Ancef
SCD's for DVT prophylaxis.
Pain control per primary team
Ortho to continue following
Assessment
.
Distal Motor Intact: Yes
Dressing:
Dy and intact. Strikethrough contained to dressing, will leave for now. Can be changed on D/c
Assessment:
POD#3 Left revision TKA
All things considered, feeling much better
Calf soft, nontender
Plan
.
Surgery / Date: Revision L TKA Dec 19 (Camila)
DVT Prophylaxis: Other (Mechanical)
Activity:
Out of bed. WBAT LLE on walker
PT/OT
Discharge Plan: Other (per CM)
Subjective
.
.:
Patient enjoying breakfast this AM. Feeling much better
Vital Signs and Labs
.
Vital Signs and Labs:
Temp Pulse Resp BP Pulse Ox
98.9 F 93 18 137/66 99
12/09/24 07:15 12/09/24 07:15 12/09/24 07:15 12/09/24 07:15 12/09/24 07:15
PT 19.8 Sec (11.4-14.6) H 12/02/24 06:42
INR 1.66 12/02/24 06:42
[2024-12-09] MEDS: OXYCONTIN (CONTROLLED RELEASE) 10 MG PO (08:03)
[2024-12-09] MEDS: VITAMIN B1 100 MG PO ×2 (08:03→19:51)
[2024-12-09] MEDS: DUPHALAC/CHRONULAC 20 GRAMS PO (08:03)
[2024-12-09] MEDS: FOLVITE 1 MG PO (08:04)
[2024-12-09] MEDS: CLARITIN 10 MG PO (08:04)
[2024-12-09 10:01] LABS: % Basophils 0.2 % (0-2); % Eosinophils 0.4 % (0-6); % Immature Granulocytes 0.9 % (0-0.5); % Lymphocytes 5.4 % (20.5-51.1); % Monocytes 7.1 % (1.7-9.3); Absolute Eosinophils 0.1 10^3/uL (0-0.7); Absolute Immature Granulocytes 0.2 10^3/uL (0-0.05); Absolute Lymphocytes 1.2 10^3/uL (1.2-3.4); Absolute Monocytes 1.6 10^3/uL (0.1-0.6); Absolute Neutrophils 19.4 10^3/uL (1.4-6.5); Hematocrit 22.1 % (39.0-52.0); Hemoglobin 7.7 g/dL (13.0-18.0); Mean Corp Hgb Conc. 34.8 g/dL (33.0-37.0); Mean Corpuscular Hgb 33.9 pg (27.0-31.0); Mean Corpuscular Volume 97.4 fL (80.0-94.0); Mean Platelet Volume 10.6 fL (7.4-10.4); Nucleated Red Blood Cells % 0 % (-); Platelet Count 255 10^3/uL (130-400); Red Blood Cell Count 2.27 10^6/uL (4.70-6.10); Red Cell Dist. Width 15.1 % (11.5-14.5); White Blood Cell Count 22.6 10^3/uL (4.8-10.8)
[2024-12-09 10:21] LABS: Blood Urea Nitrogen 34 mg/dl (9-20); Calcium 7.8 mg/dl (8.4-10.2); Carbon Dioxide 27 mmol/L (22-30); Chloride 94 mmol/L (98-107); Estimated Creatinine Clearance 109 ml/min; Glucose 129 mg/dl (70-99); Phosphorus 2.8 mg/dl (2.5-4.5); Potassium 4.9 mmol/L (3.5-5.1); Sodium 129 mmol/L (135-145); eGFR > 60.00
--- NOTE | 2024-12-09 10:24 | W.PN.ID1 ---
Date of Service
Date of Service: December 09, 2024
Today's Communication
Continue antibiotics.
Assessment / Plan
# Complicated S. aureus (MSSA) bacteremia (5 sets, collected same day 11/28/24)
# Septic left knee PJI with MSSA
# Fever; resolved
# Leukocytosis - post op
# Alcohol cirrhosis
# s/p Alcohol withdrawal
- 12/01 Repeat blood cx's x2 neg
-TTE no significant valvular disease.
- 12/06 s/p left prosthetic knee removal with placement of antibiotic impregnated cement.
--> Continue cefazolin 2g IV q8h x 6 weeks from prosthetic knee explant through 01/17/25.
- Home infusion sheet submitted to case management on 12/05.
- Can place PICC
#Additional Past Medical History:
Hypertension
Hypothyroidism
alcohol abuse
cirrhosis
Left total knee replacement
Chief Complaint
-: Bacteremia and Other (Septic PJI)
Subjective / Review of Systems
Review of Systems: No Fever and No Chills
Vital Signs / Physical Exam
Vital Signs
Vital Signs
Temp Pulse Resp BP Pulse Ox
98.9 F 93 18 137/66 99
12/09/24 07:15 12/09/24 07:15 12/09/24 07:15 12/09/24 07:15 12/09/24 07:15
Physical Exam
Constitutional: No Acute Distress, Comfortable and Non-toxic
Eyes: Sclera Anicteric
Cardiovascular: Regular Rate and S1/S2
Pulmonary: Clear
Gastrointestinal: Soft, Non Tender and Non Distended
Extremities: Edema (LLE)
Musculoskeletal: Other (Left leg wrapped in Louis wrap.)
Neurological: AO x 3
Objective Data
Lab Data
Lab Results
12/09/24 09:51
12/09/24 09:51
PT 19.8 Sec (11.4-14.6) H 12/02/24 06:42
INR 1.66 12/02/24 06:42
Estimated Creat Clear 109 ml/min 12/09/24 09:51
Lactic Acid 1.6 mmol/L (0.7-2.0) 11/28/24 17:15
Total Bilirubin 10.4 mg/dl (0.2-1.3) H 12/02/24 06:42
GGT 546 U/L (15-73) H 11/28/24 22:25
AST 145 U/L (17-59) H 12/02/24 06:42
ALT 25 U/L (0-50) 12/02/24 06:42
Alkaline Phosphatase 143 U/L (38-126) H 12/02/24 06:42
C-Reactive Protein 183.10 mg/L (0.0-10.00) H 11/28/24 12:52
Most recent labs reviewed.
Micro Results:
12/06/24 13:51 Tissue Culture - Preliminary
Knee - Left No Growth After 48 Hours
Gram Stain - Preliminary
12/06/24 13:49 Tissue Culture - Preliminary
Knee - Left No Growth After 48 Hours
Gram Stain - Preliminary
12/01/24 07:23 Blood Culture - Final
Blood/Venous No Growth - Final Report
12/01/24 08:00 Blood Culture - Final
Blood/Venous No Growth - Final Report
11/28/24 22:25 Blood Culture - Final
Blood/Venous S aureus-Methicillin Sensitive
Gram Stain - Final
11/28/24 22:25 Blood Culture - Final
Blood/Venous S aureus-Methicillin Sensitive
Gram Stain - Final
11/28/24 15:53 Blood Culture - Final
Blood/Venous S aureus-Methicillin Sensitive
Gram Stain - Final
11/28/24 12:51 Blood Culture - Final
Blood/Venous S aureus-Methicillin Sensitive
Gram Stain - Final
11/28/24 15:53 Blood Culture - Final
Blood/Venous S aureus-Methicillin Sensitive
Gram Stain - Final
11/28/24 23:21 Urine Culture - Final
Urine NO GROWTH
11/28/24 15:54 Body Fluid Culture - Final
Joint Fluid S aureus-Methicillin Sensitive
Gram Stain - Final
Fluid Cult/not urine Final 11/28/24
Many S aureus-Methicillin Sensitive
1. S aureus - Methicillin Sensitive
M.I.C. RX
--------- ---
Amoxicillin/Potas. Clavulanate <=4/2 S
Ampicillin <=2 R
Clindamycin <=0.5 S
Gentamicin <=4 S
Erythromycin <=0.5 S
Levofloxacin <=1 S
Oxacillin <=0.25 S
Tetracycline <=4 S
Trimethoprim/Sulfamethoxazole <=0.5/9.5 S
Vancomycin 1 S
11/28/24 Abd US: Mild nodular surface of the liver which could represent cirrhotic morphology and overall diffuse increased hepatic echogenicity suggesting diffuse fatty infiltration. Normal directional blood flow in the hepatic and portal veins.
Gallstones and gallbladder sludge. No gallbladder wall thickening or pericholecystic fluid. Negative sonographic Ferguson's sign. No findings to suggest biliary tract dilatation.
11/28/24 Knee XRAY: Left knee replacement. No evidence of complication. Small suprapatellar joint effusion.
[2024-12-09 11:08] VITALS: BP 133/62
--- NOTE | 2024-12-09 14:10 | W.PN.HOSP.TC ---
Today's Communication/Plan
-
Assessment / Plan
Assessment / Plan
Gen-AAOx3, NAD
HEENT-NC, AT, significant scleral icterus, clear oral mm
Neck-supple
CV-reg, no M, +S1/S2
Lungs-clear B/L
Abd-soft, NT
Musculoskeletal-no edema, left lower extremity swelling, surgical dressing in place
Skin-warm and dry, icteric
Neuro-grossly non-focal
Psych-calm, cooperative
1. Left knee prosthetic joint infection
-Septic arthritis
-Fluid eval: WBC 193513, PMN 79.1, no crystals
-Joint fluid and blood cultures growing MSSA
-Status post OR with Ortho for left knee prosthesis explant and spacer placement 12/06, tolerated procedure well
-Infectious disease team following, recommend continuing antibiotic treatment with Ancef 2 g IV every 8 hours x 6 weeks from prosthetic knee explant (through 01/17/2025)
-Continue pain medication regimen
-Planning DC to SNF
2. MSSA bacteremia
-blood cs showing MSSA
-Repeat blood cs neg from 12/01
-Plan as above
3. Alcohol use disorder
-discontinue further msas/ativan, out of withdrawal window.
-Maintain champagne/thiamine
4. Decompensated cirrhosis
Elevated total bilirubin -direct dominant
Coagulopathy - improved
Thrombocytopenia
Transaminitis
-Improved, mental status now at baseline, hemodynamically stable
-US abdomen showing cirrhosis
-Vitamin K oral provided for high INR
-No reported ascites on US
-Oral lactulose ordered, titrate to 2-3 soft stools per day
-no indication for steroids for alcoholic hepatitis based on DF
-Platelet count improved from admission level.
-Will need GI follow-up
5. Upper GI bleed
-Reported hematemesis few days prior to arrival
-Hbg has remained stable around 8.5, dropped to 7.6 postoperatively, now stable, will monitor
-GI considering eventual EGD
6. CLEVE -resolved
-cr trended down to normal
7. Acute metabolic encephalopathy
-Resolved
-Monitor for hepatic encephalopathy versus alcohol withdrawal
-Lactulose ordered, titrate to 2-3 soft stools per day
8. Hyponatremia
-From ESLD.
-Will add fluid restriction if needed
9. Chronic normocytic anemia
Acute blood loss anemia
-Hemoglobin drifted down likely with reported hemoptysis/GI bleed
-Transfuse for hbg < 7
10. Hypokalemia
-replace prn
DVT proph-SCDs
Full Code
Anticipated Discharge: > 48 hours
Subjective/Interval History
-
Date of Service: December 09, 2024
Patient was seen and examined at bedside this morning. No acute events overnight. Comfortable.
Objective Data
-
Labs:
Laboratory Results
12/09/24
09:51
WBC 22.6 H
Hgb 7.7 L
Hct 22.1 L
Plt Count 255
Sodium 129 L
Potassium 4.9
Chloride 94 L
Carbon Dioxide 27
BUN 34 H
Creatinine 0.9
Glucose 129 H
Calcium 7.8 L
Vital Signs:
Vital Signs
Temp Pulse Resp BP Pulse Ox
98.5 F 98 18 133/62 99
12/09/24 11:08 12/09/24 11:08 12/09/24 11:08 12/09/24 11:08 12/09/24 11:08
I&O
12/08/24 12/09/24 12/10/24
06:59 06:59 06:59
Intake Total 3480 / 3480 480 / 480
Balance 3480 / 3480 480 / 480
Review of Systems
-
History Source: Patient
All other systems: Reviewed and negative
Musculoskeletal: Reports Edema (Left lower extremity pain and swelling)
Physical Exam
-
General: No Apparent Distress
[2024-12-09 15:05] VITALS: BP 130/73
[2024-12-09 17:40] LABS: Erythrocyte Sed Rate 81 mm/hour (0-20)
[2024-12-09 23:53] VITALS: BP 155/69
[2024-12-10] MEDS: ROXICODONE 7.5 MG PO ×4 (03:25→20:29)
[2024-12-10] MEDS: ANCEF 10 IV ×3 (05:06→22:11)
[2024-12-10 06:00] VITALS: BMI 35.2
[2024-12-10] MEDS: SYNTHROID 25 MCG PO (06:26)
[2024-12-10 07:31] VITALS: BP 140/63
--- NOTE | 2024-12-10 07:38 | W.PN.ORTHO ---
Today's Communication / Plan
-
Appreciate the primary team with management, continue Tx
CRP to 44.6 (previously 183.1 on Nov). ESR 81. Trend
Cx remain negative @ 48 hours
Dressing changed today
WBAT LLE with use of walker/device
PT/OT
Ice and elevation for edema control.
ABX per ID, currently Ancef
SCD's for DVT prophylaxis.
Pain control per primary team
Ortho to continue following
Assessment
.
Distal Motor Intact: Yes
Dressing:
Dry and intact. Aquacel with moderate strikethrough
Assessment:
POD#4 Left revision TKA (infection)
Overall, all things considered, doing/feeling well
Calf soft, nontender
Plan
.
Surgery / Date: Revision L TKA Dec 19 ([facility])
DVT Prophylaxis: Other (SCDs)
Activity:
Out of bed. WBAT LLE on walker
PT/OT
Discharge Plan: Other (Rehab, or per CM)
Subjective
.
.:
Patient bedside getting up on walker to ambulate the hallway. Feeling pretty good this AM
Vital Signs and Labs
.
Vital Signs and Labs:
Lab Results
12/09/24 09:51
12/09/24 09:51
Temp Pulse Resp BP Pulse Ox
97.4 F 98 18 140/63 97
12/10/24 07:31 12/10/24 07:31 12/10/24 07:31 12/10/24 07:31 12/10/24 07:31
PT 19.8 Sec (11.4-14.6) H 12/02/24 06:42
INR 1.66 12/02/24 06:42
[2024-12-10] MEDS: VITAMIN B1 100 MG PO ×2 (08:03→20:24)
[2024-12-10] MEDS: CLARITIN 10 MG PO (08:03)
[2024-12-10] MEDS: DUPHALAC/CHRONULAC 20 GRAMS PO (08:03)
[2024-12-10] MEDS: FOLVITE 1 MG PO (08:04)
[2024-12-10] MEDS: OXYCONTIN (CONTROLLED RELEASE) 10 MG PO (08:07)
[2024-12-10 11:23] VITALS: BP 151/67
--- NOTE | 2024-12-10 13:40 | W.PN.HOSP.TC ---
Today's Communication/Plan
-
Assessment / Plan
Assessment / Plan
Gen-AAOx3, NAD
HEENT-NC, AT, significant scleral icterus, clear oral mm
Neck-supple
CV-reg, no M, +S1/S2
Lungs-clear B/L
Abd-soft, NT
Musculoskeletal-no edema, left lower extremity swelling, surgical dressing in place
Skin-warm and dry, icteric
Neuro-grossly non-focal
Psych-calm, cooperative
1. Left knee prosthetic joint infection
-Septic arthritis
-Fluid eval: WBC 821344, PMN 79.1, no crystals
-Joint fluid and blood cultures growing MSSA
-Status post OR with Ortho for left knee prosthesis explant and spacer placement 12/06, tolerated procedure well
-Infectious disease team following, recommend continuing antibiotic treatment with Ancef 2 g IV every 8 hours x 6 weeks from prosthetic knee explant (through 01/17/2025)
-Continue pain medication regimen
-Planning DC to SNF
2. MSSA bacteremia
-blood cs showing MSSA
-Repeat blood cs neg from 12/01
-Plan as above
3. Alcohol use disorder
-discontinue further msas/ativan, out of withdrawal window.
-Maintain champagne/thiamine
4. Decompensated cirrhosis
Elevated total bilirubin -direct dominant
Coagulopathy - improved
Thrombocytopenia
Transaminitis
-Improved, mental status now at baseline, hemodynamically stable
-US abdomen showing cirrhosis
-Vitamin K oral provided for high INR
-No reported ascites on US
-Oral lactulose ordered, titrate to 2-3 soft stools per day
-no indication for steroids for alcoholic hepatitis based on DF
-Platelet count improved from admission level.
-Will need GI follow-up
5. Upper GI bleed
-Reported hematemesis few days prior to arrival
-Hbg has remained stable around 8.5, dropped to 7.6 postoperatively, now stable, will monitor
-GI considering eventual EGD
6. CLEVE -resolved
-cr trended down to normal
7. Acute metabolic encephalopathy
-Resolved
-Monitor for hepatic encephalopathy versus alcohol withdrawal
-Lactulose ordered, titrate to 2-3 soft stools per day
8. Hyponatremia
-From [facility].
-Will add fluid restriction if needed
9. Chronic normocytic anemia
Acute blood loss anemia
-Hemoglobin drifted down likely with reported hemoptysis/GI bleed
-Transfuse for hbg < 7
10. Hypokalemia
-replace prn
DVT proph-SCDs
Full Code
Anticipated Discharge: 24 - 48 hours
Subjective/Interval History
-
Date of Service: December 10, 2024
Patient was seen and examined at bedside this morning. Intraoperative cultures resulted positive for Staph aureus, sensitivities still pending. Continuing treatment with Ancef for known MSSA bacteremia. Awaiting SNF placement.
Objective Data
-
Vital Signs:
Vital Signs
Temp Pulse Resp BP Pulse Ox
98.0 F 102 18 151/67 99
12/10/24 11:23 12/10/24 11:23 12/10/24 11:23 12/10/24 11:23 12/10/24 11:23
I&O
12/09/24 12/10/24 12/11/24
06:59 06:59 06:59
Intake Total 480 / 480 660 / 1140 480 / 480
Balance 480 / 480 660 / 1140 480 / 480
Review of Systems
-
History Source: Patient
All other systems: Reviewed and negative
Musculoskeletal: Reports Joint Swelling (Left leg pain and swelling)
Physical Exam
-
General: No Apparent Distress
--- NOTE | 2024-12-10 13:46 | W.PN.ID1 ---
Date of Service
Date of Service: December 10, 2024
Today's Communication
Continue antibiotics.
Assessment / Plan
# Complicated S. aureus (MSSA) bacteremia (5 sets, collected same day 11/28/24)
# Septic left knee PJI with S. aureus from culture
# Fever; resolved
# Leukocytosis - post op
# Alcohol cirrhosis
# s/p Alcohol withdrawal
- 12/01 Repeat blood cx's x2 neg
-TTE no significant valvular disease.
- 12/06 s/p left prosthetic knee removal with placement of antibiotic impregnated cement.
--> Continue cefazolin 2g IV q8h x 6 weeks from prosthetic knee explant through 01/17/25.
- Home infusion sheet submitted to case management on 12/05.
#Additional Past Medical History:
Hypertension
Hypothyroidism
alcohol abuse
cirrhosis
Left total knee replacement
Chief Complaint
-: Bacteremia and Other (Septic PJI)
Subjective / Review of Systems
Review of Systems: No Fever and No Chills
Vital Signs / Physical Exam
Vital Signs
Vital Signs
Temp Pulse Resp BP Pulse Ox
98.0 F 102 18 151/67 99
12/10/24 11:23 12/10/24 11:23 12/10/24 11:23 12/10/24 11:23 12/10/24 11:23
Physical Exam
Constitutional: No Acute Distress, Comfortable and Non-toxic
Eyes: Sclera Anicteric
Pulmonary: Clear
Gastrointestinal: Non Distended
Extremities: Edema (LLE)
Musculoskeletal: Other (Left leg wrapped in Louis wrap.)
Neurological: AO x 3
Objective Data
Lab Data
Lab Results
12/09/24 09:51
12/09/24 09:51
ESR Cancelled 12/09/24 17:26
PT 19.8 Sec (11.4-14.6) H 12/02/24 06:42
INR 1.66 12/02/24 06:42
Estimated Creat Clear 109 ml/min 12/09/24 09:51
Lactic Acid 1.6 mmol/L (0.7-2.0) 11/28/24 17:15
Total Bilirubin 10.4 mg/dl (0.2-1.3) H 12/02/24 06:42
GGT 546 U/L (15-73) H 11/28/24 22:25
AST 145 U/L (17-59) H 12/02/24 06:42
ALT 25 U/L (0-50) 12/02/24 06:42
Alkaline Phosphatase 143 U/L (38-126) H 12/02/24 06:42
C-Reactive Protein Cancelled 12/09/24 17:26
Most recent labs reviewed.
Micro Results:
12/06/24 13:49 Tissue Culture - Final
Knee - Left NO GROWTH
Gram Stain - Final
12/06/24 13:51 Tissue Culture - Preliminary
Knee - Left Staphylococcus aureus
Gram Stain - Preliminary
12/01/24 07:23 Blood Culture - Final
Blood/Venous No Growth - Final Report
12/01/24 08:00 Blood Culture - Final
Blood/Venous No Growth - Final Report
11/28/24 22:25 Blood Culture - Final
Blood/Venous S aureus-Methicillin Sensitive
Gram Stain - Final
11/28/24 22:25 Blood Culture - Final
Blood/Venous S aureus-Methicillin Sensitive
Gram Stain - Final
11/28/24 15:53 Blood Culture - Final
Blood/Venous S aureus-Methicillin Sensitive
Gram Stain - Final
11/28/24 12:51 Blood Culture - Final
Blood/Venous S aureus-Methicillin Sensitive
Gram Stain - Final
11/28/24 15:53 Blood Culture - Final
Blood/Venous S aureus-Methicillin Sensitive
Gram Stain - Final
11/28/24 23:21 Urine Culture - Final
Urine NO GROWTH
11/28/24 15:54 Body Fluid Culture - Final
Joint Fluid S aureus-Methicillin Sensitive
Gram Stain - Final
Fluid Cult/not urine Final 11/28/24
Many S aureus-Methicillin Sensitive
1. S aureus - Methicillin Sensitive
M.I.C. RX
--------- ---
Amoxicillin/Potas. Clavulanate <=4/2 S
Ampicillin <=2 R
Clindamycin <=0.5 S
Gentamicin <=4 S
Erythromycin <=0.5 S
Levofloxacin <=1 S
Oxacillin <=0.25 S
Tetracycline <=4 S
Trimethoprim/Sulfamethoxazole <=0.5/9.5 S
Vancomycin 1 S
11/28/24 Abd US: Mild nodular surface of the liver which could represent cirrhotic morphology and overall diffuse increased hepatic echogenicity suggesting diffuse fatty infiltration. Normal directional blood flow in the hepatic and portal veins.
Gallstones and gallbladder sludge. No gallbladder wall thickening or pericholecystic fluid. Negative sonographic Ferguson's sign. No findings to suggest biliary tract dilatation.
11/28/24 Knee XRAY: Left knee replacement. No evidence of complication. Small suprapatellar joint effusion.
[2024-12-10 14:51] VITALS: BP 140/73
[2024-12-10] MEDS: BENADRYL 25 MG IV (22:47)
[2024-12-10 23:12] VITALS: BP 134/72
[2024-12-11] MEDS: ANCEF 10 IV ×3 (05:43→22:18)
[2024-12-11 06:00] VITALS: BMI 35.5
[2024-12-11] MEDS: SYNTHROID 25 MCG PO (06:06)
[2024-12-11 07:25] VITALS: BP 141/66
[2024-12-11] MEDS: ROXICODONE 7.5 MG PO (08:33)
[2024-12-11] MEDS: DUPHALAC/CHRONULAC 20 GRAMS PO ×2 (08:33→12:47)
[2024-12-11] MEDS: CLARITIN 10 MG PO (08:36)
[2024-12-11] MEDS: OXYCONTIN (CONTROLLED RELEASE) 10 MG PO (08:37)
[2024-12-11] MEDS: FOLVITE 1 MG PO (08:37)
[2024-12-11] MEDS: VITAMIN B1 100 MG PO ×2 (08:37→20:00)
--- NOTE | 2024-12-11 08:45 | W.PN.ORTHO ---
Today's Communication / Plan
-
Appreciate the primary team with management, continue Tx
CRP to 44.6 (previously 183.1 on Nov). ESR 81. Trend
Cx MSSA +, continue ABX, appreciate ID
Dressing changed today
WBAT LLE with use of walker/device
PT/OT
Ice and elevation for edema control.
SCD's for DVT prophylaxis.
Pain control per primary team
Ortho to continue following
Assessment
.
Distal Motor Intact: Yes
Dressing:
Intact. Mild, contained, strikethrough
Assessment:
POD#5 Left revision TKA
Overall feeling much better
Calf soft, nontender
Plan
.
Surgery / Date: Revision L TKA Dec 19 ([facility])
DVT Prophylaxis: Other (SCDs)
Activity:
Out of bed. WBAT B/L LEs on walker
PT/OT
Discharge Plan: Other (Likely Rehab, appreciate CM)
Subjective
.
.:
Patient enjoying breakfast. Mild pain endorsed
Vital Signs and Labs
.
Vital Signs and Labs:
Lab Results
12/09/24 09:51
12/09/24 09:51
Temp Pulse Resp BP Pulse Ox
98.5 F 99 16 141/66 97
12/11/24 07:25 12/11/24 07:25 12/11/24 07:25 12/11/24 07:25 12/11/24 07:25
PT 19.8 Sec (11.4-14.6) H 12/02/24 06:42
INR 1.66 12/02/24 06:42
--- NOTE | 2024-12-11 11:05 | W.PN.HOSP.TC ---
Today's Communication/Plan
-
see A/P
Assessment / Plan
Assessment / Plan
A/P:
# Left knee prosthetic joint infection
# Septic arthritis
Fluid eval: WBC 838729, PMN 79.1, no crystals
Joint fluid and blood cultures growing MSSA
Status post OR with Ortho for left knee prosthesis explant and spacer placement 12/06, tolerated procedure well
ID recommend continuing antibiotic treatment with Ancef 2 g IV every 8 hours x 6 weeks from prosthetic knee explant (through 01/17/2025)
Continue pain medication regimen
Planning DC to SNF
# MSSA bacteremia
blood cs showing MSSA
Repeat blood cs neg from 12/01
Plan as above
# Alcohol use disorder
discontinue further msas/ativan, out of withdrawal window.
Maintain champagne/thiamine
# Decompensated cirrhosis
# Elevated total bilirubin -direct dominant
# Coagulopathy - improved
# Thrombocytopenia
# Transaminitis
Improved, mental status now at baseline, hemodynamically stable
US abdomen showing cirrhosis
Vitamin K oral provided for high INR
No reported ascites on US
Oral lactulose ordered, increase to BID to titrate to 2-3 soft stools per day
no indication for steroids for alcoholic hepatitis based on DF
Platelet count improved from admission level.
Will need GI follow-up
# Upper GI bleed
Reported hematemesis few days prior to arrival
Hbg has remained stable around 8.5, dropped to 7.6 postoperatively, now stable, will monitor
GI considering eventual EGD
# CLEVE, resolved
Cr 1.3 -> 0.9
# Acute metabolic encephalopathy, resolved
Monitor for hepatic encephalopathy versus alcohol withdrawal
Lactulose ordered, titrate to 2-3 soft stools per day
# Hyponatremia from ESLD.
# Chronic normocytic anemia
# Acute blood loss anemia
Hemoglobin drifted down likely with reported hemoptysis/GI bleed
Transfuse for hbg < 7
# Hypokalemia
Replace prn
DVT proph-SCDs
Full Code
DW CM
Anticipated Discharge: Within 24 hours
Subjective/Interval History
-
Date of Service: December 11, 2024
Objective Data
-
Vital Signs:
Vital Signs
Temp Pulse Resp BP Pulse Ox
36.9 C 99 16 141/66 97
12/11/24 07:25 12/11/24 07:25 12/11/24 07:25 12/11/24 07:25 12/11/24 07:25
I&O
12/10/24 12/11/24 12/12/24
06:59 06:59 06:59
Intake Total 660 / 1140 960 / 960
Balance 660 / 1140 960 / 960
Review of Systems
-
All other systems: Reviewed and negative
Physical Exam
-
General: Well Developed, Well Nourished, No Apparent Distress, Comfortable and Appears Chronically Ill
HEENT: Normocephalic and Atraumatic
Respiratory: Clear to Auscultation and Non Labored Respirations; Negative Accessory Resp Muscle Use
Cardiac: Regular Rhythm and S1/S2
GI: Soft and Distended
Skin: Other (jaundice )
Psych: Calm and Intact Judgement/Insight
Data Reviewed
-
Labs: Labs Reviewed by me
[2024-12-11] MEDS: ROXICODONE 5 MG PO ×2 (12:47→17:52)
[2024-12-11] MEDS: BENADRYL 25 MG IV ×2 (13:17→22:23)
[2024-12-11 13:59] LABS: Hematocrit 20.6 % (39.0-52.0); Hemoglobin 7.1 g/dL (13.0-18.0); Mean Corp Hgb Conc. 34.5 g/dL (33.0-37.0); Mean Corpuscular Volume 98.6 fL (80.0-94.0); Mean Platelet Volume 10.6 fL (7.4-10.4); Platelet Count 178 10^3/uL (130-400); Red Blood Cell Count 2.09 10^6/uL (4.70-6.10); Red Cell Dist. Width 14.9 % (11.5-14.5)
[2024-12-11 14:20] LABS: ALT (SGPT) 39 U/L (0-50); AST (SGOT) 267 U/L (17-59); Albumin 2.7 g/dl (3.5-5.0); Alkaline Phosphatase 186 U/L (38-126); Blood Urea Nitrogen 24 mg/dl (9-20); Calcium 7.8 mg/dl (8.4-10.2); Carbon Dioxide 25 mmol/L (22-30); Chloride 93 mmol/L (98-107); Estimated Creatinine Clearance 109 ml/min; Glucose 123 mg/dl (70-99); Potassium 4.5 mmol/L (3.5-5.1); Sodium 128 mmol/L (135-145); Total Bilirubin 11.5 mg/dl (0.2-1.3); Total Protein 6.1 g/dl (6.3-8.2); eGFR > 60.00
--- NOTE | 2024-12-11 14:36 | CM ---
Addendum entered by Padmaja Huang 12/11/24 15:38:
Auth begun in [employer]
Reference # [id number]
Clinicals faxed to [phone]
Plan - anticipate transfer to [facility] tomorrow; when auth approved
Original Note:
Chart reviewed and met with pt
Per Dr Yousif pt will be ready for SNF tomorrow
Requested updated PT/OT evals
Accepted at [facility] for tomorrow - will need auth
Pt updated - has bed at [facility] for tomorrow - agreed with plan
[facility] NPI -[id number]
Dr Cornelius NPI - [id number]
Will initiate auth when PT/OT evals updated
Plan - anticipate transfer to [facility] tomorrow; when auth approved
--- NOTE | 2024-12-11 14:46 | W.PN.ID1 ---
Date of Service
Date of Service: December 11, 2024
Today's Communication
Continue cefazolin.
Cholestyramine for itching from hyperbilirubinemia.
Assessment / Plan
# Complicated S. aureus (MSSA) bacteremia (5 sets, collected same day 11/28/24)
# Septic left knee PJI with MSSA from culture
# Fever; resolved
# Leukocytosis - trending down
# Alcohol cirrhosis
# s/p Alcohol withdrawal
- 12/01 Repeat blood cx's x2 neg
-TTE no significant valvular disease.
- 12/06 s/p left prosthetic knee removal with placement of antibiotic impregnated cement.
-Continue cefazolin 2g IV q8h x 6 weeks from prosthetic knee explant through 01/17/25.
- Home infusion sheet submitted to case management on 12/05.
-Follow wbc
- Suspect pruritus due to hyperbilirubinemia.
-Trial of cholestyramine.
#Additional Past Medical History:
Hypertension
Hypothyroidism
alcohol abuse
cirrhosis
Left total knee replacement
Chief Complaint
-: Bacteremia and Other (Septic PJI)
Subjective / Review of Systems
c/o puritis relieved with Benadryl. Itching is random. No rash.
No BM x 2 days.
Vital Signs / Physical Exam
Vital Signs
Vital Signs
Temp Pulse Resp BP Pulse Ox
98.5 F 99 16 141/66 97
12/11/24 07:25 12/11/24 07:25 12/11/24 07:25 12/11/24 07:25 12/11/24 07:25
Physical Exam
Constitutional: No Acute Distress
Cardiovascular: Regular Rate and S1/S2
Pulmonary: Clear
Gastrointestinal: Soft, Non Tender and Non Distended
Extremities: Edema (LLE)
Musculoskeletal: Other (Left knee dressing with dried blood)
Skin: Jaundice
Neurological: AO x 3
Lines: PICC (RUE)
Objective Data
Lab Data
Lab Results
12/11/24 13:38
12/11/24 13:38
ESR Cancelled 12/09/24 17:26
PT 19.8 Sec (11.4-14.6) H 12/02/24 06:42
INR 1.66 12/02/24 06:42
Estimated Creat Clear 109 ml/min 12/11/24 13:38
Lactic Acid 1.6 mmol/L (0.7-2.0) 11/28/24 17:15
Total Bilirubin 11.5 mg/dl (0.2-1.3) H 12/11/24 13:38
GGT 546 U/L (15-73) H 11/28/24 22:25
AST 267 U/L (17-59) H 12/11/24 13:38
ALT 39 U/L (0-50) 12/11/24 13:38
Alkaline Phosphatase 186 U/L (38-126) H 12/11/24 13:38
C-Reactive Protein Cancelled 12/09/24 17:26
Most recent labs reviewed.
Micro Results:
12/06/24 13:51 Tissue Culture - Final
Knee - Left S aureus-Methicillin Sensitive
Gram Stain - Final
12/06/24 13:49 Tissue Culture - Final
Knee - Left NO GROWTH
Gram Stain - Final
12/01/24 07:23 Blood Culture - Final
Blood/Venous No Growth - Final Report
12/01/24 08:00 Blood Culture - Final
Blood/Venous No Growth - Final Report
11/28/24 22:25 Blood Culture - Final
Blood/Venous S aureus-Methicillin Sensitive
Gram Stain - Final
11/28/24 22:25 Blood Culture - Final
Blood/Venous S aureus-Methicillin Sensitive
Gram Stain - Final
11/28/24 15:53 Blood Culture - Final
Blood/Venous S aureus-Methicillin Sensitive
Gram Stain - Final
11/28/24 12:51 Blood Culture - Final
Blood/Venous S aureus-Methicillin Sensitive
Gram Stain - Final
11/28/24 15:53 Blood Culture - Final
Blood/Venous S aureus-Methicillin Sensitive
Gram Stain - Final
11/28/24 23:21 Urine Culture - Final
Urine NO GROWTH
11/28/24 15:54 Body Fluid Culture - Final
Joint Fluid S aureus-Methicillin Sensitive
Gram Stain - Final
Fluid Cult/not urine Final 11/28/24
Many S aureus-Methicillin Sensitive
1. S aureus - Methicillin Sensitive
M.I.C. RX
--------- ---
Amoxicillin/Potas. Clavulanate <=4/2 S
Ampicillin <=2 R
Clindamycin <=0.5 S
Gentamicin <=4 S
Erythromycin <=0.5 S
Levofloxacin <=1 S
Oxacillin <=0.25 S
Tetracycline <=4 S
Trimethoprim/Sulfamethoxazole <=0.5/9.5 S
Vancomycin 1 S
11/28/24 Abd US: Mild nodular surface of the liver which could represent cirrhotic morphology and overall diffuse increased hepatic echogenicity suggesting diffuse fatty infiltration. Normal directional blood flow in the hepatic and portal veins.
Gallstones and gallbladder sludge. No gallbladder wall thickening or pericholecystic fluid. Negative sonographic Ferguson's sign. No findings to suggest biliary tract dilatation.
11/28/24 Knee XRAY: Left knee replacement. No evidence of complication. Small suprapatellar joint effusion.
[2024-12-11 15:15] VITALS: BP 131/68
[2024-12-11] MEDS: QUESTRAN 4 GRAM PO (17:48)
[2024-12-11] MEDS: NEURONTIN 100 MG PO (22:18)
--- NOTE | 2024-12-12 05:40 | W.PN.ORTHO ---
Today's Communication / Plan
-
Appreciate the primary team with management, continue Tx
Drop in hemoglobin from 7.1-6.4; transfusion ordered by primary. Dressing has mild saturation, no spreading ecchymosis or worsening distal edema
Trend CRP and ESR
Cx MSSA +, continue ABX, appreciate ID
WBAT LLE with use of walker/device
PT/OT
DVT prophylaxis per primary
Diet per primary
Ice and elevation for edema control.
SCD's for DVT prophylaxis.
Pain control per primary team
Ortho to continue following
Assessment
.
Distal Motor Intact: Yes
Dressing:
Clean, dry and intact.
Plan
.
Surgery / Date: Revision L TKA Dec 19 ([facility]ila)
Activity:
Out of bed.
PT/OT
Subjective
.
.:
Patient resting comfortably.
Vital Signs and Labs
.
Vital Signs and Labs:
Temp Pulse Resp BP Pulse Ox
98.3 F 106 16 131/68 100
12/11/24 15:15 12/11/24 15:15 12/11/24 15:15 12/11/24 15:15 12/11/24 20:00
PT 19.8 Sec (11.4-14.6) H 12/02/24 06:42
INR 1.66 12/02/24 06:42
[2024-12-12 06:00] VITALS: BMI 35.4
[2024-12-12] MEDS: ANCEF 10 IV ×3 (06:01→22:20)
[2024-12-12] MEDS: SYNTHROID 25 MCG PO (06:02)
[2024-12-12] MEDS: BENADRYL 25 MG IV ×3 (06:15→22:20)
[2024-12-12] MEDS: ROXICODONE 5 MG PO ×3 (06:16→20:35)
[2024-12-12 06:58] LABS: % Eosinophils 2.1 % (0-6); % Immature Granulocytes 0.6 % (0-0.5); % Monocytes 8.3 % (1.7-9.3); Absolute Eosinophils 0.2 10^3/uL (0-0.7); Absolute Immature Granulocytes 0.1 10^3/uL (0-0.05); Absolute Lymphocytes 0.9 10^3/uL (1.2-3.4); Absolute Monocytes 0.8 10^3/uL (0.1-0.6); Absolute Neutrophils 7.8 10^3/uL (1.4-6.5); Hematocrit 18.7 % (39.0-52.0); Hemoglobin 6.4 g/dL (13.0-18.0); Mean Corp Hgb Conc. 34.2 g/dL (33.0-37.0); Mean Corpuscular Hgb 33.9 pg (27.0-31.0); Mean Corpuscular Volume 98.9 fL (80.0-94.0); Mean Platelet Volume 10.8 fL (7.4-10.4); Nucleated Red Blood Cells % 0 % (-); Platelet Count 121 10^3/uL (130-400); Red Blood Cell Count 1.89 10^6/uL (4.70-6.10); Red Cell Dist. Width 15.2 % (11.5-14.5); White Blood Cell Count 9.7 10^3/uL (4.8-10.8)
[2024-12-12 07:13] LABS: Blood Urea Nitrogen 24 mg/dl (9-20); Calcium 7.3 mg/dl (8.4-10.2); Carbon Dioxide 25 mmol/L (22-30); Chloride 96 mmol/L (98-107); Estimated Creatinine Clearance 98 ml/min; Glucose 113 mg/dl (70-99); Potassium 4.3 mmol/L (3.5-5.1); Sodium 128 mmol/L (135-145); eGFR > 60.00
[2024-12-12 07:45] VITALS: BP 133/66
--- NOTE | 2024-12-12 08:43 | W.PN.HOSP.TC ---
Today's Communication/Plan
-
see A/P
Assessment / Plan
Assessment / Plan
A/P:
# Left knee prosthetic joint infection
# Septic arthritis
Fluid eval: WBC 001069, PMN 79.1, no crystals
Joint fluid and blood cultures growing MSSA
Status post OR with Ortho for left knee prosthesis explant and spacer placement 12/06, tolerated procedure well
ID recommend continuing antibiotic treatment with Ancef 2 g IV every 8 hours x 6 weeks from prosthetic knee explant (through 01/17/2025)
Continue pain medication regimen
Planning DC to SNF
# MSSA bacteremia
blood cs showing MSSA
Repeat blood cs neg from 12/01
Plan as above
# Acute anemia likely multifactorial in setting of decompensated liver failure/cirrhosis and Upper GI bleed
# Chronic normocytic anemia
Reported hematemesis few days prior to arrival
Abd US actually showed Normal directional blood flow in the hepatic and portal veins.
Hgb today 6.4, transfuse 1 unit PRBC
Check iron panel, B12, folate level
reconsult GI for EGD eval
# Alcohol use disorder
discontinue further msas/ativan, out of withdrawal window.
Maintain champagne/thiamine
# Decompensated liver failure/ cirrhosis 2/2 alcohol abuse
# Elevated total bilirubin -direct dominant
# Coagulopathy - improved
# Thrombocytopenia
# Transaminitis
Improved mental status, now at baseline, hemodynamically stable
US abdomen showing cirrhosis and Normal directional blood flow in the hepatic and portal veins.
No reported ascites on US
Vitamin K oral provided for high INR
Oral lactulose ordered, increase to BID to titrate to 2-3 soft stools per day
no indication for steroids for alcoholic hepatitis based on DF
Platelet count improved from admission level.
GI eval
# CLEVE, resolved
Cr 1.3 -> 1.0 today
# Acute metabolic encephalopathy, resolved
Monitor for hepatic encephalopathy versus alcohol withdrawal
Lactulose ordered, titrate to 2-3 soft stools per day
# Hyponatremia from E[facility]D.
# Hypokalemia
Replace prn
DVT proph-SCDs
Full Code
DW GI
DW RN
DW CM
total time spent 51 min
Anticipated Discharge: 24 - 48 hours
Subjective/Interval History
-
Date of Service: December 12, 2024
Objective Data
-
Labs:
Laboratory Results
12/12/24
06:28
WBC 9.7
Hgb 6.4 L*
Hct 18.7 L*
Plt Count 121 L D
Sodium 128 L
Potassium 4.3
Chloride 96 L
Carbon Dioxide 25
BUN 24 H
Creatinine 1.0
Glucose 113 H
Calcium 7.3 L
Vital Signs:
Vital Signs
Temp Pulse Resp BP Pulse Ox
37.0 C 100 18 133/66 100
12/12/24 07:45 12/12/24 07:45 12/12/24 07:45 12/12/24 07:45 12/12/24 07:45
I&O
12/11/24 12/12/24 12/13/24
06:59 06:59 06:59
Intake Total 960 / 960 800 / 800
Balance 960 / 960 800 / 800
Review of Systems
-
All other systems: Reviewed and negative
Physical Exam
-
General: Well Developed, Well Nourished, No Apparent Distress, Comfortable and Appears Chronically Ill
HEENT: Normocephalic and Atraumatic
Respiratory: Clear to Auscultation and Non Labored Respirations; Negative Accessory Resp Muscle Use
Cardiac: Regular Rhythm and S1/S2
GI: Soft and Distended
Skin: Other (jaundice )
Psych: Calm and Intact Judgement/Insight
Data Reviewed
-
Labs: Labs Reviewed by me
[2024-12-12] MEDS: VITAMIN B1 100 MG PO ×2 (08:45→20:29)
[2024-12-12] MEDS: OXYCONTIN (CONTROLLED RELEASE) 10 MG PO (08:45)
[2024-12-12] MEDS: QUESTRAN 4 GRAM PO (08:45)
[2024-12-12] MEDS: FOLVITE 1 MG PO (08:45)
[2024-12-12] MEDS: DUPHALAC/CHRONULAC 20 GRAMS PO ×2 (08:45→20:29)
[2024-12-12] MEDS: CLARITIN 10 MG PO (08:45)
--- NOTE | 2024-12-12 09:06 | CM ---
Addendum entered by Padmaja Huang 12/12/24 12:15:
Spoke with Cristela at [facility] - can accept tomorrow if auth obtained
Plan - [facility] when auth obtained and medically stable
Original Note:
Auth remains pending in [employer]
--- NOTE | 2024-12-12 09:44 | W.PN.ID1 ---
Date of Service
Date of Service: December 12, 2024
Today's Communication
Continue cefazolin.
Assessment / Plan
# Complicated S. aureus (MSSA) bacteremia (5 sets, collected same day 11/28/24)
# Latte Septic left knee PJI with MSSA
# Fever; resolved
# Leukocytosis - resolved
# Alcohol cirrhosis
# s/p Alcohol withdrawal
- 12/01 Repeat blood cx's x2 neg
-TTE no significant valvular disease.
- 12/06 s/p left prosthetic knee removal with placement of antibiotic impregnated cement.
-Continue cefazolin 2g IV q8h x 6 weeks from prosthetic knee explant through 01/17/25.
- Home infusion sheet submitted to case management on 12/05.
# Suspect pruritus due to hyperbilirubinemia.
-Continue cholestyramine.
#Additional Past Medical History:
Hypertension
Hypothyroidism
alcohol abuse
cirrhosis
Left total knee replacement
Chief Complaint
-: Bacteremia and Other (Septic PJI)
Subjective / Review of Systems
Had large bowel movement yesterday.
No itching today.
Vital Signs / Physical Exam
Vital Signs
Vital Signs
Temp Pulse Resp BP Pulse Ox
98.6 F 100 18 133/66 100
12/12/24 07:45 12/12/24 07:45 12/12/24 07:45 12/12/24 07:45 12/12/24 07:45
Physical Exam
Constitutional: No Acute Distress and Comfortable
Cardiovascular: Regular Rate and S1/S2
Pulmonary: Clear
Gastrointestinal: Soft, Non Tender and Non Distended
Extremities: Edema (LLE)
Musculoskeletal: Other (Left knee dressing with dried blood)
Skin: Jaundice
Neurological: AO x 3
Lines: PICC (RUE)
Objective Data
Lab Data
Lab Results
12/12/24 06:28
12/12/24 06:28
ESR Cancelled 12/09/24 17:26
PT 19.8 Sec (11.4-14.6) H 12/02/24 06:42
INR 1.66 12/02/24 06:42
Estimated Creat Clear 98 ml/min 12/12/24 06:28
Lactic Acid 1.6 mmol/L (0.7-2.0) 11/28/24 17:15
Total Bilirubin 11.5 mg/dl (0.2-1.3) H 12/11/24 13:38
GGT 546 U/L (15-73) H 11/28/24 22:25
AST 267 U/L (17-59) H 12/11/24 13:38
ALT 39 U/L (0-50) 12/11/24 13:38
Alkaline Phosphatase 186 U/L (38-126) H 12/11/24 13:38
C-Reactive Protein Cancelled 12/09/24 17:26
Most recent labs reviewed.
Micro Results:
12/06/24 13:51 Tissue Culture - Final
Knee - Left S aureus-Methicillin Sensitive
Gram Stain - Final
12/06/24 13:49 Tissue Culture - Final
Knee - Left NO GROWTH
Gram Stain - Final
12/01/24 07:23 Blood Culture - Final
Blood/Venous No Growth - Final Report
12/01/24 08:00 Blood Culture - Final
Blood/Venous No Growth - Final Report
11/28/24 22:25 Blood Culture - Final
Blood/Venous S aureus-Methicillin Sensitive
Gram Stain - Final
11/28/24 22:25 Blood Culture - Final
Blood/Venous S aureus-Methicillin Sensitive
Gram Stain - Final
11/28/24 15:53 Blood Culture - Final
Blood/Venous S aureus-Methicillin Sensitive
Gram Stain - Final
11/28/24 12:51 Blood Culture - Final
Blood/Venous S aureus-Methicillin Sensitive
Gram Stain - Final
11/28/24 15:53 Blood Culture - Final
Blood/Venous S aureus-Methicillin Sensitive
Gram Stain - Final
11/28/24 23:21 Urine Culture - Final
Urine NO GROWTH
11/28/24 15:54 Body Fluid Culture - Final
Joint Fluid S aureus-Methicillin Sensitive
Gram Stain - Final
Fluid Cult/not urine Final 11/28/24
Many S aureus-Methicillin Sensitive
1. S aureus - Methicillin Sensitive
M.I.C. RX
--------- ---
Amoxicillin/Potas. Clavulanate <=4/2 S
Ampicillin <=2 R
Clindamycin <=0.5 S
Gentamicin <=4 S
Erythromycin <=0.5 S
Levofloxacin <=1 S
Oxacillin <=0.25 S
Tetracycline <=4 S
Trimethoprim/Sulfamethoxazole <=0.5/9.5 S
Vancomycin 1 S
11/28/24 Abd US: Mild nodular surface of the liver which could represent cirrhotic morphology and overall diffuse increased hepatic echogenicity suggesting diffuse fatty infiltration. Normal directional blood flow in the hepatic and portal veins.
Gallstones and gallbladder sludge. No gallbladder wall thickening or pericholecystic fluid. Negative sonographic Ferguson's sign. No findings to suggest biliary tract dilatation.
11/28/24 Knee XRAY: Left knee replacement. No evidence of complication. Small suprapatellar joint effusion.
[2024-12-12 09:53] LABS: Iron 73 ug/dl (49-181)
[2024-12-12 10:02] LABS: Percent Saturation 51 % (20-50); Total Iron Binding Capacity 143 ug/dl (261-462)
[2024-12-12 11:08] LABS: Folate 13.2 ng/ml (2.76-20); Vitamin B12 > 1000 pg/ml (239-931)
[2024-12-12 12:37] VITALS: BP 163/66
[2024-12-12 12:58] VITALS: BP 146/65
--- NOTE | 2024-12-12 14:33 | W.PN.GI.CBS2 ---
Today's Communication / Plan
-
NPO at [facility] for EGD tomorrow
Will follow with you
Assessment / Plan
-
59yo M previously worked in sales and ETOH cirrhosis who was admitted with complicated staph aureus bacteremia thought related to infected L knee. GI reconsulted for worsening anemia
Impression
- Anemia
Iron panel suggestive of anemia of chronic disease
Some component of blood loss post surgery
Other ddx includes PUD or ectasia
- ETOH cirrhosis
- Septic L knee with staph aureus
Recommendations
- C/w Protonix IV BID
- Plan for NPO at [facility] for EGD tomorrow
- Continue to avoid nsaids
- Will need close GI/hepatology OP care. Also no prior colonoscopy will need it for age appropriate screening.
- Continue ETOH abstinence
Will follow with you.
Subjective
Subjective
Date of Service: December 12, 2024
GI reconsulted today for downtrending Hbg. He denies black or bloody BM. Denies nausea/vomiting. Tolerating diet
Objective
Data Reviewed
Laboratory Data:
Laboratory Results
12/12/24 06:28
12/12/24 06:28
Laboratory Results
PT 19.8 Sec (11.4-14.6) H 12/02/24 06:42
INR 1.66 12/02/24 06:42
Phosphorus 2.8 mg/dl (2.5-4.5) 12/09/24 09:51
Magnesium 2.0 mg/dl (1.6-2.3) 12/09/24 09:51
Total Bilirubin 11.5 mg/dl (0.2-1.3) H 12/11/24 13:38
AST 267 U/L (17-59) H 12/11/24 13:38
ALT 39 U/L (0-50) 12/11/24 13:38
Alkaline Phosphatase 186 U/L (38-126) H 12/11/24 13:38
Vital Signs and I&O:
Vital Signs
Temp Pulse Resp BP Pulse Ox
98.2 F 101 20 146/65 99
12/12/24 12:58 12/12/24 12:58 12/12/24 12:58 12/12/24 12:58 12/12/24 12:58
I&O
12/11/24 12/12/24 12/13/24
06:59 06:59 06:59
Intake Total 960 / 960 800 / 800 0 / 0
Balance 960 / 960 800 / 800 0 / 0
Physical Exam
Physical Exam
GEN: No acute distress, conversant, pleasant
HEENT: +icteric, extraocular movements intact, clear oropharynx without exudate
GI: soft, non-distended, not tender to palpation, normal active bowel sounds, no hepatosplenomegaly
EXT: warm, well perfused, 1+ edema bilaterally
NEURO: AAOx3, non-focal
[2024-12-12 16:23] VITALS: BP 136/78
[2024-12-12 16:25] VITALS: BP 136/78
[2024-12-12] MEDS: NEURONTIN 100 MG PO (22:20)
[2024-12-12 23:00] VITALS: BP 152/77
[2024-12-13] MEDS: ROXICODONE 5 MG PO ×4 (00:35→20:59)
--- NOTE | 2024-12-13 03:14 | DOWNTIME ---
There was a [employer] Client Building Maintenance Custodian Downtime on 12/13/2024 from 0100 to 12/13/2023 at 0235 . Downtime documentation of patient's care, including medication administrations, has been reconciled in the electronic record per guidelines. Refer to the
patient's paper chart under the miscellaneous tab to see printed paper medication records and downtime forms.
[2024-12-13] MEDS: ANCEF 10 IV ×3 (05:08→22:56)
[2024-12-13] MEDS: SYNTHROID 25 MCG PO (05:09)
[2024-12-13 05:14] LABS: % Basophils 0.1 % (0-2); % Lymphocytes 9.2 % (20.5-51.1); % Monocytes 8.7 % (1.7-9.3); Absolute Eosinophils 0.3 10^3/uL (0-0.7); Absolute Immature Granulocytes 0.1 10^3/uL (0-0.05); Absolute Lymphocytes 1.2 10^3/uL (1.2-3.4); Absolute Monocytes 1.2 10^3/uL (0.1-0.6); Absolute Neutrophils 10.5 10^3/uL (1.4-6.5); Hematocrit 22.8 % (39.0-52.0); Mean Corp Hgb Conc. 35.1 g/dL (33.0-37.0); Mean Corpuscular Hgb 33.6 pg (27.0-31.0); Mean Corpuscular Volume 95.8 fL (80.0-94.0); Mean Platelet Volume 10.5 fL (7.4-10.4); Nucleated Red Blood Cells % 0 % (-); Platelet Count 142 10^3/uL (130-400); Red Blood Cell Count 2.38 10^6/uL (4.70-6.10); Red Cell Dist. Width 17.2 % (11.5-14.5); White Blood Cell Count 13.3 10^3/uL (4.8-10.8)
[2024-12-13 05:21] LABS: Blood Urea Nitrogen 22 mg/dl (9-20); Calcium 7.5 mg/dl (8.4-10.2); Carbon Dioxide 24 mmol/L (22-30); Chloride 94 mmol/L (98-107); Estimated Creatinine Clearance 109 ml/min; Glucose 122 mg/dl (70-99); Potassium 4.6 mmol/L (3.5-5.1); Sodium 127 mmol/L (135-145); eGFR > 60.00
[2024-12-13 05:27] VITALS: BMI 35.2
[2024-12-13 07:15] VITALS: BP 131/64
--- NOTE | 2024-12-13 07:51 | W.PN.ORTHO ---
Today's Communication / Plan
-
Appreciate the primary team with management, continue Tx
Hgb 8.0 after transfusion yesterday. EGD scheduled for today.
Trend CRP and ESR
Cx MSSA +, continue ABX, appreciate ID
WBAT LLE with use of walker/device
PT/OT
DVT prophylaxis per primary
Diet per primary
Ice and elevation for edema control.
SCD's for DVT prophylaxis.
Pain control per primary team
Ortho to continue following
Assessment
.
Distal Motor Intact: Yes
Dressing:
Clean, dry and intact. New dressing applied.
Assessment:
Appreciate the primary team with management, continue Tx
Hgb 8.0 after transfusion yesterday. EGD scheduled for today.
Trend CRP and ESR
Cx MSSA +, continue ABX, appreciate ID
WBAT LLE with use of walker/device
PT/OT
DVT prophylaxis per primary
Diet per primary
Ice and elevation for edema control.
SCD's for DVT prophylaxis.
Pain control per primary team
Ortho to continue following
Plan
.
Surgery / Date: Revision L TKA Dec 19 ([facility])
DVT Prophylaxis: Aspirin
Activity:
Out of bed.
PT/OT
Subjective
.
.:
Patient resting comfortably in bed on my arrival. Reports persistent stiffness and swelling in the left knee, but admits to improvement in pain levels. Has been as active as able with walking.
Vital Signs and Labs
.
Vital Signs and Labs:
Lab Results
12/13/24 04:41
12/13/24 04:41
Temp Pulse Resp BP Pulse Ox
97.9 F 104 18 152/77 99
12/12/24 23:00 12/12/24 23:00 12/12/24 23:00 12/12/24 23:00 12/12/24 23:00
PT 19.8 Sec (11.4-14.6) H 12/02/24 06:42
INR 1.66 12/02/24 06:42
Physical Exam
-
Left knee: moderate drainage on primaseal. Dressing removed to reveal incision to be well approximated with miguel. No active drainage. Moderate diffuse swelling and mild ecchymosis. NTTP. Gentle ROM without pain. Calf soft and non tender to
palpation. N/v intact distally.
[2024-12-13 08:52] VITALS: BP 126/69; BP_SYST 12
[2024-12-13 09:07] VITALS: BP 127/71; BP_SYST 14
[2024-12-13 09:23] VITALS: BP 150/77; BP_SYST 16
[2024-12-13] MEDS: DUPHALAC/CHRONULAC 20 GRAMS PO ×2 (09:49→20:59)
[2024-12-13] MEDS: CLARITIN 10 MG PO (09:49)
[2024-12-13] MEDS: FOLVITE 1 MG PO (09:49)
[2024-12-13] MEDS: OXYCONTIN (CONTROLLED RELEASE) 10 MG PO (09:49)
[2024-12-13] MEDS: QUESTRAN 4 GRAM PO (09:50)
[2024-12-13] MEDS: VITAMIN B1 100 MG PO ×2 (09:51→20:59)
[2024-12-13] MEDS: NSS (PRESERVATIVE FREE) 10 ML IV ×2 (09:58→20:57)
[2024-12-13] MEDS: PROTONIX IV 40 MG IV ×2 (09:59→20:57)
--- NOTE | 2024-12-13 10:52 | CM ---
Addendum entered by Padmaja Huang 12/13/24 15:41:
Auth remains pending
Cristela at [facility] aware
Pt and updated at bedside
Addendum entered by Padmaja Huang 12/13/24 10:58:
Called [employer],
LM with call back number requesting assistance with d/c planning
Original Note:
Auth remains pending
Email sent to [employer] requesting review
Plan - transfer to [facility] when auth obtained
--- NOTE | 2024-12-13 11:30 | W.PN.HOSP.TC ---
Today's Communication/Plan
-
see A/P
Assessment / Plan
Assessment / Plan
A/P:
# Left knee prosthetic joint infection
# Septic arthritis
Fluid eval: WBC 279415, PMN 79.1, no crystals
Joint fluid and blood cultures growing MSSA
Status post OR with Ortho for left knee prosthesis explant and spacer placement 12/06, tolerated procedure well
ID recommend continuing antibiotic treatment with Ancef 2 g IV every 8 hours x 6 weeks from prosthetic knee explant (through 01/17/2025)
Continue pain medication regimen
Planning DC to SNF
Pain control with IR oxycodone, 10 mg daily PRN and 5 mg PRN
# MSSA bacteremia
blood cs showing MSSA
Repeat blood cs neg from 12/01
Plan as above
# Acute anemia likely multifactorial in setting of decompensated liver failure/cirrhosis and Upper GI bleed
# Chronic normocytic anemia
Reported hematemesis few days prior to arrival
Abd US actually showed Normal directional blood flow in the hepatic and portal veins.
Hgb 6.4, s/p 1 unit PRBC, Hgb improved to 8.0
s/p EGD 12/13, noted esophagitis with no bleeding. Portal hypertensive gastropathy.
GI recc Protonix 40mg BID x4 weeks, then daily afterwards.
Follow pathology results in 2 weeks with GI
Recc pt to follow with GI for liver transplant eval outpt
Of note, iron panel suggest ACD, B12 and folate WNL
# Alcohol use disorder
discontinue further msas/ativan, out of withdrawal window.
Maintain champagne/thiamine
# Decompensated liver failure/ cirrhosis 2/2 alcohol abuse
# Elevated total bilirubin -direct dominant
# Coagulopathy - improved
# Thrombocytopenia
# Transaminitis
Improved mental status, now at baseline AOX3, hemodynamically stable
US abdomen showed cirrhosis and Normal directional blood flow in the hepatic and portal veins.
No reported ascites on US
Vitamin K oral provided for high INR
Oral lactulose ordered, increase to BID to titrate to 2-3 soft stools per day
no indication for steroids for alcoholic hepatitis based on DF
Platelet count improved from admission level.
# CLEVE, resolved
Cr 1.3 -> 0.9 today
# Acute metabolic encephalopathy, resolved
Monitor for hepatic encephalopathy versus alcohol withdrawal
Lactulose ordered, titrate to 2-3 soft stools per day
# Hyponatremia from ESLD.
# Hypokalemia
Replace prn
DVT proph-SCDs
Full Code
DW GI
DW RN
total time spent 51 min
Anticipated Discharge: Within 24 hours
Subjective/Interval History
-
Date of Service: December 13, 2024
Objective Data
-
Labs:
Laboratory Results
12/13/24
04:41
WBC 13.3 H
Hgb 8.0 L D
Hct 22.8 L
Plt Count 142
Sodium 127 L
Potassium 4.6
Chloride 94 L
Carbon Dioxide 24
BUN 22 H
Creatinine 0.9
Glucose 122 H
Calcium 7.5 L
Vital Signs:
Vital Signs
Temp Pulse Resp BP Pulse Ox
36.8 C 95 16 150/77 100
12/13/24 09:23 12/13/24 09:23 12/13/24 09:23 12/13/24 09:23 12/13/24 09:23
I&O
12/12/24 12/13/24 12/14/24
06:59 06:59 06:59
Intake Total 800 / 800 1150 / 1150
Balance 800 / 800 1150 / 1150
Review of Systems
-
All other systems: Reviewed and negative
Physical Exam
-
General: Well Developed, Well Nourished, No Apparent Distress, Comfortable and Appears Chronically Ill
HEENT: Normocephalic and Atraumatic
Respiratory: Clear to Auscultation and Non Labored Respirations; Negative Accessory Resp Muscle Use
Cardiac: Regular Rhythm and S1/S2
GI: Soft and Distended
Skin: Jaundice
Psych: Calm and Intact Judgement/Insight
Data Reviewed
-
Labs: Labs Reviewed by me
[2024-12-13 15:10] VITALS: BP 148/78
[2024-12-13] MEDS: NEURONTIN 100 MG PO (22:56)
[2024-12-13 23:19] VITALS: BP 122/63
[2024-12-14] VITALS (7 sets, daily range): BP systolic 132–149; BP diastolic 65–75; BMI 36.4
--- NOTE | 2024-12-14 01:42 | PTCARENOTE ---
Pt assessed as per work list flow sheet. At this time, pt has been medicated x1 for pain 07/04. Pt up to Br with RW. PICC in place and patent. No s/s of distress assessed. Will continue to monitor.
[2024-12-14] MEDS: ROXICODONE 5 MG PO ×4 (02:08→22:10)
[2024-12-14] MEDS: ANCEF 10 IV ×3 (06:07→21:45)
[2024-12-14 06:40] LABS: Blood Urea Nitrogen 21 mg/dl (9-20); Calcium 7.3 mg/dl (8.4-10.2); Carbon Dioxide 24 mmol/L (22-30); Chloride 94 mmol/L (98-107); Estimated Creatinine Clearance 100 ml/min; Glucose 119 mg/dl (70-99); Potassium 4.4 mmol/L (3.5-5.1); Sodium 126 mmol/L (135-145); eGFR > 60.00
[2024-12-14 06:47] LABS: % Basophils 0.2 % (0-2); % Eosinophils 2.5 % (0-6); % Immature Granulocytes 0.7 % (0-0.5); % Lymphocytes 8.1 % (20.5-51.1); % Monocytes 9.9 % (1.7-9.3); % Neutrophils 78.6 % (42.2-75.2); Absolute Eosinophils 0.3 10^3/uL (0-0.7); Absolute Immature Granulocytes 0.1 10^3/uL (0-0.05); Absolute Lymphocytes 0.9 10^3/uL (1.2-3.4); Absolute Monocytes 1.2 10^3/uL (0.1-0.6); Absolute Neutrophils 9.1 10^3/uL (1.4-6.5); Hematocrit 19.8 % (39.0-52.0); Hemoglobin 7.1 g/dL (13.0-18.0); Mean Corp Hgb Conc. 35.9 g/dL (33.0-37.0); Mean Corpuscular Hgb 34.5 pg (27.0-31.0); Mean Corpuscular Volume 96.1 fL (80.0-94.0); Mean Platelet Volume 10.9 fL (7.4-10.4); Nucleated Red Blood Cells % 0 % (-); Platelet Count 118 10^3/uL (130-400); Red Blood Cell Count 2.06 10^6/uL (4.70-6.10); Red Cell Dist. Width 17.3 % (11.5-14.5); White Blood Cell Count 11.6 10^3/uL (4.8-10.8)
[2024-12-14] MEDS: SYNTHROID 25 MCG PO (07:39)
--- NOTE | 2024-12-14 08:18 | W.PN.ORTHO ---
Today's Communication / Plan
-
PT/OT
Weightbearing as tolerated with walker
Mechanical devices for DVT prophylaxis
Skin clip removal 2 weeks postop
Appreciate medical team care for patient
Assessment
.
Distal Motor Intact: Yes
Dressing:
Clean, dry and intact.
Plan
.
Surgery / Date: Revision L TKA Dec 19 ([facility])
Activity:
Out of bed.
PT/OT
Subjective
.
.:
Patient resting comfortably.
Vital Signs and Labs
.
Vital Signs and Labs:
Lab Results
12/14/24 05:52
12/14/24 05:52
Temp Pulse Resp BP Pulse Ox
98.4 F 102 19 122/63 99
12/13/24 23:19 12/13/24 23:19 12/13/24 23:19 12/13/24 23:19 12/13/24 23:19
PT 19.8 Sec (11.4-14.6) H 12/02/24 06:42
INR 1.66 12/02/24 06:42
[2024-12-14] MEDS: CLARITIN 10 MG PO (08:20)
[2024-12-14] MEDS: DUPHALAC/CHRONULAC 20 GRAMS PO ×2 (08:20→19:54)
[2024-12-14] MEDS: FOLVITE 1 MG PO (08:20)
[2024-12-14] MEDS: VITAMIN B1 100 MG PO ×2 (08:21→19:55)
[2024-12-14] MEDS: NSS (PRESERVATIVE FREE) 10 ML IV ×2 (08:21→19:55)
[2024-12-14] MEDS: QUESTRAN 4 GRAM PO (08:21)
[2024-12-14] MEDS: PROTONIX IV 40 MG IV ×2 (08:22→19:55)
[2024-12-14] MEDS: ROXICODONE 10 MG PO (08:27)
--- NOTE | 2024-12-14 10:53 | CM ---
Auth approved in [employer]
Certificate Number - [id number]
Approved for Skilled Level 1 from 12/13-01/02
NRD 01/02 Fax clinicals to [phone] Yousif updated - pt not medically ready today. To receive blood transfusion today
Updated Cristela at [facility]. Aware pt not ready today. Given auth information
Plan - [facility] when medically ready. Auth approved
--- NOTE | 2024-12-14 10:58 | W.PN.HOSP.TC ---
Today's Communication/Plan
-
see A/P
Assessment / Plan
Assessment / Plan
A/P:
# Left knee prosthetic joint infection
# Septic arthritis
Fluid eval: WBC 857986, PMN 79.1, no crystals
Joint fluid and blood cultures growing MSSA
Status post OR with Ortho for left knee prosthesis explant and spacer placement 12/06, tolerated procedure well
ID recommend continuing antibiotic treatment with Ancef 2 g IV every 8 hours x 6 weeks from prosthetic knee explant (through 01/17/2025)
Continue pain medication regimen, off OxyContin, cont Oxycodone PRN, added gabapentin for neuropathic pain and adjust to 100 mg BID
Planning DC to SNF
# MSSA bacteremia
blood cs showing MSSA
Repeat blood cs neg from 12/01
Plan as above
# Acute anemia likely multifactorial in setting of decompensated liver failure/cirrhosis and Upper GI bleed
# Chronic normocytic anemia
Reported hematemesis few days prior to arrival
Abd US actually showed Normal directional blood flow in the hepatic and portal veins.
Hgb dropped to 7.1 again today 12/14, transfuse additional unit today
s/p EGD 12/13, noted esophagitis with no bleeding. Portal hypertensive gastropathy.
GI recc Protonix 40mg BID x4 weeks, then daily afterwards.
Follow pathology results in 2 weeks with GI
Recc pt to follow with GI for liver transplant eval outpt
Of note, iron panel suggest ACD, B12 and folate WNL
No need for C scope per GI
# Alcohol use disorder
discontinue further msas/ativan, out of withdrawal window.
Maintain champagne/thiamine
# Decompensated liver failure/cirrhosis 2/ alcohol abuse
# Elevated total bilirubin -direct dominant
# Coagulopathy - improved
# Thrombocytopenia
# Transaminitis
Improved mental status, now back to baseline AOX3, hemodynamically stable
US abdomen showed cirrhosis and Normal directional blood flow in the hepatic and portal veins.
No reported ascites on previous US
Vitamin K oral provided for high INR
Cont oral lactulose BID to titrate to 2-3 soft stools per day
no indication for steroids for alcoholic hepatitis based on DF
Platelet count improved from admission level.
ID CS for paracentesis 12/14 and follow para labs if able
# CLEVE, resolved
Cr 1.3 -> 1.0 today
# Acute metabolic encephalopathy, resolved
Monitor for hepatic encephalopathy versus alcohol withdrawal
Lactulose to titrate 2-3 soft stools per day
# Hyponatremia from ESLD.
# Hypokalemia
Replace prn
DVT proph-SCDs
Full Code
DW GI
DW CM
Offered to update , pt states that he has been doing so.
total time spent 51 min
Anticipated Discharge: Within 24 hours
Subjective/Interval History
-
Date of Service: December 14, 2024
Objective Data
-
Labs:
Laboratory Results
12/14/24
05:52
WBC 11.6 H
Hgb 7.1 L
Hct 19.8 L*
Plt Count 118 L
Sodium 126 L
Potassium 4.4
Chloride 94 L
Carbon Dioxide 24
BUN 21 H
Creatinine 1.0
Glucose 119 H
Calcium 7.3 L
Vital Signs:
Vital Signs
Temp Pulse Resp BP Pulse Ox
36.9 C 97 16 141/65 100
12/14/24 10:12 12/14/24 10:12 12/14/24 10:12 12/14/24 10:12 12/14/24 10:12
I&O
12/13/24 12/14/24 12/15/24
06:59 06:59 06:59
Intake Total 1150 / 1150 1680 / 1680 0 / 0
Balance 1150 / 1150 1679 / 1679 0 / 0
Review of Systems
-
All other systems: Reviewed and negative
Physical Exam
-
General: Well Developed, Well Nourished, No Apparent Distress, Comfortable and Appears Chronically Ill
HEENT: Normocephalic and Atraumatic
Respiratory: Clear to Auscultation and Non Labored Respirations; Negative Accessory Resp Muscle Use
Cardiac: Regular Rhythm and S1/S2
GI: Soft, Nontender and Distended
Skin: Jaundice
Psych: Calm and Intact Judgement/Insight
Data Reviewed
-
Labs: Labs Reviewed by me
[2024-12-14] MEDS: NEURONTIN 100 MG PO ×2 (11:32→19:55)
--- NOTE | 2024-12-14 12:20 | W.PN.ID1 ---
Date of Service
Date of Service: December 14, 2024
Today's Communication
See below.
Assessment / Plan
# Complicated S. aureus (MSSA) bacteremia (5 sets, collected same day 11/28/24)
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 12/06 s/p left prosthetic knee removal with placement of antibiotic impregnated cement.
# Left knee hemarthrosis with blood loss anemia
# Leukocytosis - trending down
# Alcohol cirrhosis
# s/p Alcohol withdrawal
- 12/01 Repeat blood cx's x2 neg
-TTE no significant valvular disease.
- -Continue cefazolin 2g IV q8h x 6 weeks from prosthetic knee explant through 01/17/25.
- Home infusion sheet submitted to case management on 12/05.
- Reached out to Ortho and Hospitalist regarding left knee hematoma.
# Suspect pruritus due to hyperbilirubinemia.
-Continue cholestyramine.
#Additional Past Medical History:
Hypertension
Hypothyroidism
alcohol abuse
cirrhosis
Left total knee replacement
Chief Complaint
-: Bacteremia and Other (Septic PJI)
Subjective / Review of Systems
Receiving another blood transfusion. Left knee not controlled with pain today.
Vital Signs / Physical Exam
Vital Signs
Vital Signs
Temp Pulse Resp BP Pulse Ox
98.4 F 97 16 141/65 100
12/14/24 10:12 12/14/24 10:12 12/14/24 10:12 12/14/24 10:12 12/14/24 10:12
Physical Exam
Constitutional: No Acute Distress
Eyes: Other (sclera icterus)
Gastrointestinal: Soft, Non Tender, Non Distended and Normal Bowel Sounds
Wound: Other (left knee dressing full of blood)
Objective Data
Lab Data
Lab Results
12/14/24 05:52
12/14/24 05:52
ESR Cancelled 12/09/24 17:26
PT 19.8 Sec (11.4-14.6) H 12/02/24 06:42
INR 1.66 12/02/24 06:42
Estimated Creat Clear 100 ml/min 12/14/24 05:52
Lactic Acid 1.6 mmol/L (0.7-2.0) 11/28/24 17:15
Total Bilirubin 11.5 mg/dl (0.2-1.3) H 12/11/24 13:38
GGT 546 U/L (15-73) H 11/28/24 22:25
AST 267 U/L (17-59) H 12/11/24 13:38
ALT 39 U/L (0-50) 12/11/24 13:38
Alkaline Phosphatase 186 U/L (38-126) H 12/11/24 13:38
C-Reactive Protein Cancelled 12/09/24 17:26
Most recent labs reviewed.
Micro Results:
12/13/24 08:46 NATHANAEL Preparation - Final
Esophagus NATHANAEL Prep Negative for Fungus
12/06/24 13:51 Tissue Culture - Final
Knee - Left S aureus-Methicillin Sensitive
Gram Stain - Final
12/06/24 13:49 Tissue Culture - Final
Knee - Left NO GROWTH
Gram Stain - Final
12/01/24 07:23 Blood Culture - Final
Blood/Venous No Growth - Final Report
12/01/24 08:00 Blood Culture - Final
Blood/Venous No Growth - Final Report
11/28/24 22:25 Blood Culture - Final
Blood/Venous S aureus-Methicillin Sensitive
Gram Stain - Final
11/28/24 22:25 Blood Culture - Final
Blood/Venous S aureus-Methicillin Sensitive
Gram Stain - Final
11/28/24 15:53 Blood Culture - Final
Blood/Venous S aureus-Methicillin Sensitive
Gram Stain - Final
11/28/24 12:51 Blood Culture - Final
Blood/Venous S aureus-Methicillin Sensitive
Gram Stain - Final
11/28/24 15:53 Blood Culture - Final
Blood/Venous S aureus-Methicillin Sensitive
Gram Stain - Final
11/28/24 23:21 Urine Culture - Final
Urine NO GROWTH
11/28/24 15:54 Body Fluid Culture - Final
Joint Fluid S aureus-Methicillin Sensitive
Gram Stain - Final
Fluid Cult/not urine Final 11/28/24
Many S aureus-Methicillin Sensitive
1. S aureus - Methicillin Sensitive
M.I.C. RX
--------- ---
Amoxicillin/Potas. Clavulanate <=4/2 S
Ampicillin <=2 R
Clindamycin <=0.5 S
Gentamicin <=4 S
Erythromycin <=0.5 S
Levofloxacin <=1 S
Oxacillin <=0.25 S
Tetracycline <=4 S
Trimethoprim/Sulfamethoxazole <=0.5/9.5 S
Vancomycin 1 S
11/28/24 Abd US: Mild nodular surface of the liver which could represent cirrhotic morphology and overall diffuse increased hepatic echogenicity suggesting diffuse fatty infiltration. Normal directional blood flow in the hepatic and portal veins.
Gallstones and gallbladder sludge. No gallbladder wall thickening or pericholecystic fluid. Negative sonographic Ferguson's sign. No findings to suggest biliary tract dilatation.
11/28/24 Knee XRAY: Left knee replacement. No evidence of complication. Small suprapatellar joint effusion.
[2024-12-14 13:00] LABS: ALT (SGPT) 24 U/L (0-50); AST (SGOT) 186 U/L (17-59); Albumin 2.4 g/dl (3.5-5.0); Alkaline Phosphatase 164 U/L (38-126); Direct Bilirubin 6.1 mg/dl (0.0-0.4); Total Bilirubin 10.1 mg/dl (0.2-1.3); Total Protein 5.6 g/dl (6.3-8.2)
--- NOTE | 2024-12-14 13:07 | W.PN.UPDATE ---
Update Note
Progress Note Update
Pt seen and examined,
sudden increase in blood on bandage noted. I removed bandage there was active christos blood draining from incision, no purulent and it appeared to be evacuating old dark red blood not bright red bleeding. I placed a compressive dsg and discussed w.
Dr Yousif. We will order stat labs incl inflamatory labs and coags. I ordered tranexamic acid and she is going to consider vit K.
Worst case scenario would be if he is becoming worseningly coagulopathic due to decompensation from the liver or if he is failing to clear infection in the knee which is a real possibility with immunosupression from decompensated cirrhosis. We
discussed possible escalation of care but will check labs urgently to determine better before making decision. I discussed all of this w. patient.
he also expressed to me again wish to discuss liver transplant and just get education about it from the medical team or GI.
--- NOTE | 2024-12-14 13:08 | PTCARENOTE ---
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 Dr Jensen at bedside, Primaseal removed, pressure DSG applied and to remain on indefinitely. TXA and labwork ordered. Paracentesis on
hold at this time per Benja. IR made aware. Care remains ongoing.
[2024-12-14] MEDS: TRANEXAMIC ACID 100 IV (13:22)
[2024-12-14 14:07] LABS: INR 2.02; PT 23.4 Sec (11.4-14.6)
[2024-12-14 14:39] LABS: Erythrocyte Sed Rate 73 mm/hour (0-20)
[2024-12-14] MEDS: MEPHYTON 10 MG PO (15:13)
[2024-12-14] MEDS: CYKLOKAPRON 1300 MG PO ×2 (17:08→21:45)
[2024-12-15 04:43] VITALS: BMI 36.8
[2024-12-15] MEDS: ROXICODONE 5 MG PO ×3 (04:44→14:17)
[2024-12-15] MEDS: SYNTHROID 25 MCG PO (04:44)
[2024-12-15] MEDS: ANCEF 10 IV ×3 (04:45→22:26)
[2024-12-15 05:30] LABS: % Basophils 0.2 % (0-2); % Eosinophils 2.3 % (0-6); % Immature Granulocytes 0.8 % (0-0.5); % Lymphocytes 8.1 % (20.5-51.1); % Monocytes 8.4 % (1.7-9.3); % Neutrophils 80.2 % (42.2-75.2); Absolute Eosinophils 0.4 10^3/uL (0-0.7); Absolute Immature Granulocytes 0.1 10^3/uL (0-0.05); Absolute Lymphocytes 1.3 10^3/uL (1.2-3.4); Absolute Monocytes 1.3 10^3/uL (0.1-0.6); Absolute Neutrophils 12.7 10^3/uL (1.4-6.5); Hematocrit 22.5 % (39.0-52.0); Hemoglobin 8.2 g/dL (13.0-18.0); Mean Corp Hgb Conc. 36.4 g/dL (33.0-37.0); Mean Corpuscular Volume 93.4 fL (80.0-94.0); Mean Platelet Volume 10.7 fL (7.4-10.4); Nucleated Red Blood Cells % 0 % (-); Platelet Count 111 10^3/uL (130-400); Red Blood Cell Count 2.41 10^6/uL (4.70-6.10); Red Cell Dist. Width 17.9 % (11.5-14.5); White Blood Cell Count 15.9 10^3/uL (4.8-10.8)
[2024-12-15 05:36] LABS: Blood Urea Nitrogen 21 mg/dl (9-20); Calcium 7.5 mg/dl (8.4-10.2); Carbon Dioxide 26 mmol/L (22-30); Chloride 96 mmol/L (98-107); Estimated Creatinine Clearance 100 ml/min; Glucose 117 mg/dl (70-99); Potassium 4.5 mmol/L (3.5-5.1); Sodium 128 mmol/L (135-145); eGFR > 60.00
[2024-12-15 05:39] LABS: INR 1.77; PT 21.1 Sec (11.4-14.6)
[2024-12-15 07:20] VITALS: BP 133/70
[2024-12-15] MEDS: NSS (PRESERVATIVE FREE) 10 ML IV ×2 (07:49→19:43)
[2024-12-15] MEDS: FOLVITE 1 MG PO (07:49)
[2024-12-15] MEDS: CYKLOKAPRON 1300 MG PO ×3 (07:49→22:26)
[2024-12-15] MEDS: NEURONTIN 100 MG PO ×2 (07:49→19:43)
[2024-12-15] MEDS: VITAMIN B1 100 MG PO ×2 (07:49→19:43)
[2024-12-15] MEDS: PROTONIX IV 40 MG IV ×2 (07:49→19:43)
[2024-12-15] MEDS: CLARITIN 10 MG PO (07:49)
[2024-12-15] MEDS: DUPHALAC/CHRONULAC 20 GRAMS PO ×2 (07:49→19:43)
[2024-12-15] MEDS: QUESTRAN 4 GRAM PO (07:50)
--- NOTE | 2024-12-15 08:23 | PTCARENOTE ---
Addendum entered by Marielena Moon RN 12/15/24 09:06:
LLE elevated with pillows.
Original Note:
Pt with increased pedal edema to LLE, c/o pain and 'pins/needles sensation'. + Doppler pulse, good sensation and movement, extremity warm to touch, + cap refill . Pressure DSG slid down and falling off pt, redressed. Mati Cook at bedside and ok
for NS[facility] staff to redress PRN. Care remains ongoing.
--- NOTE | 2024-12-15 09:17 | W.PN.HOSP.TC ---
Today's Communication/Plan
-
see A/P
Assessment / Plan
Assessment / Plan
A/P:
# Left knee prosthetic joint infection
# Septic arthritis
Fluid eval: WBC 004837, PMN 79.1, no crystals
Joint fluid and blood cultures growing MSSA
Status post OR with Ortho for left knee prosthesis explant and spacer placement 12/06, tolerated procedure well
ID recommend continuing antibiotic treatment with Ancef 2 g IV every 8 hours x 6 weeks from prosthetic knee explant (through 01/17/2025)
Continue pain medication regimen, off OxyContin, cont Oxycodone PRN, added gabapentin for neuropathic pain and adjust to 100 mg BID
Planning DC to SNF
# MSSA bacteremia
blood cs showing MSSA. Repeat blood cs neg from 12/01
Plan as above
# Acute anemia likely multifactorial in setting of decompensated liver failure/cirrhosis, esophagitis, and acute bleeding of L knee arthroplasty
# Chronic normocytic anemia
Abd US actually showed Normal directional blood flow in the hepatic and portal veins.
s/p 2 units PRBC. Hgb responded appropriately, today at 8.2
of note, s/p EGD 12/13, noted esophagitis with no bleeding. Portal hypertensive gastropathy.
GI recc Protonix 40mg BID x4 weeks, then daily afterwards. Follow pathology results in 2 weeks with GI. Recc pt to follow with GI for liver transplant eval outpt. No need for C scope per GI
Of note, iron panel suggest ACD, B12 and folate WNL
# Alcohol use disorder
discontinue further msas/ativan, out of withdrawal window.
Maintain champagne/thiamine
# Decompensated liver failure/cirrhosis 2/2 alcohol abuse
# Elevated total bilirubin -direct dominant
# Coagulopathy - improved
# Thrombocytopenia
# Transaminitis
Improved mental status, now back to baseline AOX3, hemodynamically stable
US abdomen showed cirrhosis and Normal directional blood flow in the hepatic and portal veins.
No reported ascites on previous US
Vitamin K oral provided for high INR
Cont oral lactulose BID to titrate to 2-3 soft stools per day
no indication for steroids for alcoholic hepatitis based on DF
Platelet count improved from admission level.
ID CS for paracentesis 12/14 and follow para labs if able
# CLEVE, resolved
Cr 1.3 -> 1.0 today
# Acute metabolic encephalopathy, resolved
Monitor for hepatic encephalopathy versus alcohol withdrawal
Lactulose to titrate 2-3 soft stools per day
# Hyponatremia from ESLD.
# Hypokalemia
Replace prn
DVT proph-SCDs
Full Code
DW RN
DW CM
total time spent 51 min
Anticipated Discharge: 24 - 48 hours
Subjective/Interval History
-
Date of Service: December 15, 2024
Objective Data
-
Labs:
Laboratory Results
12/15/24
04:57
WBC 15.9 H
Hgb 8.2 L
Hct 22.5 L
Plt Count 111 L
PT 21.1 H
INR 1.77
Sodium 128 L
Potassium 4.5
Chloride 96 L
Carbon Dioxide 26
BUN 21 H
Creatinine 1.0
Glucose 117 H
Calcium 7.5 L
Vital Signs:
Vital Signs
Temp Pulse Resp BP Pulse Ox
36.9 C 101 18 133/70 96
12/15/24 07:20 12/15/24 07:20 12/15/24 07:20 12/15/24 07:20 12/15/24 07:20
I&O
12/14/24 12/15/24 12/16/24
06:59 06:59 06:59
Intake Total 1679 / 1680 2279
Balance 1680 / 1680 2279
Review of Systems
-
All other systems: Reviewed and negative
Physical Exam
-
General: Well Developed, Well Nourished, No Apparent Distress, Comfortable and Appears Chronically Ill
HEENT: Normocephalic and Atraumatic
Respiratory: Clear to Auscultation and Non Labored Respirations; Negative Accessory Resp Muscle Use
Cardiac: Regular Rhythm and S1/S2
GI: Soft, Nontender and Distended
Skin: Jaundice
Psych: Calm and Intact Judgement/Insight
Data Reviewed
-
Labs: Labs Reviewed by me
--- NOTE | 2024-12-15 09:35 | CM ---
Spoke with MD mehta not ready for dc possible weekend .
Spoke with Cristela from [facility] . She will check for bed availability.
Auth approved in [employer], Certificate Number - [id number] . Approved for Skilled Level 1 from 12/13-01/02
NRD 01/02 Fax clinicals to [phone].
[facility] aware of auth.
Dr Garcia to email copy of IV antibiotic Will forward script to [facility] fax [phone].
[facility]
report [phone]
fax [phone]
Plan - [facility] when medically ready. Auth approved
[2024-12-15 10:27] LABS: ALT (SGPT) 22 U/L (0-50); AST (SGOT) 189 U/L (17-59); Albumin 2.6 g/dl (3.5-5.0); Alkaline Phosphatase 183 U/L (38-126); Direct Bilirubin 6.2 mg/dl (0.0-0.4); Total Bilirubin 9.9 mg/dl (0.2-1.3); Total Protein 5.8 g/dl (6.3-8.2)
[2024-12-15 11:05] VITALS: BP 142/70; BP_SYST 99
[2024-12-15 11:41] VITALS: BP 142/61
--- NOTE | 2024-12-15 13:00 | W.PN.UPDATE ---
Update Note
Progress Note Update
Patient was seen and examined this morning. RN was present; dressing partially taken down. He had mild saturation of bloody discharge into his dressing but not past in the superficial DRAGAN or ABD pads. He had significant edema of his left lower
extremity; denies associated paresthesias or pain at rest. On exam no pain with passive motion of the ankle. Discussed with Dr. Jensen. Recommend continued dressing changes daily and monitoring for blood loss relative to the knee;
--- NOTE | 2024-12-15 13:28 | W.PN.ID1 ---
Date of Service
Date of Service: December 15, 2024
Today's Communication
Continue cefazolin
Assessment / Plan
# Complicated S. aureus (MSSA) bacteremia (5 sets, collected same day 11/28/24)
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 12/06 s/p left prosthetic knee removal with placement of antibiotic impregnated cement.
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
# Leukocytosis - suspect reactive
- 12/01 Repeat blood cx's x2 neg
-TTE no significant valvular disease.
- -Continue cefazolin 2g IV q8h x 6 weeks from prosthetic knee explant through 01/17/25.
- Infusion sheet submitted to case management on 12/05 and 12/15.
# Alcohol cirrhosis with ascites
- 12/15 s/p paracentesis 2.3L
Cell count, cx pending.
# pruritus due to hyperbilirubinemia.
-Continue cholestyramine.
#Additional Past Medical History:
Hypertension
Hypothyroidism
alcohol abuse
cirrhosis
Left total knee replacement
Chief Complaint
-: Bacteremia and Other (Septic PJI)
Subjective / Review of Systems
Knee stopped bleeding.
Vital Signs / Physical Exam
Vital Signs
Vital Signs
Temp Pulse Resp BP Pulse Ox
98.0 F 96 18 142/61 98
12/15/24 11:05 12/15/24 11:41 12/15/24 11:41 12/15/24 11:41 12/15/24 11:05
Physical Exam
Constitutional: No Acute Distress
Eyes: Other (sclera icterus)
Cardiovascular: Regular Rate and S1/S2
Pulmonary: Clear
Gastrointestinal: Soft, Non Tender, Distended (mild) and Normal Bowel Sounds
Genito-Urinary: Negative CVA Tenderness
Extremities: Edema (LLE 3+ )
Skin: Jaundice
Wound: Other (left knee dressing mild-mod bloody strikethrough)
Neurological: AO x 3
Lines: PICC (RUE no erythema)
Objective Data
Lab Data
Lab Results
12/15/24 04:57
12/15/24 04:57
ESR 73 mm/hour (0-20) H 12/14/24 13:47
PT 21.1 Sec (11.4-14.6) H 12/15/24 04:57
INR 1.77 12/15/24 04:57
Estimated Creat Clear 100 ml/min 12/15/24 04:57
Lactic Acid 1.6 mmol/L (0.7-2.0) 11/28/24 17:15
Total Bilirubin 9.9 mg/dl (0.2-1.3) H 12/15/24 04:57
GGT 546 U/L (15-73) H 11/28/24 22:25
AST 189 U/L (17-59) H 12/15/24 04:57
ALT 22 U/L (0-50) 12/15/24 04:57
Alkaline Phosphatase 183 U/L (38-126) H 12/15/24 04:57
C-Reactive Protein 53.20 mg/L (0.0-10.00) H 12/14/24 13:47
Most recent labs reviewed.
Micro Results:
12/15/24 11:33 Body Fluid Culture - Pending
Peritoneal Fluid Gram Stain - Pending
12/13/24 08:46 NATHANAEL Preparation - Final
Esophagus NATHANAEL Prep Negative for Fungus
12/06/24 13:51 Tissue Culture - Final
Knee - Left S aureus-Methicillin Sensitive
Gram Stain - Final
12/06/24 13:49 Tissue Culture - Final
Knee - Left NO GROWTH
Gram Stain - Final
12/01/24 07:23 Blood Culture - Final
Blood/Venous No Growth - Final Report
12/01/24 08:00 Blood Culture - Final
Blood/Venous No Growth - Final Report
11/28/24 22:25 Blood Culture - Final
Blood/Venous S aureus-Methicillin Sensitive
Gram Stain - Final
11/28/24 22:25 Blood Culture - Final
Blood/Venous S aureus-Methicillin Sensitive
Gram Stain - Final
11/28/24 15:53 Blood Culture - Final
Blood/Venous S aureus-Methicillin Sensitive
Gram Stain - Final
11/28/24 12:51 Blood Culture - Final
Blood/Venous S aureus-Methicillin Sensitive
Gram Stain - Final
11/28/24 15:53 Blood Culture - Final
Blood/Venous S aureus-Methicillin Sensitive
Gram Stain - Final
11/28/24 23:21 Urine Culture - Final
Urine NO GROWTH
11/28/24 15:54 Body Fluid Culture - Final
Joint Fluid S aureus-Methicillin Sensitive
Gram Stain - Final
Fluid Cult/not urine Final 11/28/24
Many S aureus-Methicillin Sensitive
1. S aureus - Methicillin Sensitive
M.I.C. RX
--------- ---
Amoxicillin/Potas. Clavulanate <=4/2 S
Ampicillin <=2 R
Clindamycin <=0.5 S
Gentamicin <=4 S
Erythromycin <=0.5 S
Levofloxacin <=1 S
Oxacillin <=0.25 S
Tetracycline <=4 S
Trimethoprim/Sulfamethoxazole <=0.5/9.5 S
Vancomycin 1 S
11/28/24 Abd US: Mild nodular surface of the liver which could represent cirrhotic morphology and overall diffuse increased hepatic echogenicity suggesting diffuse fatty infiltration. Normal directional blood flow in the hepatic and portal veins.
Gallstones and gallbladder sludge. No gallbladder wall thickening or pericholecystic fluid. Negative sonographic Ferguson's sign. No findings to suggest biliary tract dilatation.
11/28/24 Knee XRAY: Left knee replacement. No evidence of complication. Small suprapatellar joint effusion.
[2024-12-15 13:42] LABS: Body Fluid Albumin < 1.0 g/dl; Body Fluid Protein < 2.0 g/dl
[2024-12-15 14:52] LABS: Body Fluid Mononuclear 86.7 %; Body Fluid Polymorphonuclear 13.3 %; Body Fluid WBC 30 /CUMM
[2024-12-15 15:25] LABS: Body Fluid Second Tech FB
[2024-12-15 15:30] VITALS: BP 146/72
[2024-12-15] MEDS: ROXICODONE 10 MG PO (22:28)
[2024-12-15 23:00] VITALS: BP 117/60
[2024-12-16] VITALS (11 sets, daily range): BP systolic 129–149; BP diastolic 63–80; BMI 36.1
[2024-12-16] MEDS: ROXICODONE 5 MG PO ×3 (04:27→16:25)
[2024-12-16 06:04] LABS: INR 1.84; PT 21.4 Sec (11.4-14.6)
[2024-12-16] MEDS: ANCEF 10 IV ×3 (06:12→21:35)
[2024-12-16 06:13] LABS: % Basophils 0.2 % (0-2); % Eosinophils 2.2 % (0-6); % Immature Granulocytes 0.6 % (0-0.5); % Lymphocytes 6.1 % (20.5-51.1); % Monocytes 8.7 % (1.7-9.3); % Neutrophils 82.2 % (42.2-75.2); Absolute Eosinophils 0.3 10^3/uL (0-0.7); Absolute Immature Granulocytes 0.1 10^3/uL (0-0.05); Absolute Lymphocytes 0.9 10^3/uL (1.2-3.4); Absolute Monocytes 1.2 10^3/uL (0.1-0.6); Absolute Neutrophils 11.7 10^3/uL (1.4-6.5); Hematocrit 21.1 % (39.0-52.0); Hemoglobin 7.5 g/dL (13.0-18.0); Mean Corp Hgb Conc. 35.5 g/dL (33.0-37.0); Mean Corpuscular Hgb 33.6 pg (27.0-31.0); Mean Corpuscular Volume 94.6 fL (80.0-94.0); Mean Platelet Volume 10.3 fL (7.4-10.4); Nucleated Red Blood Cells % 0 % (-); Platelet Count 91 10^3/uL (130-400); Red Blood Cell Count 2.23 10^6/uL (4.70-6.10); Red Cell Dist. Width 17.6 % (11.5-14.5); White Blood Cell Count 14.3 10^3/uL (4.8-10.8)
[2024-12-16 06:22] LABS: ALT (SGPT) 20 U/L (0-50); AST (SGOT) 183 U/L (17-59); Albumin 2.1 g/dl (3.5-5.0); Alkaline Phosphatase 167 U/L (38-126); Blood Urea Nitrogen 19 mg/dl (9-20); Calcium 7.3 mg/dl (8.4-10.2); Carbon Dioxide 27 mmol/L (22-30); Chloride 97 mmol/L (98-107); Direct Bilirubin 5.8 mg/dl (0.0-0.4); Estimated Creatinine Clearance 112 ml/min; Glucose 122 mg/dl (70-99); Potassium 4.3 mmol/L (3.5-5.1); Sodium 127 mmol/L (135-145); Total Bilirubin 8.7 mg/dl (0.2-1.3); Total Protein 4.9 g/dl (6.3-8.2); eGFR > 60.00
[2024-12-16 07:19] LABS: Erythrocyte Sed Rate 54 mm/hour (0-20)
[2024-12-16] MEDS: CLARITIN 10 MG PO (08:06)
[2024-12-16] MEDS: PROTONIX IV 40 MG IV ×2 (08:06→20:59)
[2024-12-16] MEDS: SYNTHROID 25 MCG PO (08:06)
[2024-12-16] MEDS: QUESTRAN 4 GRAM PO (08:06)
[2024-12-16] MEDS: NEURONTIN 100 MG PO ×2 (08:06→20:59)
[2024-12-16] MEDS: NSS (PRESERVATIVE FREE) 10 ML IV ×2 (08:06→20:59)
[2024-12-16] MEDS: VITAMIN B1 100 MG PO ×2 (08:06→20:59)
[2024-12-16] MEDS: CYKLOKAPRON 1300 MG PO ×3 (08:07→21:35)
[2024-12-16] MEDS: FOLVITE 1 MG PO (08:07)
[2024-12-16] MEDS: DUPHALAC/CHRONULAC 20 GRAMS PO ×2 (08:07→20:59)
--- NOTE | 2024-12-16 10:08 | W.PN.HOSP.TC ---
Addendum entered and electronically signed by Radha Yousif MD 12/16/24 15:26:
Updated on the phone
Original Note:
Today's Communication/Plan
-
see A/P
Assessment / Plan
Assessment / Plan
A/P:
# Left knee prosthetic joint infection
# Septic arthritis
Fluid eval: WBC 878674, PMN 79.1, no crystals
Joint fluid and blood cultures growing MSSA
Status post OR with Ortho for left knee prosthesis explant and spacer placement 12/06, tolerated procedure well
ID recommend continuing antibiotic treatment with Ancef 2 g IV every 8 hours x 6 weeks from prosthetic knee explant (through 01/17/2025)
Continue pain medication regimen, off OxyContin, cont Oxycodone PRN, added gabapentin for neuropathic pain and adjusted to 100 mg BID
Eventual DC to SNF
# MSSA bacteremia
blood cs showing MSSA. Repeat blood cs neg from 12/01
Plan as above
# Acute anemia likely multifactorial in setting of decompensated liver failure/cirrhosis, esophagitis, and acute bleeding of L knee arthroplasty
# Chronic normocytic anemia
Abd US actually showed Normal directional blood flow in the hepatic and portal veins.
s/p 2 units PRBC.
Hgb dropped again today to 7.5. Transfuse additional unit PRBC
platelet also dropped to 91, transfuse 2 units platelet
Cont tranexamic acid which was started by ortho
of note, s/p EGD 12/13, noted esophagitis with no bleeding. Portal hypertensive gastropathy.
GI recc Protonix 40mg BID x4 weeks, then daily afterwards. Follow pathology results in 2 weeks with GI. No need for C scope per GI
Recc to follow with GI for liver transplant eval outpt.
Of note, iron panel suggest ACD, B12 and folate WNL
# Alcohol use disorder
discontinue further msas/ativan, out of withdrawal window.
Maintain champagne/thiamine
# Decompensated liver failure/cirrhosis 2/2 alcohol abuse
# Elevated total bilirubin -direct dominant
# Coagulopathy - improved
# Thrombocytopenia
# Transaminitis
Improved mental status, now back to baseline AOX3, hemodynamically stable
US abdomen showed cirrhosis and Normal directional blood flow in the hepatic and portal veins.
No reported ascites on previous US
Additional oral Vitamin K 10 mg today with dropped Hgb
Cont oral lactulose BID to titrate to 2-3 soft stools per day
no indication for steroids for alcoholic hepatitis based on DF
s/p IR paracentesis 12/14, removed 2350 cc of clear yellow ascitic fluid.
Ascitic fluid without SBP
for interest sake, calculated MELD-Na score today and from earlier, MEDL score at around 20, which has not significantly changed
# CLEVE, resolved
Cr 1.3 -> 0.9 today
# Acute metabolic encephalopathy, resolved
Monitor for hepatic encephalopathy versus alcohol withdrawal
Lactulose to titrate 2-3 soft stools per day
# Hyponatremia from ESLD.
# Hypokalemia
Replace prn
DVT proph-SCDs
Full Code
DW ortho team extensively. For now, cont to monitor and support aggressively. Per ortho, pt may need removal of hardware resulting in non-functional leg or even amputation if his bleeding is not controlled- plan to be determined.
total time spent 51 min
Anticipated Discharge: > 48 hours
Subjective/Interval History
-
Date of Service: December 16, 2024
Objective Data
-
Labs:
Laboratory Results
12/16/24
05:42
WBC 14.3 H
Hgb 7.5 L
Hct 21.1 L
Plt Count 91 L
PT 21.4 H
INR 1.84
Sodium 127 L
Potassium 4.3
Chloride 97 L
Carbon Dioxide 27
BUN 19
Creatinine 0.9
Glucose 122 H
Calcium 7.3 L
Total Bilirubin 8.7 H
AST 183 H
ALT 20
Alkaline Phosphatase 167 H
Vital Signs:
Vital Signs
Temp Pulse Resp BP Pulse Ox
36.7 C 98 14 129/63 98
12/16/24 07:10 12/16/24 07:10 12/16/24 07:10 12/16/24 07:10 12/16/24 07:10
I&O
12/15/24 12/16/24 12/17/24
06:59 06:59 06:59
Intake Total 2280 / 2280 1380 / 1380
Balance 2280 / 2280 1380 / 1380
Review of Systems
-
All other systems: Reviewed and negative
Physical Exam
-
General: Well Developed, Well Nourished, No Apparent Distress, Comfortable and Appears Chronically Ill
HEENT: Normocephalic and Atraumatic
Respiratory: Clear to Auscultation and Non Labored Respirations; Negative Accessory Resp Muscle Use
Cardiac: Regular Rhythm and S1/S2
GI: Soft and Nontender
Musculoskeletal: Other (L knee oozing blood )
Skin: Jaundice
Psych: Calm and Intact Judgement/Insight
Data Reviewed
-
Labs: Labs Reviewed by me
[2024-12-16] MEDS: MEPHYTON 10 MG PO (10:19)
--- NOTE | 2024-12-16 11:43 | W.PN.UPDATE ---
Update Note
Progress Note Update
Sulaiman is 8 days status post a left revision total knee arthroplasty. He is continued with IV antibiotics. Several days ago, he was noted to have significant drainage about the incision of his left knee and moderate swelling about the left lower
extremity. Reports his pain is relatively well-controlled, it seems as though his ankle swelling is the most inhibitive when ambulating.
Louis wrap over left knee removed to reveal saturation of multiple ABDs. There were 2 punctate areas of the incision with some mild, active bloody drainage. The incision was swabbed with Betadine and several clean ABDs and an Louis wrap were applied
to the left knee. Will continue to monitor this going forward.
Repeat sed rate 54 mm/HR (down from 73)
C-reactive protein 58.40 (up from 53.20).
Will continue to monitor his left knee dressings and trend ESR/CRP.
--- NOTE | 2024-12-16 12:30 | W.PN.UPDATE ---
Update Note
Progress Note Update
who is a pharmacist is concern about hemolytic anemia from Ancef. Although clinically I feel pt's acute anemia is 2/2 acute blood loss from oozing in his L knee.
Nonetheless, we can check hemolytic panel to assess for hemolysis.
Follow add on labs for: LDH, retic count, haptoglobin, indirect bilirubin
[2024-12-16 13:00] LABS: Reticulocyte Count 3.6 % (0.4-2.8)
[2024-12-16 13:53] LABS: LDH 313 U/L (120-246)
[2024-12-16] MEDS: ROXICODONE 10 MG PO (22:30)
[2024-12-17 04:22] LABS: INR 1.83; PT 21.4 Sec (11.4-14.6)
[2024-12-17 04:24] LABS: % Basophils 0.2 % (0-2); % Eosinophils 2.3 % (0-6); % Immature Granulocytes 0.7 % (0-0.5); % Lymphocytes 5.8 % (20.5-51.1); % Monocytes 7.9 % (1.7-9.3); % Neutrophils 83.1 % (42.2-75.2); Absolute Eosinophils 0.3 10^3/uL (0-0.7); Absolute Immature Granulocytes 0.1 10^3/uL (0-0.05); Absolute Lymphocytes 0.8 10^3/uL (1.2-3.4); Absolute Monocytes 1.1 10^3/uL (0.1-0.6); Absolute Neutrophils 11.4 10^3/uL (1.4-6.5); Hematocrit 22.7 % (39.0-52.0); Hemoglobin 8.2 g/dL (13.0-18.0); Mean Corp Hgb Conc. 36.1 g/dL (33.0-37.0); Mean Corpuscular Hgb 33.3 pg (27.0-31.0); Mean Corpuscular Volume 92.3 fL (80.0-94.0); Mean Platelet Volume 10.4 fL (7.4-10.4); Nucleated Red Blood Cells % 0 % (-); Red Blood Cell Count 2.46 10^6/uL (4.70-6.10); Red Cell Dist. Width 18.6 % (11.5-14.5); White Blood Cell Count 13.7 10^3/uL (4.8-10.8)
[2024-12-17 04:25] LABS: Platelet Count 90 10^3/uL (130-400)
[2024-12-17 04:59] LABS: ALT (SGPT) 21 U/L (0-50); AST (SGOT) 198 U/L (17-59); Albumin 2.1 g/dl (3.5-5.0); Alkaline Phosphatase 164 U/L (38-126); Blood Urea Nitrogen 18 mg/dl (9-20); Calcium 7.4 mg/dl (8.4-10.2); Carbon Dioxide 22 mmol/L (22-30); Chloride 96 mmol/L (98-107); Direct Bilirubin 5.6 mg/dl (0.0-0.4); Estimated Creatinine Clearance 124 ml/min; Glucose 139 mg/dl (70-99); Sodium 127 mmol/L (135-145); Total Bilirubin 9.2 mg/dl (0.2-1.3); Total Protein 5.2 g/dl (6.3-8.2); eGFR > 60.00
[2024-12-17 05:15] VITALS: BP 145/81
[2024-12-17 06:00] VITALS: BMI 36.4
[2024-12-17] MEDS: SYNTHROID 25 MCG PO (06:29)
[2024-12-17] MEDS: ROXICODONE 5 MG PO ×3 (06:29→19:40)
[2024-12-17] MEDS: ANCEF 10 IV ×3 (06:29→22:44)
[2024-12-17 07:10] VITALS: BP 130/73
[2024-12-17] MEDS: VITAMIN B1 100 MG PO ×2 (07:43→19:36)
[2024-12-17] MEDS: NSS (PRESERVATIVE FREE) 10 ML IV ×2 (07:43→19:36)
[2024-12-17] MEDS: FOLVITE 1 MG PO (07:43)
[2024-12-17] MEDS: CYKLOKAPRON 1300 MG PO ×3 (07:43→22:44)
[2024-12-17] MEDS: CLARITIN 10 MG PO (07:43)
[2024-12-17] MEDS: NEURONTIN 100 MG PO ×2 (07:43→19:35)
[2024-12-17] MEDS: DUPHALAC/CHRONULAC 20 GRAMS PO ×2 (07:43→19:36)
[2024-12-17] MEDS: PROTONIX IV 40 MG IV ×2 (07:44→19:36)
[2024-12-17] MEDS: QUESTRAN 4 GRAM PO (07:52)
--- NOTE | 2024-12-17 09:47 | W.PN.UPDATE ---
Update Note
Progress Note Update
Sulaiman is 9 days status post a left revision total knee arthroplasty. He has continued with IV antibiotics. Several days ago, he was noted to have significant drainage about the incision of his left knee and moderate swelling about the left lower
extremity. Reports his pain is relatively well-controlled, it seems as though his ankle swelling is the most inhibitive when ambulating. His dressing was taken down and replaced yesterday. Today his swelling does look mildly improved in
comparison to yesterday. He continues to complain of the discomfort in his ankle from the swelling. He did receive a PRBC and platelet transfusion yesterday.
Louis wrap over left knee removed to reveal minimal drainage on the ABDs. Sites of active drainage yesterday scabbed over, no active drainage today. Swelling of knee mildly improved. The incision was swabbed with Betadine and several clean ABDs and
an Louis wrap were reapplied to the left knee. Will continue to monitor this going forward.
Repeat sed rate 54 mm/HR (down from 73)
C-reactive protein 58.40 (up from 53.20).
Hgb up to 8.2 today.
Will continue to monitor his left knee dressings and trend ESR/CRP. May replace louis and abds as needed. Will repeat inflammatory markers tomorrow and continue to update with recommendations.
--- NOTE | 2024-12-17 11:55 | W.PN.HOSP.TC ---
Today's Communication/Plan
-
see A/P
Assessment / Plan
Assessment / Plan
A/P:
# Left knee prosthetic joint infection
# Septic arthritis
Fluid eval: WBC [id number], PMN 79.1, no crystals
Joint fluid and blood cultures growing MSSA
Status post OR with Ortho for left knee prosthesis explant and spacer placement 12/06, tolerated procedure well
ID recommend continuing antibiotic treatment with Ancef 2 g IV every 8 hours x 6 weeks from prosthetic knee explant (through 01/17/2025)
Continue pain medication regimen, off OxyContin, cont Oxycodone PRN, added gabapentin for neuropathic pain and adjusted to 100 mg BID
Eventual DC to SNF
# MSSA bacteremia
blood cs showing MSSA. Repeat blood cs neg from 12/01
Plan as above
# Acute blood loss anemia likely 2/2 acute bleeding of L knee arthroplasty, exacerbated by decompensated liver failure/cirrhosis, esophagitis
# Chronic normocytic anemia
Abd US actually showed Normal directional blood flow in the hepatic and portal veins.
s/p 3 units PRBC and 2 units platelet
Hgb today at 8.2
Monitor Hgb and platelet counts
Cont tranexamic acid which was started by ortho
d/w Ortho Dr Jensen, would be difficult to salvage leg if he continues to ooze blood. Pt may need removal of hardware resulting in non-functional leg or even amputation if his bleeding is not controlled- plan to be determined.
of note, s/p EGD 12/13, noted esophagitis with no bleeding. Portal hypertensive gastropathy.
Protonix 40mg BID x4 weeks, then daily afterwards per GI. Follow pathology results in 2 weeks with GI. No need for C scope per GI
Recc to follow with GI/hepatology for liver transplant eval outpt.
Of note, iron panel suggest ACD; B12 and folate WNL
# Alcohol use disorder
discontinue further msas/ativan, out of withdrawal window.
Maintain champagne/thiamine
# Decompensated liver failure/cirrhosis 2/ alcohol abuse
# Elevated total bilirubin -direct dominant
# Coagulopathy - improved
# Thrombocytopenia
# Transaminitis
Improved mental status, now back to baseline AOX3, hemodynamically stable
US abdomen showed cirrhosis and Normal directional blood flow in the hepatic and portal veins.
No reported ascites on previous US
no indication for steroids for alcoholic hepatitis based on DF
s/p Vitamin K 10 mg several doses, I see no harm in continuing vitamin K in setting of coagulopathy, start standing dose vitamine K 5 mg x5 days. (pharmacist) informed.
Cont oral lactulose BID to titrate to 2-3 soft stools per day
s/p IR paracentesis 12/14, removed 2350 cc of clear yellow ascitic fluid. Ascitic fluid without SBP
# CLEVE, resolved
Cr 1.3 -> 0.8 today
# Acute metabolic encephalopathy, resolved
Monitor for hepatic encephalopathy versus alcohol withdrawal
Lactulose to titrate 2-3 soft stools per day
# Hyponatremia from ESLD.
# Hypokalemia
Replace prn
DVT proph-SCDs
Full Code
DW at bedside
Anticipated Discharge: > 48 hours
Subjective/Interval History
-
Date of Service: December 17, 2024
Objective Data
-
Labs:
Laboratory Results
12/17/24
03:59
WBC 13.7 H
Hgb 8.2 L
Hct 22.7 L
Plt Count 90 L
PT 21.4 H
INR 1.83
Sodium 127 L
Potassium 4.0
Chloride 96 L
Carbon Dioxide 22
BUN 18
Creatinine 0.8
Glucose 139 H
Calcium 7.4 L
Total Bilirubin 9.2 H
AST 198 H
ALT 21
Alkaline Phosphatase 164 H
Vital Signs:
Vital Signs
Temp Pulse Resp BP Pulse Ox
36.6 C 108 16 130/73 98
12/17/24 07:10 12/17/24 07:10 12/17/24 07:10 12/17/24 07:10 12/17/24 07:10
I&O
12/16/24 12/17/24 12/18/24
06:59 06:59 06:59
Intake Total 1380 / 1380 3360 / 3360
Balance 1380 / 1380 3360 / 3360
Review of Systems
-
All other systems: Reviewed and negative
Physical Exam
-
General: Well Developed, Well Nourished, No Apparent Distress, Comfortable and Appears Chronically Ill
HEENT: Normocephalic and Atraumatic
Respiratory: Clear to Auscultation and Non Labored Respirations; Negative Accessory Resp Muscle Use
Cardiac: Regular Rhythm and S1/S2
GI: Soft and Nontender
Musculoskeletal: Other (L knee bleeding resolving )
Skin: Jaundice
Psych: Calm and Intact Judgement/Insight
Data Reviewed
-
Labs: Labs Reviewed by me
[2024-12-17] MEDS: MEPHYTON 5 MG PO (13:33)
[2024-12-17 19:34] VITALS: BP 148/77
[2024-12-17] MEDS: ROXICODONE 10 MG PO (22:44)
[2024-12-18] MEDS: SYNTHROID 25 MCG PO (04:48)
[2024-12-18] MEDS: ANCEF 10 IV ×3 (04:48→21:39)
[2024-12-18 05:16] VITALS: BMI 36.6
[2024-12-18 05:38] LABS: INR 1.78; PT 20.9 Sec (11.4-14.6)
[2024-12-18 05:44] LABS: % Basophils 0.3 % (0-2); % Eosinophils 2.5 % (0-6); % Immature Granulocytes 0.8 % (0-0.5); % Lymphocytes 5.8 % (20.5-51.1); % Monocytes 7.3 % (1.7-9.3); % Neutrophils 83.3 % (42.2-75.2); Absolute Eosinophils 0.4 10^3/uL (0-0.7); Absolute Immature Granulocytes 0.1 10^3/uL (0-0.05); Absolute Lymphocytes 0.8 10^3/uL (1.2-3.4); Absolute Monocytes 1.1 10^3/uL (0.1-0.6); Absolute Neutrophils 12.2 10^3/uL (1.4-6.5); Hematocrit 24.4 % (39.0-52.0); Hemoglobin 8.7 g/dL (13.0-18.0); Mean Corp Hgb Conc. 35.7 g/dL (33.0-37.0); Mean Corpuscular Hgb 33.2 pg (27.0-31.0); Mean Corpuscular Volume 93.1 fL (80.0-94.0); Mean Platelet Volume 10.6 fL (7.4-10.4); Nucleated Red Blood Cells % 0 % (-); Platelet Count 104 10^3/uL (130-400); Red Blood Cell Count 2.62 10^6/uL (4.70-6.10); Red Cell Dist. Width 18.6 % (11.5-14.5); White Blood Cell Count 14.6 10^3/uL (4.8-10.8)
[2024-12-18 05:56] LABS: Erythrocyte Sed Rate 67 mm/hour (0-20)
[2024-12-18 05:58] LABS: ALT (SGPT) 24 U/L (0-50); AST (SGOT) 243 U/L (17-59); Albumin 2.3 g/dl (3.5-5.0); Alkaline Phosphatase 181 U/L (38-126); Blood Urea Nitrogen 20 mg/dl (9-20); Calcium 7.9 mg/dl (8.4-10.2); Carbon Dioxide 23 mmol/L (22-30); Chloride 96 mmol/L (98-107); Direct Bilirubin 5.4 mg/dl (0.0-0.4); Estimated Creatinine Clearance > 125 ml/min; Glucose 135 mg/dl (70-99); Potassium 4.1 mmol/L (3.5-5.1); Sodium 127 mmol/L (135-145); Total Bilirubin 9.3 mg/dl (0.2-1.3); Total Protein 5.5 g/dl (6.3-8.2); eGFR > 60.00
[2024-12-18 07:10] VITALS: BP 139/78
[2024-12-18] MEDS: VITAMIN B1 100 MG PO ×2 (08:27→20:25)
[2024-12-18] MEDS: DUPHALAC/CHRONULAC 20 GRAMS PO ×2 (08:27→20:25)
[2024-12-18] MEDS: CLARITIN 10 MG PO (08:27)
[2024-12-18] MEDS: FOLVITE 1 MG PO (08:27)
[2024-12-18] MEDS: CYKLOKAPRON 1300 MG PO (08:27)
[2024-12-18] MEDS: NEURONTIN 100 MG PO ×2 (08:27→20:25)
[2024-12-18] MEDS: LEXAPRO 5 MG PO (08:27)
[2024-12-18] MEDS: QUESTRAN 4 GRAM PO (08:28)
[2024-12-18] MEDS: MEPHYTON 5 MG PO (08:28)
[2024-12-18] MEDS: PROTONIX IV 40 MG IV ×2 (08:29→20:26)
[2024-12-18] MEDS: NSS (PRESERVATIVE FREE) 10 ML IV ×2 (08:30→20:26)
[2024-12-18] MEDS: ROXICODONE 5 MG PO ×3 (08:36→20:25)
--- NOTE | 2024-12-18 08:53 | W.PN.UPDATE ---
Update Note
Progress Note Update
Patient is 10 days status post a left revision total knee arthroplasty. He has continued with IV antibiotics. Several days ago, he was noted to have significant drainage about the incision of his left knee and moderate swelling about the left
lower extremity. Reports his pain is relatively well-controlled. His dressing was taken down this AM, and the incision is dry. Today his swelling does look mildly improved in comparison to yesterday. His ankle pain has improved. He did receive
a PRBC and platelet transfusion Nov. Hgb this AM is 8.7
Louis wrap and ABDs over the knee removed and incision is without drainage. Sites have scabbed over, no active drainage today. Swelling of knee mildly improved. Louis and ABDs left in place. Will continue to monitor this going forward.
ESR 67, up from 54 on Nov
CRP 61.6, up from 58.4 on Nov
Will continue to monitor his left knee dressings and trend ESR/CRP. May replace louis and ABDs as needed. Repeat ESR/CRP entered for tomorrow AM. Continue Tx per the primary team for now
--- NOTE | 2024-12-18 13:27 | W.PN.ID1 ---
Date of Service
Date of Service: December 18, 2024
Today's Communication
Continue antibiotics per
Assessment / Plan
# Complicated S. aureus (MSSA) bacteremia (5 sets, collected same day 11/28/24)
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 12/06 s/p left prosthetic knee removal with placement of antibiotic impregnated cement.
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
# Leukocytosis - suspect reactive
- 12/01 Repeat blood cx's x2 neg
-TTE no significant valvular disease.
- -Continue cefazolin 2g IV q8h x 6 weeks from prosthetic knee explant; through 01/17/25.
- Infusion sheet submitted to case management on 12/05 and 12/15.
# Alcohol cirrhosis with ascites
- 12/15 s/p paracentesis 2.3L
Cell count : 30 WBC's, cx : NG
# pruritus due to hyperbilirubinemia.
-Continue cholestyramine.
#Additional Past Medical History:
Hypertension
Hypothyroidism
alcohol abuse
cirrhosis
Left total knee replacement
Chief Complaint
-: Bacteremia and Other (Septic PJI)
Subjective / Review of Systems
Review of Systems: No Fever and No Chills
Vital Signs / Physical Exam
Vital Signs
Vital Signs
Temp Pulse Resp BP Pulse Ox
98.5 F 98 16 139/78 97
12/18/24 07:10 12/18/24 07:10 12/18/24 07:10 12/18/24 07:10 12/18/24 07:10
Physical Exam
Constitutional: No Acute Distress and Comfortable
Eyes: Other (sclera icterus)
Cardiovascular: Regular Rate and S1/S2; Negative S3/S4
Pulmonary: Clear
Gastrointestinal: Soft, Non Tender, Distended (mild) and Normal Bowel Sounds
Genito-Urinary: Negative CVA Tenderness
Extremities: Edema (LLE 3+ DRAGAN wrap in place to left knee)
Skin: Jaundice
Wound: Other (left knee dressing mild-mod bloody strikethrough)
Neurological: AO x 3
Lines: PICC (RUE no erythema)
Objective Data
Lab Data
Lab Results
12/18/24 05:14
12/18/24 05:14
ESR Cancelled 12/18/24 08:57
PT 20.9 Sec (11.4-14.6) H 12/18/24 05:14
INR 1.78 12/18/24 05:14
Estimated Creat Clear > 125 ml/min 12/18/24 05:14
Lactic Acid 1.6 mmol/L (0.7-2.0) 11/28/24 17:15
Total Bilirubin 9.3 mg/dl (0.2-1.3) H 12/18/24 05:14
GGT 546 U/L (15-73) H 11/28/24 22:25
AST 243 U/L (17-59) H 12/18/24 05:14
ALT 24 U/L (0-50) 12/18/24 05:14
Alkaline Phosphatase 181 U/L (38-126) H 12/18/24 05:14
C-Reactive Protein Cancelled 12/18/24 08:57
Most recent labs reviewed.
Micro Results:
12/15/24 11:33 Body Fluid Culture - Final
Peritoneal Fluid No Growth After 72 Hours
Gram Stain - Final
12/13/24 08:46 NATHANAEL Preparation - Final
Esophagus NATHANAEL Prep Negative for Fungus
12/06/24 13:51 Tissue Culture - Final
Knee - Left S aureus-Methicillin Sensitive
Gram Stain - Final
12/06/24 13:49 Tissue Culture - Final
Knee - Left NO GROWTH
Gram Stain - Final
12/01/24 07:23 Blood Culture - Final
Blood/Venous No Growth - Final Report
12/01/24 08:00 Blood Culture - Final
Blood/Venous No Growth - Final Report
11/28/24 22:25 Blood Culture - Final
Blood/Venous S aureus-Methicillin Sensitive
Gram Stain - Final
11/28/24 22:25 Blood Culture - Final
Blood/Venous S aureus-Methicillin Sensitive
Gram Stain - Final
11/28/24 15:53 Blood Culture - Final
Blood/Venous S aureus-Methicillin Sensitive
Gram Stain - Final
11/28/24 12:51 Blood Culture - Final
Blood/Venous S aureus-Methicillin Sensitive
Gram Stain - Final
11/28/24 15:53 Blood Culture - Final
Blood/Venous S aureus-Methicillin Sensitive
Gram Stain - Final
11/28/24 23:21 Urine Culture - Final
Urine NO GROWTH
11/28/24 15:54 Body Fluid Culture - Final
Joint Fluid S aureus-Methicillin Sensitive
Gram Stain - Final
Fluid Cult/not urine Final 11/28/24
Many S aureus-Methicillin Sensitive
1. S aureus - Methicillin Sensitive
M.I.C. RX
--------- ---
Amoxicillin/Potas. Clavulanate <=4/2 S
Ampicillin <=2 R
Clindamycin <=0.5 S
Gentamicin <=4 S
Erythromycin <=0.5 S
Levofloxacin <=1 S
Oxacillin <=0.25 S
Tetracycline <=4 S
Trimethoprim/Sulfamethoxazole <=0.5/9.5 S
Vancomycin 1 S
11/28/24 Abd US: Mild nodular surface of the liver which could represent cirrhotic morphology and overall diffuse increased hepatic echogenicity suggesting diffuse fatty infiltration. Normal directional blood flow in the hepatic and portal veins.
Gallstones and gallbladder sludge. No gallbladder wall thickening or pericholecystic fluid. Negative sonographic Ferguson's sign. No findings to suggest biliary tract dilatation.
11/28/24 Knee XRAY: Left knee replacement. No evidence of complication. Small suprapatellar joint effusion.
[2024-12-18 13:30] VITALS: BP 139/80; BP_SYST 96
[2024-12-18 13:35] VITALS: BP 139/80; BP_SYST 95
--- NOTE | 2024-12-18 13:36 | W.PN.HOSP.TC ---
Today's Communication/Plan
-
Assessment / Plan
Assessment / Plan
Gen-AAOx3, NAD
HEENT-NC, AT, significant scleral icterus, clear oral mm
Neck-supple
CV-reg, no M, +S1/S2
Lungs-clear B/L
Abd-nontender, significantly distended
Musculoskeletal-left lower extremity swelling, Louis wrap in place
Skin-warm and dry, icteric
Neuro-grossly non-focal
Psych-calm, cooperative
A/P:
# Left knee prosthetic joint infection
# Septic arthritis
Fluid eval: WBC 909931, PMN 79.1, no crystals
Joint fluid and blood cultures growing MSSA
Status post OR with Ortho for left knee prosthesis explant and spacer placement 12/06, tolerated procedure well
ID recommend continuing antibiotic treatment with Ancef 2 g IV every 8 hours x 6 weeks from prosthetic knee explant (through 01/17/2025)
Continue pain medication regimen, off OxyContin, cont Oxycodone PRN, added gabapentin for neuropathic pain and adjusted to 100 mg BID
Eventual DC to SNF
# MSSA bacteremia
blood cs showing MSSA. Repeat blood cs neg from 12/01
Plan as above
# Acute blood loss anemia likely 2/2 acute bleeding of L knee arthroplasty, exacerbated by decompensated liver failure/cirrhosis, esophagitis
# Chronic normocytic anemia
Abd US actually showed Normal directional blood flow in the hepatic and portal veins.
s/p 3 units PRBC and 2 units platelet
Hgb today at 8.7
Monitor Hgb and platelet counts
Will put TXA on hold for now and monitor closely for rebleeding, last dose 12/18/2024 at 8:27 AM
d/w Ortho Dr Jensen, would be difficult to salvage leg if he continues to ooze blood. Pt may need removal of hardware resulting in non-functional leg or even amputation if his bleeding is not controlled- plan to be determined.
of note, s/p EGD 2/19, noted esophagitis with no bleeding. Portal hypertensive gastropathy.
Protonix 40mg BID x4 weeks, then daily afterwards per GI. Follow pathology results in 2 weeks with GI. No need for C scope per GI
Recc to follow with GI/hepatology for liver transplant eval outpt.
Of note, iron panel suggest ACD; B12 and folate WNL
# Alcohol use disorder
discontinue further msas/ativan, out of withdrawal window.
Maintain champagne/thiamine
# Decompensated liver failure/cirrhosis / alcohol abuse
# Elevated total bilirubin -direct dominant
# Coagulopathy - improved
# Thrombocytopenia
# Transaminitis
Improved mental status, now back to baseline AOX3, hemodynamically stable
US abdomen showed cirrhosis and Normal directional blood flow in the hepatic and portal veins.
no indication for steroids for alcoholic hepatitis based on DF
s/p Vitamin K 10 mg several doses, I see no harm in continuing vitamin K in setting of coagulopathy, start standing dose vitamine K 5 mg x5 days. (pharmacist) informed.
Cont oral lactulose BID to titrate to 2-3 soft stools per day
s/p IR paracentesis 12/14, removed 2350 cc of clear yellow ascitic fluid. Ascitic fluid without SBP, now with recurrent ascites, IR consult for possible repeat paracentesis
# CLEVE, resolved
Cr 1.3 -> 0.8 today
# Acute metabolic encephalopathy, resolved
Monitor for hepatic encephalopathy versus alcohol withdrawal
Lactulose to titrate 2-3 soft stools per day
# Hyponatremia from ESLD, stable.
# Hypokalemia
Replace prn
DVT proph-SCDs
Full Code
Anticipated Discharge: > 48 hours
Subjective/Interval History
-
Date of Service: December 18, 2024
Patient was seen and examined at bedside this morning. She does not reports improvement in his left leg swelling. Remains on tranexamic acid for recent bleeding. Hemoglobin remained stable today. He does report recurrence of his abdominal
distention with associated discomfort.
Objective Data
-
Labs:
Laboratory Results
12/18/24
05:14
WBC 14.6 H
Hgb 8.7 L
Hct 24.4 L
Plt Count 104 L
PT 20.9 H
INR 1.78
Sodium 127 L
Potassium 4.1
Chloride 96 L
Carbon Dioxide 23
BUN 20
Creatinine 0.8
Glucose 135 H
Calcium 7.9 L
Total Bilirubin 9.3 H
AST 243 H
ALT 24
Alkaline Phosphatase 181 H
Vital Signs:
Vital Signs
Temp Pulse Resp BP Pulse Ox
98.5 F 98 16 139/78 97
12/18/24 07:10 12/18/24 07:10 12/18/24 07:10 12/18/24 07:10 12/18/24 07:10
I&O
12/17/24 12/18/24 12/19/24
06:59 06:59 06:59
Intake Total 3360 / 3360 150 / 150
Balance 3360 / 3360 150 / 150
Review of Systems
-
History Source: Patient
All other systems: Reviewed and negative
Abdomen/GI: Reports Other (Abdominal distention)
Musculoskeletal: Reports Joint Swelling (Left leg swelling)
Physical Exam
-
General: No Apparent Distress
--- NOTE | 2024-12-18 15:01 | CM ---
Chart reviewed and met with pt
Parerethisis today
Remains on IV antibiotics
SNF when medically ready - [facility] accepted, auth obtained
Plan - anticipate SNF when medically ready
[2024-12-18 15:30] VITALS: BP 140/67
[2024-12-18 22:46] VITALS: BP 140/70
[2024-12-19 06:00] VITALS: BMI 35.4
[2024-12-19] MEDS: SYNTHROID 25 MCG PO (06:03)
[2024-12-19] MEDS: ANCEF 10 IV ×3 (06:03→22:33)
[2024-12-19 07:03] VITALS: BP 126/71
--- NOTE | 2024-12-19 07:20 | W.PN.UPDATE ---
Update Note
Progress Note Update
59-year-old male s/p left revision total knee arthroplasty 12/06/[address] Jensen. He has continued with IV antibiotics. Several days ago, he was noted to have significant drainage about the incision of his left knee and moderate swelling about
the left lower extremity. Reports his pain is relatively well-controlled. His dressing was taken down this AM, and the incision is dry with miguel intact. He did receive a PRBC and platelet transfusion Nov. Hgb this AM is pending. Hgb
yesterday 8.7.
DRAGAN wrap and ABDs over the knee removed and incision is without drainage. Sites have scabbed over, no active drainage today. Swelling of knee mildly improved. DRAGAN and ABD's changed.
ESR 67, up from 54 on Nov.
CRP 61.6, up from 58.4 on Nov.
Will continue to monitor his left knee dressings and trend ESR/CRP. May replace DRAGAN and ABDs as needed. Continue Tx per the primary team for now.
--- NOTE | 2024-12-19 07:44 | W.PN.UPDATE ---
Update Note
Progress Note Update
Pt seen and examined. Sat down and had 20 min convo regarding his knee. On the positive his incision is now bone dry, there is not a drop of drainage. there's a tiny bit of redness around each staple but this is commonplace and not indicative
of infection. he is walking and has little pain in the knee. All excellent signs about progression of the PJI treatment. On the negative his inflam labs are creeping up with each successive assessment. Not sure if this is from the knee
(clinically it doesn't look like it) or some other issue like peritoneal fluid or overall disease burden. For now no plan for repeat surgery on the knee as the only options are dismal for him. What's the plan detention for his cirrhosis?
[2024-12-19 08:08] LABS: % Basophils 0.3 % (0-2); % Eosinophils 3.2 % (0-6); % Immature Granulocytes 0.8 % (0-0.5); % Lymphocytes 6.8 % (20.5-51.1); % Monocytes 7.6 % (1.7-9.3); % Neutrophils 81.3 % (42.2-75.2); Absolute Eosinophils 0.4 10^3/uL (0-0.7); Absolute Immature Granulocytes 0.1 10^3/uL (0-0.05); Absolute Lymphocytes 0.9 10^3/uL (1.2-3.4); Absolute Neutrophils 10.8 10^3/uL (1.4-6.5); Hematocrit 25.1 % (39.0-52.0); Hemoglobin 8.6 g/dL (13.0-18.0); Mean Corp Hgb Conc. 34.3 g/dL (33.0-37.0); Mean Corpuscular Hgb 33.1 pg (27.0-31.0); Mean Corpuscular Volume 96.5 fL (80.0-94.0); Mean Platelet Volume 10.3 fL (7.4-10.4); Nucleated Red Blood Cells % 0 % (-); Platelet Count 99 10^3/uL (130-400); Red Cell Dist. Width 18.6 % (11.5-14.5); White Blood Cell Count 13.3 10^3/uL (4.8-10.8)
[2024-12-19] MEDS: DUPHALAC/CHRONULAC 20 GRAMS PO ×2 (08:18→19:39)
[2024-12-19] MEDS: MEPHYTON 5 MG PO (08:18)
[2024-12-19] MEDS: VITAMIN B1 100 MG PO ×2 (08:18→19:39)
[2024-12-19] MEDS: NEURONTIN 100 MG PO ×2 (08:18→19:39)
[2024-12-19] MEDS: LEXAPRO 5 MG PO (08:19)
[2024-12-19] MEDS: CLARITIN 10 MG PO (08:19)
[2024-12-19] MEDS: FOLVITE 1 MG PO (08:19)
[2024-12-19] MEDS: QUESTRAN 4 GRAM PO (08:19)
[2024-12-19] MEDS: FLUSH (NSS) 2 FLUSH IV ×2 (08:20→13:16)
[2024-12-19] MEDS: PROTONIX IV 40 MG IV ×2 (08:20→19:40)
[2024-12-19] MEDS: NSS (PRESERVATIVE FREE) 10 ML IV ×2 (08:20→19:40)
[2024-12-19] MEDS: ROXICODONE 5 MG PO ×2 (08:22→19:49)
--- NOTE | 2024-12-19 11:37 | W.PN.UPDATE ---
Update Note
Progress Note Update
asked to see as patient still with questions about follow up. Pt is scheduled 01/03 in GI office with Michelle Resendiz at 11:30 AM. Would continue Lactulose 20mg BID and PPI daily on discharge. Also sent tiger text message to hospitalist with 2 recent
taps would consider adding Aldactone 50mg and Lasix 20mg daily. . Return to ER if repeat para needed. I also discussed follow up with hepatology and added Dr. Panchal contact to discharge. Alll questions answered. Call with any other question or
problems.
[2024-12-19] MEDS: LASIX 20 MG PO (12:12)
[2024-12-19] MEDS: ALDACTONE 12.5 MG PO (12:13)
[2024-12-19 13:45] VITALS: BP 159/71; PULSE 102; O2SAT 99
--- NOTE | 2024-12-19 14:23 | W.PN.ID1 ---
Date of Service
Date of Service: December 19, 2024
Today's Communication
Continue cefazolin 2g IV q8h x 6 weeks from prosthetic knee explant; through 01/17/25, followed by chronic suppression with cephalexin 500mg bid.
Assessment / Plan
# Complicated S. aureus (MSSA) bacteremia (5 sets, collected same day 11/28/24)
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 12/06 s/p left prosthetic knee removal with placement of antibiotic impregnated cement.
# s/p Left knee hemarthrosis with blood loss anemia, controlled
# Leukocytosis - suspect reactive
- 12/01 Repeat blood cx's x2 neg
-TTE no significant valvular disease.
- Continue cefazolin 2g IV q8h x 6 weeks from prosthetic knee explant; through 01/17/25, followed by chronic suppression with cephalexin 500mg bid.
- Infusion sheet submitted to case management on 12/05 and 12/15.
# Alcohol cirrhosis with ascites
- 12/15 s/p paracentesis 2.3L
Cell count : 30 WBC's, cx : NEG
# pruritus due to hyperbilirubinemia.
-Continue cholestyramine.
#Additional Past Medical History:
Hypertension
Hypothyroidism
alcohol abuse
cirrhosis
Left total knee replacement
Chief Complaint
-: Bacteremia and Other (Septic PJI)
Subjective / Review of Systems
Feels better. Left leg less swollen.
Vital Signs / Physical Exam
Vital Signs
Vital Signs
Temp Pulse Resp BP Pulse Ox
98.3 F 96 16 126/71 98
12/19/24 07:03 12/19/24 07:03 12/19/24 07:03 12/19/24 07:03 12/19/24 07:03
Physical Exam
Constitutional: No Acute Distress and Comfortable
Eyes: Other (sclera icterus)
Pulmonary: Clear
Gastrointestinal: Soft, Non Tender, Non Distended and Normal Bowel Sounds
Genito-Urinary: Negative CVA Tenderness
Extremities: Edema (LLE)
Musculoskeletal: Other (left knee dressing dry)
Neurological: AO x 3
Lines: PICC (RUE no erythema)
Objective Data
Lab Data
Lab Results
12/19/24 07:26
12/18/24 05:14
ESR Cancelled 12/18/24 08:57
PT 20.9 Sec (11.4-14.6) H 12/18/24 05:14
INR 1.78 12/18/24 05:14
Estimated Creat Clear > 125 ml/min 12/18/24 05:14
Lactic Acid 1.6 mmol/L (0.7-2.0) 11/28/24 17:15
Total Bilirubin 9.3 mg/dl (0.2-1.3) H 12/18/24 05:14
GGT 546 U/L (15-73) H 11/28/24 22:25
AST 243 U/L (17-59) H 12/18/24 05:14
ALT 24 U/L (0-50) 12/18/24 05:14
Alkaline Phosphatase 181 U/L (38-126) H 12/18/24 05:14
C-Reactive Protein Cancelled 12/18/24 08:57
Most recent labs reviewed.
Micro Results:
12/15/24 11:33 Body Fluid Culture - Final
Peritoneal Fluid No Growth After 72 Hours
Gram Stain - Final
12/13/24 08:46 NATHANAEL Preparation - Final
Esophagus NATHANAEL Prep Negative for Fungus
12/06/24 13:51 Tissue Culture - Final
Knee - Left S aureus-Methicillin Sensitive
Gram Stain - Final
12/06/24 13:49 Tissue Culture - Final
Knee - Left NO GROWTH
Gram Stain - Final
12/01/24 07:23 Blood Culture - Final
Blood/Venous No Growth - Final Report
12/01/24 08:00 Blood Culture - Final
Blood/Venous No Growth - Final Report
11/28/24 22:25 Blood Culture - Final
Blood/Venous S aureus-Methicillin Sensitive
Gram Stain - Final
11/28/24 22:25 Blood Culture - Final
Blood/Venous S aureus-Methicillin Sensitive
Gram Stain - Final
11/28/24 15:53 Blood Culture - Final
Blood/Venous S aureus-Methicillin Sensitive
Gram Stain - Final
11/28/24 12:51 Blood Culture - Final
Blood/Venous S aureus-Methicillin Sensitive
Gram Stain - Final
11/28/24 15:53 Blood Culture - Final
Blood/Venous S aureus-Methicillin Sensitive
Gram Stain - Final
11/28/24 23:21 Urine Culture - Final
Urine NO GROWTH
11/28/24 15:54 Body Fluid Culture - Final
Joint Fluid S aureus-Methicillin Sensitive
Gram Stain - Final
Fluid Cult/not urine Final 11/28/24
Many S aureus-Methicillin Sensitive
1. S aureus - Methicillin Sensitive
M.I.C. RX
--------- ---
Amoxicillin/Potas. Clavulanate <=4/2 S
Ampicillin <=2 R
Clindamycin <=0.5 S
Gentamicin <=4 S
Erythromycin <=0.5 S
Levofloxacin <=1 S
Oxacillin <=0.25 S
Tetracycline <=4 S
Trimethoprim/Sulfamethoxazole <=0.5/9.5 S
Vancomycin 1 S
11/28/24 Abd US: Mild nodular surface of the liver which could represent cirrhotic morphology and overall diffuse increased hepatic echogenicity suggesting diffuse fatty infiltration. Normal directional blood flow in the hepatic and portal veins.
Gallstones and gallbladder sludge. No gallbladder wall thickening or pericholecystic fluid. Negative sonographic Ferguson's sign. No findings to suggest biliary tract dilatation.
11/28/24 Knee XRAY: Left knee replacement. No evidence of complication. Small suprapatellar joint effusion.
--- NOTE | 2024-12-19 14:25 | CM ---
Addendum entered by Padmaja Huang 12/19/24 15:39:
Pt updated of current d/c plan.
Original Note:
Chart reviewed and met with pt
Medically ready for d/c
[facility] does not have bed today; requested call in AM for bed availability
Physician made aware
Plan - snf when bed available
--- NOTE | 2024-12-19 14:54 | W.PN.HOSP.TC ---
Today's Communication/Plan
-
Assessment / Plan
Assessment / Plan
Gen-AAOx3, NAD
HEENT-NC, AT, significant scleral icterus, clear oral mm
Neck-supple
CV-reg, no M, +S1/S2
Lungs-clear B/L
Abd-nontender, soft, distended
Musculoskeletal-left lower extremity swelling, Louis wrap in place
Skin-warm and dry, icteric
Neuro-grossly non-focal
Psych-calm, cooperative
A/P:
# Left knee prosthetic joint infection
# Septic arthritis
Fluid eval: WBC [id number], PMN 79.1, no crystals
Joint fluid and blood cultures growing MSSA
Status post OR with Ortho for left knee prosthesis explant and spacer placement 12/06, tolerated procedure well
ID recommend continuing antibiotic treatment with Ancef 2 g IV every 8 hours x 6 weeks from prosthetic knee explant (through 01/17/2025)
Continue pain medication regimen, off OxyContin, cont Oxycodone PRN, added gabapentin for neuropathic pain and adjusted to 100 mg BID
Medically stable for discharge to SNF
# MSSA bacteremia
blood cs showing MSSA. Repeat blood cs neg from 12/01
Plan as above
# Acute blood loss anemia likely 2/2 acute bleeding of L knee arthroplasty, exacerbated by decompensated liver failure/cirrhosis, esophagitis
# Chronic normocytic anemia
-Abd US actually showed Normal directional blood flow in the hepatic and portal veins.
-s/p 3 units PRBC and 2 units platelet
-Hgb today at 8.6, monitor Hgb and platelet counts
-Holding TXA, will monitor for rebleeding, last dose 12/18/2024 at 8:27 AM
-of note, s/p EGD 12/13, noted esophagitis with no bleeding. Portal hypertensive gastropathy.
-Protonix 40mg BID x4 weeks, then daily afterwards per GI. Follow pathology results in 2 weeks with GI. No need for C scope per GI
-Recc to follow with GI/hepatology for liver transplant eval outpt.
# Alcohol use disorder
discontinue further msas/ativan, out of withdrawal window.
Maintain champagne/thiamine
# Decompensated liver failure/cirrhosis 2/2 alcohol abuse
# Elevated total bilirubin -direct dominant
# Coagulopathy - improved
# Thrombocytopenia
# Transaminitis
-Improved mental status, now back to baseline AOX3, hemodynamically stable
-US abdomen showed cirrhosis and Normal directional blood flow in the hepatic and portal veins.
-no indication for steroids for alcoholic hepatitis based on DF
-s/p Vitamin K 10 mg several doses, continuing vitamin K in setting of coagulopathy, start standing dose vitamine K 5 mg x5 days. (pharmacist) informed.
-Cont oral lactulose BID to titrate to 2-3 soft stools per day
-s/p IR paracentesis 12/14 with 2350 cc of clear yellow ascitic fluid removed, repeat paracentesis 12/18 with 3.8 L removed
-Started on low-dose Lasix and spironolactone per GI recommendations, will need close outpatient follow-up
# CLEVE, resolved
# Acute metabolic encephalopathy, resolved
-Lactulose to titrate 2-3 soft stools per day
# Hyponatremia from ESLD, stable.
# Hypokalemia
Replace prn
DVT proph-SCDs
Full Code
Anticipated Discharge: 24 - 48 hours
Subjective/Interval History
-
Date of Service: December 19, 2024
Patient was seen and examined at bedside this morning. Status post paracentesis yesterday with 3.8 L taken off. Reports significant relief.
Objective Data
-
Labs:
Laboratory Results
12/19/24
07:26
WBC 13.3 H
Hgb 8.6 L
Hct 25.1 L
Plt Count 99 L
Vital Signs:
Vital Signs
Temp Pulse Resp BP Pulse Ox
98.3 F 96 16 126/71 98
12/19/24 07:03 12/19/24 07:03 12/19/24 07:03 12/19/24 07:03 12/19/24 07:03
I&O
12/18/24 12/19/24 12/20/24
06:59 06:59 06:59
Intake Total 150 / 150 780 / 780
Balance 150 / 150 780 / 780
Review of Systems
-
History Source: Patient
All other systems: Reviewed and negative
Musculoskeletal: Reports Edema (Left lower extremity)
Physical Exam
-
General: No Apparent Distress
[2024-12-19 15:07] VITALS: BP 139/71
[2024-12-19 23:00] VITALS: BP 146/74
[2024-12-20 05:40] VITALS: BMI 35.3
[2024-12-20] MEDS: ANCEF 10 IV ×3 (05:42→21:12)
[2024-12-20] MEDS: SYNTHROID 25 MCG PO (05:43)
[2024-12-20] MEDS: ROXICODONE 5 MG PO ×3 (05:52→21:33)
--- NOTE | 2024-12-20 07:09 | W.PN.UPDATE ---
Update Note
Progress Note Update
59-year-old male s/p left revision total knee arthroplasty 12/06/[address] Jensen. He has continued with IV antibiotics, currently IV cefazolin with plan for eventual transition to suppressive Keflex. Several days ago, he was noted to have
significant drainage about the incision of his left knee and moderate swelling about the left lower extremity. Thankfully, his incision is completely dry today, and there is no drainage or bleeding present on his bandage. He did receive a PRBC and
platelet transfusion Nov. Hgb this AM is pending. Hgb yesterday 8.6.
PE: DRAGAN wrap and ABDs present over the knee. These were removed to reveal well approximated surgical incision without signs of drainage or dehiscence. There is mild erythema about each staple, but this is not uncommon. Generalized edema throughout
the left lower extremity. Calf soft and nontender. Neurovascularly intact distally.
ESR 67 24 Feb, up from 54 on Nov.
CRP 61.6 24 b, up from 58.4 on Nov.
Repeat CRP and ESR ordered this morning. Continue to trend.
There is no plan for repeat surgical intervention at this point, especially seeing as the bleeding from his incision has resolved. Martha to remain in place for 4 weeks post-op to avoid any wound dehiscence.
We appreciate the assistance of all teams in care of this patient. Continue treatment.
Orthopedics will continue to follow along.
[2024-12-20 07:15] VITALS: BP 143/75
[2024-12-20 07:22] LABS: % Basophils 0.3 % (0-2); % Eosinophils 3.5 % (0-6); % Immature Granulocytes 0.5 % (0-0.5); % Lymphocytes 6.5 % (20.5-51.1); % Monocytes 8.6 % (1.7-9.3); % Neutrophils 80.6 % (42.2-75.2); Absolute Eosinophils 0.5 10^3/uL (0-0.7); Absolute Immature Granulocytes 0.1 10^3/uL (0-0.05); Absolute Lymphocytes 0.9 10^3/uL (1.2-3.4); Absolute Monocytes 1.2 10^3/uL (0.1-0.6); Hematocrit 23.5 % (39.0-52.0); Hemoglobin 8.5 g/dL (13.0-18.0); Mean Corp Hgb Conc. 36.2 g/dL (33.0-37.0); Mean Corpuscular Hgb 33.9 pg (27.0-31.0); Mean Corpuscular Volume 93.6 fL (80.0-94.0); Mean Platelet Volume 9.9 fL (7.4-10.4); Nucleated Red Blood Cells % 0 % (-); Platelet Count 89 10^3/uL (130-400); Red Blood Cell Count 2.51 10^6/uL (4.70-6.10); Red Cell Dist. Width 17.9 % (11.5-14.5); White Blood Cell Count 13.6 10^3/uL (4.8-10.8)
[2024-12-20] MEDS: NEURONTIN 100 MG PO ×2 (08:42→21:11)
[2024-12-20] MEDS: NSS (PRESERVATIVE FREE) 10 ML IV ×2 (08:42→21:11)
[2024-12-20] MEDS: FOLVITE 1 MG PO (08:42)
[2024-12-20] MEDS: DUPHALAC/CHRONULAC 20 GRAMS PO ×2 (08:42→21:11)
[2024-12-20] MEDS: VITAMIN B1 100 MG PO ×2 (08:42→21:11)
[2024-12-20] MEDS: ALDACTONE 12.5 MG PO (08:42)
[2024-12-20] MEDS: PROTONIX IV 40 MG IV ×2 (08:42→21:11)
[2024-12-20] MEDS: LEXAPRO 5 MG PO (08:42)
[2024-12-20] MEDS: LASIX 20 MG PO (08:42)
[2024-12-20] MEDS: CLARITIN 10 MG PO (08:42)
[2024-12-20] MEDS: QUESTRAN 4 GRAM PO (08:43)
[2024-12-20] MEDS: MEPHYTON 5 MG PO (10:00)
--- NOTE | 2024-12-20 10:45 | CM ---
[facility] - no bed availability today; unsure of tomorrow
Discussed with pt - aware
Will provide pt with SNF list and send referrals when choices obtained
Will need auth
Plan - snf when bed/auth obtained
[2024-12-20 10:55] VITALS: BP 133/70; PULSE 101; O2SAT 99
[2024-12-20 14:17] LABS: Erythrocyte Sed Rate 44 mm/hour (0-20)
--- NOTE | 2024-12-20 14:36 | W.PN.HOSP.TC ---
Today's Communication/Plan
-
Assessment / Plan
Assessment / Plan
Gen-AAOx3, NAD
HEENT-NC, AT, significant scleral icterus, clear oral mm
Neck-supple
CV-reg, no M, +S1/S2
Lungs-clear B/L
Abd-nontender, soft, distended
Musculoskeletal-left lower extremity swelling, Louis wrap in place
Skin-warm and dry, icteric, left knee surgical incisions clean dry intact
Neuro-grossly non-focal
Psych-calm, cooperative
A/P:
# Left knee prosthetic joint infection
# Septic arthritis
Fluid eval: WBC 418390, PMN 79.1, no crystals
Joint fluid and blood cultures growing MSSA
Status post OR with Ortho for left knee prosthesis explant and spacer placement 12/06, tolerated procedure well
ID recommend continuing antibiotic treatment with Ancef 2 g IV every 8 hours x 6 weeks from prosthetic knee explant (through 01/17/2025)
Continue pain medication regimen, off OxyContin, cont Oxycodone PRN, added gabapentin for neuropathic pain and adjusted to 100 mg BID
Medically stable for discharge to SNF
# MSSA bacteremia
blood cs showing MSSA. Repeat blood cs neg from 12/01
Plan as above
# Acute blood loss anemia likely 2/2 acute bleeding of L knee arthroplasty, exacerbated by decompensated liver failure/cirrhosis, esophagitis
# Chronic normocytic anemia
-Abd US actually showed Normal directional blood flow in the hepatic and portal veins.
-s/p 3 units PRBC and 2 units platelet
-Hgb today at 8.5, monitor Hgb and platelet counts
-Holding TXA, will monitor for rebleeding, last dose 12/18/2024 at 8:27 AM
-of note, s/p EGD 12/13, noted esophagitis with no bleeding. Portal hypertensive gastropathy.
-Protonix 40mg BID x4 weeks, then daily afterwards per GI. Follow pathology results in 2 weeks with GI. No need for C scope per GI
-Recc to follow with GI/hepatology for liver transplant eval outpt.
# Alcohol use disorder
discontinue further msas/ativan, out of withdrawal window.
Maintain champagne/thiamine
# Decompensated liver failure/cirrhosis 2/2 alcohol abuse
# Elevated total bilirubin -direct dominant
# Coagulopathy - improved
# Thrombocytopenia
# Transaminitis
-Improved mental status, now back to baseline AOX3, hemodynamically stable
-US abdomen showed cirrhosis and Normal directional blood flow in the hepatic and portal veins.
-no indication for steroids for alcoholic hepatitis based on DF
-s/p Vitamin K 10 mg several doses, continuing vitamin K in setting of coagulopathy, start standing dose vitamine K 5 mg x5 days. (pharmacist) informed.
-Cont oral lactulose BID to titrate to 2-3 soft stools per day
-s/p IR paracentesis 12/14 with 2350 cc of clear yellow ascitic fluid removed, repeat paracentesis 12/18 with 3.8 L removed
-Started on low-dose Lasix and spironolactone per GI recommendations, will need close outpatient follow-up
# CLEVE, resolved
# Acute metabolic encephalopathy, resolved
-Lactulose to titrate 2-3 soft stools per day
# Hyponatremia from ESLD, stable.
# Hypokalemia
Replace prn
DVT proph-SCDs
Full Code
Anticipated Discharge: 24 - 48 hours
Subjective/Interval History
-
Date of Service: December 20, 2024
Patient was seen and examined at bedside this morning. Left leg continues to feel better. His abdomen feels slightly more distended this morning compared to yesterday. He was happy that he was able to speak with GI yesterday and started on Lasix
and spironolactone. Currently awaiting SNF placement.
Objective Data
-
Labs:
Laboratory Results
12/20/24
06:25
WBC 13.6 H
Hgb 8.5 L
Hct 23.5 L
Plt Count 89 L
Vital Signs:
Vital Signs
Temp Pulse Resp BP Pulse Ox
97.8 F 98 16 143/75 97
12/20/24 07:15 12/20/24 07:15 12/20/24 07:15 12/20/24 07:15 12/20/24 07:15
I&O
12/19/24 12/20/24 12/21/24
06:59 06:59 06:59
Intake Total 780 / 780 2039
Balance 780 / 780 2039
Review of Systems
-
History Source: Patient
All other systems: Reviewed and negative
Abdomen/GI: Reports Other (Distention)
Musculoskeletal: Reports Joint Swelling (Mild to moderate left leg pain and)
Physical Exam
-
General: No Apparent Distress
[2024-12-20 15:25] VITALS: BP 127/75
[2024-12-20 23:10] VITALS: BP 149/75
[2024-12-21 05:36] LABS: % Basophils 0.3 % (0-2); % Eosinophils 4.3 % (0-6); % Immature Granulocytes 0.6 % (0-0.5); % Lymphocytes 7.4 % (20.5-51.1); % Monocytes 7.5 % (1.7-9.3); % Neutrophils 79.9 % (42.2-75.2); Absolute Eosinophils 0.5 10^3/uL (0-0.7); Absolute Immature Granulocytes 0.1 10^3/uL (0-0.05); Absolute Lymphocytes 0.9 10^3/uL (1.2-3.4); Absolute Monocytes 0.9 10^3/uL (0.1-0.6); Absolute Neutrophils 9.9 10^3/uL (1.4-6.5); Hematocrit 23.5 % (39.0-52.0); Hemoglobin 8.1 g/dL (13.0-18.0); Mean Corp Hgb Conc. 34.5 g/dL (33.0-37.0); Mean Corpuscular Hgb 32.7 pg (27.0-31.0); Mean Corpuscular Volume 94.8 fL (80.0-94.0); Mean Platelet Volume 10.3 fL (7.4-10.4); Nucleated Red Blood Cells % 0 % (-); Platelet Count 93 10^3/uL (130-400); Red Blood Cell Count 2.48 10^6/uL (4.70-6.10); Red Cell Dist. Width 17.9 % (11.5-14.5); White Blood Cell Count 12.3 10^3/uL (4.8-10.8)
[2024-12-21 06:00] VITALS: BMI 35.6
[2024-12-21] MEDS: ANCEF 10 IV ×3 (06:10→22:56)
[2024-12-21] MEDS: SYNTHROID 25 MCG PO (06:10)
--- NOTE | 2024-12-21 07:26 | W.PN.ORTHO ---
Today's Communication / Plan
-
PT/OT
Weight-bear as tolerated with walker
Mechanical devices for DVT prophylaxis
Observation for now
Skin clip removal 4 weeks postop
Appreciate medical team's help
Assessment
.
Distal Motor Intact: Yes
Dressing:
Clean, dry and intact.
Plan
.
Surgery / Date: Revision L TKA Dec 19 (Camila)
Activity:
Out of bed.
PT/OT
Subjective
.
.:
Patient resting comfortably.
Vital Signs and Labs
.
Vital Signs and Labs:
Lab Results
12/21/24 04:44
12/18/24 05:14
Temp Pulse Resp BP Pulse Ox
98.1 F 99 20 149/75 98
12/20/24 23:10 12/20/24 23:10 12/20/24 23:10 12/20/24 23:10 12/20/24 23:10
PT 20.9 Sec (11.4-14.6) H 12/18/24 05:14
INR 1.78 12/18/24 05:14
--- NOTE | 2024-12-21 07:37 | W.PN.UPDATE ---
Update Note
Progress Note Update
pt w. sign on door requesting dnd. I carefully and quietly opened door and he was sound asleep. Per my personal inspection and that of our office PAs his incision has been perfect past 3 days so I did not wake him up.
he can be d/c from ortho perspective any time. Dexter out at 1 mo postop which is long but given low albumin I want to be cautious on wound and avoiding dehiscence.
vermin exterminator plan for his liver needs to be sorted, prognosis for infection eradication guarded with immunosupression from cirrhosis.
He does not need anticoag from my perspective as he is coagulopathic due to cirrhosis.
Very pleased to see inflam markers have reversed, slightly, their upward trend of the past week.
[2024-12-21 08:14] VITALS: BP 133/75
[2024-12-21] MEDS: DUPHALAC/CHRONULAC 20 GRAMS PO (09:06)
[2024-12-21] MEDS: MEPHYTON 5 MG PO (09:06)
[2024-12-21] MEDS: LASIX 20 MG PO (09:06)
[2024-12-21] MEDS: FOLVITE 1 MG PO (09:07)
[2024-12-21] MEDS: NEURONTIN 100 MG PO ×2 (09:07→19:50)
[2024-12-21] MEDS: VITAMIN B1 100 MG PO ×2 (09:07→19:50)
[2024-12-21] MEDS: CLARITIN 10 MG PO (09:07)
[2024-12-21] MEDS: LEXAPRO 5 MG PO (09:07)
[2024-12-21] MEDS: ALDACTONE 12.5 MG PO (09:07)
[2024-12-21] MEDS: PROTONIX IV 40 MG IV ×2 (09:08→19:50)
[2024-12-21] MEDS: QUESTRAN 4 GRAM PO (09:08)
[2024-12-21] MEDS: NSS (PRESERVATIVE FREE) 10 ML IV ×2 (09:08→19:50)
--- NOTE | 2024-12-21 14:11 | CHAP ---
Fr. Mike Zhong of [facility] in [place] gave Sulaiman the Anointing of the Sick.
--- NOTE | 2024-12-21 15:08 | W.PN.HOSP.TC ---
Today's Communication/Plan
-
Assessment / Plan
Assessment / Plan
Gen-AAOx3, NAD
HEENT-NC, AT, significant scleral icterus, clear oral mm
Neck-supple
CV-reg, no M, +S1/S2
Lungs-clear B/L
Abd-nontender, soft, distended
Musculoskeletal-left lower extremity swelling, Louis wrap in place
Skin-warm and dry, icteric, left knee surgical incisions clean dry intact
Neuro-grossly non-focal
Psych-calm, cooperative
A/P:
# Left knee prosthetic joint infection
# Septic arthritis
Fluid eval: WBC 650112, PMN 79.1, no crystals
Joint fluid and blood cultures growing MSSA
Status post OR with Ortho for left knee prosthesis explant and spacer placement 12/06, tolerated procedure well
ID recommend continuing antibiotic treatment with Ancef 2 g IV every 8 hours x 6 weeks from prosthetic knee explant (through 01/17/2025)
Continue pain medication regimen, off OxyContin, cont Oxycodone PRN, added gabapentin for neuropathic pain and adjusted to 100 mg BID
Medically stable for discharge to SNF
# MSSA bacteremia
blood cs showing MSSA. Repeat blood cs neg from 12/01
Plan as above
# Acute blood loss anemia likely 2/2 acute bleeding of L knee arthroplasty, exacerbated by decompensated liver failure/cirrhosis, esophagitis
# Chronic normocytic anemia
-Abd US actually showed Normal directional blood flow in the hepatic and portal veins.
-s/p 3 units PRBC and 2 units platelet
-Hgb today at 8.5, monitor Hgb and platelet counts
-Holding TXA, will monitor for rebleeding, last dose 12/18/2024 at 8:27 AM
-of note, s/p EGD 12/13, noted esophagitis with no bleeding. Portal hypertensive gastropathy.
-Protonix 40mg BID x4 weeks, then daily afterwards per GI. Follow pathology results in 2 weeks with GI. No need for C scope per GI
-Recc to follow with GI/hepatology for liver transplant eval outpt.
# Alcohol use disorder
discontinue further msas/ativan, out of withdrawal window.
Maintain champagne/thiamine
# Decompensated liver failure/cirrhosis 2/2 alcohol abuse
# Elevated total bilirubin -direct dominant
# Coagulopathy - improved
# Thrombocytopenia
# Transaminitis
-Improved mental status, now back to baseline AOX3, hemodynamically stable
-US abdomen showed cirrhosis and Normal directional blood flow in the hepatic and portal veins.
-no indication for steroids for alcoholic hepatitis based on DF
-s/p Vitamin K 10 mg several doses, continuing vitamin K in setting of coagulopathy, start standing dose vitamine K 5 mg x5 days. (pharmacist) informed.
-Cont oral lactulose BID to titrate to 2-3 soft stools per day
-s/p IR paracentesis 12/14 with 2350 cc of clear yellow ascitic fluid removed, repeat paracentesis 12/18 with 3.8 L removed
-Increase to Lasix to 40 mg p.o. daily, continue low-dose spironolactone, will need close GI outpatient follow-up
# CLEVE, resolved
# Acute metabolic encephalopathy, resolved
-Lactulose to titrate 2-3 soft stools per day
# Hyponatremia from ESLD, stable.
# Hypokalemia
Replace prn
DVT proph-SCDs
Full Code
Anticipated Discharge: 24 - 48 hours
Subjective/Interval History
-
Date of Service: December 21, 2024
Was seen and examined at bedside this morning. Feels generally well however and is ascites appears to be reaccumulating rapidly causing discomfort and lack of appetite.
Objective Data
-
Labs:
Laboratory Results
12/21/24
04:44
WBC 12.3 H
Hgb 8.1 L
Hct 23.5 L
Plt Count 93 L
Vital Signs:
Vital Signs
Temp Pulse Resp BP Pulse Ox
98.0 F 98 18 133/75 98
12/21/24 08:14 12/21/24 08:14 12/21/24 08:14 12/21/24 08:14 12/21/24 08:14
I&O
12/20/24 12/21/24 12/22/24
06:59 06:59 06:59
Intake Total 2039
Balance 2039
Review of Systems
-
Constitutional: Reports No Appetite
Abdomen/GI: Reports Other (Abdominal distention and discomfort)
Physical Exam
-
General: No Apparent Distress
[2024-12-21 15:24] VITALS: BP 140/74
--- NOTE | 2024-12-21 16:14 | W.PN.ID1 ---
Date of Service
Date of Service: December 21, 2024
Today's Communication
Continue cefazolin.
Assessment / Plan
# Complicated S. aureus (MSSA) bacteremia (5 sets, collected same day 11/28/24)
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 12/06 One stage revision: left prosthetic knee removal with placement of antibiotic impregnated cement.
# s/p Left knee hemarthrosis with blood loss anemia, controlled
# Leukocytosis - suspect reactive
- 12/01 Repeat blood cx's x2 neg
-TTE no significant valvular disease.
- Continue cefazolin 2g IV q8h x 6 weeks from prosthetic knee explant; through 01/17/25, followed by lifelonmg chronic suppression with cephalexin 500mg bid.
- Infusion sheet submitted to case management on 12/05 and 12/15.
# Alcohol cirrhosis with ascites
- 12/15 s/p paracentesis 2.3L
Cell count : 30 WBC's, cx : NEG
# pruritus due to hyperbilirubinemia.
-Continue cholestyramine.
#Additional Past Medical History:
Hypertension
Hypothyroidism
alcohol abuse
cirrhosis
Left total knee replacement
Chief Complaint
-: Bacteremia and Other (Septic PJI)
Subjective / Review of Systems
Still waiting for SNF bed. No acute issues.
Vital Signs / Physical Exam
Vital Signs
Vital Signs
Temp Pulse Resp BP Pulse Ox
98.3 F 98 20 140/74 97
12/21/24 15:24 12/21/24 15:24 12/21/24 15:24 12/21/24 15:24 12/21/24 15:24
Physical Exam
Constitutional: No Acute Distress and Comfortable
Eyes: Other (sclera icterus)
Pulmonary: Clear
Gastrointestinal: Soft, Non Tender, Non Distended and Normal Bowel Sounds
Genito-Urinary: Negative CVA Tenderness
Extremities: Edema (LLE)
Musculoskeletal: Other (left knee dressing dry)
Neurological: AO x 3
Lines: PICC (RUE no erythema)
Objective Data
Lab Data
Lab Results
12/21/24 04:44
12/18/24 05:14
ESR 44 mm/hour (0-20) H 12/20/24 11:07
PT 20.9 Sec (11.4-14.6) H 12/18/24 05:14
INR 1.78 12/18/24 05:14
Estimated Creat Clear > 125 ml/min 12/18/24 05:14
Lactic Acid 1.6 mmol/L (0.7-2.0) 11/28/24 17:15
Total Bilirubin 9.3 mg/dl (0.2-1.3) H 12/18/24 05:14
GGT 546 U/L (15-73) H 11/28/24 22:25
AST 243 U/L (17-59) H 12/18/24 05:14
ALT 24 U/L (0-50) 12/18/24 05:14
Alkaline Phosphatase 181 U/L (38-126) H 12/18/24 05:14
C-Reactive Protein 57.30 mg/L (0.0-10.00) H 12/20/24 11:07
Most recent labs reviewed.
Micro Results:
12/15/24 11:33 Body Fluid Culture - Final
Peritoneal Fluid No Growth After 72 Hours
Gram Stain - Final
12/13/24 08:46 NATHANAEL Preparation - Final
Esophagus NATHANAEL Prep Negative for Fungus
12/06/24 13:51 Tissue Culture - Final
Knee - Left S aureus-Methicillin Sensitive
Gram Stain - Final
12/06/24 13:49 Tissue Culture - Final
Knee - Left NO GROWTH
Gram Stain - Final
12/01/24 07:23 Blood Culture - Final
Blood/Venous No Growth - Final Report
12/01/24 08:00 Blood Culture - Final
Blood/Venous No Growth - Final Report
11/28/24 22:25 Blood Culture - Final
Blood/Venous S aureus-Methicillin Sensitive
Gram Stain - Final
11/28/24 22:25 Blood Culture - Final
Blood/Venous S aureus-Methicillin Sensitive
Gram Stain - Final
11/28/24 15:53 Blood Culture - Final
Blood/Venous S aureus-Methicillin Sensitive
Gram Stain - Final
11/28/24 12:51 Blood Culture - Final
Blood/Venous S aureus-Methicillin Sensitive
Gram Stain - Final
11/28/24 15:53 Blood Culture - Final
Blood/Venous S aureus-Methicillin Sensitive
Gram Stain - Final
11/28/24 23:21 Urine Culture - Final
Urine NO GROWTH
11/28/24 15:54 Body Fluid Culture - Final
Joint Fluid S aureus-Methicillin Sensitive
Gram Stain - Final
Fluid Cult/not urine Final 11/28/24
Many S aureus-Methicillin Sensitive
1. S aureus - Methicillin Sensitive
M.I.C. RX
--------- ---
Amoxicillin/Potas. Clavulanate <=4/2 S
Ampicillin <=2 R
Clindamycin <=0.5 S
Gentamicin <=4 S
Erythromycin <=0.5 S
Levofloxacin <=1 S
Oxacillin <=0.25 S
Tetracycline <=4 S
Trimethoprim/Sulfamethoxazole <=0.5/9.5 S
Vancomycin 1 S
11/28/24 Abd US: Mild nodular surface of the liver which could represent cirrhotic morphology and overall diffuse increased hepatic echogenicity suggesting diffuse fatty infiltration. Normal directional blood flow in the hepatic and portal veins.
Gallstones and gallbladder sludge. No gallbladder wall thickening or pericholecystic fluid. Negative sonographic Ferguson's sign. No findings to suggest biliary tract dilatation.
11/28/24 Knee XRAY: Left knee replacement. No evidence of complication. Small suprapatellar joint effusion.
--- NOTE | 2024-12-21 16:25 | CM ---
Anticipated Discharge: 24 - 48 hours
Plan: discharge to SNF when stable pending bed availability and auth approval
[facility] Ventura accepted SNF referral
[2024-12-21] MEDS: DUPHALAC/CHRONULAC PO (19:49)
[2024-12-21] MEDS: ROXICODONE PO (19:50)
[2024-12-21] MEDS: ROXICODONE 5 MG PO (19:56)
[2024-12-21 23:35] VITALS: BP 139/76
[2024-12-22 06:00] VITALS: BMI 35.4
[2024-12-22] MEDS: SYNTHROID 25 MCG PO (06:14)
[2024-12-22] MEDS: ANCEF 10 IV ×3 (06:14→22:07)
[2024-12-22 07:03] VITALS: BP 140/78
--- NOTE | 2024-12-22 08:17 | W.PN.UPDATE ---
Update Note
Progress Note Update
At time of morning rounds patient was not in his room; as per last note from Dr. Jensen may discharge with plan for outpatient follow-up at 4 weeks of date of surgery for staple removal
[2024-12-22 08:19] VITALS: BP 137/77; BP_SYST 103
[2024-12-22 08:47] VITALS: BP 142/65
[2024-12-22] MEDS: MEPHYTON 5 MG PO (09:57)
[2024-12-22] MEDS: DUPHALAC/CHRONULAC PO ×2 (09:57→20:11)
[2024-12-22] MEDS: QUESTRAN 4 GRAM PO (09:57)
[2024-12-22] MEDS: LASIX 40 MG PO (09:57)
[2024-12-22] MEDS: VITAMIN B1 100 MG PO ×2 (09:57→20:01)
[2024-12-22] MEDS: LEXAPRO 5 MG PO (09:58)
[2024-12-22] MEDS: PROTONIX 40 MG PO ×2 (09:58→20:01)
[2024-12-22] MEDS: NEURONTIN 100 MG PO ×2 (09:58→20:01)
[2024-12-22] MEDS: ALDACTONE 12.5 MG PO (09:58)
[2024-12-22] MEDS: CLARITIN 10 MG PO (09:58)
[2024-12-22] MEDS: FOLVITE 1 MG PO (09:59)
[2024-12-22] MEDS: NSS (PRESERVATIVE FREE) IV (10:06)
[2024-12-22] MEDS: PROTONIX IV IV (10:07)
[2024-12-22] MEDS: ROXICODONE 5 MG PO ×2 (10:12→20:06)
[2024-12-22 11:04] LABS: Body Fluid WBC 65 /CUMM
[2024-12-22] MEDS: FLEXBUMIN 50 IV (11:11)
[2024-12-22 11:35] LABS: Body Fluid Second Tech RP
--- NOTE | 2024-12-22 11:54 | W.PN.ID1 ---
Date of Service
Date of Service: December 22, 2024
Today's Communication
Continue cefazolin
Assessment / Plan
# Complicated S. aureus (MSSA) bacteremia (5 sets, collected same day 11/28/24)
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 12/06 One stage revision: left prosthetic knee removal with placement of antibiotic impregnated cement.
# s/p Left knee hemarthrosis with blood loss anemia, controlled
# Leukocytosis - suspect reactive
- 12/01 Repeat blood cx's x2 neg
-TTE no significant valvular disease.
- Continue cefazolin 2g IV q8h x 6 weeks from prosthetic knee explant; through 01/17/25, followed by lifelong chronic suppression with cephalexin 500mg bid.
- Infusion sheet submitted to case management on 12/05, 12/15, and 12/22.
# Alcohol cirrhosis with ascites
- 12/15 s/p paracentesis 2.3L
Cell count : 30 WBC's, cx : NEG
# pruritus due to hyperbilirubinemia.
-Continue cholestyramine.
#Additional Past Medical History:
Hypertension
Hypothyroidism
alcohol abuse
cirrhosis
Left total knee replacement
Chief Complaint
-: Bacteremia and Other (Septic PJI)
Subjective / Review of Systems
No new complaints.
Vital Signs / Physical Exam
Vital Signs
Vital Signs
Temp Pulse Resp BP Pulse Ox
98.3 F 98 18 142/65 97
12/22/24 08:19 12/22/24 08:47 12/22/24 08:47 12/22/24 08:47 12/22/24 08:19
Physical Exam
Constitutional: No Acute Distress and Comfortable
Eyes: Other (sclera icterus)
Pulmonary: Clear
Gastrointestinal: Soft, Non Tender, Non Distended and Normal Bowel Sounds
Genito-Urinary: Negative CVA Tenderness
Extremities: Edema (LLE)
Musculoskeletal: Other (left knee dressing dry)
Neurological: AO x 3
Lines: PICC (RUE no erythema)
Objective Data
Lab Data
Lab Results
12/21/24 04:44
12/18/24 05:14
ESR 44 mm/hour (0-20) H 12/20/24 11:07
PT 20.9 Sec (11.4-14.6) H 12/18/24 05:14
INR 1.78 12/18/24 05:14
Estimated Creat Clear > 125 ml/min 12/18/24 05:14
Lactic Acid 1.6 mmol/L (0.7-2.0) 11/28/24 17:15
Total Bilirubin 9.3 mg/dl (0.2-1.3) H 12/18/24 05:14
GGT 546 U/L (15-73) H 11/28/24 22:25
AST 243 U/L (17-59) H 12/18/24 05:14
ALT 24 U/L (0-50) 12/18/24 05:14
Alkaline Phosphatase 181 U/L (38-126) H 12/18/24 05:14
C-Reactive Protein 57.30 mg/L (0.0-10.00) H 12/20/24 11:07
Most recent labs reviewed.
Micro Results:
12/15/24 11:33 Body Fluid Culture - Final
Peritoneal Fluid No Growth After 72 Hours
Gram Stain - Final
12/13/24 08:46 NATHANAEL Preparation - Final
Esophagus NATHANAEL Prep Negative for Fungus
12/06/24 13:51 Tissue Culture - Final
Knee - Left S aureus-Methicillin Sensitive
Gram Stain - Final
12/06/24 13:49 Tissue Culture - Final
Knee - Left NO GROWTH
Gram Stain - Final
12/01/24 07:23 Blood Culture - Final
Blood/Venous No Growth - Final Report
12/01/24 08:00 Blood Culture - Final
Blood/Venous No Growth - Final Report
11/28/24 22:25 Blood Culture - Final
Blood/Venous S aureus-Methicillin Sensitive
Gram Stain - Final
11/28/24 22:25 Blood Culture - Final
Blood/Venous S aureus-Methicillin Sensitive
Gram Stain - Final
11/28/24 15:53 Blood Culture - Final
Blood/Venous S aureus-Methicillin Sensitive
Gram Stain - Final
11/28/24 12:51 Blood Culture - Final
Blood/Venous S aureus-Methicillin Sensitive
Gram Stain - Final
11/28/24 15:53 Blood Culture - Final
Blood/Venous S aureus-Methicillin Sensitive
Gram Stain - Final
11/28/24 23:21 Urine Culture - Final
Urine NO GROWTH
11/28/24 15:54 Body Fluid Culture - Final
Joint Fluid S aureus-Methicillin Sensitive
Gram Stain - Final
Fluid Cult/not urine Final 11/28/24
Many S aureus-Methicillin Sensitive
1. S aureus - Methicillin Sensitive
M.I.C. RX
--------- ---
Amoxicillin/Potas. Clavulanate <=4/2 S
Ampicillin <=2 R
Clindamycin <=0.5 S
Gentamicin <=4 S
Erythromycin <=0.5 S
Levofloxacin <=1 S
Oxacillin <=0.25 S
Tetracycline <=4 S
Trimethoprim/Sulfamethoxazole <=0.5/9.5 S
Vancomycin 1 S
11/28/24 Abd US: Mild nodular surface of the liver which could represent cirrhotic morphology and overall diffuse increased hepatic echogenicity suggesting diffuse fatty infiltration. Normal directional blood flow in the hepatic and portal veins.
Gallstones and gallbladder sludge. No gallbladder wall thickening or pericholecystic fluid. Negative sonographic Ferguson's sign. No findings to suggest biliary tract dilatation.
11/28/24 Knee XRAY: Left knee replacement. No evidence of complication. Small suprapatellar joint effusion.
--- NOTE | 2024-12-22 14:08 | W.DCSUMMARY ---
Addendum entered and electronically signed by Daren Cuevas DO 12/23/24 12:46:
Corrected date of discharge 12/23/2024
Original Note:
Discharge Summary
Discharge Data
Date of Admission: 11/28/24
Date of Discharge: 12/22/24
-
Pending Results: No
Hospital Course
Mr. 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
presented on 11/28/2024 with acute hepatic encephalopathy. He fell down the stairs at home several days prior to arrival, after which she had severe pain and swelling in his left knee. He was evaluated in outpatient orthopedic office and
subsequently sent to the ED for further evaluation due to ill appearance and confusion. He had apparently been having hallucinations at home, per his . His last drink of alcohol was 4 days prior to arrival.
His left knee was aspirated in the ED and labs showed a contained greater than 500,000 WBCs indicative of acute prosthetic joint infection. He was started on broad-spectrum antibiotics for his septic joint, lactulose for his hepatic encephalopathy,
and benzodiazepines for acute alcohol withdrawal.
Blood cultures later grew MSSA. Antibiotics were narrowed to cefazolin. After resolution of his hepatic encephalopathy he was brought to the OR with orthopedics on 12/06/2024 for left knee prosthesis explant and antibiotic impregnated spacer
placement. He tolerated the procedure well. He had some postoperative bleeding requiring transfusion 3 units PRBCs and 2 units of platelets in addition to multiple doses of tranexamic acid. His bleeding resolved and his hemoglobin stabilized.
Surgical incision has since been healing well. Infectious disease team recommended continuing antibiotic treatment with cefazolin 2 g IV every 8 hours for 6 weeks (through 01/17/2025), after which he would need to be on lifelong suppression with
cephalexin 500 mg twice daily. Repeat blood cultures 12/01 have remained negative. Echocardiogram showed no evidence of valvular disease.
He was evaluated by gastroenterology and diagnosed with alcoholic cirrhosis. He underwent upper endoscopy on 12/13/2024 revealing esophagitis with no active bleeding and portal hypertensive gastropathy. He was started on twice daily Protonix for 4
weeks, following which he should take daily. During this hospitalization he underwent 3 paracenteses: 12/14 with 2.3 L off, 12/18 with 3.8 L off, and 12/22 with 5.2 L off. He was started on Lasix and spironolactone. He will need outpatient follow-up
with GI and hepatology for further evaluation of potential liver transplant.
He was also started on low-dose escitalopram during this admission for treatment of his depression. He will need reevaluation and titration of this dose as needed in the outpatient setting.
At time of hospital discharge, he was hemodynamically stable. He will be discharged to SNF for ongoing therapy and IV antibiotic treatment for his septic joint and MSSA bacteremia. He will need close follow-up with his PCP, gastroenterology,
orthopedics, and infectious disease.
Gen-AAOx3, NAD
HEENT-NC, AT, significant scleral icterus, clear oral mm
Neck-supple
CV-reg, no M, +S1/S2
Lungs-clear B/L
Abd-nontender, soft, protuberant
Musculoskeletal-left lower extremity swelling, Louis wrap in place
Skin-warm and dry, icteric, left knee surgical incisions clean dry intact
Neuro-grossly non-focal
Psych-calm, cooperative
Discharge Plan
-
Patient Disposition: Long Term/SNF
Discharge Diagnosis/Procedures: Septic arthritis left knee, MSSA bacteremia, hepatic encephalopathy, decompensated cirrhosis
Diet: 2 Gram Sodium and Restrict fluids to 64 oz
Activity: As tolerated and With Walker
Blood Work: repeat cbc, comprehensive med panel, and INR 1-2 week after discharge- slips on chart
Wound Care: return to ER for any increased abdominal swelling or need for repeat paracentesis
Activity Restrictions/Additional Instructions:
1. Cefazolin 2g IV q8h x 6 weeks through 01/17/25
2. Follow weekly CBC, CMP, ESR, CRP while on cefazolin.
3. On 01/18/25 start lifelong chronic suppression with cephalexin 500mg bid.
Mr. 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
presented on 11/28/2024 with acute hepatic encephalopathy. He fell down the stairs at home several days prior to arrival, after which she had severe pain and swelling in his left knee. He was evaluated in outpatient orthopedic office and
subsequently sent to the ED for further evaluation due to ill appearance and confusion. He had apparently been having hallucinations at home, per his . His last drink of alcohol was 4 days prior to arrival.
His left knee was aspirated in the ED and labs showed a contained greater than 500,000 WBCs indicative of acute prosthetic joint infection. He was started on broad-spectrum antibiotics for his septic joint, lactulose for his hepatic encephalopathy,
and benzodiazepines for acute alcohol withdrawal.
Blood cultures later grew MSSA. Antibiotics were narrowed to cefazolin. After resolution of his hepatic encephalopathy he was brought to the OR with orthopedics on 12/06/2024 for left knee prosthesis explant and antibiotic impregnated spacer
placement. He tolerated the procedure well. He had some postoperative bleeding requiring transfusion 3 units PRBCs and 2 units of platelets in addition to multiple doses of tranexamic acid. His bleeding resolved and his hemoglobin stabilized.
Surgical incision has since been healing well. Infectious disease team recommended continuing antibiotic treatment with cefazolin 2 g IV every 8 hours for 6 weeks (through 01/17/2025), after which he would need to be on lifelong suppression with
cephalexin 500 mg twice daily. Repeat blood cultures 12/01 have remained negative. Echocardiogram showed no evidence of valvular disease.
He was evaluated by gastroenterology and diagnosed with alcoholic cirrhosis. He underwent upper endoscopy on 12/13/2024 revealing esophagitis with no active bleeding and portal hypertensive gastropathy. He was started on twice daily Protonix for 4
weeks, following which he should take daily. During this hospitalization he underwent 3 paracenteses: 12/14 with 2.3 L off, 12/18 with 3.8 L off, and 12/22 with 5.2 L off. He was started on Lasix and spironolactone. He will need outpatient follow-up
with GI and hepatology for further evaluation of potential liver transplant.
He was also started on low-dose escitalopram during this admission for treatment of his depression. He will need reevaluation and titration of this dose as needed in the outpatient setting.
At time of hospital discharge, he was hemodynamically stable. He will be discharged to SNF for ongoing therapy and IV antibiotic treatment for his septic joint and MSSA bacteremia. He will need close follow-up with his PCP, gastroenterology,
orthopedics, and infectious disease.
Referrals:
Rehan Morillo CRNP [Family Provider] -
Mj Panchal MD [Non-Admitting Privileges] - (follow up with hepatology at [facility] with noted decompensated liver disease during admission)
Michelle Resendiz PA-C [Specified Professional Personl] - 01/03/25 11:30 am (follow up with GI for GI bleeding, and cirrhosis )
Shawnee Garcia MD [Active] - in two to three weeks
Prescriptions:
New
cefazolin 10 gram Recon Soln
2 g IV Q8H 27 Days Qty: 81 0RF
spironolactone 25 mg Tablet
25 mg PO DAILY 30 Days Qty: 30 0RF
loratadine 10 mg Tablet
10 mg PO DAILY 30 Days Qty: 30 0RF
folic acid 1 mg Tablet
1 mg PO DAILY 30 Days Qty: 30 0RF
furosemide 20 mg Tablet
40 mg PO DAILY 30 Days Qty: 60 0RF
escitalopram oxalate 5 mg Tablet
5 mg PO DAILY 30 Days Qty: 30 0RF
lactulose 10 gram/15 mL Solution
20 g PO BID 30 Days Qty: 1800 0RF
pantoprazole 40 mg Tablet,Delayed Release (Dr/Ec)
40 mg PO BID Qty: 90 0RF
gabapentin 100 mg Capsule
100 mg PO BID 30 Days Qty: 60 0RF
oxycodone 5 mg Tablet
5 mg PO Q4HPRN PRN (Reason: mod pain) Qty: 12 0RF
cholestyramine (with sugar) 4 gram Powder In Packet
1 ea PO DAILY 30 Days Qty: 30 0RF
thiamine mononitrate (vit B1) 100 mg Tablet
100 mg PO BID 30 Days Qty: 60 0RF
Continued
levothyroxine 25 mcg Tablet
25 mcg PO DAILY AT 0700 Qty: 30 0RF
Discontinued
lisinopril 10 mg Tablet
10 mg PO DAILY Qty: 30 0RF
Discharge Orders:
Discharge Patient (As Directed); Ordered 12/22/24
Ordered By: Daren Cuevas
Discharge Date and Time
Print Language: WOLOF
[2024-12-22 15:05] VITALS: BP 128/67
--- NOTE | 2024-12-22 15:10 | CM ---
Spoke with Crist[facility] - can accept tomorrow 12/23 - auth to be updated. Requested updates in Care Port and updated infusion sheet
Updates and infusion sheet sent in Care Port
Called [facility] to request update for auth - . Spoke with Meera
Auth updated - Case Reference Number [id number]
Start date 12/23 - 01/02 - NRD 01/02
Updated [facility] at [facility]
Call Nursing [employer] [phone] to confirm admission on 12/23
Plan - [facility] tomorrow
R - [phone]
F - [phone]
[2024-12-22 19:00] VITALS: BP 134/68
[2024-12-22 23:00] VITALS: BP 141/64
[2024-12-23 05:54] VITALS: BMI 33.4
[2024-12-23] MEDS: ANCEF 10 IV ×2 (06:12→13:03)
[2024-12-23] MEDS: SYNTHROID 25 MCG PO (06:12)
[2024-12-23] MEDS: ROXICODONE 5 MG PO ×2 (06:17→10:04)
[2024-12-23 07:10] VITALS: BP 125/65
[2024-12-23] MEDS: NEURONTIN 100 MG PO (09:02)
[2024-12-23] MEDS: DUPHALAC/CHRONULAC PO (09:02)
[2024-12-23] MEDS: LEXAPRO 5 MG PO (09:02)
[2024-12-23] MEDS: LASIX 40 MG PO (09:02)
[2024-12-23] MEDS: FOLVITE 1 MG PO (09:02)
[2024-12-23] MEDS: VITAMIN B1 100 MG PO (09:02)
[2024-12-23] MEDS: PROTONIX 40 MG PO (09:02)
[2024-12-23] MEDS: CLARITIN 10 MG PO (09:02)
[2024-12-23] MEDS: ALDACTONE 25 MG PO (09:03)
[2024-12-23] MEDS: QUESTRAN 4 GRAM PO (10:04)
--- NOTE | 2024-12-23 10:52 | CM ---
Addendum entered by Padmaja Huang 12/23/24 13:02:
Pt has transport to [facility] with friend
Pt reports he updated his he will be transferring to [facility] today
Original Note:
Pt for discharge today
Pt reports family/friend will transport to [facility]
Spoke with [facility] Unit Clerk at [facility] - aware of d/c
Plan - transfer to [facility]
R - [phone]
F - [phone]
[2024-12-23 12:45] VITALS: BP 143/68
== END 2024-12-23 13:25 | DRG 466 ==
LOC: 2 SOUTH 21:33
PROVIDERS: Emergency Medicine; Hospitalist; Internal Medicine; Internal Medicine Gastroenterology; Nurse Practitioner Adult Health; Physician Assistant; Physician Assistant Medical; Radiology Vascular & Interventional Radiology; ADMITTING PHYSICIAN Internal Medicine; ATTENDING PHYSICIAN Internal Medicine; CONSULT PHYSICIAN Internal Medicine Gastroenterology; CONSULT PHYSICIAN Orthopaedic Surgery; EMERGENCY PHYSICIAN Emergency Medicine; FAMILY PHYSICIAN Nurse Practitioner Family; OTHER PHYSICIAN Internal Medicine Infectious Disease
PROC: 0S9D3ZZ Drainage of Left Knee Joint, Percutaneous Approach (ICD-10-PCS; 2024-11-28)
PROC: 0SRD0J9 Replacement of Left Knee Joint with Synthetic Substitute, Cemented, Open Approach (ICD-10-PCS; 2024-12-06)
PROC: 0SPD0JZ Removal of Synthetic Substitute from Left Knee Joint, Open Approach (ICD-10-PCS; 2024-12-06)
PROC: 30233N1 Transfusion of Nonautologous Red Blood Cells into Peripheral Vein, Percutaneous Approach (ICD-10-PCS; 2024-12-12)
PROC: 0DD38ZX Extraction of Lower Esophagus, Via Natural or Artificial Opening Endoscopic, Diagnostic (ICD-10-PCS; 2024-12-13)
PROC: 0W9G3ZZ Drainage of Peritoneal Cavity, Percutaneous Approach (ICD-10-PCS; 2024-12-15)
PROC: 30233R1 Transfusion of Nonautologous Platelets into Peripheral Vein, Percutaneous Approach (ICD-10-PCS; 2024-12-16)
DX: T84.54XA Infection and inflammatory reaction due to internal left knee prosthesis, initial encounter (principal); A41.01 Sepsis due to Methicillin susceptible Staphylococcus aureus; G93.41 Metabolic encephalopathy; R65.20 Severe sepsis without septic shock; D68.4 Acquired coagulation factor deficiency; D84.9 Immunodeficiency, unspecified; F10.239 Alcohol dependence with withdrawal, unspecified; E87.1 Hypo-osmolality and hyponatremia; E87.20 Acidosis, unspecified; N17.9 Acute kidney failure, unspecified; M00.062 Staphylococcal arthritis, left knee; D62 Acute posthemorrhagic anemia; M96.830 Postprocedural hemorrhage of a musculoskeletal structure following a musculoskeletal system procedure; K76.6 Portal hypertension; K92.0 Hematemesis; K70.31 Alcoholic cirrhosis of liver with ascites; K70.11 Alcoholic hepatitis with ascites; K76.82 Hepatic encephalopathy; E03.9 Hypothyroidism, unspecified; I10 Essential (primary) hypertension; Y83.1 Surgical operation with implant of artificial internal device as the cause of abnormal reaction of the patient, or of later complication, without mention of misadventure at the time of the procedure; K70.40 Alcoholic hepatic failure without coma; D69.59 Other secondary thrombocytopenia; D63.8 Anemia in other chronic diseases classified elsewhere; D52.9 Folate deficiency anemia, unspecified; E87.6 Hypokalemia; B95.61 Methicillin susceptible Staphylococcus aureus infection as the cause of diseases classified elsewhere; R56.9 Unspecified convulsions; K76.0 Fatty (change of) liver, not elsewhere classified; F32.A Depression, unspecified; K20.90 Esophagitis, unspecified without bleeding; K31.89 Other diseases of stomach and duodenum; K44.9 Diaphragmatic hernia without obstruction or gangrene; K22.89 Other specified disease of esophagus; Z91.041 Radiographic dye allergy status
CPT/HCPCS: 20610; 49083; 70450; 71045; 71046; 73560; 73564; 76700; 80048; 80053; 80202; 80306; 81003; 81015; 82010; 82042; 82077; 82140; 82248; 82550; 82607; 82728; 82746; 82977; 83540; 83550; 83605; 83615; 83735; 84100; 84157; 84443; 85025; 85027; 85045; 85610; 85652; 86140; 86850; 86900; 86901; 86920; 87015; 87040; 87070; 87086; 87147; 87150; 87176; 87186; 87205; 87220; 89051; 89060; 96361; 96374; 96375; 97110; 97116; 97162; 97164; 97166; 97530; 97535; 99285; C1713; C1776; P9016; P9047; P9073

== ENCOUNTER → 2024-12-25 09:52 | Outpatient (REF) | payer OTHER, SELFPAY ==
[2024-12-25 12:27] LABS: % Basophils 0.5 % (0-2); % Eosinophils 3.6 % (0-6); % Immature Granulocytes 0.6 % (0-0.5); % Lymphocytes 6.5 % (20.5-51.1); % Monocytes 6.4 % (1.7-9.3); % Neutrophils 82.4 % (42.2-75.2); Absolute Basophils 0.1 10^3/uL (0-0.2); Absolute Eosinophils 0.5 10^3/uL (0-0.7); Absolute Immature Granulocytes 0.1 10^3/uL (0-0.05); Absolute Lymphocytes 0.9 10^3/uL (1.2-3.4); Absolute Monocytes 0.8 10^3/uL (0.1-0.6); Absolute Neutrophils 10.9 10^3/uL (1.4-6.5); Hematocrit 23.2 % (39.0-52.0); Hemoglobin 7.7 g/dL (13.0-18.0); Mean Corp Hgb Conc. 33.2 g/dL (33.0-37.0); Mean Corpuscular Hgb 32.8 pg (27.0-31.0); Mean Corpuscular Volume 98.7 fL (80.0-94.0); Mean Platelet Volume 10.8 fL (7.4-10.4); Nucleated Red Blood Cells % 0 % (-); Platelet Count 99 10^3/uL (130-400); Red Blood Cell Count 2.35 10^6/uL (4.70-6.10); Red Cell Dist. Width 17.9 % (11.5-14.5); White Blood Cell Count 13.2 10^3/uL (4.8-10.8)
[2024-12-25 12:29] LABS: ALT (SGPT) 21 U/L (0-50); AST (SGOT) 147 U/L (17-59); Albumin 2.3 g/dl (3.5-5.0); Alkaline Phosphatase 179 U/L (38-126); Blood Urea Nitrogen 19 mg/dl (9-20); Calcium 7.8 mg/dl (8.4-10.2); Carbon Dioxide 24 mmol/L (22-30); Chloride 96 mmol/L (98-107); Glucose 157 mg/dl (70-99); Potassium 3.6 mmol/L (3.5-5.1); Sodium 130 mmol/L (135-145); Total Bilirubin 7.5 mg/dl (0.2-1.3); Total Protein 5.4 g/dl (6.3-8.2); eGFR > 60.00
[2024-12-25 12:48] LABS: Erythrocyte Sed Rate 18 mm/hour (0-20)
== END ==
LOC: OLABP 09:52
PROVIDERS: ATTENDING PHYSICIAN Family Medicine
DX: M00.9 Pyogenic arthritis, unspecified (principal); T84.54XA Infection and inflammatory reaction due to internal left knee prosthesis, initial encounter; A41.9 Sepsis, unspecified organism; E87.6 Hypokalemia; K72.00 Acute and subacute hepatic failure without coma; D84.9 Immunodeficiency, unspecified; R78.81 Bacteremia; F10.139 Alcohol abuse with withdrawal, unspecified; F10.20 Alcohol dependence, uncomplicated; D68.61 Antiphospholipid syndrome; K92.2 Gastrointestinal hemorrhage, unspecified; N17.9 Acute kidney failure, unspecified
CPT/HCPCS: 36415; 80053; 85025; 85652; 86140

== ENCOUNTER → 2024-12-27 10:44 | Outpatient (REF) | payer OTHER, SELFPAY ==
[2024-12-27 12:54] LABS: % Basophils 0.2 % (0-2); % Eosinophils 1.1 % (0-6); % Immature Granulocytes 0.8 % (0-0.5); % Lymphocytes 6.9 % (20.5-51.1); % Monocytes 6.6 % (1.7-9.3); % Neutrophils 84.4 % (42.2-75.2); Absolute Eosinophils 0.1 10^3/uL (0-0.7); Absolute Immature Granulocytes 0.1 10^3/uL (0-0.05); Absolute Lymphocytes 0.4 10^3/uL (1.2-3.4); Absolute Monocytes 0.4 10^3/uL (0.1-0.6); Absolute Neutrophils 5.2 10^3/uL (1.4-6.5); Hematocrit 22.3 % (39.0-52.0); Hemoglobin 7.6 g/dL (13.0-18.0); Mean Corp Hgb Conc. 34.1 g/dL (33.0-37.0); Mean Corpuscular Hgb 33.2 pg (27.0-31.0); Mean Corpuscular Volume 97.4 fL (80.0-94.0); Nucleated Red Blood Cells % 0 % (-); Platelet Count 93 10^3/uL (130-400); Red Blood Cell Count 2.29 10^6/uL (4.70-6.10); White Blood Cell Count 6.2 10^3/uL (4.8-10.8)
[2024-12-27 12:58] LABS: Blood Urea Nitrogen 31 mg/dl (9-20); Calcium 7.6 mg/dl (8.4-10.2); Carbon Dioxide 25 mmol/L (22-30); Chloride 99 mmol/L (98-107); Glucose 117 mg/dl (70-99); Potassium 4.4 mmol/L (3.5-5.1); Sodium 131 mmol/L (135-145); eGFR > 60.00
== END ==
LOC: OLABP 10:44
PROVIDERS: ATTENDING PHYSICIAN Family Medicine
DX: M00.9 Pyogenic arthritis, unspecified (principal); T84.54XA Infection and inflammatory reaction due to internal left knee prosthesis, initial encounter; A41.9 Sepsis, unspecified organism; E87.6 Hypokalemia; K72.00 Acute and subacute hepatic failure without coma; D84.9 Immunodeficiency, unspecified; N17.9 Acute kidney failure, unspecified; R78.81 Bacteremia; F10.139 Alcohol abuse with withdrawal, unspecified; D68.61 Antiphospholipid syndrome; K92.2 Gastrointestinal hemorrhage, unspecified; K72.90 Hepatic failure, unspecified without coma
CPT/HCPCS: 36415; 80048; 85025

== ENCOUNTER → 2025-01-01 09:25 | Outpatient (REF) | payer OTHER, SELFPAY ==
[2025-01-01 11:18] LABS: % Basophils 0.5 % (0-2); % Immature Granulocytes 0.9 % (0-0.5); % Lymphocytes 8.5 % (20.5-51.1); % Monocytes 7.2 % (1.7-9.3); % Neutrophils 71.9 % (42.2-75.2); Absolute Basophils 0.1 10^3/uL (0-0.2); Absolute Eosinophils 1.9 10^3/uL (0-0.7); Absolute Immature Granulocytes 0.2 10^3/uL (0-0.05); Absolute Lymphocytes 1.5 10^3/uL (1.2-3.4); Absolute Monocytes 1.3 10^3/uL (0.1-0.6); Absolute Neutrophils 12.4 10^3/uL (1.4-6.5); Hematocrit 24.5 % (39.0-52.0); Hemoglobin 8.4 g/dL (13.0-18.0); Mean Corp Hgb Conc. 34.3 g/dL (33.0-37.0); Mean Corpuscular Hgb 33.3 pg (27.0-31.0); Mean Corpuscular Volume 97.2 fL (80.0-94.0); Mean Platelet Volume 10.9 fL (7.4-10.4); Nucleated Red Blood Cells % 0 % (-); Platelet Count 99 10^3/uL (130-400); Red Blood Cell Count 2.52 10^6/uL (4.70-6.10); Red Cell Dist. Width 17.1 % (11.5-14.5); White Blood Cell Count 17.3 10^3/uL (4.8-10.8)
[2025-01-01 11:19] LABS: INR 1.96; PT 22.5 Sec (11.4-14.6)
[2025-01-01 12:28] LABS: ALT (SGPT) 17 U/L (0-50); AST (SGOT) 87 U/L (17-59); Albumin 2.4 g/dl (3.5-5.0); Alkaline Phosphatase 211 U/L (38-126); Blood Urea Nitrogen 16 mg/dl (9-20); Calcium 7.3 mg/dl (8.4-10.2); Carbon Dioxide 25 mmol/L (22-30); Chloride 98 mmol/L (98-107); Glucose 95 mg/dl (70-99); Potassium 3.9 mmol/L (3.5-5.1); Sodium 128 mmol/L (135-145); Total Bilirubin 7.2 mg/dl (0.2-1.3); Total Protein 5.3 g/dl (6.3-8.2); eGFR > 60.00
[2025-01-01 12:48] LABS: Erythrocyte Sed Rate 4 mm/hour (0-20)
== END ==
LOC: OLABP 09:25
PROVIDERS: ATTENDING PHYSICIAN Family Medicine
DX: M00.9 Pyogenic arthritis, unspecified (principal); T84.54XA Infection and inflammatory reaction due to internal left knee prosthesis, initial encounter; A41.9 Sepsis, unspecified organism; E87.6 Hypokalemia; K72.00 Acute and subacute hepatic failure without coma; D84.9 Immunodeficiency, unspecified; R78.81 Bacteremia; F10.139 Alcohol abuse with withdrawal, unspecified; F10.20 Alcohol dependence, uncomplicated; D68.61 Antiphospholipid syndrome; K92.2 Gastrointestinal hemorrhage, unspecified; N17.9 Acute kidney failure, unspecified; K72.90 Hepatic failure, unspecified without coma
CPT/HCPCS: 36415; 80053; 85025; 85610; 85652; 86140

== ENCOUNTER → 2025-01-02 10:53 | Outpatient (REF) | payer OTHER, SELFPAY ==
[2025-01-02 11:48] LABS: Hematocrit 26.5 % (39.0-52.0); Mean Corpuscular Hgb 33.3 pg (27.0-31.0); Mean Corpuscular Volume 98.1 fL (80.0-94.0); Mean Platelet Volume 11.2 fL (7.4-10.4); Platelet Count 125 10^3/uL (130-400); Red Cell Dist. Width 16.7 % (11.5-14.5); White Blood Cell Count 18.4 10^3/uL (4.8-10.8)
[2025-01-02 14:36] LABS: % Basophils 0.6 % (0-2); % Eosinophils 12.3 % (0-6); % Immature Granulocytes 1.5 % (0-0.5); % Lymphocytes 7.4 % (20.5-51.1); % Monocytes 7.8 % (1.7-9.3); % Neutrophils 70.4 % (42.2-75.2); Absolute Basophils 0.1 10^3/uL (0-0.2); Absolute Eosinophils 2.3 10^3/uL (0-0.7); Absolute Immature Granulocytes 0.3 10^3/uL (0-0.05); Absolute Lymphocytes 1.4 10^3/uL (1.2-3.4); Absolute Monocytes 1.4 10^3/uL (0.1-0.6); Absolute Neutrophils 12.9 10^3/uL (1.4-6.5); Nucleated Red Blood Cells % 0 % (-)
== END ==
LOC: OLABP 10:53
PROVIDERS: ATTENDING PHYSICIAN Family Medicine
DX: M00.9 Pyogenic arthritis, unspecified (principal); T84.54XA Infection and inflammatory reaction due to internal left knee prosthesis, initial encounter; A41.9 Sepsis, unspecified organism; E87.6 Hypokalemia; K72.00 Acute and subacute hepatic failure without coma; D84.9 Immunodeficiency, unspecified; R78.81 Bacteremia; N17.9 Acute kidney failure, unspecified; F10.139 Alcohol abuse with withdrawal, unspecified; F10.20 Alcohol dependence, uncomplicated; D68.69 Other thrombophilia; K72.90 Hepatic failure, unspecified without coma
CPT/HCPCS: 36415; 85025

== ENCOUNTER → 2025-01-04 11:52 | Outpatient (REF) | payer OTHER, SELFPAY ==
[2025-01-04 12:03] LABS: Procalcitonin 0.22 ng/ml (0.0-0.25)
[2025-01-04 12:22] LABS: ALT (SGPT) 21 U/L (0-50); AST (SGOT) 64 U/L (17-59); Albumin 2.3 g/dl (3.5-5.0); Alkaline Phosphatase 201 U/L (38-126); Blood Urea Nitrogen 22 mg/dl (9-20); Calcium 7.6 mg/dl (8.4-10.2); Carbon Dioxide 23 mmol/L (22-30); Chloride 96 mmol/L (98-107); Glucose 136 mg/dl (70-99); Potassium 3.8 mmol/L (3.5-5.1); Sodium 129 mmol/L (135-145); Total Bilirubin 7.2 mg/dl (0.2-1.3); Total Protein 5.2 g/dl (6.3-8.2); eGFR > 60.00
[2025-01-04 12:36] LABS: Hematocrit 22.2 % (39.0-52.0); Hemoglobin 7.7 g/dL (13.0-18.0); Mean Corp Hgb Conc. 34.7 g/dL (33.0-37.0); Mean Corpuscular Hgb 33.8 pg (27.0-31.0); Mean Corpuscular Volume 97.4 fL (80.0-94.0); Red Blood Cell Count 2.28 10^6/uL (4.70-6.10); Red Cell Dist. Width 16.9 % (11.5-14.5); White Blood Cell Count 16.5 10^3/uL (4.8-10.8)
[2025-01-04 13:02] LABS: Platelet Count 93 10^3/uL (130-400)
[2025-01-04 13:04] LABS: % Basophils 0.9 % (0-2); % Immature Granulocytes 1.3 % (0-0.5); % Lymphocytes 8.5 % (20.5-51.1); % Monocytes 8.4 % (1.7-9.3); % Neutrophils 61.9 % (42.2-75.2); Absolute Basophils 0.2 10^3/uL (0-0.2); Absolute Eosinophils 3.1 10^3/uL (0-0.7); Absolute Immature Granulocytes 0.2 10^3/uL (0-0.05); Absolute Lymphocytes 1.4 10^3/uL (1.2-3.4); Absolute Monocytes 1.4 10^3/uL (0.1-0.6); Absolute Neutrophils 10.2 10^3/uL (1.4-6.5); Nucleated Red Blood Cells % 0 % (-)
[2025-01-04 13:45] LABS: Erythrocyte Sed Rate 8 mm/hour (0-20)
== END ==
LOC: OLABP 11:52
PROVIDERS: ATTENDING PHYSICIAN Family Medicine
DX: M00.9 Pyogenic arthritis, unspecified (principal); A41.9 Sepsis, unspecified organism; T84.54XA Infection and inflammatory reaction due to internal left knee prosthesis, initial encounter; K72.90 Hepatic failure, unspecified without coma
CPT/HCPCS: 36415; 80053; 84145; 85025; 85652; 86140

== ENCOUNTER → 2025-01-08 09:34 | Outpatient (REF) | payer OTHER, SELFPAY ==
[2025-01-08 13:00] LABS: ALT (SGPT) 23 U/L (0-50); AST (SGOT) 58 U/L (17-59); Albumin 2.4 g/dl (3.5-5.0); Alkaline Phosphatase 219 U/L (38-126); Blood Urea Nitrogen 21 mg/dl (9-20); Calcium 7.8 mg/dl (8.4-10.2); Carbon Dioxide 27 mmol/L (22-30); Chloride 96 mmol/L (98-107); Glucose 124 mg/dl (70-99); Potassium 3.9 mmol/L (3.5-5.1); Sodium 129 mmol/L (135-145); Total Protein 5.3 g/dl (6.3-8.2); eGFR > 60.00
[2025-01-08 13:05] LABS: Hemoglobin 7.5 g/dL (13.0-18.0); Mean Corp Hgb Conc. 34.1 g/dL (33.0-37.0); Mean Corpuscular Hgb 33.5 pg (27.0-31.0); Mean Corpuscular Volume 98.2 fL (80.0-94.0); Mean Platelet Volume 10.7 fL (7.4-10.4); Platelet Count 84 10^3/uL (130-400); Red Blood Cell Count 2.24 10^6/uL (4.70-6.10); Red Cell Dist. Width 16.1 % (11.5-14.5); White Blood Cell Count 15.9 10^3/uL (4.8-10.8)
[2025-01-08 13:34] LABS: Erythrocyte Sed Rate 9 mm/hour (0-20)
[2025-01-08 13:38] LABS: % Basophils 0.8 % (0-2); % Eosinophils 25.4 % (0-6); % Immature Granulocytes 0.8 % (0-0.5); % Lymphocytes 8.6 % (20.5-51.1); % Neutrophils 56.4 % (42.2-75.2); Absolute Basophils 0.1 10^3/uL (0-0.2); Absolute Immature Granulocytes 0.1 10^3/uL (0-0.05); Absolute Lymphocytes 1.4 10^3/uL (1.2-3.4); Absolute Monocytes 1.3 10^3/uL (0.1-0.6); Nucleated Red Blood Cells % 0 % (-)
== END ==
LOC: OLABP 09:34
PROVIDERS: ATTENDING PHYSICIAN Family Medicine
DX: M00.9 Pyogenic arthritis, unspecified (principal); A41.9 Sepsis, unspecified organism; E87.6 Hypokalemia; K72.00 Acute and subacute hepatic failure without coma; D84.9 Immunodeficiency, unspecified; R78.81 Bacteremia; F10.139 Alcohol abuse with withdrawal, unspecified; F10.20 Alcohol dependence, uncomplicated; D68.69 Other thrombophilia; K72.90 Hepatic failure, unspecified without coma; K92.2 Gastrointestinal hemorrhage, unspecified; N17.9 Acute kidney failure, unspecified
CPT/HCPCS: 36415; 80053; 85025; 85652; 86140

== ENCOUNTER → 2025-01-09 07:17 | Outpatient (REF) | payer OTHER, SELFPAY ==
[2025-01-09 07:30] VITALS: BP 150/81; BP_SYST 102
[2025-01-09 08:19] VITALS: BP 145/75
[2025-01-09 10:13] LABS: Body Fluid Mononuclear 87.7 %; Body Fluid Polymorphonuclear 12.3 %; Body Fluid WBC 65 /CUMM
[2025-01-09 10:14] LABS: Body Fluid Second Tech CS
== END ==
LOC: RADI 07:17
PROVIDERS: ATTENDING PHYSICIAN Physician Assistant; FAMILY PHYSICIAN Nurse Practitioner Family
DX: R18.8 Other ascites (principal)
CPT/HCPCS: 49083; 87015; 87070; 87205; 89051

== ENCOUNTER 2025-01-09 08:35 | Outpatient (RCR) | payer OTHER, SELFPAY ==
[2025-01-09 09:01] VITALS: BP 151/89
[2025-01-09] MEDS: FLEXBUMIN 100 IV (09:01)
[2025-01-09 10:45] VITALS: BP 139/65
== END 2025-01-22 12:43 | disposition home or self-care (01) ==
LOC: OID 08:35
PROVIDERS: ATTENDING PHYSICIAN Physician Assistant; FAMILY PHYSICIAN Nurse Practitioner Family
DX: R41.82 Altered mental status, unspecified (principal); K76.82 Hepatic encephalopathy; F10.132 Alcohol abuse with withdrawal with perceptual disturbance; D69.6 Thrombocytopenia, unspecified; R17 Unspecified jaundice; T84.54XA Infection and inflammatory reaction due to internal left knee prosthesis, initial encounter; Y83.1 Surgical operation with implant of artificial internal device as the cause of abnormal reaction of the patient, or of later complication, without mention of misadventure at the time of the procedure; A49.01 Methicillin susceptible Staphylococcus aureus infection, unspecified site
CPT/HCPCS: 96365; 96366; P9047

== ENCOUNTER → 2025-01-11 14:29 | Outpatient (REF) | payer OTHER, SELFPAY ==
[2025-01-11 15:15] LABS: Blood Urea Nitrogen 19 mg/dl (9-20); Calcium 7.6 mg/dl (8.4-10.2); Carbon Dioxide 23 mmol/L (22-30); Chloride 95 mmol/L (98-107); Glucose 142 mg/dl (70-99); Potassium 3.5 mmol/L (3.5-5.1); Sodium 128 mmol/L (135-145); eGFR > 60.00
[2025-01-11 15:17] LABS: Hematocrit 19.3 % (39.0-52.0); Hemoglobin 6.7 g/dL (13.0-18.0); Mean Corp Hgb Conc. 34.7 g/dL (33.0-37.0); Mean Corpuscular Hgb 32.8 pg (27.0-31.0); Mean Corpuscular Volume 94.6 fL (80.0-94.0); Mean Platelet Volume 10.9 fL (7.4-10.4); Platelet Count 69 10^3/uL (130-400); Red Blood Cell Count 2.04 10^6/uL (4.70-6.10); Red Cell Dist. Width 15.8 % (11.5-14.5); White Blood Cell Count 12.6 10^3/uL (4.8-10.8)
[2025-01-11 15:41] LABS: % Basophils 0.6 % (0-2); % Eosinophils 18.4 % (0-6); % Immature Granulocytes 0.6 % (0-0.5); % Lymphocytes 8.7 % (20.5-51.1); % Monocytes 9.3 % (1.7-9.3); % Neutrophils 62.4 % (42.2-75.2); Absolute Basophils 0.1 10^3/uL (0-0.2); Absolute Eosinophils 2.3 10^3/uL (0-0.7); Absolute Immature Granulocytes 0.1 10^3/uL (0-0.05); Absolute Lymphocytes 1.1 10^3/uL (1.2-3.4); Absolute Monocytes 1.2 10^3/uL (0.1-0.6); Absolute Neutrophils 7.9 10^3/uL (1.4-6.5); Nucleated Red Blood Cells % 0 % (-)
== END ==
LOC: OLABP 14:29
PROVIDERS: ATTENDING PHYSICIAN Family Medicine
DX: M00.9 Pyogenic arthritis, unspecified (principal); A41.9 Sepsis, unspecified organism; E87.6 Hypokalemia; K72.00 Acute and subacute hepatic failure without coma; D84.9 Immunodeficiency, unspecified; N17.9 Acute kidney failure, unspecified; R78.81 Bacteremia; F10.139 Alcohol abuse with withdrawal, unspecified; F10.20 Alcohol dependence, uncomplicated; D68.69 Other thrombophilia; K92.2 Gastrointestinal hemorrhage, unspecified; K72.90 Hepatic failure, unspecified without coma
CPT/HCPCS: 36415; 80048; 85025

== ENCOUNTER → 2025-01-12 10:12 | Outpatient (REF) | payer OTHER, SELFPAY ==
[2025-01-12 11:30] LABS: % Basophils 0.7 % (0-2); % Immature Granulocytes 0.3 % (0-0.5); % Lymphocytes 9.2 % (20.5-51.1); % Monocytes 10.1 % (1.7-9.3); % Neutrophils 60.7 % (42.2-75.2); Absolute Basophils 0.1 10^3/uL (0-0.2); Absolute Monocytes 1.1 10^3/uL (0.1-0.6); Absolute Neutrophils 6.4 10^3/uL (1.4-6.5); Hematocrit 17.2 % (39.0-52.0); Hemoglobin 6.1 g/dL (13.0-18.0); Mean Corp Hgb Conc. 35.5 g/dL (33.0-37.0); Mean Corpuscular Hgb 33.5 pg (27.0-31.0); Mean Corpuscular Volume 94.5 fL (80.0-94.0); Mean Platelet Volume 11.5 fL (7.4-10.4); Nucleated Red Blood Cells % 0 % (-); Platelet Count 58 10^3/uL (130-400); Red Blood Cell Count 1.82 10^6/uL (4.70-6.10); Red Cell Dist. Width 15.7 % (11.5-14.5); White Blood Cell Count 10.5 10^3/uL (4.8-10.8)
== END ==
LOC: OLABP 10:12
PROVIDERS: ATTENDING PHYSICIAN Family Medicine
DX: M00.9 Pyogenic arthritis, unspecified (principal); T84.54XA Infection and inflammatory reaction due to internal left knee prosthesis, initial encounter; A41.9 Sepsis, unspecified organism; E87.6 Hypokalemia; K72.00 Acute and subacute hepatic failure without coma; D84.9 Immunodeficiency, unspecified; R78.81 Bacteremia; F10.139 Alcohol abuse with withdrawal, unspecified; F10.20 Alcohol dependence, uncomplicated; D68.61 Antiphospholipid syndrome; K92.2 Gastrointestinal hemorrhage, unspecified; N17.9 Acute kidney failure, unspecified; K72.90 Hepatic failure, unspecified without coma
CPT/HCPCS: 36415; 85025

== ENCOUNTER 2025-01-12 12:25 | Emergency (ER) | payer OTHER, SELFPAY ==
[2025-01-12] VITALS (12 sets, daily range): BP systolic 118–149; BP diastolic 45–88
--- NOTE | 2025-01-12 13:27 | ED.GENMED ---
History of Present Illness
General
Chief Complaint: Abnormal Lab Value
Source: patient and records
Exam Limitations: none
Time Seen by Provider: 01/12/25 12:58
History of Present Illness
History of Present Illness:
59yoM with a history of cirrhosis, hypertension, anemia, and recent hospitalization for L knee septic arthritis and MSSA bacteremia currently receiving IV Daptomycin presenting for evaluation of anemia. Patient has been having weekly lab work while
receiving IV antibiotics. Lab work yesterday showed a hemoglobin of 6.7 and repeat lab work this morning showed a hemoglobin of 6.1. Patient reports being asymptomatic at this time. He states he was participating in physical therapy when he was
told to go to the ED. He denies any dizziness, syncope, chest pain, shortness of breath, hematochezia, melena, or fevers. He had a bowel movement about 2 hours ago which was brown in color. Gastroenterology was consulted during his recent
hospitalization due to worsening anemia. Patient had an endoscopy on 12/13/2024 which showed esophagitis without any active bleeding. No esophageal varices were noted. Patient does have a history of chronic anemia and has required multiple blood
transfusions in the past.
Phy Exam
General Physical Exam
General Presentation: no apparent distress
General age: appears stated age
General Skin: warm and dry
General Mental: alert
ENT Exam
ENT Exam: normocephalic
Eye Exam
Eye Exam: other (scleral icterus noted)
Cardiovascular Exam
Cardiovascular Exam: no murmur and tachycardia
Pulmonary Exam
Pulmonary Exam: lungs clear, no respiratory distress, no rales, no crackles and no rhonchi
Gastrointestinal Exam
Gastrointestinal Exam: non tender, soft and other (Abdomen distended (due to for paracentesis in 3 days). Abdomen soft, non-tender. )
Stool: other (Stool light brown and hemoccult negative.)
Neurological Exam
Neurological Exam: alert
Chary Coma Scale
Eye Opening: Spontaneous
Verbal Response: Oriented
Motor Response: Obeys Commands
GCS Total Score: 15
Musculoskeletal Exam
Musculoskeletal Exam: other (RUE PICC line in place)
Skin Exam
Skin Exam: normal color and warm/dry
Psychiatric Exam
Psychiatric Exam: normal mood/affect
Course
Orders/Labs/Results
Orders:
Orders
01/12/25 12:34
Chest [CR Chest - 2 Views ] Urgent
Comment:
Reason For Exam: check picc placement
01/12/25 13:30
Type And Crossmatch [Type+Screen] Urgent
Complete Blood Count/With Diff Urgent
Comprehensive Metabolic Panel Urgent
01/12/25 13:31
Blood Bank Products [* Blood Bank Products] Urgent
Blood Bank Products: *Packed RBC Leuko(PRBC's)
Quantity: 1
Transfuse Today: Yes
Reason: Anemia
Abnormal Lab Results
01/12/25
13:30
WBC 12.8 H 10^3/uL
(4.8-10.8)
RBC 2.04 L 10^6/uL
(4.70-6.10)
Hgb 6.8 L* g/dL
(13.0-18.0)
Hct 19.3 L* %
(39.0-52.0)
MCV 94.6 H fL
(80.0-94.0)
MCH 33.3 H pg
(27.0-31.0)
RDW 15.8 H %
(11.5-14.5)
Plt Count 67 L 10^3/uL
(130-400)
MPV 10.7 H fL
(7.4-10.4)
Abs Immat Gran (auto) 0.1 H 10^3/uL
(0-0.05)
Absolute Neuts (auto) 8.0 H 10^3/uL
(1.4-6.5)
Absolute Lymphs (auto) 1.1 L 10^3/uL
(1.2-3.4)
Absolute Monos (auto) 1.2 H 10^3/uL
(0.1-0.6)
Absolute Eos (auto) 2.4 H 10^3/uL
(0-0.7)
Lymphocytes % 8.4 L %
(20.5-51.1)
Monocytes % 9.6 H %
(1.7-9.3)
Eosinophils % 18.6 H %
(0-6)
Sodium 126 L mmol/L
(135-145)
Chloride 95 L mmol/L
(98-107)
Glucose 145 H mg/dl
(70-99)
Calcium 7.7 L mg/dl
(8.4-10.2)
Total Bilirubin 6.6 H mg/dl
(0.2-1.3)
Alkaline Phosphatase 207 H U/L
(38-126)
Total Protein 5.3 L g/dl
(6.3-8.2)
Albumin 2.4 L g/dl
(3.5-5.0)
Crossmatch IS Only See Detail
01/12/25 13:30
01/12/25 13:30
Vital Signs
Initial and Last Documented VS:
Initial Vital Signs
Temp Pulse Resp BP Pulse Ox
99.4 F 109 13 125/88 100
01/12/25 12:28 01/12/25 12:28 01/12/25 12:28 01/12/25 12:28 01/12/25 12:28
Last Documented Vital Signs
Temp Pulse Resp BP Pulse Ox
98.5 F 107 11 135/76 99
01/12/25 18:43 01/12/25 19:30 01/12/25 19:30 01/12/25 19:00 01/12/25 19:30
MDM/Problems Addressed
Differential Diagnosis Includes:
59yoM here for a hemoglobin of 6.1 on outpatient labs. Hx of cirrhosis and chronic anemia. Denies any hematochezia or melena. HR 111, remainder of vitals are normal. Stool is light brown in color and hemoccult is negative. Differential diagnosis
includes: anemia of chronic disease, iron deficiency anemia, no clinical evidence of acute blood loss anemia
Initial ED plan: Check CBC, CMP, and type and screen. Consent obtained and 1 unit PRBCs ordered for transfusion.
*Critical Care Note
Total Time (30-74mins, 75-104mins- exclusive of procedures): Not Applicable
Update Note
Update Note:
Hemoglobin 6.8 which is improved from 6.1 earlier today. Platelets 67 and bilirubin 6.6 which appears to be baseline. Sodium 126 which appears similar to previous labs (sodium 127 one week ago). Patient received blood transfusion without incident.
He is stable for discharge back to [facility]. He is scheduled to have blood work done in 3 days. ED return precautions discussed. Patient discharged in stable condition.
ED Attending Note
-
Portions of this chart may have been created with voice recognition software.� Occasional wrong word or��sound alike� substitutions may have occurred due to the inherent limitations of voice recognition software.
Discharge Plan
Departure
Patient Disposition: Home (Routine Discharge)
Date of Disposition: 01/12/25
Time of Disposition: 17:42
Patient with high blood pressure during this ER visit?: No
Discharge Problem:
Anemia
Instructions: Anemia overview
Prescriptions:
No Action
spironolactone 25 mg Tablet
25 mg PO DAILY 30 Days Qty: 30 0RF
loratadine 10 mg Tablet
10 mg PO DAILY 30 Days Qty: 30 0RF
folic acid 1 mg Tablet
1 mg PO DAILY 30 Days Qty: 30 0RF
furosemide 20 mg Tablet
40 mg PO DAILY 30 Days Qty: 60 0RF
escitalopram oxalate 5 mg Tablet
5 mg PO DAILY 30 Days Qty: 30 0RF
lactulose 10 gram/15 mL Solution
20 g PO BID 30 Days Qty: 1800 0RF
oxycodone 5 mg Tablet
5 mg PO Q4HPRN PRN (Reason: mod pain) Qty: 12 0RF
thiamine mononitrate (vit B1) 100 mg Tablet
100 mg PO BID 30 Days Qty: 60 0RF
magnesium hydroxide [Milk of Magnesia] 400 mg/5 mL Suspension
400 mg PO HSPRN PRN (Reason: IF NO BM BY 4TH DAY)
Fleet Enema 19-7 gram/118 mL Enema
118 ml [place] DAILYPRN PRN (Reason: IF NO BM BY 6TH DAY)
Saccharomyces boulardii [Probiotic (S.boulardii)] 250 mg Capsule
500 mg PO BID
doxycycline hyclate 100 mg Capsule
100 mg PO BID
cholestyramine (with sugar) 4 gram Powder In Packet
4 g PO DAILY
daptomycin in 0.9 % sod chlor 500 mg/50 mL Piggyback
550 mg IV HS
levothyroxine 25 mcg tablet
25 mcg PO DAILY
pantoprazole 40 mg tablet,delayed release (DR/EC)
40 mg PO BID
Rx Instructions:
DECREASE TO DAILY ON 01/22/25
gabapentin 100 mg capsule
100 mg PO TID
Referrals:
Pepito Cornelius MD [Family Provider] -
Activity Restrictions/Additional Instructions:
Have repeat blood work done next week to monitor your hemoglobin levels.
Please follow-up with your family doctor. Return to the ER with any worsening symptoms or bloody/black stools.
Interventions
Interventions:
*Risk Screen - Suicide Last Done: 01/12/25 14:25
*General Assessment Last Done: 01/12/25 14:38
*Neglect/Abuse Screening Last Done: 01/12/25 14:25
*Nursing Disposition Last Done: 01/12/25 19:35
Discharge Date and Time
Discharge Date/Time: 01/12/25 19:36
Print Language: ITALIAN
[2025-01-12 13:46] LABS: Hematocrit 19.3 % (39.0-52.0); Hemoglobin 6.8 g/dL (13.0-18.0); Mean Corp Hgb Conc. 35.2 g/dL (33.0-37.0); Mean Corpuscular Hgb 33.3 pg (27.0-31.0); Mean Corpuscular Volume 94.6 fL (80.0-94.0); Mean Platelet Volume 10.7 fL (7.4-10.4); Platelet Count 67 10^3/uL (130-400); Red Blood Cell Count 2.04 10^6/uL (4.70-6.10); Red Cell Dist. Width 15.8 % (11.5-14.5); White Blood Cell Count 12.8 10^3/uL (4.8-10.8)
[2025-01-12 13:53] LABS: ALT (SGPT) 21 U/L (0-50); AST (SGOT) 51 U/L (17-59); Albumin 2.4 g/dl (3.5-5.0); Alkaline Phosphatase 207 U/L (38-126); Blood Urea Nitrogen 19 mg/dl (9-20); Calcium 7.7 mg/dl (8.4-10.2); Carbon Dioxide 27 mmol/L (22-30); Chloride 95 mmol/L (98-107); Glucose 145 mg/dl (70-99); Potassium 3.8 mmol/L (3.5-5.1); Sodium 126 mmol/L (135-145); Total Bilirubin 6.6 mg/dl (0.2-1.3); Total Protein 5.3 g/dl (6.3-8.2); eGFR > 60.00
[2025-01-12 14:11] LABS: % Basophils 0.5 % (0-2); % Eosinophils 18.6 % (0-6); % Immature Granulocytes 0.5 % (0-0.5); % Lymphocytes 8.4 % (20.5-51.1); % Monocytes 9.6 % (1.7-9.3); % Neutrophils 62.4 % (42.2-75.2); Absolute Basophils 0.1 10^3/uL (0-0.2); Absolute Eosinophils 2.4 10^3/uL (0-0.7); Absolute Immature Granulocytes 0.1 10^3/uL (0-0.05); Absolute Lymphocytes 1.1 10^3/uL (1.2-3.4); Absolute Monocytes 1.2 10^3/uL (0.1-0.6); Nucleated Red Blood Cells % 0 % (-)
== END 2025-01-12 19:36 | disposition home or self-care (01) ==
LOC: EMR 12:25
PROVIDERS: EMERGENCY PHYSICIAN Emergency Medicine; FAMILY PHYSICIAN Family Medicine
DX: D64.9 Anemia, unspecified (principal); I10 Essential (primary) hypertension; K74.60 Unspecified cirrhosis of liver; Z87.19 Personal history of other diseases of the digestive system
CPT/HCPCS: 36430; 99285; 71046; 80053; 85025; 86850; 86900; 86901; 86920; P9016

== ENCOUNTER → 2025-01-15 10:44 | Outpatient (REF) | payer OTHER, SELFPAY ==
[2025-01-15 11:15] LABS: % Basophils 0.5 % (0-2); % Eosinophils 10.9 % (0-6); % Immature Granulocytes 0.5 % (0-0.5); % Monocytes 10.6 % (1.7-9.3); % Neutrophils 68.5 % (42.2-75.2); Absolute Basophils 0.1 10^3/uL (0-0.2); Absolute Eosinophils 1.3 10^3/uL (0-0.7); Absolute Immature Granulocytes 0.1 10^3/uL (0-0.05); Absolute Lymphocytes 1.1 10^3/uL (1.2-3.4); Absolute Monocytes 1.2 10^3/uL (0.1-0.6); Hematocrit 22.9 % (39.0-52.0); Hemoglobin 7.8 g/dL (13.0-18.0); Mean Corp Hgb Conc. 34.1 g/dL (33.0-37.0); Mean Corpuscular Hgb 32.1 pg (27.0-31.0); Mean Corpuscular Volume 94.2 fL (80.0-94.0); Mean Platelet Volume 11.2 fL (7.4-10.4); Nucleated Red Blood Cells % 0 % (-); Platelet Count 78 10^3/uL (130-400); Red Blood Cell Count 2.43 10^6/uL (4.70-6.10); Red Cell Dist. Width 17.3 % (11.5-14.5); White Blood Cell Count 11.7 10^3/uL (4.8-10.8)
[2025-01-15 11:38] LABS: Erythrocyte Sed Rate 15 mm/hour (0-20)
[2025-01-15 13:21] LABS: ALT (SGPT) 21 U/L (0-50); AST (SGOT) 45 U/L (17-59); Albumin 2.5 g/dl (3.5-5.0); Alkaline Phosphatase 221 U/L (38-126); Blood Urea Nitrogen 20 mg/dl (9-20); Calcium 7.9 mg/dl (8.4-10.2); Carbon Dioxide 28 mmol/L (22-30); Chloride 100 mmol/L (98-107); Glucose 105 mg/dl (70-99); Potassium 4.2 mmol/L (3.5-5.1); Sodium 134 mmol/L (135-145); Total Bilirubin 6.1 mg/dl (0.2-1.3); Total Protein 5.4 g/dl (6.3-8.2); eGFR > 60.00
== END ==
LOC: OLABP 10:44
PROVIDERS: ATTENDING PHYSICIAN Family Medicine
DX: M00.9 Pyogenic arthritis, unspecified (principal); A41.9 Sepsis, unspecified organism; E87.6 Hypokalemia; K72.00 Acute and subacute hepatic failure without coma; D84.9 Immunodeficiency, unspecified; R78.81 Bacteremia; F10.139 Alcohol abuse with withdrawal, unspecified; F10.20 Alcohol dependence, uncomplicated; K92.2 Gastrointestinal hemorrhage, unspecified; K72.90 Hepatic failure, unspecified without coma
CPT/HCPCS: 36415; 80053; 85025; 85652; 86140

== ENCOUNTER → 2025-01-16 07:03 | Outpatient (REF) | payer OTHER, SELFPAY ==
[2025-01-16 07:20] VITALS: BP 156/74; BP_SYST 111
[2025-01-16 08:10] VITALS: BP 116/58; BP_SYST 110
[2025-01-16 08:23] VITALS: BP 116/58
[2025-01-16 08:56] LABS: Body Fluid Mononuclear 91.5 %; Body Fluid Polymorphonuclear 8.5 %; Body Fluid WBC 47 /CUMM
[2025-01-16 09:09] LABS: Body Fluid Second Tech CF
== END ==
LOC: RADI 07:03
PROVIDERS: ATTENDING PHYSICIAN Physician Assistant
DX: R18.8 Other ascites (principal)
CPT/HCPCS: 49083; 87015; 87070; 87205; 89051

== ENCOUNTER → 2025-01-26 07:37 | Outpatient (REF) | payer OTHER, SELFPAY ==
[2025-01-26 07:45] VITALS: BP 136/62; BP_SYST 109
[2025-01-26 08:40] VITALS: BP 129/62
[2025-01-26 10:31] LABS: Body Fluid Mononuclear 88.5 %; Body Fluid Polymorphonuclear 11.5 %; Body Fluid WBC 52 /CUMM
[2025-01-26 10:41] LABS: Body Fluid Second Tech AMA
== END ==
LOC: RADI 07:37
PROVIDERS: ATTENDING PHYSICIAN Physician Assistant
DX: R18.8 Other ascites (principal)
CPT/HCPCS: 49083; 87015; 87070; 87205; 89051

== ENCOUNTER 2025-01-30 10:52 | Emergency (ER) | payer OTHER, SELFPAY ==
[2025-01-30] VITALS (14 sets, daily range): BP systolic 97–132; BP diastolic 55–86; BMI 33.8
--- NOTE | 2025-01-30 11:41 | ED.GENMED ---
History of Present Illness
General
Chief Complaint: Fall
Source: patient
Exam Limitations: none
Time Seen by Provider: 01/30/25 11:25
Nursing documentation reviewed up to this point in time: agreed with
History of Present Illness
History of Present Illness:
Patient is a 59-year-old male with history of cirrhosis of liver, hypertension, recent left knee surgery(12/[address] Hand for infected left knee prosthesis)
Patient reports he was sent by his family doctor today because on Wednesday he fell and landed on his left knee. At that time he tripped over shoes. He also reports on Wednesday he felt a little weak and fell back hitting his head. He reports on
Wednesday he was out most of the day at a [employer] and that was very long for him and wiped him out. His family doctor saw him today as a follow-up appointment after he was in rehab and recommended he come to the ER for CAT scan and left knee x-ray.
Patient does have GI who he has seen in the past for his liver disease and he is scheduled to see a liver specialist in February both here and at [facility]. Patient has no abdominal complaints of pain, fever chills.
Review of Systems
Review of Systems
Allergies reviewed?: Yes
All Other Systems: ROS reviewed and negative except as documented in HPI and ROS
Constitutional: Reports no symptoms and fatigue (felt a little fatigued several days ago ); Denies fever or chills
EENT: Reports no symptoms
Respiratory: Reports no symptoms
Cardiac: Reports no symptoms
ABD/GI: Reports no symptoms
: Reports no symptoms
Musculoskeletal: Reports no symptoms
Skin: Reports no symptoms
Neurological: Reports no symptoms
Psychiatric: Reports no symptoms
Phy Exam
General Physical Exam
General Presentation: no apparent distress
General age: appears stated age
General Skin: warm, dry and other (Jaundiced)
General Habitus: normal
General Mental: alert
General Hydration: appears well hydrated
Eye Exam
Eye Exam: PERRL, EOMI and other (Scleral icterus)
Eye Exam General: PERRL: bilateral and EOM intact: bilateral
Pupil Exam: Bilateral: round and reactive
Cardiovascular Exam
Cardiovascular Exam: regular rate/rhythm, no murmur and normal peripheral pulses
Pulmonary Exam
Pulmonary Exam: lungs clear and no respiratory distress
Gastrointestinal Exam
Gastrointestinal Exam: non tender, soft and other (Brown stool heme-negative)
Neurological Exam
Neurological Exam: alert and oriented x3
Musculoskeletal Exam
Musculoskeletal Exam: full ROM and other (lle with strong pulses + mild ecchymosis to anterior knee good ROM )
Skin Exam
Skin Exam: normal color, warm/dry and jaundice
Psychiatric Exam
Psychiatric Exam: normal mood/affect
Course
Orders/Labs/Results
Orders:
Orders
01/30/25 11:[address] [CT Head W/o Iv Contrast] Urgent
Comment: low platelets
Reason For Exam: head strike
CR Knee - Left 4 Or More View* Urgent
Comment:
Reason For Exam: bruising, swelling
01/30/25 11:43
IV Insert/Care/Rem.- Treatment PRN
01/30/25 12:35
Complete Blood Count/With Diff Urgent
Comprehensive Metabolic Panel Urgent
PTT Urgent
Prothrombin Time Urgent
01/30/25 13:50
* Blood Bank Products Urgent
'mary Orders: Amelia Hollins CRNP
Blood Bank Products: *Packed RBC Leuko(PRBC's)
Quantity: 1
Transfuse Today: Yes
Is product needed for scheduled surgery?: No
Reason: Anemia
IV Insert/Care/Rem.- Treatment PRN
01/30/25 13:53
Type+Screen Urgent
Abnormal Lab Results
01/30/25 01/30/25
12:35 13:53
RBC 2.08 L 10^6/uL
(4.70-6.10)
Hgb 6.9 L* g/dL
(13.0-18.0)
Hct 19.6 L* %
(39.0-52.0)
MCV 94.2 H fL
(80.0-94.0)
MCH 33.2 H pg
(27.0-31.0)
RDW 15.7 H %
(11.5-14.5)
Plt Count 93 L 10^3/uL
(130-400)
Abs Immat Gran (auto) 0.1 H 10^3/uL
(0-0.05)
Absolute Neuts (auto) 7.3 H 10^3/uL
(1.4-6.5)
Absolute Lymphs (auto) 0.8 L 10^3/uL
(1.2-3.4)
Absolute Monos (auto) 0.9 H 10^3/uL
(0.1-0.6)
Neutrophils % 77.7 H %
(42.2-75.2)
Lymphocytes % 8.7 L %
(20.5-51.1)
PT 26.2 H Sec
(11.4-14.6)
APTT 37.6 H Sec
(23.4-35.0)
Sodium 134 L mmol/L
(135-145)
BUN 21 H mg/dl
(9-20)
Glucose 127 H mg/dl
(70-99)
Total Bilirubin 7.6 H mg/dl
(0.2-1.3)
Alkaline Phosphatase 174 H U/L
(38-126)
Total Protein 5.5 L g/dl
(6.3-8.2)
Albumin 2.4 L g/dl
(3.5-5.0)
Crossmatch IS Only See Detail
01/30/25 12:35
01/30/25 12:35
Vital Signs
Initial and Last Documented VS:
Initial Vital Signs
Temp Pulse Resp BP Pulse Ox
98.3 F 104 20 132/60 100
01/30/25 11:02 01/30/25 11:02 01/30/25 11:02 01/30/25 11:02 01/30/25 11:02
Last Documented Vital Signs
Temp Pulse Resp BP Pulse Ox
98.0 F 100 14 114/62 97
01/30/25 15:38 01/30/25 16:30 01/30/25 16:30 01/30/25 16:00 01/30/25 16:30
Collar Pointer consulted with Physician
Collar Pointer consulted with physician?: Yes
Name of Physician Consulted: Gurvinder
MDM/Problems Addressed
Differential Diagnosis Includes:
not limited to: head injury, knee contusion versus fracture
MDM/Problems Addressed:
As documented patient is a 5-year-old male with liver cirrhosis presents for evaluation of falls. Patient tripped and fell on his left knee several days ago and also fell and hitting the back of his head. He describes mechanical fall with the knee
injury however reports he was weak at the time of the fall when he hit his head. He does have a history of anemia in the past and has had transfusions. His hemoglobin today is 6.9. He denies any black or dark stools that he is heme-negative. He
is afebrile with stable white count platelets are 93,000 which is improved from January 15. Patient's bilirubin is high which is his baseline.
On exam patient has no obvious head injury he is awake alert with a normal neurologic exam. He has no other complaints. His left anterior knee is mildly bruised however he has good range of motion.
Case d/c with DR Hollins
Regarding patient's anemia patient denies any weakness , he is stable appearing, . He is heme-negative will transfuse 1 unit and discharged home. He does have GI specialty here and is also following with a liver specialist at [facility] and here as well.
His CT head was negative he is on blood thinners; and his knee x-ray is negative. There is no findings to suggest fracture. He has good ROM.
Pt to f/u with his liver specialist and pcp.
*Radiology
Radiology exam reviewed: radiology read reviewed
*Pulse Oximetry
Patient hypoxic: no
*Critical Care Note
Total Time (30-74mins, 75-104mins- exclusive of procedures): Not Applicable
Data Reviewed
Review of Other/Old Records Reveals: Labs
ED Attending Note
-
Portions of this chart may have been created with voice recognition software.� Occasional wrong word or��sound alike� substitutions may have occurred due to the inherent limitations of voice recognition software.
Discharge Plan
Departure
Patient Disposition: Home (Routine Discharge)
Date of Disposition: 01/30/25
Time of Disposition: 16:35
Patient with high blood pressure during this ER visit?: Yes
Condition: Fair
Covid-19: Not Applicable
Discharge Problem:
Anemia, Contusion
Instructions: Contusion (DC), BLOOD PRESSURE
Prescriptions:
No Action
spironolactone 25 mg Tablet
25 mg PO DAILY 30 Days Qty: 30 0RF
loratadine 10 mg Tablet
10 mg PO DAILY 30 Days Qty: 30 0RF
folic acid 1 mg Tablet
1 mg PO DAILY 30 Days Qty: 30 0RF
furosemide 20 mg Tablet
40 mg PO DAILY 30 Days Qty: 60 0RF
escitalopram oxalate 5 mg Tablet
5 mg PO DAILY 30 Days Qty: 30 0RF
lactulose 10 gram/15 mL Solution
20 g PO BID 30 Days Qty: 1800 0RF
oxycodone 5 mg Tablet
5 mg PO Q4HPRN PRN (Reason: mod pain) Qty: 12 0RF
thiamine mononitrate (vit B1) 100 mg Tablet
100 mg PO BID 30 Days Qty: 60 0RF
magnesium hydroxide [Milk of Magnesia] 400 mg/5 mL Suspension
400 mg PO HSPRN PRN (Reason: IF NO BM BY 4TH DAY)
Fleet Enema 19-7 gram/118 mL Enema
118 ml [place] DAILYPRN PRN (Reason: IF NO BM BY 6TH DAY)
Saccharomyces boulardii [Probiotic (S.boulardii)] 250 mg Capsule
500 mg PO BID
lisinopril 10 mg Tablet
10 mg PO DAILY
ondansetron 4 mg Tablet,Disintegrating
4 mg PO DAILY PRN (Reason: nausea)
Zyrtec 10 mg Capsule
10 mg PO DAILY
doxycycline hyclate 100 mg Capsule
100 mg PO BID
cholestyramine (with sugar) 4 gram Powder In Packet
4 g PO DAILY
daptomycin in 0.9 % sod chlor 500 mg/50 mL Piggyback
550 mg IV HS
levothyroxine 25 mcg tablet
25 mcg PO DAILY
pantoprazole 40 mg tablet,delayed release (DR/EC)
40 mg PO BID
Rx Instructions:
DECREASE TO DAILY ON 01/22/25
gabapentin 100 mg capsule
100 mg PO TID
Referrals:
Rehan Morillo CRNP [Family Provider] -
Activity Restrictions/Additional Instructions:
As discussed your CAT scan of your head was negative and your knee x-ray was negative for fracture. Incidentally your hemoglobin is found to be low at 6.9 again you are given 1 unit of packed red blood cells. Follow-up with your GI specialist or
your family doctor in the next 2 days for reevaluation return if any worsening of symptoms.
Interventions
Interventions:
*Risk Screen - Suicide Last Done: 01/30/25 11:02
*General Assessment Last Done: 01/30/25 11:07
*Neglect/Abuse Screening Last Done: 01/30/25 11:30
*ED COVID-19 Vaccine History Last Done: 01/30/25 11:30
ED-Musculoskeletal Assessment Last Done: 01/30/25 11:30
ED- Neurological Assessment Last Done: 01/30/25 11:30
ED-Skin Assessment Last Done: 01/30/25 11:30
Discharge Date and Time
Print Language: EAST TIMOR[place]
[2025-01-30 12:49] LABS: % Basophils 0.4 % (0-2); % Eosinophils 3.6 % (0-6); % Immature Granulocytes 0.5 % (0-0.5); % Lymphocytes 8.7 % (20.5-51.1); % Monocytes 9.1 % (1.7-9.3); % Neutrophils 77.7 % (42.2-75.2); Absolute Eosinophils 0.3 10^3/uL (0-0.7); Absolute Immature Granulocytes 0.1 10^3/uL (0-0.05); Absolute Lymphocytes 0.8 10^3/uL (1.2-3.4); Absolute Monocytes 0.9 10^3/uL (0.1-0.6); Absolute Neutrophils 7.3 10^3/uL (1.4-6.5); Hematocrit 19.6 % (39.0-52.0); Hemoglobin 6.9 g/dL (13.0-18.0); Mean Corp Hgb Conc. 35.2 g/dL (33.0-37.0); Mean Corpuscular Hgb 33.2 pg (27.0-31.0); Mean Corpuscular Volume 94.2 fL (80.0-94.0); Mean Platelet Volume 10.2 fL (7.4-10.4); Nucleated Red Blood Cells % 0 % (-); Platelet Count 93 10^3/uL (130-400); Red Blood Cell Count 2.08 10^6/uL (4.70-6.10); Red Cell Dist. Width 15.7 % (11.5-14.5); White Blood Cell Count 9.5 10^3/uL (4.8-10.8)
[2025-01-30 12:56] LABS: PT 26.2 Sec (11.4-14.6)
[2025-01-30 12:57] LABS: APTT 37.6 Sec (23.4-35.0)
[2025-01-30 12:58] LABS: ALT (SGPT) 26 U/L (0-50); AST (SGOT) 59 U/L (17-59); Albumin 2.4 g/dl (3.5-5.0); Alkaline Phosphatase 174 U/L (38-126); Blood Urea Nitrogen 21 mg/dl (9-20); Calcium 8.4 mg/dl (8.4-10.2); Carbon Dioxide 28 mmol/L (22-30); Chloride 99 mmol/L (98-107); Estimated Creatinine Clearance 90 ml/min; Glucose 127 mg/dl (70-99); Potassium 3.9 mmol/L (3.5-5.1); Sodium 134 mmol/L (135-145); Total Bilirubin 7.6 mg/dl (0.2-1.3); Total Protein 5.5 g/dl (6.3-8.2); eGFR > 60.00
== END 2025-01-30 17:57 | disposition home or self-care (01) ==
LOC: EMR 10:52
PROVIDERS: Nurse Practitioner; EMERGENCY PHYSICIAN Emergency Medicine; FAMILY PHYSICIAN Nurse Practitioner Family
DX: D64.9 Anemia, unspecified (principal); S80.02XA Contusion of left knee, initial encounter; W19.XXXA Unspecified fall, initial encounter; R29.6 Repeated falls; K74.60 Unspecified cirrhosis of liver; I10 Essential (primary) hypertension; Z96.652 Presence of left artificial knee joint
CPT/HCPCS: 99285; 36430; 70450; 73564; 80053; 85025; 85610; 85730; 86850; 86900; 86901; 86920; P9016

== ENCOUNTER → 2025-02-06 11:05 | Outpatient (REF) | payer OTHER, SELFPAY ==
[2025-02-06 12:22] LABS: % Basophils 0.8 % (0-2); % Eosinophils 7.7 % (0-6); % Immature Granulocytes 0.4 % (0-0.5); % Lymphocytes 11.9 % (20.5-51.1); % Monocytes 10.5 % (1.7-9.3); % Neutrophils 68.7 % (42.2-75.2); Absolute Basophils 0.1 10^3/uL (0-0.2); Absolute Eosinophils 0.8 10^3/uL (0-0.7); Absolute Lymphocytes 1.2 10^3/uL (1.2-3.4); Absolute Monocytes 1.1 10^3/uL (0.1-0.6); Absolute Neutrophils 7.2 10^3/uL (1.4-6.5); Hematocrit 21.6 % (39.0-52.0); Hemoglobin 7.3 g/dL (13.0-18.0); Mean Corp Hgb Conc. 33.8 g/dL (33.0-37.0); Mean Corpuscular Hgb 32.9 pg (27.0-31.0); Mean Corpuscular Volume 97.3 fL (80.0-94.0); Mean Platelet Volume 10.7 fL (7.4-10.4); Nucleated Red Blood Cells % 0 % (-); Platelet Count 90 10^3/uL (130-400); Red Blood Cell Count 2.22 10^6/uL (4.70-6.10); Red Cell Dist. Width 15.9 % (11.5-14.5); White Blood Cell Count 10.4 10^3/uL (4.8-10.8)
== END ==
LOC: HWLAB 11:05
PROVIDERS: ATTENDING PHYSICIAN Nurse Practitioner Family
DX: D64.9 Anemia, unspecified (principal)
CPT/HCPCS: 36415; 85025

== ENCOUNTER → 2025-02-07 10:46 | Outpatient (REF) | payer OTHER, SELFPAY | LOC: HWRAD 10:46 | PROVIDERS: ATTENDING PHYSICIAN Nurse Practitioner Family | DX: R06.09 Other forms of dyspnea (principal) | CPT/HCPCS: 71046 ==

== ENCOUNTER → 2025-02-09 07:07 | Outpatient (REF) | payer OTHER, SELFPAY ==
[2025-02-09 07:35] VITALS: BP 148/72; BP_SYST 97
[2025-02-09 08:30] VITALS: BP 117/54; BP_SYST 88
[2025-02-09 09:12] LABS: Body Fluid Mononuclear 85.5 %; Body Fluid Polymorphonuclear 14.5 %; Body Fluid WBC 69 /CUMM
[2025-02-09 09:15] LABS: Body Fluid Second Tech AMA
== END ==
LOC: RADI 07:07
PROVIDERS: ATTENDING PHYSICIAN Internal Medicine Gastroenterology
DX: R18.8 Other ascites (principal)
CPT/HCPCS: 49083; 89051

== ENCOUNTER → 2025-02-19 07:19 | Outpatient (REF) | payer OTHER, SELFPAY ==
[2025-02-19 07:45] VITALS: BP 129/54; BP_SYST 96
[2025-02-19 09:00] VITALS: BP_SYST 90
[2025-02-19 11:18] LABS: Body Fluid Mononuclear 92.2 %; Body Fluid Polymorphonuclear 7.8 %; Body Fluid WBC 64 /CUMM
[2025-02-19 11:32] LABS: Body Fluid Second Tech HB
== END ==
LOC: RADI 07:19
PROVIDERS: ATTENDING PHYSICIAN Physician Assistant; FAMILY PHYSICIAN Nurse Practitioner Family
DX: R18.8 Other ascites (principal)
CPT/HCPCS: 49083; 87015; 87070; 87205; 89051

== ENCOUNTER → 2025-03-15 07:03 | Outpatient (REF) | payer OTHER, SELFPAY ==
[2025-03-15 07:21] VITALS: BP 95/62; BP_SYST 86
== END ==
LOC: RADI 07:03
PROVIDERS: ATTENDING PHYSICIAN Physician Assistant
DX: R18.8 Other ascites (principal); Z53.8 Procedure and treatment not carried out for other reasons
CPT/HCPCS: 76705

== ENCOUNTER → 2025-04-11 12:21 | Outpatient (REF) | payer OTHER, SELFPAY ==
[2025-04-11 14:26] LABS: Erythrocyte Sed Rate 63 mm/hour (0-20)
== END ==
LOC: REG 12:21
PROVIDERS: ATTENDING PHYSICIAN Orthopaedic Surgery; FAMILY PHYSICIAN Nurse Practitioner Family
DX: Z96.652 Presence of left artificial knee joint (principal)
CPT/HCPCS: 36415; 85652; 86140

== ENCOUNTER 2025-09-30 08:27 | Emergency (ER) | payer OTHER, SELFPAY ==
[2025-09-30 08:36] VITALS: BP 155/80
--- NOTE | 2025-09-30 08:36 | ED.GENMED ---
History of Present Illness
General
Chief Complaint: Weakness
Source: patient
Exam Limitations: none
Time Seen by Provider: 09/30/25 08:36
Nursing documentation reviewed up to this point in time: agreed with
History of Present Illness
History of Present Illness:
60 yo male w h/o HTN, Asthma, Hypothyroid, Alcohol abuse, ascites w paracentesis, presents for abdominal bloating. Last paracenteis 7 months ago. Has felt fatigued, lightheaded and bloated. Denies n/v/d/c. Denies f/c.
States it feels like when he needs paracentesis.
Past History
Past History
ED Past Medical History: Other (alcoholic cirrhosis of liver with ascites)
ED Past Surgical History: Orthopedic
Review of Systems
Review of Systems
Allergies reviewed?: Yes
All Other Systems: ROS reviewed and negative except as documented in HPI and ROS
Constitutional: Reports fatigue; Denies fever or chills
Respiratory: Denies cough or trouble breathing
Cardiac: Denies chest pain
ABD/GI: Reports abdominal pain and other (abdomen feels bloated); Denies nausea, vomiting, diarrhea, constipated or anorexia
: Denies dysuria or difficulty voiding
Musculoskeletal: Denies edema
Skin: Reports no symptoms
Phy Exam
Physical Exam
Physical Exam:
GENERAL: No acute distress. A&Ox3.
CONSTITUTIONAL: Afebrile.
EYES: clear, conjunctivae normal
ENMT: moist mucus membranes, Pharynx nl
RESPIRATORY: Regular respirations, nonlabored, lungs clear.
CARDIOVASCULAR: Regular rate and rhythm, no murmurs, no rubs.
GI: Soft, mildly rounded, nontender, normal BS
MUSCULOSKELETAL: Moves with ease. Well perfused. No edema
SKIN: Warm, dry, pink. Legs with chronic greyish color changes
PSYCH: Normal mood and affect. Well kept, interactive and appropriate
NEUROLOGIC: Awake, alert and oriented. No focal neurological deficits
Course
Orders/Labs/Results
Orders:
Orders
09/30/25 09:00
US Abdomen Limited Urgent
Comment:
Reason For Exam: feels he needs paracentesis, had it in past
09/30/25 09:07
Basic Metabolic Panel Urgent
Complete Blood Count/With Diff Urgent
Abnormal Lab Results
09/30/25
09:07
RBC 3.49 L 10^6/uL
(4.70-6.10)
Hgb 11.3 L g/dL
(13.0-18.0)
Hct 32.4 L %
(39.0-52.0)
MCH 32.4 H pg
(27.0-31.0)
Plt Count 70 L 10^3/uL
(130-400)
MPV 11.5 H fL
(7.4-10.4)
Absolute Lymphs (auto) 0.8 L 10^3/uL
(1.2-3.4)
Absolute Monos (auto) 0.7 H 10^3/uL
(0.1-0.6)
Lymphocytes % 10.7 L %
(20.5-51.1)
Sodium 132 L mmol/L
(135-145)
BUN 22 H mg/dl
(9-20)
Glucose 106 H mg/dl
(70-99)
09/30/25 09:07
09/30/25 09:07
Vital Signs
Initial and Last Documented VS:
Initial Vital Signs
Temp Pulse Resp BP Pulse Ox
98.3 F 96 18 155/80 100
09/30/25 08:36 09/30/25 08:36 09/30/25 08:36 09/30/25 08:36 09/30/25 08:36
Last Documented Vital Signs
Temp Pulse Resp BP Pulse Ox
98.3 F 96 18 136/71 100
09/30/25 08:36 09/30/25 08:36 09/30/25 08:36 09/30/25 09:15 09/30/25 09:15
MDM/Problems Addressed
MDM/Problems Addressed:
60 yo male w h/o HTN, Asthma, Hypothyroid, Alcohol abuse, ascites w paracentesis, presents for abdominal bloating. Last paracenteis 7 months ago. Has felt fatigued, lightheaded and bloated. Denies n/v/d/c. Denies f/c.
States it feels like when he needs paracentesis. States a pharmacists and daughter a nurse insisted he come in for eval.
CBC: No clinically significant abnormality
CMP: No clinically significant abnormality
US: report read: no evidence of ascites. Copy of report given to patient
Pt informed of lab and US results, states 'terrific!' happy no significant abnormality and happy to be going home.
Stable for discharge
*Pulse Oximetry
Patient hypoxic: no
*Critical Care Note
Total Time (30-74mins, 75-104mins- exclusive of procedures): Not Applicable
ED Attending Note
-
Portions of this chart may have been created with voice recognition software.� Occasional wrong word or��sound alike� substitutions may have occurred due to the inherent limitations of voice recognition software.
Discharge Plan
Departure
Patient Disposition: Home (Routine Discharge)
Date of Disposition: 09/30/25
Time of Disposition: 10:08
Patient with high blood pressure during this ER visit?: No
Condition: Good
Discharge Problem:
Fatigue
Instructions: Fatigue (DC)
Prescriptions:
No Action
spironolactone 25 mg Tablet
25 mg PO DAILY 30 Days Qty: 30 0RF
loratadine 10 mg Tablet
10 mg PO DAILY 30 Days Qty: 30 0RF
folic acid 1 mg Tablet
1 mg PO DAILY 30 Days Qty: 30 0RF
furosemide 20 mg Tablet
40 mg PO DAILY 30 Days Qty: 60 0RF
escitalopram oxalate 5 mg Tablet
5 mg PO DAILY 30 Days Qty: 30 0RF
lactulose 10 gram/15 mL Solution
20 g PO BID 30 Days Qty: 1800 0RF
oxycodone 5 mg Tablet
5 mg PO Q4HPRN PRN (Reason: mod pain) Qty: 12 0RF
thiamine mononitrate (vit B1) 100 mg Tablet
100 mg PO BID 30 Days Qty: 60 0RF
magnesium hydroxide [Milk of Magnesia] 400 mg/5 mL Suspension
400 mg PO HSPRN PRN (Reason: IF NO BM BY 4TH DAY)
Fleet Enema 19-7 gram/118 mL Enema
118 ml [place] DAILYPRN PRN (Reason: IF NO BM BY 6TH DAY)
Saccharomyces boulardii [Probiotic (S.boulardii)] 250 mg Capsule
500 mg PO BID
lisinopril 10 mg Tablet
10 mg PO DAILY
ondansetron 4 mg Tablet,Disintegrating
4 mg PO DAILY PRN (Reason: nausea)
Zyrtec 10 mg Capsule
10 mg PO DAILY
doxycycline hyclate 100 mg Capsule
100 mg PO BID
cholestyramine (with sugar) 4 gram Powder In Packet
4 g PO DAILY
daptomycin in 0.9 % sod chlor 500 mg/50 mL Piggyback
550 mg IV HS
levothyroxine 25 mcg tablet
25 mcg PO DAILY
pantoprazole 40 mg tablet,delayed release (DR/EC)
40 mg PO BID
Rx Instructions:
DECREASE TO DAILY ON 01/22/25
gabapentin 100 mg capsule
100 mg PO TID
midodrine 2.5 mg Tablet
5 mg PO BID
Referrals:
Rehan Morillo CRNP [Family Provider, Family Practice] - As needed
Activity Restrictions/Additional Instructions:
As we discussed, nothing worrisome in your workup here today.
Interventions
Interventions:
*Risk Screen - Suicide Last Done: 09/30/25 08:36
*General Assessment Last Done: 09/30/25 08:36
*Neglect/Abuse Screening Last Done: 09/30/25 08:36
*ED COVID-19 Vaccine History Last Done: 09/30/25 08:41
*ED Influenza Vaccine History Last Done: 09/30/25 08:41
[facility] Fall Risk Assessment Tool Last Done: 09/30/25 09:20
*Nursing Disposition Last Done: 09/30/25 10:40
ED- Cardiac Assessment Last Done: 09/30/25 09:21
ED- Neurological Assessment Last Done: 09/30/25 09:21
ED- Pulmonary Assessment Last Done: 09/30/25 09:21
Discharge Date and Time
Discharge Date/Time: 09/30/25 10:41
Print Language: SURINAM[place]
[2025-09-30 09:15] VITALS: BP 136/71
[2025-09-30 09:42] LABS: Hematocrit 32.4 % (39.0-52.0); Hemoglobin 11.3 g/dL (13.0-18.0); Mean Corp Hgb Conc. 34.9 g/dL (33.0-37.0); Mean Corpuscular Volume 92.8 fL (80.0-94.0); Nucleated Red Blood Cells % 0 % (-); Platelet Count 70 10^3/uL (130-400); Red Cell Dist. Width 14.5 % (11.5-14.5)
[2025-09-30 09:48] LABS: Blood Urea Nitrogen 22 mg/dl (9-20); Calcium 8.9 mg/dl (8.4-10.2); Carbon Dioxide 22 mmol/L (22-30); Chloride 105 mmol/L (98-107); Glucose 106 mg/dl (70-99); Sodium 132 mmol/L (135-145); eGFR > 60.00
== END 2025-09-30 10:41 | disposition home or self-care (01) ==
LOC: EMR 08:27
PROVIDERS: Registered Nurse; EMERGENCY PHYSICIAN Emergency Medicine; FAMILY PHYSICIAN Nurse Practitioner Family
DX: R14.0 Abdominal distension (gaseous) (principal); R53.83 Other fatigue; R42 Dizziness and giddiness; I10 Essential (primary) hypertension; J45.909 Unspecified asthma, uncomplicated; E03.9 Hypothyroidism, unspecified
CPT/HCPCS: 99284; 76705; 80048; 85025